=== PATIENT | female | born 1940 | race Caucasian/White ===

== ENCOUNTER 2019-02-19 19:05 | Inpatient (IN) | payer MEDICARE, SELFPAY ==
[2019-02-19 19:07] VITALS: BP 144/70; PULSE 89; RESP 14; TEMP 37; O2SAT 97; BMI 22.3
--- NOTE | 2019-02-19 19:37 | ED.VIS.GEN ---
History of Present Illness Informant: Patient Onset: Weeks - 2-weeks Context: Gradual Onset Timing: Continuous Quality: feels ill Location: entire body Current Severity: Severe Maximum Severity: Severe Worsened by: Nothing Relieved by: Nothing Associated Symptoms: constipation, urinary frequency Narrative: 78-year-old female history of hypertension presents emergency department with I feel pill for the last 2 weeks. She has seen her primary care physician twice over this time. Initially diagnosed with a UTI. She was started on Keflex. She states that she did not like the way that the Keflex made her feel after 2 days and exposure to Macrobid. Patient has not had improvement. She has been doing some constipation. She had one episode of vomiting last evening. She also has urinary frequency. No fevers. No abdominal pain or back pain. No hematuria. No dysuria. No chest pain or shortness of breath. No cough. No rash. Prior similar symptoms: No Recent Illness/Hospitalization: No <Orlando Saldana - Last Filed: 02/19/19 19:37> <Margie Grady - Last Filed: 02/19/19 22:23> Chief Complaint: General Illness Past Medical History Prior records reviewed: Yes Past Medical History: - - Hypertension and GERD Surgical History: - - Carpal tunnel surgery Lives: With Family <Orlando Saldana - Last Filed: 02/19/19 19:37> <Margie Grady - Last Filed: 02/19/19 22:23> - Allergies and Home Meds Allergies/Adverse Reactions: Allergies Penicillins [PCN] Adverse Reaction (Verified 02/19/19 19:07) Unknown Sulfa (Sulfonamide Antibiotics) Adverse Reaction (Verified 02/19/19 19:07) Unknown Primary Care Physician: Luis Manuel Arguello MD [Primary Care Provider] - Review of Systems All systems negative except as indicated General: Reports: Malaise. Denies: Chills, Fever Cardiovascular: Denies: Chest pain Respiratory: Denies: Dyspnea Gastrointestinal: Reports: Nausea, Vomiting, Constipation. Denies: Abdominal pain, Diarrhea, Melena, Hematochezia Genitourinary: Reports: Frequency. Denies: Dysuria, Hematuria Musculoskeletal: Denies: Myalgias, Arthralgias, Back pain Skin: Denies: Rash, Abscess, Abrasions, Wounds Neurological: Denies: Headache, Weakness, Parasthesia, Numbness <Orlando Saldana - Last Filed: 02/19/19 19:37> Physical Exam Vital Signs/Narrative: Vital Signs Temp Pulse Resp BP Pulse Ox 02/19/19 19:07 98.6 F 89 14 144/70 H 97 Inital Vital Signs reviewed: Yes General: Well nourished, Well developed, No Acute Distress Head: Normocephalic, Atraumatic Eyes: EOMI ENT: Moist mucous membranes Neck: Supple, Nontender, No lymphadenopathy, No JVD Cardiovascular: Regular rate, Regular rhythm Respiratory: No distress, CTA bilaterally, Chest nontender Abdomen: Soft, Nontender, Nondistended, Normal bowel sounds, No masses Back: Nontender, Normal Inspection. Negative for: CVA tenderness Extremities: Nontender, No edema Skin: Normal color, No rash Neurological: Alert, Oriented x3 Psychological: Normal affect <Orlando Saldana - Last Filed: 02/19/19 19:37> Vital Signs/Narrative: Vital Signs Temp Pulse Resp BP Pulse Ox 02/19/19 21:47 94 15 123/59 H 02/19/19 19:07 98.6 F 89 14 144/70 H 97 <Margie Grady - Last Filed: 02/19/19 22:23> Diagnostic/Tx/Re-eval Impressions Gallbladder Ultrasound 02/19/19 20:20 IMPRESSION: Contracted gallbladder with multiple shadowing stones. Borderline gallbladder wall thickening at 3 mm. Human Resources Benefits Administrator notes a negative Abebe's sign, and no pericholecystic fluid noted. Fatty liver, no discrete lesion Sonographically normal right kidney. Nonspecific focal dilatation of the lower thoracic aorta measuring 3.6 x 3.3 cm Electronically Signed: Sanchez Beatty MD at 22:02 EST , Service support , 02/19/19 20:20 Gallbladder [US] Stat Laboratory Results 02/19/19 02/19/19 02/19/19 19:45 19:50 19:50 WBC 11.0 RBC 4.70 Hgb 12.9 Hct 38.1 MCV 81.1 MCH 27.4 MCHC 33.9 RDW Std Deviation 39.4 RDW Coeff of Castillo 13.4 Plt Count 320 MPV 8.7 Immature Gran % (Auto) 0.400 Neut % (Auto) 73.9 H Lymph % (Auto) 8.9 L Gregg % (Auto) 15.4 H Eos % (Auto) 1.1 Baso % (Auto) 0.3 Absolute Neuts (auto) 8.1 H Absolute Lymphs (auto) 0.98 Nucleated RBC % 0 Differential Comment SCANNED Platelet Estimate ADEQUATE RBC Morphology NORM C+C Sodium 133 L Potassium 3.4 L Chloride 100 Carbon Dioxide 27.0 Anion Gap 6 BUN 15 Creatinine 0.97 Estim Creat Clear Calc 41.94 Est GFR (MDRD) Af Amer 72 Est GFR (MDRD) Non-Af 59 L BUN/Creatinine Ratio 15.5 Glucose 112 H Calcium 9.4 Total Bilirubin 3.60 H AST 375 H ALT 665 H Alkaline Phosphatase 252 H Total Protein 7.7 Albumin 3.8 Globulin 3.9 Albumin/Globulin Ratio 1.0 Lipase Urine Color Yellow Urine Clarity Clear Urine pH 6.5 Ur Specific [place] 1.005 Urine Protein 30 H Urine Glucose (UA) Normal Urine Ketones Negative Urine Occult Blood 10 H Urine Nitrite Negative Urine Bilirubin Negative Urine Urobilinogen Normal Ur Leukocyte Esterase Negative Urine RBC 0 SEEN Urine WBC 0 SEEN Ur Squamous Epith Cells 0-5 SEEN Urine Bacteria 0 SEEN Urine Mucus 0 SEEN 02/19/19 19:50 WBC RBC Hgb Hct MCV MCH MCHC RDW Std Deviation RDW Coeff of Castillo Plt Count MPV Immature Gran % (Auto) Neut % (Auto) Lymph % (Auto) Gregg % (Auto) Eos % (Auto) Baso % (Auto) Absolute Neuts (auto) Absolute Lymphs (auto) Nucleated RBC % Differential Comment Platelet Estimate RBC Morphology Sodium Potassium Chloride Carbon Dioxide Anion Gap BUN Creatinine Estim Creat Clear Calc Est GFR (MDRD) Af Amer Est GFR (MDRD) Non-Af BUN/Creatinine Ratio Glucose Calcium Total Bilirubin AST ALT Alkaline Phosphatase Total Protein Albumin Globulin Albumin/Globulin Ratio Lipase 1795 H Urine Color Urine Clarity Urine pH Ur Specific [place] Urine Protein Urine Glucose (UA) Urine Ketones Urine Occult Blood Urine Nitrite Urine Bilirubin Urine Urobilinogen Ur Leukocyte Esterase Urine RBC Urine WBC Ur Squamous Epith Cells Urine Bacteria Urine Mucus - Medical Decision Making Attending note: Patient seen and evaluated with physician's financial planning assistant. Patient presents with several week history of poor appetite and p.o. intake. She states she gets hungry but food does not taste normal to her and she is unable to eat. She has been able to drink water. She initially denies pain, but on later questioning states that she has had some returning upper abdominal pain. She has had this pain in the past. Head and neck examination is unremarkable. Heart is regular rate and rhythm. Lung sounds are clear. Abdomen is soft with minimal tenderness over the upper abdomen. No guarding or rebound. Test results are discussed with patient. Her liver function tests are elevated. Hepatitis panel has been sent. Lipase is elevated at 1700. I advised the patient at this point I would prefer she not eat or drink anything and attempts to improve her pancreatitis. Ultrasound was obtained and does not show any acute abnormalities in the pancreas. Common bile duct is normal. There may be some stones in the gallbladder with shadowing, but wall is only mildly thickened and there is no pericholecystic fluid. I will speak with hospitalist regarding admission for monitoring of labs. <Margie Grady - Last Filed: 02/19/19 22:23> ED Disposition <Orlando Saldana - Last Filed: 02/19/19 19:37> <Margie Grady - Last Filed: 02/19/19 22:23> - Plan for ED Patient: Disposition: Acute Care Hospital [facility] Diagnosis: Pancreatitis, Elevated liver enzymes Referrals: Luis Manuel Arguello MD [Primary Care Provider] -
[2019-02-19] MEDS: Ondansetron 4 MG/2 ML Vial IV (19:51)
[2019-02-19] MEDS: 0.9% Normal Saline 1,000 ML 1000 ML IV (19:52)
[2019-02-19 19:55] LABS: Bacteria 0 SEEN /hpf (None Seen); Mucous, Urine 0 SEEN /hpf (<or=2+); Red Blood Cells-Urine 0 SEEN /hpf (0-5); White Blood Cells 0 SEEN /hpf (0-5)
[2019-02-19 19:58] LABS: Absolute Lymphocyte Count 0.98 X10^3/uL (0.83-4.51); Absolute Neutrophil Count 8.1 X10^3/uL (2.0-7.7); Basophil# 0.03 X10^3/uL; Basophil% 0.3 % (0-1); Eosinophil# 0.12 X10^3/uL; Eosinophils% 1.1 % (0-5); Hematocrit 38.1 % (37-47); Hemoglobin 12.9 g/dL (12.0-15.0); Lymphocyte # 0.98 X10^3/ul (4.0); Lymphocyte % 8.9 % (19-41); Mean Corp Hgb Conc 33.9 g/dL (32-36); Mean Corpuscular Hgb 27.4 pg (27.0-32.0); Mean Corpuscular Volume 81.1 fL (81-99); Mean Platelet Vol. 8.7 fl (6.2-12.0); Monocyte# 1.69 X10^3/uL; Monocyte% 15.4 % (0-10); NRBC Flagged by Analyzer 0 % (0-5); Neutrophil # 8.12 X10^3/uL (2.7-7.7); Neutrophil % 73.9 % (47-70); POSITIVE DIFFERENTIAL YES; Platelet Count 320 K/mm3 (150-450); RBC Distribution Width CV 13.4 % (11.6-14.6); RBC Distribution Width SD 39.4 fl (35.1-43.9)
[2019-02-19 20:02] LABS: Differential Indicated SCAN CRITERIA MET
[2019-02-19 20:09] LABS: Color, Urine Yellow (Yellow); Glucose, Dipstick Normal (Normal); Ketone-Dipstick Negative (Negative); Leukocyte Esterase-Dipstick Negative /ul (Negative); Nitrite-Dipstick Negative (Negative); Occult Blood-Urine 10 /ul (Negative); Protein-Dipstick 30 mg/dl (Negative); Specific Gravity, Urine 1.005 (1.002-1.030); Urine Bilirubin Dipstick Negative (Negative); Urine Clarity Clear (Clear); Urine Urobilinogen Normal (Normal); Urine pH 6.5 (5.0 - 8.0)
[2019-02-19 20:14] LABS: AST(SGOT) 375 U/L (15-37); Alanine Aminotransfer ALT/SGPT 665 U/L (13-56); Albumin, Serum 3.8 g/dL (3.2-5.0); Alkaline Phosphatase 252 U/L (45-117); Anion Gap 6 (5-15); BUN 15 mg/dL (7-18); BUN/Creat Ratio 15.5 RATIO (10-20); Calcium,Total 9.4 mg/dL (8.5-10.1); Chloride 100 mmol/L (98-107); Creatinine, Serum 0.97 mg/dL (0.55-1.02); EST Glomerular Filtration Rate 59 mL/min (>60); Est Glom Filt Rate - Afr Amer 72 mL/min (>60); Estimated Creatinine Clearance 41.94 ml/min; Globulin 3.9 g/dL (2.2-4.2); Glucose 112 mg/dL (74-106); Potassium 3.4 mmol/L (3.5-5.1); Protein, Total 7.7 g/dL (6.4-8.2); Sodium Level 133 mmol/L (136-145)
[2019-02-19 20:15] LABS: Squamous Epithelial Cells - UA 0-5 SEEN /hpf (5-10)
--- NOTE | 2019-02-19 20:20 | US_ITS ---
STUDY: ABDOMINAL ULTRASOUND - RIGHT UPPER QUADRANT REASON FOR VISIT: Female, 78 years old elevated LFTs TECHNIQUE: Ultrasound evaluation of the right upper quadrant was performed with real-time and static pierce-scale imaging. TECHNICAL QUALITY: Adequate. COMPARISON: None. FINDINGS: Liver: The liver measures 16.0 cm. There is increased echogenicity consistent with fatty infiltration. The bile ducts are within normal limits. There is hepatic color flow. The direction of portal flow is hepatopetal. There is no demonstrated mass lesion. Gallbladder: There is a contracted gallbladder. The gallbladder wall measures 3 mm. There is a negative sonographic Abebe's sign. There is no pericholecystic fluid. There are multiple echogenic structures within the gallbladder, consistent with multiple gallstones. Common Bile Duct (C.B.D.): The common bile duct measures 9 mm. Pancreas: Normal size of the head, body and tail of the pancreas. There is normal echogenicity of the pancreas. There is no demonstrated pancreatic mass or cyst. Right Kidney: Normal size of the right kidney. The right kidney measures 11.2 x 4.1 x 4.5 cm. Normal renal cortex. The right cortex measures cm. There is no demonstrated renal mass or cyst. There is no right hydronephrosis. US/Gallbladder IMPRESSION: Contracted gallbladder with multiple shadowing stones. Borderline gallbladder wall thickening at 3 mm. Sales Service Manager notes a negative Abebe's sign, and no pericholecystic fluid noted. Fatty liver, no discrete lesion Sonographically normal right kidney. Nonspecific focal dilatation of the lower thoracic aorta measuring 3.6 x 3.3 cm Electronically Signed: Sanchez Beatty MD at 22:02 EST , Service support ,
[2019-02-19 20:27] LABS: Differential Comment SCANNED; Platelet Estimate ADEQUATE (ADEQ); Red Cell Morphology NORM C+C NORMAL (NORM C&C)
[2019-02-19 20:37] LABS: Lipase 1795 U/L (73-393)
[2019-02-19 21:47] VITALS: BP 123/59; PULSE 94; RESP 15
--- NOTE | 2019-02-19 22:32 | PCM.HP.STD ---
Problem List (1) Pancreatitis Status: Acute (2) Elevated liver enzymes Status: Acute History of Present Illness Date of Admission: 02/19/19 Chief Complaint: Dysgeusia The patient is a 78 year old F with a significant history of hypertension and partial hysterectomy who presented to emergency department with dysgeusia x2 to 4 weeks. Patient is unable to eat since she has a poor taste. Her poor taste is continuous although at times it fades away; but it never goes away. Further, she reports dysosmia. She has an episodic sweet smell of food. More so, she complains of severe episodic nonradiating aching/dull kimber-umbilical pain. She has had some nausea and one-time episode of vomiting. She reported that previously omeprazole use to help with her periumbilical pain but now omeprazole seems not to be helping with her pain. She took Mylanta a day before presentation after which she vomited. She reported that although she was previously constipated she had a loose large bowel movement on the day before presentation. Although previously she stated that she took the Mylanta because her bowels was not moving later on she stated that she does not remember the real reason why she took the Mylanta. Patient is being treated with antibiotics for UTI and she has 2 more doses of antibiotics left. At the emergency department she had elevated liver enzymes; elevated lipase and ultrasonographic findings of a contracted gallbladder with shadowing of stones. Past Medical History Medical History: Medical History (Last Updated 02/19/19 @ 23:32 by Jeffrey Costello MD) Hypertension I10 Allergies Penicillins [PCN] Adverse Reaction (Verified 02/19/19 19:07) Unknown Sulfa (Sulfonamide Antibiotics) Adverse Reaction (Verified 02/19/19 19:07) Unknown Home Medications: Ambulatory Orders Medication Instructions Recorded Amlodipine Besylate 10 mg PO DAILY 02/19/19 Enalapril Maleate 20 mg PO DAILY 02/19/19 Metoprolol Tartrate [Lopressor 50 mg PO BID 02/19/19 (beta judith)] Nitrofurantoin Macrocrystals 100 mg PO BID 02/19/19 [Macrobid] Omeprazole 20 mg PO DAILY 02/19/19 Surgical History: hysterectomy - Partial, - - Carpal tunnel surgery Lives: With Family Smoking Status: Former smoker Alcohol: None Drugs: Marijuana - *Family History Maternal History Items: Cancer Paternal History Items: Heart Disease Review of Systems Constitutional: Reports: Anorexia, Malaise. Denies: Chills, Fever, Weight Change HEENT: Denies: Head Aches, Sinus Congestion, Sinus Drainage Cardiovascular: Denies: Chest Pain, Palpitations Respiratory: Denies: Cough, Shortness of breath at rest, Sputum production Gastrointestinal: Reports: Abdominal Pain, Nausea, Vomiting Genitourinary: Denies: Dysuria Musculoskeletal: Denies: Joint Pain, Joint Tenderness Skin: Denies: Rash, Wounds Neurological: Denies: Numbness, Tingling, Focal weakness Psychiatric: Denies: Anxiety, Depression, Homicidal Ideations, Suicidal Ideations Hematologic/ Lymphatic: Denies: Easy Bruising, Easy Bleeding VTE Information - Inpt Only VTE Present on Admission: No VTE Mechan Device Prophylaxis: None VTE Pharm Prophylaxis ordered?: Yes Patient Problems: Active and Suspected Problems (Last Updated 02/19/19 @ 23:32 by Jeffrey Costello MD) Pancreatitis (Acute) Elevated liver enzymes (Acute) - Physical Exam Vitals/I&O's: Vital Signs Temp Pulse Resp BP Pulse Ox 98.6 F 94 15 123/59 H 97 02/19/19 19:07 02/19/19 21:47 02/19/19 21:47 02/19/19 21:47 02/19/19 19:07 Oxygen Delivery Method Room Air Weight: 59 kg Body Mass Index (BMI) 22.3 Intake and Output for Last 24 Hours 02/17/19 02/18/19 02/19/19 23:59 23:59 22:59 Intake Total 1000 / 1000 Balance 1000 / 1000 General: Alert, Oriented x3, Cooperative HEENT: Atraumatic, PERRLA, EOMI, Normocephalic Neck: Supple, No JVD, Negative Carotid Bruits Lungs: Clear to auscultation, Normal air movement Cardiovascular: Regular rate, No murmurs Abdomen: Bowel Sounds Present, Soft, Non Tender Extremities: No edema, Capillary Refill Less than 3 Seconds Skin: No rashes, No breakdown Musculoskeletal: No Tenderness to Palpation of Joints or Extremities Neurological: Cranial nerves II-XII grossly intact Psych/Mental Status: Normal Affect, Appropriate Laboratory Results 02/19/19 19:45: Urine Color Yellow, Urine Clarity Clear, Urine pH 6.5, Ur Specific [place] 1.005, Urine Protein 30 H, Urine Glucose (UA) Normal, Urine Ketones Negative, Urine Occult Blood 10 H, Urine Nitrite Negative, Urine Bilirubin Negative, Urine Urobilinogen Normal, Ur Leukocyte Esterase Negative, Urine RBC 0 SEEN, Urine WBC 0 SEEN, Ur Squamous Epith Cells 0-5 SEEN, Urine Bacteria 0 SEEN, Urine Mucus 0 SEEN 02/19/19 19:50: WBC 11.0, RBC 4.70, Hgb 12.9, Hct 38.1, MCV 81.1, MCH 27.4, MCHC 33.9, RDW Std Deviation 39.4, RDW Coeff of Castillo 13.4, Plt Count 320, MPV 8.7, Immature Gran % (Auto) 0.400, Neut % (Auto) 73.9 H, Lymph % (Auto) 8.9 L, [place] % (Auto) 15.4 H, Eos % (Auto) 1.1, Baso % (Auto) 0.3, Absolute Neuts (auto) 8.1 H, Absolute Lymphs (auto) 0.98, Nucleated RBC % 0, Differential Comment SCANNED, Platelet Estimate ADEQUATE, RBC Morphology NORM C+C 02/19/19 19:50: Sodium 133 L, Potassium 3.4 L, Chloride 100, Carbon Dioxide 27.0, Anion Gap 6, BUN 15, Creatinine 0.97, Estim Creat Clear Calc 41.94, Est GFR (MDRD) Af Amer 72, Est GFR (MDRD) Non-Af 59 L, BUN/Creatinine Ratio 15.5, Glucose 112 H, Calcium 9.4, Total Bilirubin 3.60 H, AST 375 H, ALT 665 H, Alkaline Phosphatase 252 H, Total Protein 7.7, Albumin 3.8, Globulin 3.9, Albumin/Globulin Ratio 1.0 02/19/19 19:50: Lipase 1795 H 02/19/19 20:30: Hepatitis A IgM Ab Pending, Hep Bs Antigen Pending, Hep B Core IgM Ab Pending, Hepatitis C Ab (EIA) Pending Assessment/Plan All Active Problems (Last Updated 02/19/19 @ 23:32 by Jeffrey Costello MD) Pancreatitis (Acute) Elevated liver enzymes (Acute) The patient is a 78 year old F with a significant history of hypertension and partial hysterectomy who presented to emergency department with dysgeusia; dysosmia; kimber-umbilical pain; nausea and vomiting and found to have elevated liver enzymes; elevated lipase and ultrasonographic findings of a contracted gallbladder with shadowing of stones consistent with pancreatitis likely secondary to gallstones. Acute pancreatitis Patient noted to have elevated lipase; kimber-umbilical pain; gallbladder findings of contracted gallbladder and stone shadowing; elevated liver enzymes. Likely secondary to gallstones. Received normal saline bolus at the emergency department. Judicious use of IV fluids because of patient age. Of note she denies history of heart failure. Will start patient on lactated Ringer's at 150 mL's per hour. We will get stat lipid levels. Shared decision to start patient on clear liquid diet. Zofran as needed. At the time of evaluation patient denies any abdominal pain. However will order morphine IV as needed. We will consult general surgery for evaluation for cholecystectomy. Elevated Liver enzymes Her liver enzymes were elevated at the emergency department. AST was 375 (normal 15-37); ALT was 665 (normal 13-56); alkaline phosphatase was 252 (normal 45-117); total bilirubin was 3.60 (normal 0.20-1.00) Review of labs from EMR ([employer]): Liver enzymes on 03/09/2018 at the [facility] was unremarkable. AST at that time was 22 (normal 13-35); ALT was 12 (normal 7-38); alkaline phosphatase was 80 (normal 34-123): Total bilirubin was 0.3 (normal 0.2-1.3) Trend CMP Acute hepatitis panel was ordered at the emergency department; follow. Check PT/INR Different diagnoses include viral hepatitis; gallbladder disease or others. Hypokalemia Potassium presentation was 3.4; mild 40 mEq of potassium p.o. ordered. Placed on lactated Ringer's. Trend CMP Hyponatremia Her sodium on admission was 133 Mild likely secondary to vomiting. Received normal saline bolus in the emergency department Placed on lactated Ringer's infusion. Trend CMP as above Neutrophilia and monocytosis Noted to have elevated neutrophil count and monocytes. Trend. Hypertension On presentation his blood pressure was stable in regard to her age Amlodipine; Enalapril and Lopressor continued Recent UTI Continue Macrobid for 2 more doses per home prescription. GERD Omeprazole continued Marijuana abuse Counseled DVT prophylaxis Lovenox ordered. Code Visit Inpatient E&M: 29479 Init Hosp L3
[2019-02-19 22:46] VITALS: PULSE 80; RESP 16
[2019-02-19 23:01] LABS: Cholesterol 176 mg/dL (200); High Density Lipoprotein 26 mg/dL; Triglycerides 143 mg/dL; Very Low Density Lipoprotein 29 mg/dL (5-40)
[2019-02-19 23:06] VITALS: BMI 22.6
[2019-02-19 23:25] VITALS: BP 129/68; PULSE 100; RESP 16; TEMP 36.8; O2SAT 92
[2019-02-19] MEDS: Lactated Ringers 1,000 ML 150 ML IV (23:39)
[2019-02-19] MEDS: 0.9% Saline Lock 10 ML Syringe IV (23:39)
[2019-02-20] VITALS (14 sets, daily range): BP systolic 109–152; BP diastolic 57–95; PULSE 87–123; RESP 12–20; TEMP 36.8–37.4; O2SAT 93–99; BMI 22.6
[2019-02-20] MEDS: Lactated Ringers 1,000 ML 150 ML IV ×3 (05:29→19:56)
[2019-02-20 05:42] LABS: Absolute Lymphocyte Count 0.54 X10^3/uL (0.83-4.51); Absolute Neutrophil Count 5.5 X10^3/uL (2.0-7.7); Basophil# 0.02 X10^3/uL; Basophil% 0.3 % (0-1); Eosinophil# 0.25 X10^3/uL; Eosinophils% 3.2 % (0-5); Hematocrit 32.7 % (37-47); Lymphocyte # 0.54 X10^3/ul (4.0); Mean Corp Hgb Conc 33.6 g/dL (32-36); Mean Corpuscular Hgb 27.6 pg (27.0-32.0); Mean Corpuscular Volume 82.2 fL (81-99); Monocyte# 1.42 X10^3/uL; Monocyte% 18.4 % (0-10); NRBC Flagged by Analyzer 0 % (0-5); Neutrophil # 5.45 X10^3/uL (2.7-7.7); Neutrophil % 70.7 % (47-70); POSITIVE DIFFERENTIAL YES; Platelet Count 295 K/mm3 (150-450); RBC Distribution Width CV 13.8 % (11.6-14.6); RBC Distribution Width SD 41.4 fl (35.1-43.9); Red Blood Count 3.98 M/mm3 (4.2-5.4); White Blood Count 7.7 K/mm3 (4.4-11.0)
[2019-02-20 05:46] LABS: Differential Indicated SCAN CRITERIA MET
[2019-02-20 05:54] LABS: International Normalized Ratio 1.1; Prothrombin Time (Protime)PT. 13.7 SECONDS (11.7-14.9)
[2019-02-20 06:10] LABS: ALB/GLOB Ratio 0.9 RATIO (0.9-2.4); AST(SGOT) 183 U/L (15-37); Alanine Aminotransfer ALT/SGPT 434 U/L (13-56); Albumin, Serum 2.9 g/dL (3.2-5.0); Alkaline Phosphatase 209 U/L (45-117); Anion Gap 8 (5-15); BUN 9 mg/dL (7-18); BUN/Creat Ratio 11.9 RATIO (10-20); Calcium,Total 8.5 mg/dL (8.5-10.1); Chloride 108 mmol/L (98-107); Creatinine, Serum 0.75 mg/dL (0.55-1.02); EST Glomerular Filtration Rate 79 mL/min (>60); Est Glom Filt Rate - Afr Amer 96 mL/min (>60); Estimated Creatinine Clearance 40.68 ml/min; Globulin 3.1 g/dL (2.2-4.2); Glucose 106 mg/dL (74-106); Potassium 3.6 mmol/L (3.5-5.1); Sodium Level 141 mmol/L (136-145)
[2019-02-20 06:25] LABS: Differential Comment SCANNED
--- NOTE | 2019-02-20 08:09 | PCM.CONS.GEN ---
Problem List (1) Pancreatitis Status: Acute (2) Elevated liver enzymes Status: Acute Reason for Consult Date of Consultation: 02/20/19 Reason for Consultation: Acute gallstone pancreatitis History of Present Illness: The patient is a 78 year old F who presents with 1 month history of decreased appetite, increased sense of smell, occasional night gomez. Her main concern is that she is not able to eat. She denies abdominal pain. She notes occasional back pain and nausea. She denies having these symptoms previously. She was relating this to the CBD gummies that she had tried. She takes occasional omeprazole. She denies previous myocardial infarction, stroke and blood clots. Past Medical History Medical History: Medical History (Last Updated 02/19/19 @ 23:32 by Jeffrey Costello MD) Hypertension I10 Allergies Penicillins [PCN] Adverse Reaction (Verified 02/19/19 19:07) Unknown Sulfa (Sulfonamide Antibiotics) Adverse Reaction (Verified 02/19/19 19:07) Unknown Home Medications: Ambulatory Orders Medication Instructions Recorded Amlodipine Besylate 10 mg PO DAILY 02/19/19 Enalapril Maleate 20 mg PO DAILY 02/19/19 Metoprolol Tartrate [Lopressor 50 mg PO BID 02/19/19 (beta judith)] Nitrofurantoin Macrocrystals 100 mg PO BID 02/19/19 [Macrobid] Omeprazole 20 mg PO DAILY 02/19/19 Surgical History: hysterectomy - Partial, - - Carpal tunnel surgery Psychiatric History: Anxiety Lives: With Family Smoking Status: Former smoker Alcohol: None Drugs: Marijuana - *Family History Maternal History Items: Cancer Paternal History Items: Heart Disease Review of Systems Constitutional: Reports: Anorexia. Denies: Weight Change HEENT: Denies: Head Aches, Sinus Congestion, Sinus Drainage Cardiovascular: Denies: Chest Pain, Palpitations Respiratory: Denies: Cough, Shortness of breath at rest, Sputum production Gastrointestinal: Reports: Nausea. Denies: Abdominal Pain, Hematemesis, Vomiting Genitourinary: Reports: Dysuria Musculoskeletal: Denies: Joint Pain, Joint Tenderness Skin: Denies: Rash, Wounds Neurological: Denies: Numbness, Tingling, Focal weakness Psychiatric: Denies: Anxiety, Depression, Homicidal Ideations, Suicidal Ideations Hematologic/ Lymphatic: Denies: Easy Bruising, Easy Bleeding Patient Problems: Active and Suspected Problems (Last Updated 02/19/19 @ 23:32 by Jeffrey Costello MD) Pancreatitis (Acute) Elevated liver enzymes (Acute) - Physical Exam Vitals/I&O's: Vital Signs Temp Pulse Resp BP Pulse Ox 98.3 F 97 16 129/67 H 96 02/20/19 05:30 02/20/19 05:30 02/20/19 05:30 02/20/19 05:30 02/20/19 05:30 Oxygen Delivery Method Room Air Weight: 131 lb 14.4 oz Body Mass Index (BMI) 22.6 Intake and Output for Last 24 Hours 02/19/19 02/19/19 02/20/19 00:59 23:59 23:59 Intake Total 975 / 975 Output Total 550 / 550 Balance 425 / 425 General: Alert, Oriented x3, Cooperative HEENT: Atraumatic, PERRLA, EOMI, Normocephalic Neck: Supple, No JVD, Negative Carotid Bruits Lungs: Clear to auscultation, Normal air movement Cardiovascular: Murmur, Tachycardic Abdomen: Bowel Sounds Present, Soft, Non Tender, - - nicely healed low pelvic incision Extremities: No edema, Capillary Refill Less than 3 Seconds Skin: No rashes, No breakdown Musculoskeletal: No Tenderness to Palpation of Joints or Extremities Neurological: Neuro grossly intact Psych/Mental Status: Normal Affect, Appropriate Laboratory Results 02/19/19 19:45: Urine Color Yellow, Urine Clarity Clear, Urine pH 6.5, Ur Specific [place] 1.005, Urine Protein 30 H, Urine Glucose (UA) Normal, Urine Ketones Negative, Urine Occult Blood 10 H, Urine Nitrite Negative, Urine Bilirubin Negative, Urine Urobilinogen Normal, Ur Leukocyte Esterase Negative, Urine RBC 0 SEEN, Urine WBC 0 SEEN, Ur Squamous Epith Cells 0-5 SEEN, Urine Bacteria 0 SEEN, Urine Mucus 0 SEEN 02/19/19 19:50: WBC 11.0, RBC 4.70, Hgb 12.9, Hct 38.1, MCV 81.1, MCH 27.4, MCHC 33.9, RDW Std Deviation 39.4, RDW Coeff of Castillo 13.4, Plt Count 320, MPV 8.7, Immature Gran % (Auto) 0.400, Neut % (Auto) 73.9 H, Lymph % (Auto) 8.9 L, [place] % (Auto) 15.4 H, Eos % (Auto) 1.1, Baso % (Auto) 0.3, Absolute Neuts (auto) 8.1 H, Absolute Lymphs (auto) 0.98, Nucleated RBC % 0, Differential Comment SCANNED, Platelet Estimate ADEQUATE, RBC Morphology NORM C+C 02/19/19 19:50: Sodium 133 L, Potassium 3.4 L, Chloride 100, Carbon Dioxide 27.0, Anion Gap 6, BUN 15, Creatinine 0.97, Estim Creat Clear Calc 41.94, Est GFR (MDRD) Af Amer 72, Est GFR (MDRD) Non-Af 59 L, BUN/Creatinine Ratio 15.5, Glucose 112 H, Calcium 9.4, Total Bilirubin 3.60 H, AST 375 H, ALT 665 H, Alkaline Phosphatase 252 H, Total Protein 7.7, Albumin 3.8, Globulin 3.9, Albumin/Globulin Ratio 1.0 02/19/19 19:50: Lipase 1795 H 02/19/19 19:50: Triglycerides 143, Cholesterol 176, LDL Cholesterol 121, VLDL Cholesterol 29, HDL Cholesterol 26 L 02/19/19 20:30: Hepatitis A IgM Ab Pending, Hep Bs Antigen Pending, Hep B Core IgM Ab Pending, Hepatitis C Ab (EIA) Pending 02/20/19 05:14: WBC 7.7, RBC 3.98 L, Hgb 11.0 L, Hct 32.7 L, MCV 82.2, MCH 27.6, MCHC 33.6, RDW Std Deviation 41.4, RDW Coeff of Castillo 13.8, Plt Count 295, MPV 9.0, Immature Gran % (Auto) 0.400, Neut % (Auto) 70.7 H, Lymph % (Auto) 7.0 L, [place] % (Auto) 18.4 H, Eos % (Auto) 3.2, Baso % (Auto) 0.3, Absolute Neuts (auto) 5.5, Absolute Lymphs (auto) 0.54 L, Nucleated RBC % 0, Differential Comment SCANNED 02/20/19 05:14: PT 13.7, INR 1.1 02/20/19 05:14: Sodium 141, Potassium 3.6, Chloride 108 H, Carbon Dioxide 25.0, Anion Gap 8, BUN 9, Creatinine 0.75, Estim Creat Clear Calc 40.68, Est GFR (MDRD) Af Amer 96, Est GFR (MDRD) Non-Af 79, BUN/Creatinine Ratio 11.9, Glucose 106, Calcium 8.5, Total Bilirubin 2.80 H, AST 183 H, ALT 434 H, Alkaline Phosphatase 209 H, Total Protein 6.0 L, Albumin 2.9 L, Globulin 3.1, Albumin/Globulin Ratio 0.9 Current Medications Acetaminophen (Tylenol) 650 mg PO Q6H PRN PRN PRN Reason: Pain Score 1-5/Temp > 100.7 F Amlodipine Besylate (Norvasc) 10 mg PO DAILY [facility] Dextrose (D50w Syringe) 0 gm IV X1 PRN; Protocol PRN Reason: Hypoglycemia Enoxaparin Sodium (Lovenox) 40 mg SC DAILY@1000 MICHAEL Glucagon () 1 mg IM .X1 PRN PRN Reason: Hypoglycemia Lactated Ringer's () 1,000 mls @ 150 mls/hr IV .Q6H40M [facility] Stop: 02/21/19 01:49 Last Admin: 02/20/19 05:29 Dose: 150 mls/hr Documented by: Sodium Chloride () 250 mls @ 15 mls/hr IV .[id number] PRN PRN Reason: Saline Flush Lisinopril (Zestril) 20 mg PO DAILY [facility] Metoprolol Tartrate (Lopressor (Beta Judith)) 50 mg PO BID [facility] Morphine Sulfate () 2 mg IV Q3H PRN PRN PRN Reason: Pain Score 6-10/10 Nitrofurantoin Macrocrystals (Macrobid) 100 mg PO BID [facility] Stop: 02/20/19 22:01 Nutritional Formula (Lactose Free) (Ensure Clear) 120 ml PO 4X/DAY [facility] Ondansetron HCl (Zofran) 4 mg IV Q8H PRN PRN PRN Reason: NAUSEA/VOMITING Pantoprazole Sodium (Protonix) 20 mg PO DAILY [facility] Sodium Chloride () 10 - 40 ml IV UD PRN PRN Reason: SALINE FLUSH Last Admin: 02/19/19 23:39 Dose: 10 ml Documented by: Assessment/Plan All Active Problems (Last Updated 02/19/19 @ 23:32 by Jeffrey Costello MD) Pancreatitis (Acute) Elevated liver enzymes (Acute) I have been consulted in conjunction with Dr. Plasencia Impression: Acute gallstone pancreatitis Plan: Dr. Plasencia has independently evaluated this patient in conjunction with myself. Dr. Plasencia will plan to perform a laparoscopic cholecystectomy with intraoperative cholangiogram. Procedure details, risks and benefits have been explained. Patient has had the opportunity to ask and have questions answered. We will place patient on NPO, plan for cholecystectomy later this afternoon. Will order EKG prior to surgery. Thank you for allowing us to participate in this patient's care.
--- NOTE | 2019-02-20 08:16 | EKGRS_ITS ---
Test Reason : PREOP Blood Pressure : / mmHG Vent. Rate : 104 BPM Atrial Rate : 104 BPM P-R Int : 150 ms QRS Dur : 102 ms QT Int : 342 ms P-R-T Axes : 080 -14 090 degrees QTc Int : 449 ms Sinus tachycardia with Premature supraventricular complexes and with occasional Premature ventricular complexes Abnormal ECG Confirmed by JENNY YANEZ, MARGUERITE ([id number]), editor in chief newspaper LENY SMILEY ([id number]) on 02/22/2019 11:25:10 AM Referred By: Jeffrey Costello Confirmed By:MARGUERITE ALVARADO MD
--- NOTE | 2019-02-20 11:46 | CASEMGMT ---
RN CM Assessment Introduced role of RN CM to patient and patient two dtrs at bedside. Patient agrees to this junior underwriter speaking in Dtrs presence.? Patient is alert, oriented and able?to participate in RN CM Assessment. ?Care providers, pharmacy, and demographics verified. Presentation: C/o dysgeusia the past 2-4 weeks. Has been to PCP x2 for this and initially Dz w/UTI and started on Keflex with 2 days left. C/o dysosmia, Episodic kimber-umbilical pain, N/Vx1, constipation, urinary frequency. Admit Dx: Acute Pancreatitis Re-Admit: No Barriers/Issues: None PCP: Luis Manuel Arguello Specialists: None [facility] Insurance: [facility] Rx Benefit:?Yes ?LNOK: Friend Dash Fuller LW/HPOA: None and declines offered information or services on this admission. Aware can return as an outpatient to complete with SW dept. Living Arrangements:? Lives with friend in a SS home, no steps to enter. ADL?s: Independent with ambulation and ADLs Transportation: Patient drives DME: None HHC: None SNF: None Goal: Home and does not think will have any needs. Denies any questions, concerns, or issues with DC planning at this time. Aware CM remains available for any emerging needs. DC PLAN: Home with no anticipated needs identified at this time. VALERIA Corbin
[2019-02-20] MEDS: Metoprolol Tartrate 50 MG Tablet PO ×2 (12:02→21:29)
--- NOTE | 2019-02-20 12:53 | PCM.PROGNOTE ---
<Jimmy Frederick - Last Filed: 02/20/19 12:53> Patient Problems: Active and Suspected Problems (Last Updated 02/19/19 @ 23:32 by Jeffrey Costello MD) Pancreatitis (Acute) Elevated liver enzymes (Acute) Subjective: Pt seen and examined prior to surgery. At that time, no abdominal pain at all. Some nausea. No vomiting today. No fever/chills. Agreeable to surgery. - Physical Exam Vitals/I&O's: Vital Signs Temp Pulse Resp BP Pulse Ox 98.5 F 118 H 12 152/78 H 93 02/20/19 12:06 02/20/19 12:06 02/20/19 12:06 02/20/19 12:06 02/20/19 12:06 Oxygen Delivery Method Room Air Weight: 131 lb 14.406 oz Body Mass Index (BMI) 22.6 Intake and Output for Last 24 Hours 02/19/19 02/19/19 02/20/19 00:59 23:59 23:59 Intake Total 1955 / 1955 Output Total 550 / 550 Balance 1405 / 1405 General: Alert, Oriented x3, Cooperative HEENT: Atraumatic, PERRLA, EOMI, Normocephalic Neck: Supple, No JVD, Negative Carotid Bruits Lungs: Clear to auscultation, Normal air movement Cardiovascular: Regular rate, No murmurs Abdomen: Bowel Sounds Present, Soft, Non Tender Extremities: No edema, Capillary Refill Less than 3 Seconds Skin: No rashes, No breakdown Musculoskeletal: No Tenderness to Palpation of Joints or Extremities Neurological: Cranial nerves II-XII grossly intact Psych/Mental Status: Normal Affect, Appropriate, Alert and oriented to time, place, person, mood and affect Laboratory Results 02/19/19 19:45: Urine Color Yellow, Urine Clarity Clear, Urine pH 6.5, Ur Specific [place] 1.005, Urine Protein 30 H, Urine Glucose (UA) Normal, Urine Ketones Negative, Urine Occult Blood 10 H, Urine Nitrite Negative, Urine Bilirubin Negative, Urine Urobilinogen Normal, Ur Leukocyte Esterase Negative, Urine RBC 0 SEEN, Urine WBC 0 SEEN, Ur Squamous Epith Cells 0-5 SEEN, Urine Bacteria 0 SEEN, Urine Mucus 0 SEEN 02/19/19 19:50: WBC 11.0, RBC 4.70, Hgb 12.9, Hct 38.1, MCV 81.1, MCH 27.4, MCHC 33.9, RDW Std Deviation 39.4, RDW Coeff of Castillo 13.4, Plt Count 320, MPV 8.7, Immature Gran % (Auto) 0.400, Neut % (Auto) 73.9 H, Lymph % (Auto) 8.9 L, [place] % (Auto) 15.4 H, Eos % (Auto) 1.1, Baso % (Auto) 0.3, Absolute Neuts (auto) 8.1 H, Absolute Lymphs (auto) 0.98, Nucleated RBC % 0, Differential Comment SCANNED, Platelet Estimate ADEQUATE, RBC Morphology NORM C+C 02/19/19 19:50: Sodium 133 L, Potassium 3.4 L, Chloride 100, Carbon Dioxide 27.0, Anion Gap 6, BUN 15, Creatinine 0.97, Estim Creat Clear Calc 41.94, Est GFR (MDRD) Af Amer 72, Est GFR (MDRD) Non-Af 59 L, BUN/Creatinine Ratio 15.5, Glucose 112 H, Calcium 9.4, Total Bilirubin 3.60 H, AST 375 H, ALT 665 H, Alkaline Phosphatase 252 H, Total Protein 7.7, Albumin 3.8, Globulin 3.9, Albumin/Globulin Ratio 1.0 02/19/19 19:50: Lipase 1795 H 02/19/19 19:50: Triglycerides 143, Cholesterol 176, LDL Cholesterol 121, VLDL Cholesterol 29, HDL Cholesterol 26 L 02/19/19 20:30: Hepatitis A IgM Ab Pending, Hep Bs Antigen Pending, Hep B Core IgM Ab Pending, Hepatitis C Ab (EIA) Pending 02/20/19 05:14: WBC 7.7, RBC 3.98 L, Hgb 11.0 L, Hct 32.7 L, MCV 82.2, MCH 27.6, MCHC 33.6, RDW Std Deviation 41.4, RDW Coeff of Castillo 13.8, Plt Count 295, MPV 9.0, Immature Gran % (Auto) 0.400, Neut % (Auto) 70.7 H, Lymph % (Auto) 7.0 L, [place] % (Auto) 18.4 H, Eos % (Auto) 3.2, Baso % (Auto) 0.3, Absolute Neuts (auto) 5.5, Absolute Lymphs (auto) 0.54 L, Nucleated RBC % 0, Differential Comment SCANNED 02/20/19 05:14: PT 13.7, INR 1.1 02/20/19 05:14: Sodium 141, Potassium 3.6, Chloride 108 H, Carbon Dioxide 25.0, Anion Gap 8, BUN 9, Creatinine 0.75, Estim Creat Clear Calc 40.68, Est GFR (MDRD) Af Amer 96, Est GFR (MDRD) Non-Af 79, BUN/Creatinine Ratio 11.9, Glucose 106, Calcium 8.5, Total Bilirubin 2.80 H, AST 183 H, ALT 434 H, Alkaline Phosphatase 209 H, Total Protein 6.0 L, Albumin 2.9 L, Globulin 3.1, Albumin/Globulin Ratio 0.9 Current Medications Acetaminophen (Tylenol) 650 mg PO Q6H PRN PRN PRN Reason: Pain Score 1-5/Temp > 100.7 F Amlodipine Besylate (Norvasc) 10 mg PO DAILY [facility] Last Admin: 02/20/19 11:44 Dose: Not Given Documented by: Dextrose (D50w Syringe) 0 gm IV X1 PRN; Protocol PRN Reason: Hypoglycemia Enoxaparin Sodium (Lovenox) 40 mg SC DAILY@1000 [facility] Last Admin: 02/20/19 11:44 Dose: Not Given Documented by: Glucagon () 1 mg IM .X1 PRN PRN Reason: Hypoglycemia Lactated Ringer's () 1,000 mls @ 150 mls/hr IV .Q6H40M [facility] Stop: 02/21/19 01:49 Last Admin: 02/20/19 12:01 Dose: 150 mls/hr Documented by: Sodium Chloride () 250 mls @ 15 mls/hr IV .[id number] PRN PRN Reason: Saline Flush Lisinopril (Zestril) 20 mg PO DAILY [facility] Last Admin: 02/20/19 11:45 Dose: Not Given Documented by: Metoprolol Tartrate (Lopressor (Beta Judith)) 50 mg PO BID [facility] Last Admin: 02/20/19 12:02 Dose: 50 mg Documented by: Morphine Sulfate () 2 mg IV Q3H PRN PRN PRN Reason: Pain Score 6-10/10 Nitrofurantoin Macrocrystals (Macrobid) 100 mg PO BID [facility] Stop: 02/20/19 22:01 Last Admin: 02/20/19 11:44 Dose: Not Given Documented by: Nutritional Formula (Lactose Free) (Ensure Clear) 120 ml PO 4X/DAY [facility] Last Admin: 02/20/19 11:44 Dose: Not Given Documented by: Ondansetron HCl (Zofran) 4 mg IV Q8H PRN PRN PRN Reason: NAUSEA/VOMITING Pantoprazole Sodium (Protonix) 20 mg PO DAILY [facility] Last Admin: 02/20/19 11:45 Dose: Not Given Documented by: Sodium Chloride () 10 - 40 ml IV UD PRN PRN Reason: SALINE FLUSH Last Admin: 02/19/19 23:39 Dose: 10 ml Documented by: Medical Necessity - Tobacco Use Smoking Status: Former smoker Assessment/Plan All Active Problems (Last Updated 02/19/19 @ 23:32 by Jeffrey Costello MD) Pancreatitis (Acute) Elevated liver enzymes (Acute) 1. Acute gallstone pancreatitis - going for cholecystectomy today. No pain currently. LFTs improved. Continue fluids. Hep panel pending. LFTs done, relatively normal. Lipase 1795 at presentation. GB US showing multiple stones. Afebrile. No leukocytosis. 2. Mild hyponatremia, hypokalemia - resolved. 3. HTN 4. GERD -ppi DVT ppx: lovenox DC planning: going to [place] today. will be here overnight. This patient was seen by Jimmy Frederick PA-C under the supervision of Doctor Dirk. <Jeremias Cavazos - Last Filed: 02/20/19 13:12> - Physical Exam Vitals/I&O's: Vital Signs Temp Pulse Resp BP Pulse Ox 98.5 F 118 H 12 152/78 H 93 02/20/19 12:06 02/20/19 12:06 02/20/19 12:06 02/20/19 12:06 02/20/19 12:06 Oxygen Delivery Method Room Air Weight: 131 lb 14.406 oz Body Mass Index (BMI) 22.6 Intake and Output for Last 24 Hours 02/19/19 02/19/19 02/20/19 00:59 23:59 23:59 Intake Total 1955 / 1955 Output Total 550 / 550 Balance 1405 / 1405 Laboratory Results 02/19/19 19:45: Urine Color Yellow, Urine Clarity Clear, Urine pH 6.5, Ur Specific [place] 1.005, Urine Protein 30 H, Urine Glucose (UA) Normal, Urine Ketones Negative, Urine Occult Blood 10 H, Urine Nitrite Negative, Urine Bilirubin Negative, Urine Urobilinogen Normal, Ur Leukocyte Esterase Negative, Urine RBC 0 SEEN, Urine WBC 0 SEEN, Ur Squamous Epith Cells 0-5 SEEN, Urine Bacteria 0 SEEN, Urine Mucus 0 SEEN 02/19/19 19:50: WBC 11.0, RBC 4.70, Hgb 12.9, Hct 38.1, MCV 81.1, MCH 27.4, MCHC 33.9, RDW Std Deviation 39.4, RDW Coeff of Castillo 13.4, Plt Count 320, MPV 8.7, Immature Gran % (Auto) 0.400, Neut % (Auto) 73.9 H, Lymph % (Auto) 8.9 L, [place] % (Auto) 15.4 H, Eos % (Auto) 1.1, Baso % (Auto) 0.3, Absolute Neuts (auto) 8.1 H, Absolute Lymphs (auto) 0.98, Nucleated RBC % 0, Differential Comment SCANNED, Platelet Estimate ADEQUATE, RBC Morphology NORM C+C 02/19/19 19:50: Sodium 133 L, Potassium 3.4 L, Chloride 100, Carbon Dioxide 27.0, Anion Gap 6, BUN 15, Creatinine 0.97, Estim Creat Clear Calc 41.94, Est GFR (MDRD) Af Amer 72, Est GFR (MDRD) Non-Af 59 L, BUN/Creatinine Ratio 15.5, Glucose 112 H, Calcium 9.4, Total Bilirubin 3.60 H, AST 375 H, ALT 665 H, Alkaline Phosphatase 252 H, Total Protein 7.7, Albumin 3.8, Globulin 3.9, Albumin/Globulin Ratio 1.0 02/19/19 19:50: Lipase 1795 H 02/19/19 19:50: Triglycerides 143, Cholesterol 176, LDL Cholesterol 121, VLDL Cholesterol 29, HDL Cholesterol 26 L 02/19/19 20:30: Hepatitis A IgM Ab Pending, Hep Bs Antigen Pending, Hep B Core IgM Ab Pending, Hepatitis C Ab (EIA) Pending 02/20/19 05:14: WBC 7.7, RBC 3.98 L, Hgb 11.0 L, Hct 32.7 L, MCV 82.2, MCH 27.6, MCHC 33.6, RDW Std Deviation 41.4, RDW Coeff of Castillo 13.8, Plt Count 295, MPV 9.0, Immature Gran % (Auto) 0.400, Neut % (Auto) 70.7 H, Lymph % (Auto) 7.0 L, [place] % (Auto) 18.4 H, Eos % (Auto) 3.2, Baso % (Auto) 0.3, Absolute Neuts (auto) 5.5, Absolute Lymphs (auto) 0.54 L, Nucleated RBC % 0, Differential Comment SCANNED 02/20/19 05:14: PT 13.7, INR 1.1 02/20/19 05:14: Sodium 141, Potassium 3.6, Chloride 108 H, Carbon Dioxide 25.0, Anion Gap 8, BUN 9, Creatinine 0.75, Estim Creat Clear Calc 40.68, Est GFR (MDRD) Af Amer 96, Est GFR (MDRD) Non-Af 79, BUN/Creatinine Ratio 11.9, Glucose 106, Calcium 8.5, Total Bilirubin 2.80 H, AST 183 H, ALT 434 H, Alkaline Phosphatase 209 H, Total Protein 6.0 L, Albumin 2.9 L, Globulin 3.1, Albumin/Globulin Ratio 0.9 Current Medications Acetaminophen (Tylenol) 650 mg PO Q6H PRN PRN PRN Reason: Pain Score 1-5/Temp > 100.7 F Amlodipine Besylate (Norvasc) 10 mg PO DAILY [facility] Last Admin: 02/20/19 11:44 Dose: Not Given Documented by: Dextrose (D50w Syringe) 0 gm IV X1 PRN; Protocol PRN Reason: Hypoglycemia Enoxaparin Sodium (Lovenox) 40 mg SC DAILY@1000 [facility] Last Admin: 02/20/19 11:44 Dose: Not Given Documented by: Glucagon () 1 mg IM .X1 PRN PRN Reason: Hypoglycemia Lactated Ringer's () 1,000 mls @ 150 mls/hr IV .Q6H40M [facility] Stop: 02/21/19 01:49 Last Admin: 02/20/19 12:01 Dose: 150 mls/hr Documented by: Sodium Chloride () 250 mls @ 15 mls/hr IV .[id number] PRN PRN Reason: Saline Flush Lisinopril (Zestril) 20 mg PO DAILY [facility] Last Admin: 02/20/19 11:45 Dose: Not Given Documented by: Metoprolol Tartrate (Lopressor (Beta Judith)) 50 mg PO BID [facility] Last Admin: 02/20/19 12:02 Dose: 50 mg Documented by: Morphine Sulfate () 2 mg IV Q3H PRN PRN PRN Reason: Pain Score 6-10/10 Nitrofurantoin Macrocrystals (Macrobid) 100 mg PO BID [facility] Stop: 02/20/19 22:01 Last Admin: 02/20/19 11:44 Dose: Not Given Documented by: Nutritional Formula (Lactose Free) (Ensure Clear) 120 ml PO 4X/DAY [facility] Last Admin: 02/20/19 11:44 Dose: Not Given Documented by: Ondansetron HCl (Zofran) 4 mg IV Q8H PRN PRN PRN Reason: NAUSEA/VOMITING Pantoprazole Sodium (Protonix) 20 mg PO DAILY [facility] Last Admin: 02/20/19 11:45 Dose: Not Given Documented by: Sodium Chloride () 10 - 40 ml IV UD PRN PRN Reason: SALINE FLUSH Last Admin: 02/19/19 23:39 Dose: 10 ml Documented by: Assessment/Plan Hospitalist note: I am seeing this patient in conjunction with Jimmy Frederick. I independently seen and examined the patient. Progress note above, laboratory data and imaging studies reviewed and I concur with the above treatment plan. Today, patient denies any more than the pain, she still having nausea. No vomiting. She denies fever chills. She was seen by general surgery and she is going for cholecystectomy. Her vital signs are stable. - Physical Exam General: Alert, Oriented x3, Cooperative, No apparent distress. HEENT: Atraumatic, PERRLA, EOMI. Neck: Supple, No JVD, Negative Carotid Bruits, Trachea Midline, Thyroid Normal. Lungs: Clear to auscultation, Normal air movement, No rhonchi, No wheeze, No rales. Cardiovascular: Regular rate, Regular Rhythm, Normal S1, Normal S2, PMI Normal, tachycardia. Abdomen: Bowel Sounds Present, Soft, Non Tender, Non-Distended, No Hepato-splenomegaly. Extremities: No clubbing, No cyanosis, No edema Skin: No rashes, No breakdown Neurological: Cranial nerves are intact, neuro grossly intact. Assessment and plan: #1 acute gallstone pancreatitis: Kept on n.p.o., IV fluids, IV morphine PRN and IV antiemetics. Symptoms improved. Ultrasound gallbladder reviewed. General surgery consulted and plan for cholecystectomy today. Recommend repeat CBC, CMP and lipase tomorrow morning. #2 elevated LFT: Probably due to gallstones and CBD stone probably. Bilirubin and liver transaminases as well as alkaline phosphatase are trending down. Plan as above. #3 mild hyponatremia/hypokalemia: Both potassium and sodium replaced and corrected. #4 other chronic medical problems: Stable, continue current medications as above. This note was generated with [employer] dictation software. It may contain incorrect words, spelling, and punctuation that were not noted in checking the note before signing. Code Visit Inpatient E&M: 01078 Subs Hosp L2
--- NOTE | 2019-02-20 13:58 | NURSING ---
pt to [place]. report called to alissa rodrigues in [place]
--- NOTE | 2019-02-20 15:25 | GALL_PTH ---
PATIENT: JAZMYNE GUZMAN LOC: MS3 U#:[id number] AGE/SX: 78/F ROOM: MS320 RE02/19/[address]: Dr. Mervin Culver MD : [id number] BED: 1 DIS: 02/23/2019 SPEC #: [id number] RECD: 02/21/19 07:41 STATUS: KIMI RENik #: [id number] CHAVEZ: 02/20/19 15:[address]: Orlando Plasencia DEPT: SURGICAL PATHOLOGY RECD BY: Keith Mujica ENTERED: 02/21/19 08:11 SP TYPE: GALLBLADDE SEAN DR: MD Dr. Luis Manuel Gallagher MD Dr. Prakash Chand, MD Tissues: Gallbladder, NOS Procedures: Surgery Specimen Level III HEADER OPERATION: Laparoscopic cholecystectomy with IOC PRE-OP DIAGNOSIS: Acute gallstone pancreatitis TISSUE SUBMITTED: Gallbladder MICROSCOPIC DIAGNOSIS Gallbladder, cholecystectomy: Acute and chronic cholecystitis and cholelithiasis. POP:trudy 02/22/19 MICROSCOPIC DESCRIPTION Slides are reviewed. GROSS DESCRIPTION Received is one container labeled with the patient's name and designated gallbladder. The specimen consists of a gallbladder measuring 9.5 cm in length and 3 cm in diameter. A portion of cystic duct is also present measuring up to 0.7 cm in length and up to 5 cm in diameter. The external surface is pink-shirley, smooth and glistening for the most part. Focally it is granular, hemorrhagic and contains cautery artifact. The gallbladder contains small amount of yellowish mucoid bile and distended with multiple yellowish stones and stone fragments and sludge material measuring in aggregate 3.5 x 3.5 x 2 cm and stones measuring 0.2 to 1.5 in greatest dimension. The mucosa is bile-stained and without any mass lesions. The gallbladder wall measures up to 0.4 cm in thickness. Marketing Underwriter sections from the gallbladder and the entire cystic duct portion are submitted in one cassette. / POP:trudy 02/21/19 TC:2 CPT: 74796
--- NOTE | 2019-02-20 17:40 | RAD_ITS ---
STUDY: INTRAOPERATIVE CHOLANGIOGRAM. REASON FOR EXAM: Female, 78 years old. Laparoscopic cholecystectomy. FLUOROSCOPY TIME (if supplied): ( 24.7 seconds ) minutes/seconds TECHNIQUE: And intraoperative cholangiogram was performed the surgeon. Imaging was submitted. COMPARISON: None. FINDINGS: There is dilatation of the common bile duct and central intrahepatic biliary ducts. 2 filling defects are seen in the distal portion of the common bile duct in keeping with choledocholithiasis. There is free flow of contrast into the duodenum. RAD/Cholangiogram/ O R,Initial IMPRESSION: Dilated common bile duct and central intrahepatic biliary ducts. 2 filling defects are seen in the distal portion of the common bile duct in keeping with choledocholithiasis. Electronically Signed: Javon Lassiter, at 9:19 EST , Service support ,
[2019-02-20] MEDS: Bupivacaine 0.25%-Epi/Pf 1:200,000 10 ML INFILT (18:00)
--- NOTE | 2019-02-20 18:20 | PCM.OPRPT ---
Problem List (1) Pancreatitis Status: Acute Qualifiers: Pancreatitis type: biliary Acute pancreatitis complication: no infection or necrosis (2) Elevated liver enzymes Status: Acute Report of Operation Date of Procedure: 02/20/19 Pre-Operative Diagnosis: Gallstone pancreatitis Post-Operative Diagnosis: 1. Gallstone pancreatitis. 2. Choledocholithiasis Surgery/Procedure Performed:: Laparoscopic cholecystectomy with cholangiogram Specimen's removed: Gallbladder and contents Description of Procedure: After obtaining informed consent patient was brought back to the operating room. General anesthesia was induced. The abdomen was prepped and draped in usual sterile fashion. A small midline incision was made superior to the umbilicus and deepened to the level of fascia. The fascia was elevated and incised. Next the peritoneum was elevated and incised in the same fashion. Finger sweep was performed and the Chong trocar was placed into the abdomen. The balloon was inflated. The abdomen was inflated to 15 mmHg. Next a camera was introduced into the abdomen and the abdomen was inspected. Next under direct visualization three 5-mm ports were placed one subxiphoid and 2 subcostal. Next the gallbladder was elevated and retracted toward the right shoulder. The peritoneum was stripped from the gallbladder. The infundibulum was located and retracted laterally. Next the triangle of Calot was dissected and the cystic duct and cystic artery were identified. Cholangiograms were performed. The Haines clamp was used to clamp across the infundibulum and the catheter needle was inserted into the gallbladder. Under fluoroscopy contrast was instilled into the gallbladder and the common duct, cystic duct as well as proximal hepatic ducts were identified. There was good filling of the duodenum. There were filling defects noted in the common bile duct. There were several small stones in the distal common bile duct with a dilated common bile duct and hepatic ducts. These were nonobstructive. The clamp was removed as well as the needle and the infundibulum was grasped once more. Three hemolock clips were placed across the cystic duct. The cystic duct was then divided leaving 2 clips on the stump. The cystic artery was clipped and divided in the same fashion. The hook cautery was then used to take the gallbladder off of the gallbladder bed. Hemostasis was obtained. Gallbladder fossa was irrigated and no active bleeding or bile leakage was noted. Next the camera switched to a 5 mm camera and introduced in the subxiphoid port. An Endopouch bag was placed through the umbilical port and the gallbladder was placed into it. The gallbladder was then removed through the umbilical incision. The camera was then reinserted through the umbilical port. The gallbladder fossa was inspected once more and noted to be hemostatic with no leaking bile. The abdomen was suctioned dry. The 5 mm ports were removed under direct visualization. The umbilical port was then removed and the air was removed from the abdomen. Next using an 0 Vicryl suture the umbilical fascia was closed in a [id number] fashion. The umbilical port site was irrigated local anesthetic was administered to all the incisions. All the incisions were closed with interrupted subcuticular 4-0 Monocryl sutures followed by Steri-Strips and dressings. The patient was awoken and taken to PACU in stable condition. Patient will need ERCP tomorrow. - Admit VTE Documentation VTE Mechan Device Prophylaxis: SCD's
--- NOTE | 2019-02-20 18:22 | PN_ITS ---
Progress Note The patient had several small filling defects in the distal common bile duct as well as a dilated common bile duct and hepatic ducts. Patient will need ERCP tomorrow. I discussed this with the patient's daughter. I will let the patient have clear liquids tonight and n.p.o. after midnight. Orlando Plasencia MD Pager: [facility] [address] [place] [address], [address] [place] [address] Office:
--- NOTE | 2019-02-20 18:22 | PCM.PN.BLA ---
Progress Note The patient had several small filling defects in the distal common bile duct as well as a dilated common bile duct and hepatic ducts. Patient will need ERCP tomorrow. I discussed this with the patient's daughter. I will let the patient have clear liquids tonight and n.p.o. after midnight. Orlando Plasencia MD Pager: [facility] [address] [place] [address], [address] [place] [address] Office:
--- NOTE | 2019-02-20 18:36 | EKG12_ITS ---
Test Reason : POST-OP Blood Pressure : / mmHG Vent. Rate : 115 BPM Atrial Rate : 115 BPM P-R Int : 152 ms QRS Dur : 104 ms QT Int : 348 ms P-R-T Axes : 080 -23 104 degrees QTc Int : 481 ms Sinus tachycardia with Premature supraventricular complexes Septal infarct , age undetermined Abnormal ECG When compared with ECG of 20-FEB-2019 09:52, MANUAL COMPARISON REQUIRED, DATA IS UNCONFIRMED Confirmed by GAYATRI YANEZ, STEVE ([id number]), editor map DANILO GUTIÉRREZ ([id number]) on 02/28/2019 3:11:18 PM Referred By: Jeffrey Costello Confirmed By:STEVE MENDIETA MD
[2019-02-20] MEDS: Nitrofurantoin Macrocrystals 100 MG Capsule PO (21:29)
[2019-02-20] MEDS: Ensure Clear 120 ML Liquid PO (21:30)
[2019-02-21] VITALS (14 sets, daily range): BP systolic 111–146; BP diastolic 60–81; PULSE 90–109; RESP 16–18; TEMP 36.7–37.3; O2SAT 83–98; BMI 26.2
[2019-02-21] MEDS: Morphine 2 MG/ML Syringe IV ×3 (04:18→19:57)
[2019-02-21 05:06] LABS: HEPATITIS B SURFACE AG Negative (Negative); Hepatitis A IgM Antibody Negative (Negative); Hepatitis B Core AB IgM Negative (Negative)
[2019-02-21 05:28] LABS: Absolute Lymphocyte Count 0.59 X10^3/uL (0.83-4.51); Absolute Neutrophil Count 6.9 X10^3/uL (2.0-7.7); Basophil# 0.02 X10^3/uL; Basophil% 0.2 % (0-1); Eosinophil# 0.05 X10^3/uL; Eosinophils% 0.6 % (0-5); Hematocrit 33.8 % (37-47); Lymphocyte # 0.59 X10^3/ul (4.0); Lymphocyte % 6.6 % (19-41); Mean Corp Hgb Conc 32.5 g/dL (32-36); Mean Corpuscular Hgb 27.3 pg (27.0-32.0); Mean Corpuscular Volume 83.9 fL (81-99); Mean Platelet Vol. 8.9 fl (6.2-12.0); Monocyte# 1.37 X10^3/uL; Monocyte% 15.4 % (0-10); NRBC Flagged by Analyzer 0 % (0-5); Neutrophil # 6.85 X10^3/uL (2.7-7.7); Neutrophil % 76.8 % (47-70); POSITIVE DIFFERENTIAL YES; Platelet Count 293 K/mm3 (150-450); RBC Distribution Width SD 43.3 fl (35.1-43.9); Red Blood Count 4.03 M/mm3 (4.2-5.4); White Blood Count 8.9 K/mm3 (4.4-11.0)
[2019-02-21 05:53] LABS: ALB/GLOB Ratio 0.8 RATIO (0.9-2.4); AST(SGOT) 67 U/L (15-37); Alanine Aminotransfer ALT/SGPT 294 U/L (13-56); Albumin, Serum 2.8 g/dL (3.2-5.0); Alkaline Phosphatase 210 U/L (45-117); Anion Gap 7 (5-15); BUN 10 mg/dL (7-18); BUN/Creat Ratio 13.8 RATIO (10-20); Calcium,Total 8.2 mg/dL (8.5-10.1); Chloride 103 mmol/L (98-107); Creatinine, Serum 0.73 mg/dL (0.55-1.02); EST Glomerular Filtration Rate 83 mL/min (>60); Est Glom Filt Rate - Afr Amer 100 mL/min (>60); Estimated Creatinine Clearance 40.68 ml/min; Globulin 3.3 g/dL (2.2-4.2); Glucose 94 mg/dL (74-106); Lipase 190 U/L (73-393); Potassium 3.5 mmol/L (3.5-5.1); Protein, Total 6.1 g/dL (6.4-8.2); Sodium Level 139 mmol/L (136-145)
[2019-02-21 06:05] LABS: Differential Indicated SCAN CRITERIA MET
[2019-02-21] MEDS: Lactated Ringers 1,000 ML 75 ML IV ×2 (07:30→17:13)
--- NOTE | 2019-02-21 07:52 | PCM.PN.SRG ---
Patient Problems: Active and Suspected Problems (Last Updated 02/19/19 @ 23:32 by Jeffrey Costello MD) Pancreatitis (Acute) Elevated liver enzymes (Acute) Subjective: Patient reports she is doing well today. No nausea or vomiting. - Physical Exam Vitals/I&O's: Vital Signs Temp Pulse Resp BP Pulse Ox 99.0 F 98 16 143/81 H 93 02/21/19 05:30 02/21/19 05:30 02/21/19 05:30 02/21/19 05:30 02/21/19 07:38 Oxygen Flow Rate (L/min) 2 Oxygen Delivery Method Nasal Cannula Weight: 138 lb 14.259 oz Body Mass Index (BMI) 22.6 Intake and Output for Last 24 Hours 02/19/19 02/20/19 02/21/19 23:59 23:59 23:59 Intake Total 3061 / 3301 1240 / 1240 Output Total 1950 / 1950 200 / 200 Balance 1111 / 1351 1040 / 1040 General: Alert, Oriented x3 Lungs: Normal air movement Cardiovascular: Regular rate, Regular Rhythm Abdomen: Soft, Non-Distended, Tender - Mildly tender in the right upper quadrant. Musculoskeletal: No Muscle Wasting Neurological: Cranial nerves II-XII grossly intact Psych/Mental Status: Normal Affect, Appropriate Laboratory Results 02/21/19 05:05: WBC 8.9, RBC 4.03 L, Hgb 11.0 L, Hct 33.8 L, MCV 83.9, MCH 27.3, MCHC 32.5, RDW Std Deviation 43.3, RDW Coeff of Castillo 14.0, Plt Count 293, MPV 8.9, Immature Gran % (Auto) 0.400, Neut % (Auto) 76.8 H, Lymph % (Auto) 6.6 L, Archuleta % (Auto) 15.4 H, Eos % (Auto) 0.6, Baso % (Auto) 0.2, Absolute Neuts (auto) 6.9, Absolute Lymphs (auto) 0.59 L, Nucleated RBC % 0 02/21/19 05:05: Sodium 139, Potassium 3.5, Chloride 103, Carbon Dioxide 29.0, Anion Gap 7, BUN 10, Creatinine 0.73, Estim Creat Clear Calc 40.68, Est GFR (MDRD) Af Amer 100, Est GFR (MDRD) Non-Af 83, BUN/Creatinine Ratio 13.8, Glucose 94, Calcium 8.2 L, Total Bilirubin 1.10 H, AST 67 H, ALT 294 H, Alkaline Phosphatase 210 H, Total Protein 6.1 L, Albumin 2.8 L, Globulin 3.3, Albumin/Globulin Ratio 0.8 L, Lipase 190 Current Medications Acetaminophen (Tylenol) 650 mg PO Q6H PRN PRN PRN Reason: Pain Score 1-5/Temp > 100.7 F Amlodipine Besylate (Norvasc) 10 mg PO DAILY [facility] Last Admin: 02/20/19 11:44 Dose: Not Given Documented by: Dextrose (D50w Syringe) 0 gm IV X1 PRN; Protocol PRN Reason: Hypoglycemia Enoxaparin Sodium (Lovenox) 40 mg SC DAILY@1000 [facility] Last Admin: 02/21/19 07:42 Dose: Not Given Documented by: Glucagon () 1 mg IM .X1 PRN PRN Reason: Hypoglycemia Sodium Chloride () 250 mls @ 15 mls/hr IV .[id number] PRN PRN Reason: Saline Flush Lactated Ringer's () 1,000 mls @ 75 mls/hr IV .[id number] [facility] Lisinopril (Zestril) 20 mg PO DAILY [facility] Last Admin: 02/20/19 11:45 Dose: Not Given Documented by: Metoprolol Tartrate (Lopressor (Beta Judith)) 50 mg PO BID [facility] Last Admin: 02/20/19 21:29 Dose: 50 mg Documented by: Morphine Sulfate () 2 - 4 mg IV Q2H PRN PRN PRN Reason: Pain Score 6-10/10 Last Admin: 02/21/19 04:18 Dose: 2 mg Documented by: Morphine Sulfate () 2 - 4 mg IV Q2H PRN PRN PRN Reason: Pain Score 6-10/10 Nutritional Formula (Lactose Free) (Ensure Clear) 120 ml PO 4X/DAY [facility] Last Admin: 02/20/19 21:30 Dose: 120 ml Documented by: Ondansetron HCl (Zofran) 4 mg IV Q8H PRN PRN PRN Reason: NAUSEA/VOMITING Pantoprazole Sodium (Protonix) 20 mg PO DAILY [facility] Last Admin: 02/20/19 11:45 Dose: Not Given Documented by: Sodium Chloride () 10 - 40 ml IV UD PRN PRN Reason: SALINE FLUSH Last Admin: 02/19/19 23:39 Dose: 10 ml Documented by: Medical Necessity - Tobacco Use Smoking Status: Former smoker Assessment/Plan All Active Problems (Last Updated 02/19/19 @ 23:32 by Jeffrey Costello MD) Pancreatitis (Acute) Elevated liver enzymes (Acute) 78-year-old female with choledocholithiasis 1. Patient had lap scopic cholecystectomy yesterday for gallstone pink otitis. On cholangiogram it was noted that she had several filling defects in the distal common bile duct as well as dilated common bile duct. I recommend patient have ERCP today to clear the duct of stones. 2. I discussed ERCP with the patient in detail. I discussed the risks of bleeding, infection, perforation of bile duct or bowel, pancreatitis. I also discussed the possibility of pancreatic or biliary stent. The patient understands the risks and is willing to proceed today with ERCP. Orlando Plasencia MD Pager: [facility] [address] [place] [address] [address] [place] [address] Office:
[2019-02-21] MEDS: Metoprolol Tartrate 50 MG Tablet PO ×2 (08:13→22:13)
[2019-02-21] MEDS: Pantoprazole Sodium 20 MG Tablet PO (08:14)
[2019-02-21 08:18] LABS: Hep C Antibodies 0.1 s/co ratio (0.0-0.9)
[2019-02-21] MEDS: Ondansetron 4 MG/2 ML Vial IV (08:25)
--- NOTE | 2019-02-21 12:17 | PN_ITS ---
<Jimmy Frederick - Last Filed: 02/21/19 12:17> Patient Problems: Active and Suspected Problems (Last Updated 02/19/19 @ 23:32 by Jeffrey Costello MD) Pancreatitis (Acute) Elevated liver enzymes (Acute) Subjective: pt complains of minimal ruq pain. No fever/ chills. No BM since admission. Mild nausea this AM. She is agreeable to surgery. - Physical Exam Vitals/I&O's: Vital Signs Temp Pulse Resp BP Pulse Ox 98.0 F 95 18 145/76 H 95 02/21/19 10:00 02/21/19 10:00 02/21/19 10:00 02/21/19 10:00 02/21/19 10:00 Oxygen Flow Rate (L/min) 2 Oxygen Delivery Method Room Air Weight: 138 lb 14.259 oz Body Mass Index (BMI) 22.6 Intake and Output for Last 24 Hours 02/19/19 02/20/19 02/21/19 23:59 23:59 23:59 Intake Total 3061 / 3301 1240 / 1240 Output Total 1950 / 1950 200 / 200 Balance 1111 / 1351 1040 / 1040 General: Alert, Oriented x3, Cooperative HEENT: Atraumatic, PERRLA, EOMI, Normocephalic Neck: Supple, No JVD, Negative Carotid Bruits Lungs: Clear to auscultation, Normal air movement Cardiovascular: Regular rate, No murmurs Abdomen: Bowel Sounds Present, Soft, Tender - RUQ tenderness. mild. Extremities: No edema, Capillary Refill Less than 3 Seconds Skin: No rashes, No breakdown Musculoskeletal: No Tenderness to Palpation of Joints or Extremities Neurological: Cranial nerves II-XII grossly intact Psych/Mental Status: Agitated, Alert and oriented to time, place, person, mood and affect Laboratory Results 02/19/19 20:30: Hepatitis A IgM Ab Negative, Hep Bs Antigen Negative, Hep B Core IgM Ab Negative, Hepatitis C Ab (EIA) 0.1 02/21/19 05:05: WBC 8.9, RBC 4.03 L, Hgb 11.0 L, Hct 33.8 L, MCV 83.9, MCH 27.3, MCHC 32.5, RDW Std Deviation 43.3, RDW Coeff of Castillo 14.0, Plt Count 293, MPV 8.9, Immature Gran % (Auto) 0.400, Neut % (Auto) 76.8 H, Lymph % (Auto) 6.6 L, Peach % (Auto) 15.4 H, Eos % (Auto) 0.6, Baso % (Auto) 0.2, Absolute Neuts (auto) 6.9, Absolute Lymphs (auto) 0.59 L, Nucleated RBC % 0 02/21/19 05:05: Sodium 139, Potassium 3.5, Chloride 103, Carbon Dioxide 29.0, Anion Gap 7, BUN 10, Creatinine 0.73, Estim Creat Clear Calc 40.68, Est GFR (MDRD) Af Amer 100, Est GFR (MDRD) Non-Af 83, BUN/Creatinine Ratio 13.8, Glucose 94, Calcium 8.2 L, Total Bilirubin 1.10 H, AST 67 H, ALT 294 H, Alkaline Phosphatase 210 H, Total Protein 6.1 L, Albumin 2.8 L, Globulin 3.3, Albumin/Globulin Ratio 0.8 L, Lipase 190 Current Medications Acetaminophen (Tylenol) 650 mg PO Q6H PRN PRN PRN Reason: Pain Score 1-5/Temp > 100.7 F Amlodipine Besylate (Norvasc) 10 mg PO DAILY [facility] 234 BEDS AT [facility] Last Admin: 02/20/19 11:44 Dose: Not Given Documented by: Dextrose (D50w Syringe) 0 gm IV X1 PRN; Protocol PRN Reason: Hypoglycemia Enoxaparin Sodium (Lovenox) 40 mg SC DAILY@1000 [facility] 234 BEDS AT [facility] Last Admin: 02/21/19 07:42 Dose: Not Given Documented by: Glucagon () 1 mg IM .X1 PRN PRN Reason: Hypoglycemia Sodium Chloride () 250 mls @ 15 mls/hr IV .[id number] PRN PRN Reason: Saline Flush Lactated Ringer's () 1,000 mls @ 75 mls/hr IV .[id number] COUNTS INCLUDE 234 BEDS AT [facility] Lisinopril (Zestril) 20 mg PO DAILY [facility]CLUDE 234 BEDS AT [facility] Last Admin: 02/20/19 11:45 Dose: Not Given Documented by: Metoprolol Tartrate (Lopressor (Beta Judith)) 50 mg PO BID [facility]CLUDE 234 BEDS AT [facility] Last Admin: 02/21/19 08:13 Dose: 50 mg Documented by: Morphine Sulfate () 2 - 4 mg IV Q2H PRN PRN PRN Reason: Pain Score 6-1010 Last Admin: 02/21/19 08:25 Dose: 2 mg Documented by: Morphine Sulfate () 2 - 4 mg IV Q2H PRN PRN PRN Reason: Pain Score 6-10/10 Nutritional Formula (Lactose Free) (Ensure Clear) 120 ml PO 4X/DAY [facility]S [facility]CLUDE 234 BEDS AT [facility] Last Admin: 02/21/19 08:13 Dose: Not Given Documented by: Ondansetron HCl (Zofran) 4 mg IV Q8H PRN PRN PRN Reason: NAUSEA/VOMITING Last Admin: 02/21/19 08:25 Dose: 4 mg Documented by: Pantoprazole Sodium (Protonix) 20 mg PO DAILY [facility] INCLUDE 234 BEDS AT [facility] Last Admin: 02/21/19 08:14 Dose: 20 mg Documented by: Sodium Chloride () 10 - 40 ml IV UD PRN PRN Reason: SALINE FLUSH Last Admin: 02/19/19 23:39 Dose: 10 ml Documented by: Medical Necessity - Tobacco Use Smoking Status: Former smoker Assessment/Plan All Active Problems (Last Updated 02/19/19 @ 23:32 by Jeffrey Costello MD) Pancreatitis (Acute) Elevated liver enzymes (Acute) 1. Acute gallstone pancreatitis - s/p cholecystectomy POD#1. ERCP today. Minimal pain and nausea. Cholangiogram with 2 filling defects distal common bile duct. Lipase normalized. 2. Mild hyponatremia, hypokalemia - resolved. 3. HTN - mildly elevated. 4. GERD -ppi 5. Bipolar disorder - pt states she does not take Rx medications for this but self medicates with marijuana 6. Hx nicotine abuse - denies current cigarette use saying she gave this up and only smokes pot now. DVT ppx: lovenox DC planning: ERCP today. This patient was seen by Jimmy Frederick PA-C under the supervision of Doctor Palomo <Mervin Culver - Last Filed: 02/21/19 13:56> Subjective: Patient has right upper quadrant tenderness with minimal discomfort/pain. No fever or chills. Scheduled for ERCP today. - Physical Exam Vitals/I&O's: Vital Signs Temp Pulse Resp BP Pulse Ox 99.1 F 99 18 146/71 H 94 02/21/19 12:54 02/21/19 12:54 02/21/19 12:54 02/21/19 12:54 02/21/19 12:54 Oxygen Flow Rate (L/min) 3 Oxygen Delivery Method Nasal Cannula Weight: 138 lb 14.259 oz Body Mass Index (BMI) 26.2 Intake and Output for Last 24 Hours 02/19/19 02/20/19 02/21/19 23:59 23:59 23:59 Intake Total 3061 / 3301 1300 / 1300 Output Total 1950 / 1950 700 / 700 Balance 1111 / 1351 600 / 600 General: Alert, Oriented x3, Cooperative HEENT: Atraumatic, PERRLA, EOMI, Normocephalic Neck: Supple, No JVD, Negative Carotid Bruits Lungs: Clear to auscultation, Normal air movement Cardiovascular: Regular rate, Regular Rhythm, Normal S1, Normal S2, No murmurs Abdomen: Bowel Sounds Present, Soft, Non-Distended, Tender - RUQ tenderness. mild. Mild deep tenderness present in the right subcostal margin Extremities: No edema, Capillary Refill Less than 3 Seconds Skin: No rashes, No breakdown Musculoskeletal: No Tenderness to Palpation of Joints or Extremities, Arthritic Changes Neurological: Cranial nerves II-XII grossly intact, Deep Tendon Reflexes 2+/4 and Symmetrical, Neuro grossly intact, Motor Exam 5/5 strength throughout Psych/Mental Status: Normal Affect, Appropriate Laboratory Results 02/19/19 20:30: Hepatitis A IgM Ab Negative, Hep Bs Antigen Negative, Hep B Core IgM Ab Negative, Hepatitis C Ab (EIA) 0.1 02/21/19 05:05: WBC 8.9, RBC 4.03 L, Hgb 11.0 L, Hct 33.8 L, MCV 83.9, MCH 27.3, MCHC 32.5, RDW Std Deviation 43.3, RDW Coeff of Castillo 14.0, Plt Count 293, MPV 8.9, Immature Gran % (Auto) 0.400, Neut % (Auto) 76.8 H, Lymph % (Auto) 6.6 L, Peach % (Auto) 15.4 H, Eos % (Auto) 0.6, Baso % (Auto) 0.2, Absolute Neuts (auto) 6.9, Absolute Lymphs (auto) 0.59 L, Nucleated RBC % 0 02/21/19 05:05: Sodium 139, Potassium 3.5, Chloride 103, Carbon Dioxide 29.0, Anion Gap 7, BUN 10, Creatinine 0.73, Estim Creat Clear Calc 40.68, Est GFR (MDRD) Af Amer 100, Est GFR (MDRD) Non-Af 83, BUN/Creatinine Ratio 13.8, Glucose 94, Calcium 8.2 L, Total Bilirubin 1.10 H, AST 67 H, ALT 294 H, Alkaline Phosphatase 210 H, Total Protein 6.1 L, Albumin 2.8 L, Globulin 3.3, Albumin/Globulin Ratio 0.8 L, Lipase 190 Current Medications Acetaminophen (Tylenol) 650 mg PO Q6H PRN PRN PRN Reason: Pain Score 1-5/Temp > 100.7 F Amlodipine Besylate (Norvasc) 10 mg PO DAILY [facility]CLUDE 234 BEDS AT [facility] Last Admin: 02/20/19 11:44 Dose: Not Given Documented by: Dextrose (D50w Syringe) 0 gm IV X1 PRN; Protocol PRN Reason: Hypoglycemia Enoxaparin Sodium (Lovenox) 40 mg SC DAILY@1000 [facility] Last Admin: 02/21/19 07:42 Dose: Not Given Documented by: Glucagon () 1 mg IM .X1 PRN PRN Reason: Hypoglycemia Sodium Chloride () 250 mls @ 15 mls/hr IV .[id number] PRN PRN Reason: Saline Flush Lactated Ringer's () 1,000 mls @ 75 mls/hr IV .[id number] COUNTS INCLUDE 234 BEDS AT [facility] Lisinopril (Zestril) 20 mg PO DAILY COUNTS INCLUDE 234 BEDS AT [facility] Last Admin: 02/20/19 11:45 Dose: Not Given Documented by: Metoprolol Tartrate (Lopressor (Beta Judith)) 50 mg PO BID COUNTS INCLUDE 234 BEDS AT [facility] Last Admin: 02/21/19 08:13 Dose: 50 mg Documented by: Morphine Sulfate () 2 - 4 mg IV Q2H PRN PRN PRN Reason: Pain Score 6-10/10 Last Admin: 02/21/19 08:25 Dose: 2 mg Documented by: Morphine Sulfate () 2 - 4 mg IV Q2H PRN PRN PRN Reason: Pain Score 6-10/10 Nutritional Formula (Lactose Free) (Ensure Clear) 120 ml PO 4X/DAY COUNTS INCLUDE 234 BEDS AT [facility] Last Admin: 02/21/19 08:13 Dose: Not Given Documented by: Ondansetron HCl (Zofran) 4 mg IV Q8H PRN PRN PRN Reason: NAUSEA/VOMITING Last Admin: 02/21/19 08:25 Dose: 4 mg Documented by: Pantoprazole Sodium (Protonix) 20 mg PO DAILY [facility] Last Admin: 02/21/19 08:14 Dose: 20 mg Documented by: Sodium Chloride () 10 - 40 ml IV UD PRN PRN Reason: SALINE FLUSH Last Admin: 02/19/19 23:39 Dose: 10 ml Documented by: Assessment/Plan This patient was seen in conjunction with Jimmy MEADE. I have independently interviewed and examined the patient and reviewed pertinent history, examination findings, laboratory and plan of management. I have reviewed the note and agree with the documented findings with the few additional points. In brief, patient is admitted for acute gallstone pancreatitis secondary to chronic cholelithiasis and choledocholithiasis. Right upper quadrant shows contracted gallbladder with multiple shadowing stones. GB wall thickening 3 mm with negative pericholecystic fluid and negative Abebe sign. Patient had lapar oscopic cholecystectomy on 02/20/2019. Intraoperative cholangiogram was done which showed dilated CBD and central intrahepatic. Ducts. Filling defects were seen in the distal portion of CBD suggestive of choledocholithiasis. Patient is scheduled for ERCP today. Patient has elevated LFT, trending down. ALT 665-294, AST 375-67, total bili 3.6-1.1, alkaline phosphatase 210. Patient also had mild hyponatremia which resolved. Other comorbidities hypertension, GERD and bipolar disorder stable. Blood pressure slightly elevated 146/71. I have discussed my assessment with Jimmy MEADE and orders have been reviewed. Code Visit Inpatient E&M: 49834 Subs Hosp L2
--- NOTE | 2019-02-21 13:15 | NURSING ---
report called to ac
--- NOTE | 2019-02-21 16:16 | RAD_ITS ---
CLINICAL HISTORY: Stone removal COMPARISON: None. TECHNIQUE: 2 image(s) of an ERCP performed by Dr. Plasencia were submitted for evaluation. Fluoroscopy dose 73.20 mGy. 262.2 sec fluoroscopy time. FINDINGS: 2 intraoperative ERCP images are provided for interpretation. Fluoroscope is demonstrated in place. Opacification of the biliary tree is noted. A filling defect within the common bile duct on image 2 may represent a stone. The visualized soft tissues and osseous structures are unremarkable. RAD/ERCP Biliary/Pancreas IMPRESSION: 2 images from an intraoperative ERCP as above. Please see operative report for further details. Electronically Signed: Edgardo Baron, at 21:58 EST Tel , Service support ,
--- NOTE | 2019-02-21 17:08 | OP.ENDO_ITS ---
02/21/2019 Luis Manuel Arguello [address] [place] [address] Re : ERCP procedure for Gurjit Smith Dear Dr. Arguello This procedure was performed on Thursday, February 21, 2019. My impressions and recommendations are as follows: Impressions : - A filling defect was seen on the cholangiogram. - Choledocholithiasis was found. Complete removal was accomplished by biliary sphincterotomy and balloon extraction. - A biliary sphincterotomy was performed. - The biliary tree was swept. Recommendations : - [facility]. My findings are described in the full procedure note, which is enclosed. If I can be of further assistance, please feel free to contact me at Doctor phone number(s): , Work: . Sincerely, Orlando Plasencia MD 02/21/2019 5:08:39 PM This report has been signed electronically.
[2019-02-21] MEDS: Ensure Clear 120 ML Liquid PO (22:13)
[2019-02-22] VITALS (11 sets, daily range): BP systolic 118–142; BP diastolic 59–76; PULSE 82–106; RESP 16–18; TEMP 36.6–36.9; O2SAT 83–96
[2019-02-22] MEDS: Morphine 2 MG/ML Syringe IV (02:16)
[2019-02-22 08:27] LABS: Absolute Lymphocyte Count 0.46 X10^3/uL (0.83-4.51); Absolute Neutrophil Count 8.9 X10^3/uL (2.0-7.7); Basophil# 0.01 X10^3/uL; Basophil% 0.1 % (0-1); Hematocrit 32.6 % (37-47); Hemoglobin 10.8 g/dL (12.0-15.0); Lymphocyte # 0.46 X10^3/ul (4.0); Lymphocyte % 4.4 % (19-41); Mean Corp Hgb Conc 33.1 g/dL (32-36); Mean Corpuscular Hgb 27.1 pg (27.0-32.0); Mean Corpuscular Volume 81.9 fL (81-99); Mean Platelet Vol. 9.1 fl (6.2-12.0); Monocyte# 1.13 X10^3/uL; Monocyte% 10.8 % (0-10); NRBC Flagged by Analyzer 0 % (0-5); Neutrophil # 8.85 X10^3/uL (2.7-7.7); Neutrophil % 84.2 % (47-70); POSITIVE DIFFERENTIAL YES; Platelet Count 298 K/mm3 (150-450); RBC Distribution Width CV 14.4 % (11.6-14.6); RBC Distribution Width SD 42.5 fl (35.1-43.9); Red Blood Count 3.98 M/mm3 (4.2-5.4); White Blood Count 10.5 K/mm3 (4.4-11.0)
[2019-02-22 08:30] LABS: Differential Indicated SCAN CRITERIA MET
--- NOTE | 2019-02-22 08:41 | PN.SURG_ITS ---
Patient Problems: Active and Suspected Problems (Last Updated 02/19/19 @ 23:32 by Jeffrey Costello MD) Pancreatitis (Acute) Elevated liver enzymes (Acute) Subjective: Patient reports he is doing well this morning. She had some epigastric pain overnight that has resolved. She denies any vomiting. - Physical Exam Vitals/I&O's: Vital Signs Temp Pulse Resp BP Pulse Ox 98.4 F 94 18 142/71 H 95 02/22/19 02:07 02/22/19 02:07 02/22/19 02:07 02/22/19 02:07 02/22/19 02:07 Oxygen Flow Rate (L/min) 3 Oxygen Delivery Method Nasal Cannula Weight: 138 lb 14.259 oz Body Mass Index (BMI) 26.2 Intake and Output for Last 24 Hours 02/20/19 02/21/19 02/22/19 23:59 23:59 23:59 Intake Total 3061 / 3301 2300 / 2300 1256.25 / 1256.25 Output Total 1950 / 1950 700 / 700 700 / 700 Balance 1111 / 1351 1600 / 1600 556.25 / 556.25 General: Alert, Oriented x3 Abdomen: Soft, Non-Distended, Tender - Mild tenderness in the right upper quadrant Laboratory Results 02/22/19 08:15: WBC 10.5, RBC 3.98 L, Hgb 10.8 L, Hct 32.6 L, MCV 81.9, MCH 27.1, MCHC 33.1, RDW Std Deviation 42.5, RDW Coeff of Castillo 14.4, Plt Count 298, MPV 9.1, Immature Gran % (Auto) 0.500, Neut % (Auto) 84.2 H, Lymph % (Auto) 4.4 L, [place] % (Auto) 10.8 H, Eos % (Auto) 0.0, Baso % (Auto) 0.1, Absolute Neuts (auto) 8.9 H, Absolute Lymphs (auto) 0.46 L, Nucleated RBC % 0 02/22/19 08:15: Sodium Pending, Potassium Pending, Chloride Pending, Carbon Dioxide Pending, Anion Gap Pending, BUN Pending, Creatinine Pending, Est GFR (MDRD) Af Amer Pending, Est GFR (MDRD) Non-Af Pending, BUN/Creatinine Ratio Pending, Glucose Pending, Calcium Pending, Total Bilirubin Pending, AST Pending, ALT Pending, Alkaline Phosphatase Pending, Total Protein Pending, Albumin Pending Current Medications Acetaminophen (Tylenol) 650 mg PO Q6H PRN PRN PRN Reason: Pain Score 1-5/Temp > 100.7 F Amlodipine Besylate (Norvasc) 10 mg PO DAILY [facility] Last Admin: 02/21/19 17:04 Dose: Not Given Documented by: Dextrose (D50w Syringe) 0 gm IV X1 PRN; Protocol PRN Reason: Hypoglycemia Enoxaparin Sodium (Lovenox) 40 mg SC DAILY@1000 [facility] Last Admin: 02/21/19 07:42 Dose: Not Given Documented by: Glucagon () 1 mg IM .X1 PRN PRN Reason: Hypoglycemia Sodium Chloride () 250 mls @ 15 mls/hr IV .[id number] PRN PRN Reason: Saline Flush Lisinopril (Zestril) 20 mg PO DAILY [facility] Last Admin: 02/21/19 17:04 Dose: Not Given Documented by: Metoprolol Tartrate (Lopressor (Beta Judith)) 50 mg PO BID [facility] Last Admin: 02/21/19 22:13 Dose: 50 mg Documented by: Morphine Sulfate () 2 - 4 mg IV Q2H PRN PRN PRN Reason: Pain Score 6-10/10 Last Admin: 02/22/19 02:16 Dose: 2 mg Documented by: Morphine Sulfate () 2 - 4 mg IV Q2H PRN PRN PRN Reason: Pain Score 6-10/10 Nutritional Formula (Lactose Free) (Ensure Clear) 120 ml PO 4X/DAY [facility] Last Admin: 02/21/19 22:13 Dose: 120 ml Documented by: Ondansetron HCl (Zofran) 4 mg IV Q8H PRN PRN PRN Reason: NAUSEA/VOMITING Last Admin: 02/21/19 08:25 Dose: 4 mg Documented by: Pantoprazole Sodium (Protonix) 20 mg PO DAILY [facility] Last Admin: 02/21/19 08:14 Dose: 20 mg Documented by: Sodium Chloride () 10 - 40 ml IV UD PRN PRN Reason: SALINE FLUSH Last Admin: 02/19/19 23:39 Dose: 10 ml Documented by: Medical Necessity - Tobacco Use Smoking Status: Former smoker Assessment/Plan All Active Problems (Last Updated 02/19/19 @ 23:32 by Jeffrey Costello MD) Pancreatitis (Acute) Elevated liver enzymes (Acute) 78-year-old female with gallstone pancreatitis and choledocholithiasis 1. The patient reports doing well after her ERCP. She did have some epigastric pain overnight but that has resolved. She has tolerated clear liquids I will try her on a regular diet. If she tolerates regular diet she be discharged home and follow-up with me in 2 weeks. Orlando Plasencia MD Pager: [facility] [address] [place] [address], [address] [place] [address] Office:
--- NOTE | 2019-02-22 08:46 | DCINST_ITS ---
Discharge Diet: Light diet - advance as tolerated Discharge Activity: Return to Normal Activity, May Not Drive - for 2-3 days or while taking narcotic pain medicataions., May Shower Additional Activity Instructions:: Pain medication may cause nausea. You should typically eat light foods as you take your pain medications. Pain medication may also cause constipation. If this is a problem for you, please discuss with your doctor. Call your doctor if your incision/area has: Continuous Slow Oozing, Sudden Increased Bleeding, Increased Pain/ Swelling, Increased Redness, Foul Smelling Discharge, Fever of 101 or Higher Call your doctor if you observe: Fever of 101 or Higher Suture Line Care: Avoid Pulling/Pushing, Avoid Pinching/Bending Additional Dressing/Incision Instructions:: Leave operative bandaids on for 2 days. When you remove dressing, leave Steri-Strips on until your follow-up appointment, or until the Steri-Strips fall off on their own. Allergies/Adverse Reactions: Allergies Penicillins [PCN] Adverse Reaction (Verified 02/19/19 19:07) Unknown Sulfa (Sulfonamide Antibiotics) Adverse Reaction (Verified 02/19/19 19:07) Unknown Medications to take at Discharge Amlodipine Besylate 10 mg PO DAILY 02/19/19 Enalapril Maleate 20 mg PO DAILY 02/19/19 Metoprolol Tartrate [Lopressor (beta judith)] 50 mg PO BID 02/19/19 Nitrofurantoin Macrocrystals [Macrobid] 100 mg PO BID 02/19/19 Omeprazole 20 mg PO DAILY 02/19/19 Hydrocodone Bitart/Apap 5-325 [[place] 5/325] 1 - 2 tablet PO Q4H PRN PRN 4 Days #30 tablet 02/22/19 The following prescriptions were given: Hydrocodone Bitart/Apap 5-325 [[place] 5/325] 1 - 2 tablet PO Q4H PRN PRN 4 Days #30 tablet PRN Reason: Severe Pain (-01/26) Transmission Status: Sent to [facility] Primary Care Physician: Luis Manuel Arguello MD [Primary Care Provider] - Test Results: Test results from this visit will be discussed in further detail at your follow- up appointment, if applicable. Please Follow Up With: Orlando Plasencia MD When: Please call to schedule 2 week follow up appointment. [phone]
[2019-02-22 09:01] LABS: ALB/GLOB Ratio 0.7 RATIO (0.9-2.4); AST(SGOT) 50 U/L (15-37); Alanine Aminotransfer ALT/SGPT 218 U/L (13-56); Albumin, Serum 2.7 g/dL (3.2-5.0); Alkaline Phosphatase 294 U/L (45-117); Anion Gap 9 (5-15); BUN 9 mg/dL (7-18); Calcium,Total 8.5 mg/dL (8.5-10.1); Chloride 99 mmol/L (98-107); Creatinine, Serum 0.75 mg/dL (0.55-1.02); EST Glomerular Filtration Rate 80 mL/min (>60); Est Glom Filt Rate - Afr Amer 96 mL/min (>60); Estimated Creatinine Clearance 35.55 ml/min; Glucose 172 mg/dL (74-106); Potassium 3.3 mmol/L (3.5-5.1); Protein, Total 6.7 g/dL (6.4-8.2); Sodium Level 137 mmol/L (136-145)
[2019-02-22] MEDS: amLODIPine 10 MG Tablet PO (09:01)
[2019-02-22] MEDS: Pantoprazole Sodium 20 MG Tablet PO (09:01)
[2019-02-22] MEDS: Metoprolol Tartrate 50 MG Tablet PO ×2 (09:02→21:21)
[2019-02-22] MEDS: Lisinopril 20 MG Tablet PO (09:02)
[2019-02-22] MEDS: Enoxaparin 40 MG/0.4 ML Syringe SC (09:02)
[2019-02-22] MEDS: Ensure Clear 120 ML Liquid PO ×3 (09:05→17:16)
[2019-02-22] MEDS: HYDROcodone Bitartrate/Apap 5/325 Tablet PO (10:38)
--- NOTE | 2019-02-22 11:08 | RAD_ITS ---
STUDY: X-RAY CHEST REASON FOR EXAM: Female, 78 years old. Hypoxia. Recent surgery. TECHNIQUE: Single AP portable view of the chest. COMPARISON: None. FINDINGS: There is a 5.2 cm x 4.5 cm mass in the left upper lobe. Increase interstitial markings in both lungs. This may represent a mild degree of CHF. Blunting of both costophrenic angles. Follow-up is recommended. Normal size heart. Normal mediastinum and igor. Normal visualized pulmonary arteries. There is atherosclerotic calcification of the aortic arch with tortuosity. There are diffuse degenerative changes of the visualized thoracic spine. Normal visualized ribs, clavicles, and shoulders. There is no demonstrated abnormality of the visualized soft tissue structures of the upper abdomen. RAD/Chest PA and Lateral IMPRESSION: 5.2 cm x 4.5 cm mass in the left upper lobe. Increased interstitial markings in both lungs with blunting of both costo phrenic angles suggestive of CHF. Electronically Signed: Javon Lassiter, at 12:28 EST , Service support ,
--- NOTE | 2019-02-22 11:36 | PCM.PN.HOSP ---
Patient Problems: Active and Suspected Problems (Last Updated 02/19/19 @ 23:32 by Jeffrey Costello MD) Pancreatitis (Acute) Elevated liver enzymes (Acute) Subjective: The patient still needs 2 L of oxygen, hypoxic. 83% on room air. Does not have history of COPD or home oxygen. Denies shortness of breath, chest pain, cough cold or URI symptoms Vitals/I&O's: Vital Signs Temp Pulse Resp BP Pulse Ox 98.1 F 82 18 120/65 91 02/22/19 10:39 02/22/19 10:39 02/22/19 10:39 02/22/19 10:39 02/22/19 10:48 Oxygen Flow Rate (L/min) 2 Oxygen Delivery Method Nasal Cannula Weight: 138 lb 14.259 oz Body Mass Index (BMI) 26.2 Intake and Output for Last 24 Hours 02/20/19 02/21/19 02/22/19 23:59 23:59 23:59 Intake Total 3061 / 3301 2300 / 2300 1256.25 / 1256.25 Output Total 1950 / 1950 700 / 700 700 / 700 Balance 1111 / 1351 1600 / 1600 556.25 / 556.25 General: Alert, Oriented x3, Cooperative HEENT: Atraumatic, PERRLA, EOMI, Normocephalic Neck: Supple, No JVD, Negative Carotid Bruits Lungs: Clear to auscultation, Normal air movement, Diminished, - - Requires 2 L of oxygen Cardiovascular: Regular rate, Regular Rhythm, Normal S1, Normal S2, No murmurs Abdomen: Bowel Sounds Present, Soft, Non Tender, Non-Distended Extremities: No edema, Capillary Refill Less than 3 Seconds Skin: No rashes, No breakdown Musculoskeletal: No Tenderness to Palpation of Joints or Extremities, Arthritic Changes Neurological: Cranial nerves II-XII grossly intact, Deep Tendon Reflexes 2+/4 and Symmetrical, Neuro grossly intact Psych/Mental Status: Normal Affect, Appropriate Laboratory Results 02/22/19 08:15: WBC 10.5, RBC 3.98 L, Hgb 10.8 L, Hct 32.6 L, MCV 81.9, MCH 27.1, MCHC 33.1, RDW Std Deviation 42.5, RDW Coeff of Castillo 14.4, Plt Count 298, MPV 9.1, Immature Gran % (Auto) 0.500, Neut % (Auto) 84.2 H, Lymph % (Auto) 4.4 L, [place] % (Auto) 10.8 H, Eos % (Auto) 0.0, Baso % (Auto) 0.1, Absolute Neuts (auto) 8.9 H, Absolute Lymphs (auto) 0.46 L, Nucleated RBC % 0, Differential Comment COMMENT 02/22/19 08:15: Sodium 137, Potassium 3.3 L, Chloride 99, Carbon Dioxide 29.0, Anion Gap 9, BUN 9, Creatinine 0.75, Estim Creat Clear Calc 35.55, Est GFR (MDRD) Af Amer 96, Est GFR (MDRD) Non-Af 80, BUN/Creatinine Ratio 12.0, Glucose 172 H, Calcium 8.5, Total Bilirubin 1.20 H, AST 50 H, ALT 218 H, Alkaline Phosphatase 294 H, Total Protein 6.7, Albumin 2.7 L, Globulin 4.0, Albumin/Globulin Ratio 0.7 L Current Medications Acetaminophen (Tylenol) 650 mg PO Q6H PRN PRN PRN Reason: Pain Score 1-5/Temp > 100.7 F Hydrocodone Bitart/Acetaminophen ([place] 5mg-325mg) 1 - 2 tablet PO Q4H PRN PRN PRN Reason: Pain Score 6-10/10 Last Admin: 02/22/19 10:38 Dose: 2 tablet Documented by: Amlodipine Besylate (Norvasc) 10 mg PO DAILY [facility] Last Admin: 02/22/19 09:01 Dose: 10 mg Documented by: Dextrose (D50w Syringe) 0 gm IV X1 PRN; Protocol PRN Reason: Hypoglycemia Enoxaparin Sodium (Lovenox) 40 mg SC DAILY@1000 [facility] Last Admin: 02/22/19 09:02 Dose: 40 mg Documented by: Glucagon () 1 mg IM .X1 PRN PRN Reason: Hypoglycemia Sodium Chloride () 250 mls @ 15 mls/hr IV .[id number] PRN PRN Reason: Saline Flush Lisinopril (Zestril) 20 mg PO DAILY [facility] Last Admin: 02/22/19 09:02 Dose: 20 mg Documented by: Metoprolol Tartrate (Lopressor (Beta Judith)) 50 mg PO BID [facility] Last Admin: 02/22/19 09:02 Dose: 50 mg Documented by: Morphine Sulfate () 2 - 4 mg IV Q2H PRN PRN PRN Reason: Pain Score 6-10/10 Last Admin: 02/22/19 02:16 Dose: 2 mg Documented by: Morphine Sulfate () 2 - 4 mg IV Q2H PRN PRN PRN Reason: Pain Score 6-10/10 Nutritional Formula (Lactose Free) (Ensure Clear) 120 ml PO 4X/DAY [facility] Last Admin: 02/22/19 09:05 Dose: 120 ml Documented by: Ondansetron HCl (Zofran) 4 mg IV Q8H PRN PRN PRN Reason: NAUSEA/VOMITING Last Admin: 02/21/19 08:25 Dose: 4 mg Documented by: Pantoprazole Sodium (Protonix) 20 mg PO DAILY [facility] Last Admin: 02/22/19 09:01 Dose: 20 mg Documented by: Sodium Chloride () 10 - 40 ml IV UD PRN PRN Reason: SALINE FLUSH Last Admin: 02/19/19 23:39 Dose: 10 ml Documented by: STROKE Vital Signs/Narrative: Vital Signs Temp Pulse Resp BP Pulse Ox 02/22/19 10:48 91 02/22/19 10:45 83 02/22/19 10:39 98.1 F 82 18 120/65 93 02/22/19 09:02 106 H 02/22/19 09:00 97.9 F 106 H 18 142/76 H 93 02/22/19 07:42 96 Medical Necessity - Tobacco Use Smoking Status: Former smoker Assessment/Plan All Active Problems (Last Updated 02/19/19 @ 23:32 by Jeffrey Costello MD) Pancreatitis (Acute) Elevated liver enzymes (Acute) This is a 78-year-old female admitted for acute gallstone pancreatitis secondary to chronic cholelithiasis and choledocholithiasis. 1. Acute gallstone pancreatitis secondary to chronic cholelithiasis and choledocholithiasis- s/p lap lory on 02/21 and ERCP on 02/21. Right upper quadrant shows contracted gallbladder with multiple shadowing stones. GB wall thickening 3 mm with negative pericholecystic fluid and negative Abebe sign. Patient had laparoscopic cholecystectomy on 02/20/2019. Intraoperative cholangiogram was done which showed dilated CBD and central intrahepatic ducts. Intraoperative intraoperative cholangiogram showed 2 filling defects distal common bile duct. Choledocholithiasis was found on ERCP and biliary sphincterotomy with balloon extraction of his stones were done. Patient has elevated LFT, trending down. ALT 665-294, AST 375-67, total bili 3.6-1.1, alkaline phosphatase 210. 2. Mild hypoxic respiratory insufficiency, etiology unclear: Patient is found on 2 L of oxygen. Not on home oxygen or has chronic pulmonary disease/COPD. Pulse ox 83% on room air and 91% on 2 L of oxygen. Chest x-ray PA and lateral was done reported as 5.2 cm x 4.5 cm mass in the left upper lobe. Increased interstitial markings in both lungs with blunting of both costophrenic angles suggestive of CHF. BNP ordered. Lasix 40 mg IV 1 dose ordered. Pulmonary consult requested. Discharge is held. Mild hyponatremia, hypokalemia -hyponatremia has resolved. Mild hypokalemia: Potassium is being replaced 3. HTN -pressure normal. 4. GERD -ppi 5. Bipolar disorder - pt states she does not take Rx medications for this but self medicates with marijuana 6. Hx nicotine abuse - denies current cigarette use saying she gave this up and only smokes pot now. DVT ppx: lovenox Discharge is held secondary to hypoxemia. Clinical Impression(s) from Imaging Studies Gallbladder Ultrasound 02/19/19 20:20 IMPRESSION: Contracted gallbladder with multiple shadowing stones. Borderline gallbladder wall thickening at 3 mm. Jewelry Consultant notes a negative Abebe's sign, and no pericholecystic fluid noted. Fatty liver, no discrete lesion Sonographically normal right kidney. Nonspecific focal dilatation of the lower thoracic aorta measuring 3.6 x 3.3 cm Electronically Signed: Sanchez Beatty MD at 22:02 EST , Service support , ADDENDUM: 02/20/19 1427 Cholangiogram 02/20/19 17:40 IMPRESSION: Dilated common bile duct and central intrahepatic biliary ducts. 2 filling defects are seen in the distal portion of the common bile duct in keeping with choledocholithiasis. Electronically Signed: Javon Lassiter, at 9:19 EST , Service support , Endo Retro Cholangiopancreatogram 02/21/19 16:16 IMPRESSION: 2 images from an intraoperative ERCP as above. Please see operative report for further details. Electronically Signed: Edgardo Baron, at 21:58 EST Tel , Service support , Chest X-Ray 02/22/19 11:08 IMPRESSION: 5.2 cm x 4.5 cm mass in the left upper lobe. Increased interstitial markings in both lungs with blunting of both costo phrenic angles suggestive of CHF. Code Visit Inpatient E&M: 83400 Subs Hosp L3
[2019-02-22] MEDS: 0.9% Saline Lock 10 ML Syringe IV (14:36)
[2019-02-22] MEDS: Furosemide 40 MG/4 ML Vial IV (14:36)
[2019-02-22 14:44] LABS: BNP,B-Type NATRIURETIC PEPTIDE 886.4 pg/mL (0-100)
[2019-02-23] VITALS (8 sets, daily range): BP systolic 123; BP diastolic 68; PULSE 90; RESP 16; TEMP 36.7; O2SAT 92–96
--- NOTE | 2019-02-23 07:07 | CON.PCM_ITS ---
Reason for Consult Date of Consultation: 02/23/19 Reason for Consultation: Left upper lobe mass, hypoxia History of Present Illness: The patient is a 78-year-old female, with a history as outlined below, who initially presented to the emergency department on February 19 with complaints of generalized malaise, poor appetite and poor p.o. intake. Subsequent work-up revealed evidence of elevated transaminase levels and a lipase of 1795. Imaging studies confirm the presence of gallstone pancreatitis. The patient was evaluated by general surgery on February 20 and taken to the OR where she underwent a laparoscopic cholecystectomy with cholangiogram. Postoperatively, the patient was noted to have small filling defects in the distal common bile duct as well as a dilated common bile duct and hepatic duct requiring ERCP, which was completed on February 21. From review of documentation, it does appear that the patient was on room air until the evening of February 20, when she began to require supplemental O2 via nasal cannula. She was found to have an elevated BNP to 886 yesterday. Orders for echocardiogram replaced. A plain film chest x-ray was then obtained, which did reveal evidence of prominent interstitial markings, blunting of the costophrenic angles and a left upper lobe lung mass. Of note, the patient did receive IV Lasix yesterday afternoon with subsequent improvement in her oxygenation status. She is currently documented to be overall net +3.8 L for the hospital admission. The patient does have a previous extensive smoking history, but does not currently utilize supplemental oxygen or inhalers at her baseline. I independently reviewed the results of the patient's chest x-ray with her this morning. Although an order was placed for a CT chest to be completed, the patient subsequently reported to me that she was refusing any additional work- up, as she wished to be discharged home. She understood that the findings noted on chest x-ray could potentially represent an underlying malignancy, and despite this, does not wish to proceed with CT chest. Past Medical History Medical History: Medical History (Last Updated 02/19/19 @ 23:32 by Jeffrey Costello MD) Hypertension I10 Allergies Penicillins [PCN] Adverse Reaction (Verified 02/19/19 19:07) Unknown Sulfa (Sulfonamide Antibiotics) Adverse Reaction (Verified 02/19/19 19:07) Unknown Home Medications: Ambulatory Orders Medication Instructions Recorded Amlodipine Besylate 10 mg PO DAILY 02/19/19 Enalapril Maleate 20 mg PO DAILY 02/19/19 Metoprolol Tartrate [Lopressor 50 mg PO BID 02/19/19 (beta judith)] Omeprazole 20 mg PO DAILY 02/19/19 Hydrocodone Bitart/Apap 5-325 1 - 2 tab PO Q4H PRN PRN 4 Days 02/22/19 [Adrian 5/325] #30 tab Surgical History: hysterectomy - Partial, - - Carpal tunnel surgery Psychiatric History: Anxiety Lives: With Family Smoking Status: Former smoker Alcohol: None Drugs: Marijuana - *Family History Maternal History Items: Cancer Paternal History Items: Heart Disease Review of Systems Constitutional: Denies: Chills, Fever, Weight Change Eyes: Denies: Blurred vision, Double vision HEENT: Denies: Head Aches, Sinus Congestion, Sinus Drainage Cardiovascular: Denies: Chest Pain, Palpitations Respiratory: Denies: Cough, Shortness of breath at rest, Sputum production Gastrointestinal: Denies: Abdominal Pain, Nausea, Vomiting Genitourinary: Denies: Dysuria Musculoskeletal: Denies: Joint Pain, Joint Tenderness Skin: Denies: Rash, Wounds Neurological: Denies: Numbness, Tingling, Focal weakness Psychiatric: Denies: Anxiety, Depression, Homicidal Ideations, Suicidal Ideations Hematologic/ Lymphatic: Reports: Anemia Patient Problems: Active and Suspected Problems (Last Updated 02/19/19 @ 23:32 by Jeffrey Costello MD) Pancreatitis (Acute) Elevated liver enzymes (Acute) Objective: The patient's most recent lab work, culture data and imaging studies have all been personally reviewed. - Physical Exam Vitals/I&O's: Vital Signs Temp Pulse Resp BP Pulse Ox 98.1 F 90 16 123/68 H 94 02/23/19 03:10 02/23/19 03:10 02/23/19 03:10 02/23/19 03:10 02/23/19 06:25 Oxygen Flow Rate (L/min) 1 Oxygen Delivery Method Room Air Weight: 138 lb 14.259 oz Body Mass Index (BMI) 26.2 Intake and Output for Last 24 Hours 02/21/19 02/22/19 02/23/19 23:59 23:59 23:59 Intake Total 2300 / 2300 2106.25 / 2106.25 Output Total 700 / 700 2000 / 2000 450 / 450 Balance 1600 / 1600 106.25 / 106.25 -450 / -450 General: Alert, Cooperative, No apparent distress, - - Appears agitated and pacing back and forth in room. HEENT: Atraumatic, PERRLA, Normocephalic Oral: No Gingival or Mucosal Lesions/ Ulcerations Neck: Supple, No Nodes, Trachea Midline Lungs: No rhonchi, No wheeze, No rales, Diminished Cardiovascular: Regular rate, Regular Rhythm, Normal S1, Normal S2, No murmurs Abdomen: Bowel Sounds Present, Soft, Non Tender Extremities: No clubbing, No cyanosis, No edema Skin: No breakdown Musculoskeletal: No Muscle Wasting Lymphatic: No Cervical, Supraclavicular, or Inguinal Adenopathy Neurological: Cranial nerves II-XII grossly intact, Neuro grossly intact Psych/Mental Status: Agitated Labs (Last 48 Hours) 02/19/19 02/22/19 02/22/19 20:30 08:15 08:15 WBC 10.5 RBC 3.98 L Hgb 10.8 L Hct 32.6 L MCV 81.9 MCH 27.1 MCHC 33.1 RDW Std Deviation 42.5 RDW Coeff of Castillo 14.4 Plt Count 298 MPV 9.1 Immature Gran % (Auto) 0.500 Neut % (Auto) 84.2 H Lymph % (Auto) 4.4 L Maries % (Auto) 10.8 H Eos % (Auto) 0.0 Baso % (Auto) 0.1 Absolute Neuts (auto) 8.9 H Absolute Lymphs (auto) 0.46 L Nucleated RBC % 0 Differential Comment COMMENT Sodium 137 Potassium 3.3 L Chloride 99 Carbon Dioxide 29.0 Anion Gap 9 BUN 9 Creatinine 0.75 Estim Creat Clear Calc 35.55 Est GFR (MDRD) Af Amer 96 Est GFR (MDRD) Non-Af 80 BUN/Creatinine Ratio 12.0 Glucose 172 H Calcium 8.5 Total Bilirubin 1.20 H AST 50 H ALT 218 H Alkaline Phosphatase 294 H B-Natriuretic Peptide Total Protein 6.7 Albumin 2.7 L Globulin 4.0 Albumin/Globulin Ratio 0.7 L Hepatitis A IgM Ab Negative Hep Bs Antigen Negative Hep B Core IgM Ab Negative Hepatitis C Ab (EIA) 0.1 02/22/19 08:15 WBC RBC Hgb Hct MCV MCH MCHC RDW Std Deviation RDW Coeff of Castillo Plt Count MPV Immature Gran % (Auto) Neut % (Auto) Lymph % (Auto) Maries % (Auto) Eos % (Auto) Baso % (Auto) Absolute Neuts (auto) Absolute Lymphs (auto) Nucleated RBC % Differential Comment Sodium Potassium Chloride Carbon Dioxide Anion Gap BUN Creatinine Estim Creat Clear Calc Est GFR (MDRD) Af Amer Est GFR (MDRD) Non-Af BUN/Creatinine Ratio Glucose Calcium Total Bilirubin AST ALT Alkaline Phosphatase B-Natriuretic Peptide 886.4 H Total Protein Albumin Globulin Albumin/Globulin Ratio Hepatitis A IgM Ab Hep Bs Antigen Hep B Core IgM Ab Hepatitis C Ab (EIA) Clinical Impression(s) from Imaging Studies Gallbladder Ultrasound 02/19/19 20:20 IMPRESSION: Contracted gallbladder with multiple shadowing stones. Borderline gallbladder wall thickening at 3 mm. Accounting File Clerk notes a negative Abebe's sign, and no pericholecystic fluid noted. Fatty liver, no discrete lesion Sonographically normal right kidney. Nonspecific focal dilatation of the lower thoracic aorta measuring 3.6 x 3.3 cm Electronically Signed: Sanchez Beatty MD at 22:02 EST , Service support , ADDENDUM: 02/20/19 1427 Cholangiogram 02/20/19 17:40 IMPRESSION: Dilated common bile duct and central intrahepatic biliary ducts. 2 filling defects are seen in the distal portion of the common bile duct in keeping with choledocholithiasis. Electronically Signed: Javon Lassiter, at 9:19 EST , Service support , Endo Retro Cholangiopancreatogram 02/21/19 16:16 IMPRESSION: 2 images from an intraoperative ERCP as above. Please see operative report for further details. Electronically Signed: Edgardo Baron, at 21:58 EST Tel , Service support , Chest X-Ray 02/22/19 11:08 IMPRESSION: 5.2 cm x 4.5 cm mass in the left upper lobe. Increased interstitial markings in both lungs with blunting of both costo phrenic angles suggestive of CHF. Electronically Signed: Javon Lassiter, at 12:28 EST , Service support , Current Medications Acetaminophen (Tylenol) 650 mg PO Q6H PRN PRN PRN Reason: Pain Score 1-5/Temp > 100.7 F Hydrocodone Bitart/Acetaminophen (Adrian 5mg-325mg) 1 - 2 tablet PO Q4H PRN PRN PRN Reason: Pain Score 6-10/10 Last Admin: 02/22/19 10:38 Dose: 2 tablet Documented by: Amlodipine Besylate (Norvasc) 10 mg PO DAILY [facility] Last Admin: 02/22/19 09:01 Dose: 10 mg Documented by: Dextrose (D50w Syringe) 0 gm IV X1 PRN; Protocol PRN Reason: Hypoglycemia Enoxaparin Sodium (Lovenox) 40 mg SC DAILY@1000 [facility] Last Admin: 02/22/19 09:02 Dose: 40 mg Documented by: Glucagon () 1 mg IM .X1 PRN PRN Reason: Hypoglycemia Sodium Chloride () 250 mls @ 15 mls/hr IV .[id number] PRN PRN Reason: Saline Flush Lisinopril (Zestril) 10 mg PO DAILY [facility] Metoprolol Tartrate (Lopressor (Beta Judith)) 50 mg PO BID [facility] Last Admin: 02/22/19 21:21 Dose: 50 mg Documented by: Morphine Sulfate () 2 - 4 mg IV Q2H PRN PRN PRN Reason: Pain Score 6-10/10 Last Admin: 02/22/19 02:16 Dose: 2 mg Documented by: Morphine Sulfate () 2 - 4 mg IV Q2H PRN PRN PRN Reason: Pain Score 6-10/10 Nutritional Formula (Lactose Free) (Ensure Clear) 120 ml PO 4X/DAY [facility] Last Admin: 02/22/19 21:21 Dose: Not Given Documented by: Ondansetron HCl (Zofran) 4 mg IV Q8H PRN PRN PRN Reason: NAUSEA/VOMITING Last Admin: 02/21/19 08:25 Dose: 4 mg Documented by: Pantoprazole Sodium (Protonix) 20 mg PO DAILY [facility] Last Admin: 02/22/19 09:01 Dose: 20 mg Documented by: Sodium Chloride () 10 - 40 ml IV UD PRN PRN Reason: SALINE FLUSH Last Admin: 02/22/19 14:36 Dose: 10 ml Documented by: Sodium Chloride (Blanco Nasal Anderson) 2 spray NASAL TID PRN PRN PRN Reason: NASAL DRYNESS Assessment/Plan All Active Problems (Last Updated 02/19/19 @ 23:32 by Jeffrey Costello MD) Pancreatitis (Acute) Elevated liver enzymes (Acute) RECOMMENDATIONS: 1. CT chest with contrast is strongly recommended. However, the patient is refusing any additional work-up. 2. The patient was advised that if she were to change her mind regarding future work-up and care of the underlying lung mass that she can call the pulmonary medicine clinic to arrange a follow-up office visit. IMPRESSIONS: 1. Left upper lobe lung mass noted on chest x-ray The patient was incidentally noted to have a left upper lobe lung mass on plain film chest x-ray obtained yesterday in the setting of acute respiratory insufficiency. The patient does have a history of prior extensive tobacco dependency. I did strongly recommend that a dedicated chest CT with contrast be obtained for further clarification. Depending on the results of the CT scan, additional work-up may be indicated, including CT-guided lung biopsy versus bronchoscopic airway evaluation. However, despite the findings aforementioned, the patient refused to allow for a CT scan to be obtained. She understands my concerns that the findings could represent malignancy, and despite this, does not wish to have any additional work-up. The patient was advised to contact our office if she were to change her mind regarding work-up of her lung mass. 2. Personal history of tobacco dependency, currently in remission Ongoing tobacco cessation strongly recommended. As noted above, the chest x-ray findings in a patient with prior smoking history are certainly concerning for underlying malignancy. 3. Acute hypoxemic respiratory insufficiency I do suspect that the patient's supplemental oxygen need was likely secondary to her volume status and atelectasis. Her oxygenation status improved in the setting of diuretic administration. As of this morning, she was maintaining appropriate oxygen saturation on room air. 4. Gallstone pancreatitis status post laparoscopic cholecystectomy and ERCP Stable from a general surgery perspective. This note was generated with [employer] software. It may contain incorrect words, spelling, and punctuation that were not noted in checking the note before signing. Code Visit Inpatient E&M: 41983 Init Hosp L3
--- NOTE | 2019-02-23 07:41 | NURSING ---
during bedside shift report, pt states that she doesn't want anymore tests. pt states she wants to go home.
--- NOTE | 2019-02-23 08:03 | PCM.DC ---
- Discharge Diagnoses Current Active Problems: Current Active and Chronic Problems (Last Updated 02/19/19 @ 23:32 by Jeffrey Costello MD) Pancreatitis (Acute) Elevated liver enzymes (Acute) You will use the following diet at home:: Regular Your food should be the consistency of: Regular Discharge Activity: Return to Normal Activity, May Not Drive - for 2-3 days or while taking narcotic pain medicataions., May Shower Weight Bearing Status: Weight bearing as tolerated Additional Activity Instructions:: Pain medication may cause nausea. You should typically eat light foods as you take your pain medications. Pain medication may also cause constipation. If this is a problem for you, please discuss with your doctor. Call your doctor if your incision/area has: Continuous Slow Oozing, Sudden Increased Bleeding, Increased Pain/ Swelling, Increased Redness, Foul Smelling Discharge, Fever of 101 or Higher Call your doctor if you observe: Fever of 101 or Higher, Inability to have a bowel movement, Shortness of breath, Fainting spells, Chest pain, Prolonged hiccoughing, Increased palpitations (irregular heartbeat), Calf discomfort Suture Line Care: Avoid Pulling/Pushing, Avoid Pinching/Bending Additional Dressing/Incision Instructions:: Leave operative bandaids on for 2 days. When you remove dressing, leave Steri-Strips on until your follow-up appointment, or until the Steri-Strips fall off on their own. Additional Instructions: F/U Pulmonary clinic if she decides to futher work up CHARBEL lung mass; currently refusing CT scan or futher follow up Allergies/Adverse Reactions: Allergies Penicillins [PCN] Adverse Reaction (Verified 02/19/19 19:07) Unknown Sulfa (Sulfonamide Antibiotics) Adverse Reaction (Verified 02/19/19 19:07) Unknown Medications to take at Discharge Amlodipine Besylate 10 mg PO DAILY 02/19/19 Enalapril Maleate 20 mg PO DAILY 02/19/19 Metoprolol Tartrate [Lopressor (beta judith)] 50 mg PO BID 02/19/19 Omeprazole 20 mg PO DAILY 02/19/19 Hydrocodone Bitart/Apap 5-325 [[place] 5/325] 1 - 2 tab PO Q4H PRN PRN 4 Days #30 tab 02/22/19 The following prescriptions were given: Hydrocodone Bitart/Apap 5-325 [[place] 5/325] 1 - 2 tab PO Q4H PRN PRN 4 Days #30 tab PRN Reason: Severe Pain (-01/26) Transmission Status: Received by [facility] Primary Care Physician: Luis Manuel Arguello MD [Primary Care Provider] - Please follow up with your Primary Care Physician in: in 2 week Test Results: Test results from this visit will be discussed in further detail at your follow-up appointment, if applicable. Please Follow Up With: Orlando Plasencia MD When: Please call to schedule 2 week follow up appointment. [phone]
--- NOTE | 2019-02-23 08:06 | PCM.DC.SUM ---
Discharge Date and Diagnosis Date of Admission: 02/19/19 Date of Discharge: 02/23/19 - Primary Discharge Diagnosis Active and Suspected Problems (Last Updated 02/19/19 @ 23:32 by Jeffrey Costello MD) Pancreatitis (Acute) Elevated liver enzymes (Acute) Hospital Course and Treatment Summary of Care Provided: [] This is a 78-year-old female admitted for acute gallstone pancreatitis secondary to chronic cholelithiasis and choledocholithiasis. Lipase was elevated 1795. 1. Acute gallstone pancreatitis secondary to chronic cholelithiasis and choledocholithiasis- s/p lap lory on 02/21 and ERCP on 02/21. Right upper quadrant shows contracted gallbladder with multiple shadowing stones. GB wall thickening 3 mm with negative pericholecystic fluid and negative Abebe sign. Patient had laparoscopic cholecystectomy on 02/20/2019. Intraoperative cholangiogram was done which showed dilated CBD and central intrahepatic ducts. Intraoperative intraoperative cholangiogram showed 2 filling defects distal common bile duct. Lipase improved to 190. Choledocholithiasis was found on ERCP and biliary sphincterotomy with balloon extraction of his stones were done. Patient has elevated LFT, trending down. ALT 665-294, AST 375-67, total bili 3.6-1.1, alkaline phosphatase 210. 2. Mild hypoxic respiratory insufficiency, most probably atelectasis/volume overload: Patient is found on 2 L of oxygen. Not on home oxygen or has chronic pulmonary disease/COPD. Pulse ox 83% on room air and 91% on 2 L of oxygen. Chest x-ray PA and lateral was done reported as 5.2 cm x 4.5 cm mass in the left upper lobe. Increased interstitial markings in both lungs with blunting of both costophrenic angles suggestive of CHF. Lasix 40 mg IV given. Pulmonary consult requested. Discharge was held. 02/23/2019. Repeat chest x-ray shows left lung mass as mentioned above. Patient was seen by planer setup operator requested and advised and ordered CT chest which she refused. Patient knows the risk of lung malignancy in her family has history of lung nodules as per the patient. She was further given the option of CT chest outpatient and follow-up in pulmonary clinic if she changes her mind. Acute respiratory insufficiency resolved. Pulse ox 94% on room air. Patient advised to keep incentive spirometry. Patient is also a smoker advised to quit his smoking. Mild hyponatremia, hypokalemia -hyponatremia has resolved. Mild hypokalemia: Potassium is being replaced 3. HTN -pressure normal. 4. GERD -ppi 5. Bipolar disorder - pt states she does not take Rx medications for this but self medicates with marijuana 6. Hx nicotine abuse - denies current cigarette use saying she gave this up and only smokes pot now. DVT ppx: lovenox. Discharge medication reconciliation done. Discharge follow-up instructions completed. Discharge process discussed with the patient and all questions were answered to patient's satisfaction. Follow-up with surgery 2 weeks. Patient has a prescription of Vicodin given by Total time spent, exact 35 minutes on discharge meds reconciliation, examination, review of imaging and blood test and discussion with the patient on follow-up instructions. Subjective: Seen and examined. Patient was perhaps volume overloaded and responded with Lasix 40 mg 1 dose given yesterday. Pulse ox improved to 94% on room air. Patient not short of breath. Chest x-ray showed left upper lobe mass for which Dr. Trevizo was consulted. I discussed with planer setup operator. He saw the patient and advised CT chest but patient refused even though knowing the risk of possible lung malignancy. She wants to go home. She was also given the option in case if you change your mind she can make appointment in pulmonary office as an outpatient. - Physical Exam Vitals/I&O's: Vital Signs Temp Pulse Resp BP Pulse Ox 98.1 F 90 16 123/68 H 94 02/23/19 03:10 02/23/19 03:10 02/23/19 03:10 02/23/19 03:10 02/23/19 07:25 Oxygen Flow Rate (L/min) 1 Oxygen Delivery Method Room Air Weight: 138 lb 14.259 oz Body Mass Index (BMI) 26.2 Intake and Output for Last 24 Hours 02/21/19 02/22/19 02/23/19 23:59 23:59 23:59 Intake Total 2300 / 2300 2106.25 / 2106.25 Output Total 700 / 700 1999 / 1999 450 / 450 Balance 1600 / 1600 106.25 / 106.25 -450 / -450 General: Alert, Oriented x3, Cooperative HEENT: Atraumatic, PERRLA, EOMI, Normocephalic Neck: Supple, No JVD, Negative Carotid Bruits Lungs: Clear to auscultation, Normal air movement, No rhonchi, No wheeze, No rales Cardiovascular: Regular rate, Regular Rhythm, Normal S1, Normal S2, No murmurs Abdomen: Bowel Sounds Present, Soft, Non Tender, Non-Distended Extremities: No edema, Capillary Refill Less than 3 Seconds Skin: No rashes, No breakdown Musculoskeletal: No Tenderness to Palpation of Joints or Extremities, Arthritic Changes Neurological: Cranial nerves II-XII grossly intact, Deep Tendon Reflexes 2+/4 and Symmetrical, Neuro grossly intact Psych/Mental Status: Normal Affect, Appropriate Laboratory Results 02/22/19 08:15: WBC 10.5, RBC 3.98 L, Hgb 10.8 L, Hct 32.6 L, MCV 81.9, MCH 27.1, MCHC 33.1, RDW Std Deviation 42.5, RDW Coeff of Castillo 14.4, Plt Count 298, MPV 9.1, Immature Gran % (Auto) 0.500, Neut % (Auto) 84.2 H, Lymph % (Auto) 4.4 L, Mclean % (Auto) 10.8 H, Eos % (Auto) 0.0, Baso % (Auto) 0.1, Absolute Neuts (auto) 8.9 H, Absolute Lymphs (auto) 0.46 L, Nucleated RBC % 0, Differential Comment COMMENT 02/22/19 08:15: Sodium 137, Potassium 3.3 L, Chloride 99, Carbon Dioxide 29.0, Anion Gap 9, BUN 9, Creatinine 0.75, Estim Creat Clear Calc 35.55, Est GFR (MDRD) Af Amer 96, Est GFR (MDRD) Non-Af 80, BUN/Creatinine Ratio 12.0, Glucose 172 H, Calcium 8.5, Total Bilirubin 1.20 H, AST 50 H, ALT 218 H, Alkaline Phosphatase 294 H, Total Protein 6.7, Albumin 2.7 L, Globulin 4.0, Albumin/Globulin Ratio 0.7 L 02/22/19 08:15: B-Natriuretic Peptide 886.4 H Current Medications Acetaminophen (Tylenol) 650 mg PO Q6H PRN PRN PRN Reason: Pain Score 1-5/Temp > 100.7 F Hydrocodone Bitart/Acetaminophen ([place] 5mg-325mg) 1 - 2 tablet PO Q4H PRN PRN PRN Reason: Pain Score 6-10/10 Last Admin: 02/22/19 10:38 Dose: 2 tablet Documented by: Amlodipine Besylate (Norvasc) 10 mg PO DAILY [facility] Last Admin: 02/22/19 09:01 Dose: 10 mg Documented by: Dextrose (D50w Syringe) 0 gm IV X1 PRN; Protocol PRN Reason: Hypoglycemia Enoxaparin Sodium (Lovenox) 40 mg SC DAILY@1000 [facility] Last Admin: 02/22/19 09:02 Dose: 40 mg Documented by: Glucagon () 1 mg IM .X1 PRN PRN Reason: Hypoglycemia Sodium Chloride () 250 mls @ 15 mls/hr IV .[id number] PRN PRN Reason: Saline Flush Lisinopril (Zestril) 10 mg PO DAILY [facility] Metoprolol Tartrate (Lopressor (Beta Judith)) 50 mg PO BID [facility] Last Admin: 02/22/19 21:21 Dose: 50 mg Documented by: Morphine Sulfate () 2 - 4 mg IV Q2H PRN PRN PRN Reason: Pain Score 6-10/10 Last Admin: 02/22/19 02:16 Dose: 2 mg Documented by: Morphine Sulfate () 2 - 4 mg IV Q2H PRN PRN PRN Reason: Pain Score 6-10/10 Nutritional Formula (Lactose Free) (Ensure Clear) 120 ml PO 4X/DAY [facility] Last Admin: 02/22/19 21:21 Dose: Not Given Documented by: Ondansetron HCl (Zofran) 4 mg IV Q8H PRN PRN PRN Reason: NAUSEA/VOMITING Last Admin: 02/21/19 08:25 Dose: 4 mg Documented by: Pantoprazole Sodium (Protonix) 20 mg PO DAILY [facility] Last Admin: 02/22/19 09:01 Dose: 20 mg Documented by: Sodium Chloride () 10 - 40 ml IV UD PRN PRN Reason: SALINE FLUSH Last Admin: 02/22/19 14:36 Dose: 10 ml Documented by: Sodium Chloride ([place] Nasal Merrill) 2 spray NASAL TID PRN PRN PRN Reason: NASAL DRYNESS Discharge Diet: Light diet - advance as tolerated Discharge Activity: Return to Normal Activity, May Not Drive - for 2-3 days or while taking narcotic pain medicataions., May Shower Weight Bearing Status: Weight bearing as tolerated Additional Activity Instructions:: Pain medication may cause nausea. You should typically eat light foods as you take your pain medications. Pain medication may also cause constipation. If this is a problem for you, please discuss with your doctor. Call your doctor if your incision/area has: Continuous Slow Oozing, Sudden Increased Bleeding, Increased Pain/ Swelling, Increased Redness, Foul Smelling Discharge, Fever of 101 or Higher Call your doctor if you observe: Fever of 101 or Higher, Inability to have a bowel movement, Shortness of breath, Fainting spells, Chest pain, Prolonged hiccoughing, Increased palpitations (irregular heartbeat), Calf discomfort Suture Line Care: Avoid Pulling/Pushing, Avoid Pinching/Bending Additional Dressing/Incision Instructions:: Leave operative bandaids on for 2 days. When you remove dressing, leave Steri-Strips on until your follow-up appointment, or until the Steri-Strips fall off on their own. Home Medications: Medications to take at Discharge Amlodipine Besylate 10 mg PO DAILY 02/19/19 Enalapril Maleate 20 mg PO DAILY 02/19/19 Metoprolol Tartrate [Lopressor (beta judith)] 50 mg PO BID 02/19/19 Omeprazole 20 mg PO DAILY 02/19/19 Hydrocodone Bitart/Apap 5-325 [[place] 5/325] 1 - 2 tab PO Q4H PRN PRN 4 Days #30 tab 02/22/19 Following Prescrptions Were Given to Patient: Hydrocodone Bitart/Apap 5-325 [[place] 5/325] 1 - 2 tab PO Q4H PRN PRN 4 Days #30 tab PRN Reason: Severe Pain (-01/26) Transmission Status: Received by [facility] Primary Care Physician: Luis Manuel Arguello MD [Primary Care Provider] - Please follow up with your Primary Care Physician in: in 2 week Please Follow Up With: Orlando Plasencia MD When: Please call to schedule 2 week follow up appointment. [phone] Medical Necessity - Tobacco Use Smoking Status: Former smoker Meaningful Use Info Meaningful Use Diagnoses (Choose all that apply): None applicable Code Visit Inpatient E&M: 92969 Disch Hosp
--- NOTE | 2019-02-23 11:44 | PCM.PN.SRG ---
Subjective: Patient evaluated resting comfortably on the side of the bed. She voices she is ready to go home. She denies incisional pain/discomfort. She denies nausea, vomiting. - Physical Exam Vitals/I&O's: Vital Signs Temp Pulse Resp BP Pulse Ox 98.1 F 90 16 123/68 H 94 02/23/19 03:10 02/23/19 03:10 02/23/19 03:10 02/23/19 03:10 02/23/19 07:25 Oxygen Flow Rate (L/min) 1 Oxygen Delivery Method Room Air Weight: 138 lb 14.259 oz Body Mass Index (BMI) 26.2 Intake and Output for Last 24 Hours 02/21/19 02/22/19 02/23/19 23:59 23:59 23:59 Intake Total 2300 / 2300 2106.25 / 2106.25 Output Total 700 / 700 1999 / 2000 450 / 450 Balance 1600 / 1600 106.25 / 106.25 -450 / -450 General: Alert, Oriented x3, Cooperative Abdomen: Bowel Sounds Present, Soft, Non Tender, - - Incisions c/d/i. No erythema or infection noted Laboratory Results 02/22/19 08:15: B-Natriuretic Peptide 886.4 H Medical Necessity - Tobacco Use Smoking Status: Former smoker Assessment/Plan All Active Problems (Last Updated 02/19/19 @ 23:32 by Jeffrey Costello MD) Pancreatitis (Acute) Elevated liver enzymes (Acute) I have been consulted in conjunction with Dr. Plasencia S/p laparoscopic cholecystectomy with IOC. S/p ERCP Okay for discharge Follow-up with our office in [address] Plasencia Code Visit Inpatient E&M: 94969 Subs Hosp L1 - No charge
== END 2019-02-23 09:13 | disposition home or self-care (01) | DRG 418 ==
LOC: ED 22:36 → MS3 23:09
PROVIDERS: Hospitalist; Physician Assistant Medical; Surgery; Admitting Provider Hospitalist; Emergency Provider Emergency Medicine; Family Provider Family Medicine; PCP Family Medicine; Referring Provider Hospitalist; Visit Provider Internal Medicine
PROC: 0FT44ZZ Resection of Gallbladder, Percutaneous Endoscopic Approach (ICD-10-PCS; CPT 47610; principal; 2019-02-20 15:05)
PROC: 0FC98ZZ Extirpation of Matter from Common Bile Duct, Via Natural or Artificial Opening Endoscopic (ICD-10-PCS; CPT 43260; principal; 2019-02-21 13:30)
DX: K85.10 Biliary acute pancreatitis without necrosis or infection (principal); E87.1 Hypo-osmolality and hyponatremia; E87.6 Hypokalemia; I10 Essential (primary) hypertension; K80.70 Calculus of gallbladder and bile duct without cholecystitis without obstruction; K21.9 Gastro-esophageal reflux disease without esophagitis; F12.10 Cannabis abuse, uncomplicated; R09.02 Hypoxemia; R06.89 Other abnormalities of breathing; F31.9 Bipolar disorder, unspecified; Z87.891 Personal history of nicotine dependence; R91.8 Other nonspecific abnormal finding of lung field
CPT/HCPCS: 36415; 71046; 74300; 74330; 76000; 76705; 80053; 80061; 80074; 81001; 83690; 83880; 85025; 85610; 88304; 93005; 97802; 99284; J7030; J7120; A4216; J1940; J2405

== ENCOUNTER 2019-03-24 09:36 | Emergency (ER) | payer MEDICARE, SELFPAY ==
[2019-02-21 12:54] VITALS: BMI 26.2
[2019-03-24 09:39] VITALS: BP 136/71; PULSE 76; RESP 17; TEMP 36.9; BMI 22.1
--- NOTE | 2019-03-24 10:00 | CT_ITS ---
STUDY: CT BRAIN WITHOUT CONTRAST REASON FOR EXAM: Female, 78 years old. One-month history of confusion. RADIATION DOSAGE (If Supplied By Facility): CTDIvol = ( 60.81 ) mGy, DLP = ( 1067.08 ) mGycm TECHNIQUE: Transaxial CT imaging of the brain was performed without administration of intravenous contrast material. Individualized dose optimization techniques were used for this CT. COMPARISON: No relevant priors. FINDINGS: Normal soft tissue structures. Normal calvarium. There is mild cerebral atrophy with widening of the extra-axial spaces and ventricular dilatation. Decrease attenuation in the periventricular white matter suggestive of periventricular ischemic changes. Diffuse white matter edema involving the left temporal parietal occipital lobes. There is evidence of mass effect. A repeat CT scan following IV contrast is recommended to rule out a neoplastic process. Normal basal ganglia and thalami. Normal brainstem. Normal cerebellum. There is no intracranial hemorrhage. There are no findings of an acute ischemic infarction. Atherosclerotic plaque formation of the bilateral vertebral arteries and cavernous portions of the internal carotid arteries bilaterally. Normal visualized paranasal sinuses. CT/Brain/Head without Contrast IMPRESSION: Chronic involutional changes of the brain. White matter edema involving the left temporal parietal occipital lobes with mild mass effect. A neoplastic process should be ruled out. Contrast-enhanced CT scan is recommended. N.B. : The above information has been verbally conveyed by Javon Lassiter to Braxton Elliottren on 03/24/2019 10:50:08 (ET). Electronically Signed: Javon Lassiter, at 10:51 EST , Service support ,
[2019-03-24 10:24] LABS: Absolute Lymphocyte Count 1.26 X10^3/uL (0.83-4.51); Absolute Neutrophil Count 6.4 X10^3/uL (2.0-7.7); Basophil# 0.05 X10^3/uL; Basophil% 0.6 % (0-1); Eosinophil# 0.26 X10^3/uL; Eosinophils% 2.9 % (0-5); Hematocrit 39.4 % (37-47); Lymphocyte # 1.26 X10^3/ul (4.0); Lymphocyte % 14.3 % (19-41); Mean Corpuscular Hgb 27.3 pg (27.0-32.0); Mean Corpuscular Volume 82.6 fL (81-99); Mean Platelet Vol. 8.5 fl (6.2-12.0); Monocyte# 0.81 X10^3/uL; Monocyte% 9.2 % (0-10); NRBC Flagged by Analyzer 0 % (0-5); Neutrophil # 6.41 X10^3/uL (2.7-7.7); Neutrophil % 72.7 % (47-70); Platelet Count 369 K/mm3 (150-450); RBC Distribution Width CV 13.4 % (11.6-14.6); RBC Distribution Width SD 40.3 fl (35.1-43.9); Red Blood Count 4.77 M/mm3 (4.2-5.4); White Blood Count 8.8 K/mm3 (4.4-11.0)
[2019-03-24 10:44] LABS: ALB/GLOB Ratio 0.9 RATIO (0.9-2.4); AST(SGOT) 12 U/L (15-37); Alanine Aminotransfer ALT/SGPT 16 U/L (13-56); Albumin, Serum 3.5 g/dL (3.2-5.0); Alkaline Phosphatase 100 U/L (45-117); Anion Gap 4 (5-15); BUN 15 mg/dL (7-18); BUN/Creat Ratio 17.7 RATIO (10-20); Calcium,Total 9.2 mg/dL (8.5-10.1); Chloride 102 mmol/L (98-107); Creatinine, Serum 0.85 mg/dL (0.55-1.02); EST Glomerular Filtration Rate 69 mL/min (>60); Est Glom Filt Rate - Afr Amer 84 mL/min (>60); Estimated Creatinine Clearance 45.85 ml/min; Globulin 3.8 g/dL (2.2-4.2); Glucose 108 mg/dL (74-106); Potassium 4.1 mmol/L (3.5-5.1); Protein, Total 7.3 g/dL (6.4-8.2); Sodium Level 135 mmol/L (136-145)
[2019-03-24 10:55] LABS: Ammonia < 10.0 umol/L (11-32)
[2019-03-24 11:07] LABS: Bacteria 0 SEEN /hpf (None Seen); Mucous, Urine 0 SEEN /hpf (<or=2+); Red Blood Cells-Urine 0 SEEN /hpf (0-5); Squamous Epithelial Cells - UA 0 SEEN /hpf (5-10); White Blood Cells 0 SEEN /hpf (0-5)
[2019-03-24 11:15] LABS: Color, Urine Yellow (Yellow); Glucose, Dipstick Normal (Normal); Ketone-Dipstick Negative (Negative); Leukocyte Esterase-Dipstick Negative /ul (Negative); Nitrite-Dipstick Negative (Negative); Occult Blood-Urine Negative /ul (Negative); Protein-Dipstick Negative (Negative); Specific Gravity, Urine 1.005 (1.002-1.030); Urine Bilirubin Dipstick Negative (Negative); Urine Clarity Clear (Clear); Urine Urobilinogen Normal (Normal)
[2019-03-24 12:00] VITALS: BP 147/76; PULSE 84; RESP 25; O2SAT 95
[2019-03-24] MEDS: 0.9% Normal Saline 1,000 ML 999 ML IV (13:16)
[2019-03-24] MEDS: dexAMETHasone 10 MG/ML Vial IV (13:17)
[2019-03-24 14:00] VITALS: BP 149/87; PULSE 91; RESP 16; O2SAT 98
--- NOTE | 2019-03-24 14:49 | ED.DCSUM_ITS ---
- ER Visit Summary Date of Service: 03/24/19 Chief Complaint: Confusion History of Present Illness: The patient is a [address] Bienvenido Mckeon. She reports that she had a cholecystectomy in January of this year and that she has not been right since that time. She reports that she cannot think straight and I am screwed up. When asked to explain this further she complains that she has had word searching. She denies any other neurologic symptoms. No headache, numbness, weakness, change in her vision, or vertigo. Review of systems is otherwise negative as well. Physical Examination: Vitals: Stable. Afebrile. General: Well-nourished and well-developed. Head: Normocephalic atraumatic. Neck: Supple, no lymphadenopathy. No JVD. Nontender. Cardiovascular: Regular rate and rhythm. No murmurs. Respiratory: No respiratory distress. Clear to auscultation bilaterally. Abdominal: Soft, nontender, nondistended, normal bowel sounds. No guarding, rebound, or peritoneal signs. Back: Nontender. Extremities: Nontender, no edema. Skin: Normal color, no rash. Neurologic: Alert and oriented ?3. Cranial nerves II through XII are intact. Normal strength and sensation. NIH scale is 1 for occasional word searching. Psych: Normal affect. Test Results: CBC shows segmented for 7 3 lymphs at 14. Chem-7 shows sodium 135, chloride 108. Ammonia is negative. LFTs show an AST of 12. UA is normal. Clinical Impression(s) from Imaging Studies Brain CT 03/24/19 10:00 IMPRESSION: Chronic involutional changes of the brain. White matter edema involving the left temporal parietal occipital lobes with mild mass effect. A neoplastic process should be ruled out. Contrast-enhanced CT scan is recommended. N.B. : The above information has been verbally conveyed by Javon Lassiter to Braxton Gallego on 03/24/2019 10:50:08 (ET). Electronically Signed: Javon Lassiter, at 10:51 EST , Service support , ADDENDUM: 03/24/19 1058 IMPRESSION: Chronic involutional changes of the brain. White matter edema involving the left temporal parietal occipital lobes with mild mass effect. A neoplastic process should be ruled out. Contrast-enhanced CT scan is recommended. N.B. : The above information has been verbally conveyed by Javon Lassiter to Braxton Gallego on 03/24/2019 10:50:08 (ET). Electronically Signed: Javon Maikol, at 10:51 EST , Service support , Emergency Department Course and Treatment: Patient was given a dose of dexamethasone IV. She is resting comfortably. Treatment Plan: The patient was discussed with [facility], her hospital of choice, at this time I am going to hold off on getting a CTA as they will obtain an MRI there. Disposition: Transferred in improved condition. Impression: 1. Left temporal parietal mass. This note was generated with [employer] dictation software. It may contain incorrect words, spelling, and punctuation that were not noted in review of the chart prior to signing ED Disposition - Plan for ED Patient: Referrals: Luis Manuel Arguello MD [Primary Care Provider] -
[2019-03-24 16:17] VITALS: BP 149/91; PULSE 91; RESP 16; TEMP 36.8; O2SAT 96
[2019-03-24 16:41] VITALS: BP 149/91; PULSE 98; RESP 18; O2SAT 98
--- NOTE | 2019-03-24 17:59 | ED.RN ---
spoke to friend, Dash and Wendy, daughter on phone to inform she left by EMS at this time.
== END 2019-03-24 17:59 | disposition short-term general hospital (02) ==
LOC: ED 10:13
PROVIDERS: Emergency Provider Emergency Medicine; Family Provider Family Medicine; PCP Family Medicine
DX: G93.89 Other specified disorders of brain (principal); I10 Essential (primary) hypertension; Z79.899 Other long term (current) drug therapy
CPT/HCPCS: 70450; 80053; 81001; 82140; 85025; 96361; 96374; 99285; J7030; A4216

== ENCOUNTER → 2020-03-26 | Outpatient (CLI) | payer MEDICARE, MEDICAID, SELFPAY | END | disposition home or self-care (01) | LOC: LABSPEC 15:09 | PROVIDERS: PCP Family Medicine; Visit Provider Otolaryngology | DX: J32.9 Chronic sinusitis, unspecified (principal) | CPT/HCPCS: 87070; 87205 ==

== ENCOUNTER → 2020-10-15 10:49 | Outpatient (CLI) | payer MEDICARE, MEDICAID, SELFPAY ==
--- NOTE | 2020-10-15 10:55 | US_ITS ---
STUDY: RENAL ULTRASOUND - COMPLETE REASON FOR EXAM: Female, 79 years old. UTI RETENTION OF URINE TECHNIQUE: Ultrasound evaluation of the kidneys was performed with real-time and static jara-scale imaging. COMPARISON: None. FINDINGS: Aorta: Visualized portions of abdominal aorta are normal in diameter. IVC: Visualized portions appear patent. Right kidney: Measures 10.3 cm. Normal contour. Renal cortical thickness appears normal. No cysts. No masses, stones, or hydronephrosis identified. Left kidney: Measures 9.2 cm. Normal contour. Renal cortical thickness appears normal. 1 cm cyst. No masses, stones, or hydronephrosis identified. Bladder: No intrinsic masses, stones, or abnormal dilatation noted. US/Kidney and Bladder IMPRESSION: Renal ultrasound is within normal limits. Electronically Signed: Edgardo Baron MD at 20:08 EDT Tel , Service support ,
== END ==
PROVIDERS: PCP Family Medicine; Referring Provider Urology; Visit Provider Urology
DX: N39.0 Urinary tract infection, site not specified (principal); R33.9 Retention of urine, unspecified
CPT/HCPCS: 76770

== ENCOUNTER 2020-11-05 16:57 | Inpatient (IN) | payer MEDICARE, MEDICAID, SELFPAY ==
[2020-11-05] VITALS (10 sets, daily range): BP systolic 126–164; BP diastolic 57–84; PULSE 102–118; RESP 16–20; TEMP 36.7–38.1; O2SAT 92–97; BMI 21.5; BMI 20.5
[2020-11-05] MEDS: 0.9% Normal Saline 1,000 ML 1000 ML IV (17:00)
--- NOTE | 2020-11-05 17:32 | EKG12_ITS ---
Test Reason : GEN ILLNESS Blood Pressure : / mmHG Vent. Rate : 119 BPM Atrial Rate : 107 BPM P-R Int : 152 ms QRS Dur : 106 ms QT Int : 384 ms P-R-T Axes : 074 -17 093 degrees QTc Int : 540 ms Undetermined rhythm : Consider Sinus Rhythm with PSVC's and PVC's Prolonged QT Abnormal ECG Confirmed by JENNY YANEZ, MARGUERITE ([id number]), online editor LENY SMILEY ([id number]) on 11/08/2020 10:02:51 AM Referred By: ALESSANDRO Confirmed By:MARGUERITE ALVARADO MD
--- NOTE | 2020-11-05 17:34 | EX.ED.DYSGE1 ---
HPI History of Present Illness Chief Complaint: General Illness Informant: patient Narrative Narrative: 79-year-old female presenting with confusion, fever, generalized weakness. Patient states she finished a course of antibiotics today for recent urinary tract infection. Temperature was noted to be 104 prior to arrival. She was given Tylenol per EMS. She states on arrival she is now feeling improved. She continues to be confused. She denies other complaints. [facility] similar symptoms: [facility] Medical History (Updated 11/05/20 @ 20:[address] Catina Ramey MD) Acute cholecystitis Cholelithiases Chronic cholecystitis Elevated liver enzymes Gallstone pancreatitis Hypertension Pancreatitis Home Medications enalapril maleate 10 mg PO DAILY 02/19/19 [History Last Taken 03/24/19 20 mg] metoprolol tartrate 50 mg PO BID 02/19/19 [History Last Taken 03/24/19 50 mg] amlodipine 5 mg PO DAILY 11/05/20 [History Last Taken Unknown] fluticasone propionate 2 spray INTRANASAL BID 11/05/20 [History Last Taken Unknown] lorazepam 1 mg PO QHS 11/05/20 [History Last Taken Unknown] nitrofurantoin monohyd/m-cryst 1 cap PO BID 11/05/20 [History Last Taken Unknown] Allergy/AdvReac Type Severity Reaction Status Date / Time acetaminophen AdvReac Unknown Verified 11/05/20 17:01 [From Darvocet-N] aspirin AdvReac Unknown Verified 11/05/20 17:01 Cephalosporins AdvReac Unknown Verified 11/05/20 17:01 codeine AdvReac Unknown Verified 11/05/20 17:01 Penicillins [PCN] AdvReac Unknown Verified 11/05/20 17:01 propoxyphene AdvReac Unknown Verified 11/05/20 17:01 [From Darvocet-N] Bowwowt-Bbq-Yzi Reductase AdvReac Unknown Verified 11/05/20 17:01 Inhibitor Sulfa (Sulfonamide AdvReac Unknown Verified 11/05/20 17:01 Antibiotics) Surgical History S/P laparoscopic cholecystectomy (~02/20/19) Status post endoscopic retrograde cholangiopancreatography (~02/21/19) Social History (Updated 03/14/19 @ 14:[address] Orlando Plasencia MD) Smoking Status: Former smoker ROS ROS ED Constitutional Constitutional ED: Reports fever(s) Eyes Eyes: Denies change in vision ENT ENT ED: Denies rhinorrhea or sore throat Cardiovascular Cardiovascular: Denies chest pain or palpitations Respiratory/Chest Respiratory/Chest: Denies cough or dyspnea Gastrointestinal Gastrointestinal: Denies abdominal pain, diarrhea, nausea or vomiting Genitourinary Genitourinary ED: Reports dysuria and urinary frequency Musculoskeletal Musculoskeletal: Denies myalgias Integumentary Denies rash Neurologic Neurologic: Denies headache(s) Psychiatric Psychiatric: Denies suicidal thoughts EXAM Physical Exam Const Vital Signs: 11/05/20 16:58 11/05/20 17:01 11/05/20 17:02 Temperature 100.5 F H Temperature Source Oral Pulse Rate 108 H 117 H Respiratory Rate 16 16 Respiratory Effort Normal Respiratory Pattern Normal Blood Pressure 142/67 H 140/74 H Blood Pressure Mean 92 96 Pulse Ox 93 92 Oxygen Delivery Method Room Air Room Air 11/05/20 18:21 11/05/20 19:13 11/05/20 20:12 Temperature 98.9 F Temperature Source Temporal Pulse Rate 108 H 113 H 102 H Respiratory Rate 18 20 H 18 Respiratory Effort Respiratory Pattern Blood Pressure 134/63 H 126/64 H 143/67 H Blood Pressure Mean 86 84 92 Pulse Ox 94 95 97 Oxygen Delivery Method Room Air Room Air Room Air Positive well nourished and well developed General Appearance ED: well developed HEENT Reports normocephalic, head/scalp atraumatic and dry mucous membranes Mouth ED: Yes dry mucous membranes Mouth: dry mucous membranes Eyes PERRL and EOMs intact bilaterally Neck supple General: Negative for tenderness Chest Wall inspection of chest normal Resp normal respiratory effort and clear to auscultation bilaterally Cardio regular rate and regular rhythm GI non-tender and non-distended Palpation: soft; Negative for guarding or rebound tenderness present no CVA tenderness Extremity normal to inspection Neuro no sensory deficits noted Sensorium / Orientation: alert and orientation impaired Motor Exam: strength 5/5 throughout Psych mental status grossly normal Skin no rashes or lesions noted MDM MDM MDM Narrative Medical decision making narrative: Patient was given IV fluids. White count 18.5. Lactic acid normal. Urinalysis unremarkable. Chest x-ray shows no definite acute process. Covid is negative. I believe patient has partially treated urinary tract infection and sepsis related to this. Urine culture was sent. She was given Rocephin IV. Will discuss with hospitalist for admission. Lab Data Attestation: I reviewed the patient's lab results. Labs: Laboratory Results - last 24 hr 11/05/20 11/05/20 11/05/20 16:20 16:20 17:45 WBC 18.5 H RBC 4.93 Hgb 13.6 Hct 41.8 MCV 84.8 MCH 27.6 MCHC 32.5 RDW Std Deviation 42.1 RDW Coeff of Castillo 13.5 Plt Count 340 MPV 9.3 Immature Gran % (Auto) 1.400 H Neut % (Auto) 86.1 H Lymph % (Auto) 2.6 L [place] % (Auto) 8.8 Eos % (Auto) 0.9 Baso % (Auto) 0.2 Absolute Neuts (auto) 15.9 H Absolute Lymphs (auto) 0.48 L Nucleated RBC % 0 Differential Comment SCANNED Diff Path Review May foll Sodium 136 Potassium 3.0 L Chloride 99 Carbon Dioxide 26.0 Anion Gap 11 BUN 14 Creatinine 0.83 Estim Creat Clear Calc 48.24 Est GFR (MDRD) Af Amer 86 Est GFR (MDRD) Non-Af 71 BUN/Creatinine Ratio 16.9 Glucose 120 H Lactic Acid 1.0 Calcium 8.6 Total Bilirubin 0.50 AST 15 ALT 19 Alkaline Phosphatase 105 Troponin I High Sens 11.0 Total Protein 7.4 Albumin 3.5 Globulin 3.9 Albumin/Globulin Ratio 0.9 Urine Color Urine Clarity Urine pH Ur Specific [place] Urine Protein Urine Glucose (UA) Urine Ketones Urine Occult Blood Urine Nitrite Urine Bilirubin Urine Urobilinogen Ur Leukocyte Esterase Urine RBC Urine WBC Ur Squamous Epith Cells Urine Bacteria Urine Mucus 11/05/20 18:15 WBC RBC Hgb Hct MCV MCH MCHC RDW Std Deviation RDW Coeff of Castillo Plt Count MPV Immature Gran % (Auto) Neut % (Auto) Lymph % (Auto) [place] % (Auto) Eos % (Auto) Baso % (Auto) Absolute Neuts (auto) Absolute Lymphs (auto) Nucleated RBC % Differential Comment Diff Path Review Sodium Potassium Chloride Carbon Dioxide Anion Gap BUN Creatinine Estim Creat Clear Calc Est GFR (MDRD) Af Amer Est GFR (MDRD) Non-Af BUN/Creatinine Ratio Glucose Lactic Acid Calcium Total Bilirubin AST ALT Alkaline Phosphatase Troponin I High Sens Total Protein Albumin Globulin Albumin/Globulin Ratio Urine Color Straw Urine Clarity Clear Urine pH 5.0 Ur Specific [place] 1.010 Urine Protein Negative Urine Glucose (UA) Normal Urine Ketones 15 H Urine Occult Blood 25 H Urine Nitrite Negative Urine Bilirubin Negative Urine Urobilinogen Normal Ur Leukocyte Esterase Negative Urine RBC 0 SEEN Urine WBC 0 SEEN Ur Squamous Epith Cells 0 SEEN Urine Bacteria 0 SEEN Urine Mucus 0 SEEN Radiography Chest X-Ray - ED: 1 View, Read by ED Physician and Read by Radiologist Diagnostic Testing: Radiology Impression Chest X-Ray 11/05/20 18:10 IMPRESSION: No definite acute cardiopulmonary process. CT scan may be obtained if clinical suspicion for a small recurrent mass/consolidation in the left upper lung is high. Electronically Signed: Malachi Ontiveros MD at 18:50 EDT Tel , Service support , Brain CT 11/05/20 19:27 IMPRESSION: Interval left posterior parietal craniotomy. Focal encephalomalacia in the surgical bed. MRI with and without contrast may be obtained if clinical suspicion for local recurrence is high. No acute intracranial hemorrhage. Electronically Signed: Malachi Ontiveros MD at 19:52 EDT Tel , Service support , EKG Initial EKG: Attestation: I personally reviewed and interpreted this EKG as follows: Interpretation: Sinus Rhythm and No Acute Injury Pattern Discharge Plan Triage Chief Complaint: General Illness ED Provider: Catina Ramey Dx/Rx/DC Orders Clinical Impression: Sepsis, Acute UTI Prescriptions: No Action metoprolol tartrate 100 MG tablet 50 mg PO BID RF: 0 enalapril maleate 20 MG tablet 10 mg PO DAILY RF: 0 amlodipine 5 mg tablet 5 mg PO DAILY RF: 0 lorazepam 1 mg tablet 1 mg PO QHS RF: 0 fluticasone propionate 50 mcg/actuation spray,suspension 2 spray INTRANASAL BID RF: 0 nitrofurantoin monohyd/m-cryst 100 mg capsule 1 cap PO BID RF: 0 Primary Care Provider: Luis Manuel Arguello Referrals: Luis Manuel Arguello MD [Primary Care Provider] - [facility]
[2020-11-05 17:55] LABS: Absolute Lymphocyte Count 0.48 X10^3/uL (0.83-4.51); Absolute Neutrophil Count 15.9 X10^3/uL (2.0-7.7); Basophil# 0.03 X10^3/uL; Basophil% 0.2 % (0-1); Eosinophil# 0.16 X10^3/uL; Eosinophils% 0.9 % (0-5); Hematocrit 41.8 % (37-47); Hemoglobin 13.6 g/dL (12.0-15.0); Lymphocyte # 0.48 X10^3/ul (0.83-4.51); Lymphocyte % 2.6 % (19-41); Mean Corp Hgb Conc 32.5 g/dL (32-36); Mean Corpuscular Hgb 27.6 pg (27.0-32.0); Mean Corpuscular Volume 84.8 fL (81-99); Mean Platelet Vol. 9.3 fl (6.2-12.0); Monocyte# 1.63 X10^3/uL; Monocyte% 8.8 % (0-10); NRBC Flagged by Analyzer 0 % (0-5); Neutrophil # 15.93 X10^3/uL (2.7-7.7); Neutrophil % 86.1 % (47-70); POSITIVE DIFFERENTIAL YES; Platelet Count 340 K/mm3 (150-450); RBC Distribution Width CV 13.5 % (11.6-14.6); RBC Distribution Width SD 42.1 fl (35.1-43.9); Red Blood Count 4.93 M/mm3 (4.2-5.4); White Blood Count 18.5 K/mm3 (4.4-11.0)
[2020-11-05 17:56] LABS: Differential Indicated SCAN CRITERIA MET
--- NOTE | 2020-11-05 18:10 | RAD_ITS ---
STUDY: X-RAY CHEST REASON FOR EXAM: Female, 79 years old. sob, fever TECHNIQUE: 02/22/2019 COMPARISON: None. FINDINGS: Cardiomediastinal silhouette is unremarkable. Costophrenic angles are sharp. Linear scars are seen in the left lateral upper lung in the region of the patient''s previously described mass/consolidation. The trachea is midline. There is no pneumothorax. Multilevel thoracic spondylosis noted. RAD/Chest 1 View (Portable) IMPRESSION: No definite acute cardiopulmonary process. CT scan may be obtained if clinical suspicion for a small recurrent mass/consolidation in the left upper lung is high. Electronically Signed: Malachi Ontiveros MD at 18:50 EDT Tel , Service support ,
[2020-11-05 18:18] LABS: ALB/GLOB Ratio 0.9 RATIO (0.9-2.4); AST(SGOT) 15 U/L (15-37); Alanine Aminotransfer ALT/SGPT 19 U/L (13-56); Albumin, Serum 3.5 g/dL (3.2-5.0); Alkaline Phosphatase 105 U/L (45-117); Anion Gap 11 (5-15); BUN 14 mg/dL (7-18); BUN/Creat Ratio 16.9 RATIO (10-20); Calcium,Total 8.6 mg/dL (8.5-10.1); Chloride 99 mmol/L (98-107); Creatinine, Serum 0.83 mg/dL (0.55-1.02); EST Glomerular Filtration Rate 71 mL/min (>60); Est Glom Filt Rate - Afr Amer 86 mL/min (>60); Estimated Creatinine Clearance 48.24 ml/min; Globulin 3.9 g/dL (2.2-4.2); Glucose 120 mg/dL (74-106); Protein, Total 7.4 g/dL (6.4-8.2); Sodium Level 136 mmol/L (136-145)
[2020-11-05 18:22] LABS: Differential Comment SCANNED
[2020-11-05 18:23] LABS: Bacteria 0 SEEN /hpf (None Seen); Mucous, Urine 0 SEEN /hpf (<or=2+); Red Blood Cells-Urine 0 SEEN /hpf (0-5); Squamous Epithelial Cells - UA 0 SEEN /hpf (5-10); White Blood Cells 0 SEEN /hpf (0-5)
[2020-11-05 18:27] LABS: Color, Urine Straw (Yellow); Glucose, Dipstick Normal (Normal); Ketone-Dipstick 15 mg/dl (Negative); Leukocyte Esterase-Dipstick Negative /ul (Negative); Nitrite-Dipstick Negative (Negative); Occult Blood-Urine 25 /ul (Negative); Protein-Dipstick Negative (Negative); Urine Bilirubin Dipstick Negative (Negative); Urine Clarity Clear (Clear); Urine Urobilinogen Normal (Normal)
--- NOTE | 2020-11-05 19:27 | CT_ITS ---
STUDY: CT BRAIN WITHOUT CONTRAST REASON FOR EXAM: Female, 79 years old. confusion RADIATION DOSAGE (If Supplied By Facility): CTDIvol = ( 44.99 ) mGy, DLP = ( 779.24 ) mGycm TECHNIQUE: Transaxial CT imaging of the brain was performed without administration of intravenous contrast material. Individualized dose optimization techniques were used for this CT. COMPARISON: 03/24/2019.. FINDINGS: Focal encephalomalacia is noted in the left parieto-occipital lobe deep to the craniotomy site. MRI may be obtained if clinical suspicion for neoplasm is high. There is no intra-/extra-axial fluid collection, mass effect, or midline shift. The pierce/white matter junction is preserved. Hypoattenuation of periventricular and subcortical white matter suggestive of chronic small vessel ischemic disease. Mild diffuse parenchymal volume loss is noted. There is vascular calcification. The basal cisterns are patent. Near complete opacification of the right frontal sinus and bilateral ethmoid air cells is noted. There is mucoperiosteal thickening of the left frontal and bilateral maxillary and sphenoid sinuses. The mastoid air cells are clear. CT/Brain/Head without Contrast IMPRESSION: Interval left posterior parietal craniotomy. Focal encephalomalacia in the surgical bed. MRI with and without contrast may be obtained if clinical suspicion for local recurrence is high. No acute intracranial hemorrhage. Electronically Signed: Malachi Ontiveros MD at 19:52 EDT Tel , Service support ,
[2020-11-05] MEDS: Nitrofurantoin Macrocrystals 100 MG Capsule PO (20:22)
--- NOTE | 2020-11-05 20:25 | PCM.HP.STD ---
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 Of note patient has been on Macrodantin for 7 days for UTI. Reportedly she was first placed on 5 days of Macrodantin and it was later extended by 2 days. She has a last dose of Macrodantin to take. She has a prolapsed bladder that no one is willingly to operate because of her age and her increased risk. She has had many episodes of UTI. He reports burning with urination. Emergency Department doctor reported that at the time of examination patient was alert and oriented x2. [facility] Medical History Acute cholecystitis Cancer Cholelithiases Chronic cholecystitis Elevated liver enzymes Former smoker Gallstone pancreatitis Hypertension Pancreatitis Stroke/cerebrovascular accident Home Medications enalapril maleate 10 mg PO DAILY 02/19/19 [History Last Taken 03/24/19 20 mg] metoprolol tartrate 50 mg PO BID 02/19/19 [History Last Taken 03/24/19 50 mg] amlodipine 5 mg PO DAILY 11/05/20 [History Last Taken Unknown] fluticasone propionate 2 spray INTRANASAL BID 11/05/20 [History Last Taken Unknown] lorazepam 1 mg PO QHS 11/05/20 [History Last Taken Unknown] nitrofurantoin monohyd/m-cryst 1 cap PO BID 11/05/20 [History Last Taken Unknown] Allergy/AdvReac Type Severity Reaction Status Date / Time acetaminophen AdvReac Unknown Verified 11/05/20 17:01 [From Darvocet-N] aspirin AdvReac Unknown Verified 11/05/20 17:01 Cephalosporins AdvReac Unknown Verified 11/05/20 17:01 codeine AdvReac Unknown Verified 11/05/20 17:01 Penicillins [PCN] AdvReac Unknown Verified 11/05/20 17:01 propoxyphene AdvReac Unknown Verified 11/05/20 17:01 [From Darvocet-N] Gdsbbyd-Fbm-Wgy Reductase AdvReac Unknown Verified 11/05/20 17:01 Inhibitor Sulfa (Sulfonamide AdvReac Unknown Verified 11/05/20 17:01 Antibiotics) Family History Other Cancer Surgical History History of appendectomy S/P laparoscopic cholecystectomy (~02/20/19) Status post endoscopic retrograde cholangiopancreatography (~02/21/19) Social History Smoking Status: Former smoker ROS ROS Narrative 12 point review of system is negative except as stated in HPI. Vital Signs Vital Signs Vital Signs: 11/05/20 16:58 11/05/20 17:01 11/05/20 17:02 Temperature 100.5 F H Temperature Source Oral Pulse Rate 108 H 117 H Respiratory Rate 16 16 Respiratory Effort Normal Respiratory Pattern Normal Blood Pressure 142/67 H 140/74 H Blood Pressure Mean 92 96 Pulse Ox 93 92 Oxygen Delivery Method Room Air Room Air 11/05/20 18:21 11/05/20 19:13 11/05/20 20:00 Temperature 98.9 F 98.1 F Temperature Source Temporal Oral Pulse Rate 108 H 113 H 107 H Respiratory Rate 18 20 H 17 Respiratory Effort Respiratory Pattern Blood Pressure 134/63 H 126/64 H 138/71 H Blood Pressure Mean 86 84 93 Pulse Ox 94 95 96 Oxygen Delivery Method Room Air Room Air Room Air 11/05/20 20:12 Temperature Temperature Source Pulse Rate 102 H Respiratory Rate 18 Respiratory Effort Respiratory Pattern Blood Pressure 143/67 H Blood Pressure Mean 92 Pulse Ox 97 Oxygen Delivery Method Room Air Weight Weight: 56.971 kg Body Mass Index (BMI) 21.5 Physical Exam Narrative Physical exam: General: Well-nourished, well-developed, no acute distress Head: Normocephalic, atraumatic, no tenderness Eyes: PERRLA, EOMI ENT, no trauma, moist mucous membranes, no rhinorrhea Neck: Nontender, full range of motion, no spinal tenderness, deformities, step-off CVS: Regular rate and rhythm Respiratory no acute distress, clear to auscultation bilaterally, chest wall nontender, no wheezing Abdomen: Soft, nontender, nondistended, normal bowel sounds, no masses : Deferred Extremities: Nontender full range of motion, no trauma Skin: Normal color, no trauma, abrasions Neuro: Alert and oriented x 3, cranial nerves II through XII grossly intact. Results Lab / Micro Data Result Diagrams: 11/05/20 16:20 11/05/20 16:20 Labs: Laboratory Results - last 24 hr 11/05/20 16:20: WBC 18.5 H, RBC 4.93, Hgb 13.6, Hct 41.8, MCV 84.8, MCH 27.6, MCHC 32.5, RDW Std Deviation 42.1, RDW Coeff of Castillo 13.5, Plt Count 340, MPV 9.3, Immature Gran % (Auto) 1.400 H, Neut % (Auto) 86.1 H, Lymph % (Auto) 2.6 L, [place] % (Auto) 8.8, Eos % (Auto) 0.9, Baso % (Auto) 0.2, Absolute Neuts (auto) 15.9 H, Absolute Lymphs (auto) 0.48 L, Nucleated RBC % 0, Differential Comment SCANNED, Diff Path Review August foll 11/05/20 16:20: Sodium 136, Potassium 3.0 L, Chloride 99, Carbon Dioxide 26.0, Anion Gap 11, BUN 14, Creatinine 0.83, Estim Creat Clear Calc 48.24, Est GFR (MDRD) Af Amer 86, Est GFR (MDRD) Non-Af 71, BUN/Creatinine Ratio 16.9, Glucose 120 H, Calcium 8.6, Total Bilirubin 0.50, AST 15, ALT 19, Alkaline Phosphatase 105, Troponin I High Sens 11.0, Total Protein 7.4, Albumin 3.5, Globulin 3.9, Albumin/Globulin Ratio 0.9 11/05/20 17:45: Lactic Acid 1.0 11/05/20 18:15: Urine Color Straw, Urine Clarity Clear, Urine pH 5.0, Ur Specific [place] 1.010, Urine Protein Negative, Urine Glucose (UA) Normal, Urine Ketones 15 H, Urine Occult Blood 25 H, Urine Nitrite Negative, Urine Bilirubin Negative, Urine Urobilinogen Normal, Ur Leukocyte Esterase Negative, Urine RBC 0 SEEN, Urine WBC 0 SEEN, Ur Squamous Epith Cells 0 SEEN, Urine Bacteria 0 SEEN, Urine Mucus 0 SEEN Micro: Microbiology 11/05/20 19:10 Mucosa - Nose SARS-CoV-2 Antigen (Rapid) - Final Radiology Impression Chest X-Ray 11/05/20 18:10 IMPRESSION: No definite acute cardiopulmonary process. CT scan may be obtained if clinical suspicion for a small recurrent mass/consolidation in the left upper lung is high. Electronically Signed: Malachi Ontiveros MD at 18:50 EDT Tel , Service support , Brain CT 11/05/20 19:27 IMPRESSION: Interval left posterior parietal craniotomy. Focal encephalomalacia in the surgical bed. MRI with and without contrast may be obtained if clinical suspicion for local recurrence is high. No acute intracranial hemorrhage. Electronically Signed: Malachi Ontiveros MD at 19:52 EDT Tel , Service support , Assessment & Plan Assessment/Plan (1) Sepsis: QUALIFIERS: Sepsis acute organ dysfunction status: without acute organ dysfunction Sepsis type: sepsis due to unspecified organism Qualified Code(s): A41.9 - Sepsis, unspecified organism (2) Acute UTI: PLAN: Sepsis secondary acute UTI Review of Emergency department labs showed leukocytosis with white count of 18.5 and with bandemia. Radiologist impression of head CT: Interval left posterior parietal craniotomy. Focal encephalomalacia in the surgical bed. Radiologist recommended MRI if clinical suspicion for local recurrence was high. However since encephalopathy has resolved so it will be reasonable to hold off any MRI at this time. Radiologist impression of cxr: : No definite acute cardiopulmonary process. Actual cxr image was independently reviewed and I agree with radiologist interpretation. Urine culture and blood culture was obtained at the emergency department; follow Last dose of Macrodantin ordered at the emergency department. Because of multiple allergies we will give patient a fosfomycin x1. Trend CBC and BMP Hypokalemia Review of Emergency department labs showed potassium of 3.0. P.o. and IV potassium ordered. Trend BMP. DVT Prophylaxis: Subcutaneous Lovenox ordered. Charges/Coding Visit Charges Inpatient E&M: 68404 Init Hosp L3
[2020-11-05] MEDS: Potassium Chloride 10mEq/100mL 10 MEQ/100 ML IV.SOLN. 100 MEQ IV BOLUS ×2 (21:42→22:50)
[2020-11-05] MEDS: 0.9% Saline Lock 10 ML Syringe IV ×2 (21:43→22:39)
[2020-11-05] MEDS: Potassium Chloride Oral Soln 20 MEQ/15 ML UDC 40 MEQ PO (21:45)
[2020-11-05] MEDS: LORazepam 1 MG Tablet PO (22:18)
[2020-11-05] MEDS: Metoprolol Tartrate 50 MG Tablet PO (22:40)
[2020-11-05] MEDS: Fluticasone 0.05% 1 SPRAY NASAL.SRY 2 SPRAY NASAL (22:40)
[2020-11-05] MEDS: FOSFOMYCIN TROMETHAMINE 3 GM PACKET PO (22:51)
[2020-11-06] VITALS (17 sets, daily range): BP systolic 106–134; BP diastolic 45–110; PULSE 82–139; RESP 16–20; TEMP 36.9–39.4; O2SAT 85–97
[2020-11-06] MEDS: Potassium Chloride 10mEq/100mL 10 MEQ/100 ML IV.SOLN. 100 MEQ IV BOLUS ×2 (00:37→01:40)
[2020-11-06] MEDS: Ondansetron 4 MG/2 ML Vial IV (01:33)
[2020-11-06] MEDS: 0.9% Saline Lock 10 ML Syringe IV ×4 (01:33→13:29)
--- NOTE | 2020-11-06 05:26 | MRI_ITS ---
STUDY: MRI BRAIN WITH AND WITHOUT CONTRAST REASON FOR EXAM: Female, 79 years old. Encephalomalacia TECHNIQUE: Standardized multiplanar fat and water weighted pulse sequences were obtained. IV dotarem 10ml was administered for the contrast portion of the examination. COMPARISON: CT 11/05/2020 FINDINGS: There is moderate cerebral atrophy with widening of the extra-axial spaces and ventricular dilatation. There are multiple white matter hyperintensities, distributed throughout the deep white matter tracts of the cerebral hemispheres, consistent with moderate chronic white matter ischemic changes. Encephalomalacia and gliosis in the posterior left parietal lobe at the site of prior craniotomy. There is no evidence for recent intracranial ischemia or other cause of cytotoxic edema on diffusion weighted imaging (DWI). Normal T2* images of the brain without demonstrated susceptibility artifact. There is no demonstrated hemosiderin stain. Normal bilateral basal ganglia. Normal thalami. There is no extra-axial fluid accumulation. Normal flow voids within the major intracranial circulation suggesting patency by spin echo criteria. Normal venous enhancement. There is no enhancing intra-axial or extra-axial abnormality. There is enlargement of the sella turcica with increased CSF within the sella and flattening of the pituitary gland consistent with an empty sellar syndrome. Normal infundibular stalk, hypothalamus, and optic chiasm. Normal tectal plate and pineal gland. Normal midbrain, hector and medulla. Normal cerebellum. Normal basal cisterns. Normal bilateral temporal bones. Normal bilateral internal auditory canals. There are bilateral ocular lens implants with otherwise normal intraorbital contents. There is mucoperiosteal inflammatory disease of the paranasal sinuses consistent with moderate chronic sinusitis. Normal calvarium and skull base. Normal visualized soft tissue structures. Normal visualized upper cervical spine. MRI/Brain W/WO Contrast IMPRESSION: Involutional changes of the brain, as described above. No acute infarct. No MR evidence metastatic disease. Electronically Signed: Merrill Weston MD at 10:52 EDT Tel , Service support ,
[2020-11-06] MEDS: Ibuprofen 400 MG Tablet PO ×2 (05:30→22:35)
[2020-11-06] MEDS: Haloperidol Lactate 5 MG/ML Vial 2 MG IM (05:30)
--- NOTE | 2020-11-06 05:48 | NURSING ---
commercial finance analyst called asking for a wheel chair to be brought in to the room. When this rn entered the room pt was sitting on the toilet and leaning to the right. commercial finance analyst reported that while walking to the bathroom, pt became weak and was a max 2 assist. pt was moved to the wheelchair and the chair was pushed to the bedside. Pt was then lifted in to the bed. pt wasn't following directions and her speech was garbled. obtained vitals and charge manager notified Dr. Costello. in to see pt and entered orders. prn's given. decision was made to move pt closer to the nurses station. while pt was being moved to room 324 -her speech became clear.
--- NOTE | 2020-11-06 06:41 | NURSING ---
pt stated she wanted wayne notified that she is in room 324. attempted to call wayne -no-one answered and unable to leave a voicemail. will call again prior to shift change
[2020-11-06 07:07] LABS: Absolute Lymphocyte Count 0.47 X10^3/uL (0.83-4.51); Absolute Neutrophil Count 21.7 X10^3/uL (2.0-7.7); Basophil# 0.06 X10^3/uL; Basophil% 0.2 % (0-1); Eosinophil# 0.08 X10^3/uL; Eosinophils% 0.3 % (0-5); Hematocrit 39.3 % (37-47); Hemoglobin 12.8 g/dL (12.0-15.0); Lymphocyte # 0.47 X10^3/ul (0.83-4.51); Lymphocyte % 1.9 % (19-41); Mean Corp Hgb Conc 32.6 g/dL (32-36); Mean Corpuscular Hgb 27.4 pg (27.0-32.0); Mean Platelet Vol. 8.9 fl (6.2-12.0); Monocyte# 1.69 X10^3/uL; Monocyte% 6.9 % (0-10); NRBC Flagged by Analyzer 0 % (0-5); Neutrophil # 21.66 X10^3/uL (2.7-7.7); Neutrophil % 88.9 % (47-70); POSITIVE DIFFERENTIAL YES; Platelet Count 280 K/mm3 (150-450); RBC Distribution Width CV 13.6 % (11.6-14.6); RBC Distribution Width SD 41.8 fl (35.1-43.9); Red Blood Count 4.68 M/mm3 (4.2-5.4); White Blood Count 24.4 K/mm3 (4.4-11.0)
[2020-11-06 07:10] LABS: Differential Indicated SCAN CRITERIA MET
--- NOTE | 2020-11-06 07:20 | NURSING ---
notified wayne that pt is now in room 324. updated on the events of the night
[2020-11-06 07:28] LABS: Anion Gap 10 (5-15); BUN 9 mg/dL (7-18); Chloride 106 mmol/L (98-107); Creatinine, Serum 0.82 mg/dL (0.55-1.02); EST Glomerular Filtration Rate 72 mL/min (>60); Est Glom Filt Rate - Afr Amer 87 mL/min (>60); Estimated Creatinine Clearance 48.56 ml/min; Glucose 188 mg/dL (74-106); Potassium 3.2 mmol/L (3.5-5.1); Sodium Level 136 mmol/L (136-145)
[2020-11-06 07:45] LABS: Differential Comment D
[2020-11-06] MEDS: amLODIPine 5 MG Tablet PO (08:16)
[2020-11-06] MEDS: Metoprolol Tartrate 50 MG Tablet PO ×2 (08:16→22:22)
[2020-11-06] MEDS: Lisinopril 10 MG Tablet PO (08:16)
[2020-11-06] MEDS: LORazepam 2 MG/ML Syringe 0.5 MG IV (08:38)
--- NOTE | 2020-11-06 08:46 | NURSING ---
apparel designer Loly Updated on pt and administration of IV ativan. Pt in route.
--- NOTE | 2020-11-06 09:52 | NURSING ---
report called to janeth rodrigues on the floor, told her towards the end of the testing pt moved around quite a bit and would not let us repeat the test.
--- NOTE | 2020-11-06 11:37 | CASEMGMT ---
JONAS LEY Assessment: Face to Face with pt for initial transition planning/care coordination assessment. RN JIL introduced self and role at [facility], pt voices understanding and consents to assessment. Pt is A/O x4 and answers all questions appropriately at this time. Sitter at bedside. Care providers, pharmacy, and demographics verified/updated. Admitting Dx: Sepsis due to UTI PCP: Saundra Specialists: breonna Valencia Preferred Pharmacy: [facility] Jose De Jesus Insurance: My Care [employer], [employer] Prescription Benefit: yes LW/HPOA: Pt denies having a LW/DPOA. LNOK: Dash Fuller, friend; Mee Villafuerte, kristen Living Arrangements: Pt lives with friend Dash in a single story house with no steps to enter. Pt reports being I in ADL's and denies concerns at home. Transportation: Pt states she drives herself and denies concerns with transportation. DME/HHC/SNF: Pt has a cane at home but states she does not use it. Pt denies previous HHC or SNF stays. Pt decided she wanted to get in bed at time of assessment. Pt impulsive. Pt states she would possibly be agreeable to therapy if it is recommended. Pt states no concerns with going home at time of dc. Pt states no further concerns/needs. CM to follow. Advised pt to ask CM if any further question/concerns/needs arise, voices understanding. Pt Goal: Home Plan: Home, will follow need for therapy.
[2020-11-06 12:49] LABS: Pathologist Review Reviewed
[2020-11-06] MEDS: Vancomycin 125 MG/5 ML Susp PO.SYRINGE PO ×2 (13:29→19:00)
--- NOTE | 2020-11-06 16:01 | PCM.PN.HOSP ---
Subjective Subjective Doing okay today, seems to be little bit more confused and needed Ativan to assist with her MRI of her brain which was obtained secondary to encephalomalacia. MRI was negative for infarct. White count has climbed and she was having significant watery stools overnight so C. difficile was sent Objective Data Objective Data Vital Signs: Vital Signs Temp Pulse Resp BP Pulse Ox 100.1 F H 92 16 118/45 L 94 11/06/20 13:40 11/06/20 13:40 11/06/20 13:40 11/06/20 13:40 11/06/20 13:40 Oxygen Flow Rate (L/min) 2 Oxygen Delivery Method Room Air Weight: 119 lb 14.903 oz Body Mass Index (BMI) 20.5 Intake & Output: Intake and Output for Last 24 Hours 11/05/20 11/06/20 11/07/20 03:59 03:59 03:59 Intake Total 1901 / 1901 436.5 / 436.5 Output Total 300 / 300 100 / 100 Balance 1601 / 1601 336.5 / 336.5 Medical Nutrition Assessment Dietitian: Nutrition Therapy Diagnosis Start: 11/06/20 13:49 Freq: Status: Active Protocol: Document 11/06/20 13:49 AG (Rec: 11/06/20 13:49 AG [id number]) Nutrition Malnutrition Evidence of Malnutrition Exists Yes Malnutrition (moderate): Acute Illness/Injury Evidenced By Suboptimal Energy Intake ( Moderate),Weight Loss ( Moderate),Physical Changes ( Moderate) Clinical Problem Acute Disease or Injury Related Malnutrition Etiology moderate malnutrition r/t inadequate energy intake with acute illness and advanced age Signs/Symptoms as evidenced by pt meeting <75 % estimated energy requirements x1 month, unintended wt loss of 6#/5% x1 month, and moderate fat and muscle loss of orbital and clavicle regions. Status Active Problem Recommendation Dietitian Recommendations/Changes Continue regular/general diet. Continue ensure enlive 120mL PO 4x/day at [facility]. Add magic cup BID with lunch and dinner. Lab / Micro Data Result Diagrams: 11/06/20 06:57 11/06/20 06:57 Labs: Laboratory Results - last 24 hr 11/05/20 16:20: WBC 18.5 H, RBC 4.93, Hgb 13.6, Hct 41.8, MCV 84.8, MCH 27.6, MCHC 32.5, RDW Std Deviation 42.1, RDW Coeff of Castillo 13.5, Plt Count 340, MPV 9.3, Immature Gran % (Auto) 1.400 H, Neut % (Auto) 86.1 H, Lymph % (Auto) 2.6 L, [place] % (Auto) 8.8, Eos % (Auto) 0.9, Baso % (Auto) 0.2, Absolute Neuts (auto) 15.9 H, Absolute Lymphs (auto) 0.48 L, Nucleated RBC % 0, Differential Comment SCANNED, Diff Path Review Reviewed 11/05/20 16:20: Sodium 136, Potassium 3.0 L, Chloride 99, Carbon Dioxide 26.0, Anion Gap 11, BUN 14, Creatinine 0.83, Estim Creat Clear Calc 48.24, Est GFR (MDRD) Af Amer 86, Est GFR (MDRD) Non-Af 71, BUN/Creatinine Ratio 16.9, Glucose 120 H, Calcium 8.6, Total Bilirubin 0.50, AST 15, ALT 19, Alkaline Phosphatase 105, Troponin I High Sens 11.0, Total Protein 7.4, Albumin 3.5, Globulin 3.9, Albumin/Globulin Ratio 0.9 11/05/20 17:45: Lactic Acid 1.0 11/05/20 18:15: Urine Color Straw, Urine Clarity Clear, Urine pH 5.0, Ur Specific [place] 1.010, Urine Protein Negative, Urine Glucose (UA) Normal, Urine Ketones 15 H, Urine Occult Blood 25 H, Urine Nitrite Negative, Urine Bilirubin Negative, Urine Urobilinogen Normal, Ur Leukocyte Esterase Negative, Urine RBC 0 SEEN, Urine WBC 0 SEEN, Ur Squamous Epith Cells 0 SEEN, Urine Bacteria 0 SEEN, Urine Mucus 0 SEEN 11/06/20 06:57: WBC 24.4 H, RBC 4.68, Hgb 12.8, Hct 39.3, MCV 84.0, MCH 27.4, MCHC 32.6, RDW Std Deviation 41.8, RDW Coeff of Castillo 13.6, Plt Count 280, MPV 8.9, Immature Gran % (Auto) 1.800 H, Neut % (Auto) 88.9 H, Lymph % (Auto) 1.9 L, [place] % (Auto) 6.9, Eos % (Auto) 0.3, Baso % (Auto) 0.2, Absolute Neuts (auto) 21.7 H, Absolute Lymphs (auto) 0.47 L, Nucleated RBC % 0, Differential Comment D 11/06/20 06:57: Sodium 136, Potassium 3.2 L, Chloride 106, Carbon Dioxide 20.0 L, Anion Gap 10, BUN 9, Creatinine 0.82, Estim Creat Clear Calc 48.56, Est GFR (MDRD) Af Amer 87, Est GFR (MDRD) Non-Af 72, BUN/Creatinine Ratio 11.0, Glucose 188 H, Calcium 8.0 L 11/06/20 06:57: Ammonia 30.0 Micro: Microbiology 11/05/20 21:35 Urine, Clean Catch Urine Culture - Preliminary Culture exhibits no growth. 11/06/20 06:07 Stool C. difficile GDH Antigen & Toxins - Final 11/06/20 06:07 Stool C. difficile DNA Amplification - Final 11/05/20 19:10 Mucosa - Nose SARS-CoV-2 Antigen (Rapid) - Final Radiography Diagnostic Testing: Radiology Impression Chest X-Ray 11/05/20 18:10 IMPRESSION: No definite acute cardiopulmonary process. CT scan may be obtained if clinical suspicion for a small recurrent mass/consolidation in the left upper lung is high. Electronically Signed: Malachi Ontiveros MD at 18:50 EDT Tel , Service support , Brain CT 11/05/20 19:27 IMPRESSION: Interval left posterior parietal craniotomy. Focal encephalomalacia in the surgical bed. MRI with and without contrast may be obtained if clinical suspicion for local recurrence is high. No acute intracranial hemorrhage. Electronically Signed: Malachi Ontiveros MD at 19:52 EDT Tel , Service support , Brain MRI 11/06/20 05:26 IMPRESSION: Involutional changes of the brain, as described above. No acute infarct. No MR evidence metastatic disease. Electronically Signed: Merrill Weston MD at 10:52 EDT Tel , Service support , Physical Exam Const alert, oriented x3 and no apparent distress General Appearance: cooperative HEENT normocephalic and moist oral mucous membranes Eyes PERRL, EOMs intact bilaterally and conjunctivae normal Neck supple and no JVD Resp normal respiratory effort, no retractions, no use of accessory muscles and clear to auscultation bilaterally Auscultation: Negative for crackles, rales, rhonchi or wheezes Cardio regular rate, regular rhythm, S1 normal heart sound, S2 normal heart sound and no murmurs GI soft to palpation, non-tender and non-distended; Negative for hepatosplenomegaly Extremity no clubbing, cyanosis or edema Skin no rashes or lesions noted Neuro no focal motor deficits and no sensory deficits noted Psych affect normal Appearance: appropriate Assessment & Plan Assessment/Plan (1) Sepsis: QUALIFIERS: Sepsis type: sepsis due to unspecified organism Sepsis acute organ dysfunction status: without acute organ dysfunction Qualified Code(s): A41.9 - Sepsis, unspecified organism (2) Acute UTI: PLAN: 1. Sepsis secondary to UTI versus C. difficile colitis/metabolic encephalopathy -C. difficile test did come back positive for antigen and PCR but negative for toxin, she had had of 5 bowel movements today -She is currently on meropenem and continues to have fevers as well as a climbing white count therefore we will go ahead and place her on p.o. vancomycin for possible C. difficile as well -Urine culture is no growth, however she was on antibiotics prior. Will attempt to get culture data -Still appears to be confused, she cannot tell me why she is here or what the risks would be of her going home, she is demanding to go home but I do not feel like this is a safe discharge at this time -MRI brain was unremarkable 2. Hypertension -Continue with home blood pressure medication -Sepsis has essentially resolved 3. History of lung cancer and brain tumor -She has completed immunotherapy for lung cancer and had resection for her brain tumor -MRI did not show any acute infarcts or metastatic disease -She can follow-up with her primary oncologist as an outpatient for follow-up DVT: Lovenox Charges/Coding Visit Charges Inpatient E&M: 65902 Subs Hosp L2
[2020-11-06] MEDS: LORazepam 0.5 MG Tablet PO (19:00)
[2020-11-06] MEDS: Fluticasone 0.05% 1 SPRAY NASAL.SRY 2 SPRAY NASAL (22:22)
[2020-11-07] VITALS (10 sets, daily range): BP systolic 105–129; BP diastolic 45–79; PULSE 71–114; RESP 16–20; TEMP 36.4–38.8; O2SAT 94–100
[2020-11-07] MEDS: Vancomycin 125 MG/5 ML Susp PO.SYRINGE PO ×4 (00:19→17:21)
[2020-11-07] MEDS: Famotidine 20 MG Tablet PO ×3 (01:11→21:38)
[2020-11-07] MEDS: 0.9% Saline Lock 10 ML Syringe IV (05:07)
[2020-11-07 06:47] LABS: Absolute Lymphocyte Count 2.26 X10^3/uL (0.83-4.51); Absolute Neutrophil Count 15.4 X10^3/uL (2.0-7.7); Basophil# 0.09 X10^3/uL; Basophil% 0.4 % (0-1); Hematocrit 38.8 % (37-47); Hemoglobin 12.9 g/dL (12.0-15.0); Lymphocyte # 2.26 X10^3/ul (0.83-4.51); Lymphocyte % 11.3 % (19-41); Mean Corp Hgb Conc 33.2 g/dL (32-36); Mean Corpuscular Hgb 27.7 pg (27.0-32.0); Mean Corpuscular Volume 83.3 fL (81-99); Mean Platelet Vol. 9.3 fl (6.2-12.0); Monocyte# 1.92 X10^3/uL; Monocyte% 9.6 % (0-10); NRBC Flagged by Analyzer 0 % (0-5); Neutrophil # 15.39 X10^3/uL (2.7-7.7); POSITIVE DIFFERENTIAL YES; POSITIVE MORPHOLOGY YES; Platelet Count 260 K/mm3 (150-450); RBC Distribution Width CV 13.8 % (11.6-14.6); RBC Distribution Width SD 41.8 fl (35.1-43.9); Red Blood Count 4.66 M/mm3 (4.2-5.4)
[2020-11-07 07:05] LABS: Differential Indicated SCAN CRITERIA MET
[2020-11-07 07:09] LABS: Differential Comment D
[2020-11-07 07:11] LABS: Anion Gap 7 (5-15); BUN 16 mg/dL (7-18); Calcium,Total 7.9 mg/dL (8.5-10.1); Chloride 106 mmol/L (98-107); Creatinine, Serum 0.76 mg/dL (0.55-1.02); EST Glomerular Filtration Rate 78 mL/min (>60); Est Glom Filt Rate - Afr Amer 94 mL/min (>60); Estimated Creatinine Clearance 39.82 ml/min; Glucose 122 mg/dL (74-106); Magnesium 1.6 mg/dL (1.6-2.6); Phosphorus 1.5 mg/dL (2.5-4.9); Potassium 3.3 mmol/L (3.5-5.1); Sodium Level 138 mmol/L (136-145)
[2020-11-07] MEDS: Metoprolol Tartrate 50 MG Tablet PO ×2 (08:24→21:38)
[2020-11-07] MEDS: amLODIPine 5 MG Tablet PO (08:25)
[2020-11-07] MEDS: Lisinopril 10 MG Tablet PO (08:25)
[2020-11-07] MEDS: Enoxaparin 40 MG/0.4 ML Syringe SC (08:28)
--- NOTE | 2020-11-07 11:07 | PCM.PN.HOSP ---
Subjective Subjective She has been doing better with the addition of oral vancomycin, she has been afebrile since last night around midnight Objective Data Objective Data Vital Signs: Vital Signs Temp Pulse Resp BP Pulse Ox 98.1 F 83 18 113/49 L 95 11/07/20 08:06 11/07/20 08:24 11/07/20 08:14 11/07/20 08:06 11/07/20 08:06 Oxygen Flow Rate (L/min) 2 Oxygen Delivery Method Room Air Weight: 119 lb 14.903 oz Body Mass Index (BMI) 20.5 Intake & Output: Intake and Output for Last 24 Hours 11/06/20 11/07/20 11/08/20 03:59 03:59 03:59 Intake Total 1901 / 1901 746.5 / 746.5 164 / 164 Output Total 300 / 300 200 / 200 Balance 1601 / 1601 546.5 / 546.5 164 / 164 Medical Nutrition Assessment Dietitian: Nutrition Therapy Diagnosis Start: 11/06/20 13:49 Freq: Status: Active Protocol: Document 11/06/20 13:49 AG (Rec: 11/06/20 13:49 [id number]) Nutrition Malnutrition Evidence of Malnutrition Exists Yes Malnutrition (moderate): Acute Illness/Injury Evidenced By Suboptimal Energy Intake ( Moderate),Weight Loss ( Moderate),Physical Changes ( Moderate) Clinical Problem Acute Disease or Injury Related Malnutrition Etiology moderate malnutrition r/t inadequate energy intake with acute illness and advanced age Signs/Symptoms as evidenced by pt meeting <75 % estimated energy requirements x1 month, unintended wt loss of 6#/5% x1 month, and moderate fat and muscle loss of orbital and clavicle regions. Status Active Problem Recommendation Dietitian Recommendations/Changes Continue regular/general diet. Continue ensure enlive 120mL PO 4x/day at [email or web address]. Add magic cup BID with lunch and dinner. Lab / Micro Data Result Diagrams: 11/07/20 06:20 11/07/20 06:20 Labs: Laboratory Results - last 24 hr 11/05/20 16:20: Diff Path Review Reviewed 11/07/20 06:20: WBC 20.0 H, RBC 4.66, Hgb 12.9, Hct 38.8, MCV 83.3, MCH 27.7, MCHC 33.2, RDW Std Deviation 41.8, RDW Coeff of Castillo 13.8, Plt Count 260, MPV 9.3, Immature Gran % (Auto) 0.700, Neut % (Auto) 77.0 H, Lymph % (Auto) 11.3 L, [place] % (Auto) 9.6, Eos % (Auto) 1.0, Baso % (Auto) 0.4, Absolute Neuts (auto) 15.4 H, Absolute Lymphs (auto) 2.26, Nucleated RBC % 0, Differential Comment D, Diff Path Review August11/07/20 06:20: Sodium 138, Potassium 3.3 L, Chloride 106, Carbon Dioxide 25.0, Anion Gap 7, BUN 16, Creatinine 0.76, Estim Creat Clear Calc 39.82, Est GFR (MDRD) Af Amer 94, Est GFR (MDRD) Non-Af 78, BUN/Creatinine Ratio 21.0 H, Glucose 122 H, Calcium 7.9 L, Phosphorus 1.5 L, Magnesium 1.6 Micro: Microbiology 11/05/20 21:35 Urine, Clean Catch Urine Culture - Preliminary Culture exhibits no growth. 11/06/20 06:07 Stool C. difficile GDH Antigen & Toxins - Final 11/06/20 06:07 Stool C. difficile DNA Amplification - Final 11/05/20 19:10 Mucosa - Nose SARS-CoV-2 Antigen (Rapid) - Final Physical Exam Const alert, oriented x3 and no apparent distress General Appearance: cooperative HEENT normocephalic and moist oral mucous membranes Eyes PERRL, EOMs intact bilaterally and conjunctivae normal Neck supple and no JVD Resp normal respiratory effort, no retractions, no use of accessory muscles and clear to auscultation bilaterally Auscultation: Negative for crackles, rales, rhonchi or wheezes Cardio regular rate, regular rhythm, S1 normal heart sound, S2 normal heart sound and no murmurs GI soft to palpation, non-tender and non-distended; Negative for hepatosplenomegaly Extremity no clubbing, cyanosis or edema Skin no rashes or lesions noted Neuro no focal motor deficits and no sensory deficits noted Psych affect normal Appearance: appropriate Assessment & Plan Assessment/Plan (1) Sepsis: QUALIFIERS: Sepsis type: sepsis due to unspecified organism Sepsis acute organ dysfunction status: without acute organ dysfunction Qualified Code(s): A41.9 - Sepsis, unspecified organism (2) Acute UTI: PLAN: 1. Sepsis secondary to C. difficile colitis/metabolic encephalopathy -C. difficile test did come back positive for antigen and PCR but negative for toxin, she had had of 5 bowel movements 11/05/2020 -White count is trending down with the addition of oral vancomycin, and urine culture obtained from the outpatient setting demonstrated no growth therefore will discontinue meropenem today -Would like to see least 24 hours of no fevers and further decreasing white count, will plan for discharge tomorrow -MRI brain was unremarkable 2. Hypertension -Continue with home blood pressure medication -Sepsis has essentially resolved 3. History of lung cancer and brain tumor -She has completed immunotherapy for lung cancer and had resection for her brain tumor -MRI did not show any acute infarcts or metastatic disease -She can follow-up with her primary oncologist as an outpatient for follow-up DVT: Lovenox Charges/Coding Visit Charges Inpatient E&M: 55963 Subs Hosp L2
[2020-11-07 12:35] LABS: Pathologist Review Reviewed
--- NOTE | 2020-11-07 14:48 | NURSING ---
This RN reviewed SN charting
[2020-11-07] MEDS: Ibuprofen 400 MG Tablet PO (15:41)
[2020-11-07] MEDS: Fluticasone 0.05% 1 SPRAY NASAL.SRY 2 SPRAY NASAL (21:38)
[2020-11-07] MEDS: LORazepam 1 MG Tablet PO (21:38)
[2020-11-08] MEDS: Vancomycin 125 MG/5 ML Susp PO.SYRINGE PO ×3 (02:07→12:08)
[2020-11-08 03:00] VITALS: BP 109/52; PULSE 95; RESP 16; TEMP 37.9; O2SAT 93
[2020-11-08 06:08] LABS: Absolute Lymphocyte Count 3.09 X10^3/uL (0.83-4.51); Absolute Neutrophil Count 11.4 X10^3/uL (2.0-7.7); Basophil# 0.06 X10^3/uL; Basophil% 0.4 % (0-1); Eosinophil# 0.36 X10^3/uL; Eosinophils% 2.2 % (0-5); Hematocrit 34.3 % (37-47); Hemoglobin 11.4 g/dL (12.0-15.0); Lymphocyte # 3.09 X10^3/ul (0.83-4.51); Lymphocyte % 18.8 % (19-41); Mean Corp Hgb Conc 33.2 g/dL (32-36); Mean Corpuscular Hgb 27.5 pg (27.0-32.0); Mean Corpuscular Volume 82.7 fL (81-99); Mean Platelet Vol. 9.6 fl (6.2-12.0); Monocyte# 1.36 X10^3/uL; Monocyte% 8.3 % (0-10); NRBC Flagged by Analyzer 0 % (0-5); Neutrophil # 11.44 X10^3/uL (2.7-7.7); Neutrophil % 69.8 % (47-70); POSITIVE MORPHOLOGY YES; Platelet Count 242 K/mm3 (150-450); RBC Distribution Width CV 14.2 % (11.6-14.6); RBC Distribution Width SD 42.8 fl (35.1-43.9); Red Blood Count 4.15 M/mm3 (4.2-5.4); White Blood Count 16.4 K/mm3 (4.4-11.0)
[2020-11-08 06:10] LABS: Differential Indicated SCAN CRITERIA MET
[2020-11-08 06:31] LABS: Atypical Lymphocyte 1+ %; Differential Comment SCANNED
[2020-11-08 06:34] LABS: Anion Gap 6 (5-15); BUN 15 mg/dL (7-18); BUN/Creat Ratio 18.9 RATIO (10-20); Calcium,Total 7.8 mg/dL (8.5-10.1); Chloride 106 mmol/L (98-107); EST Glomerular Filtration Rate 74 mL/min (>60); Est Glom Filt Rate - Afr Amer 90 mL/min (>60); Estimated Creatinine Clearance 49.77 ml/min; Glucose 101 mg/dL (74-106); Potassium 3.5 mmol/L (3.5-5.1); Sodium Level 139 mmol/L (136-145)
[2020-11-08 07:59] VITALS: O2SAT 93
--- NOTE | 2020-11-08 09:12 | PCM.DC ---
Discharge Instructions Diet Discharge Diet: Low fat / Low cholesterol Activity Discharge Activity: Return to Normal Activity Dressing / Incision Call your doctor if you observe: Fever of 101 or Higher, Shortness of breath, Dizziness, Swelling in the ankles, Chest pain and Increased palpitations (irregular heartbeat) Follow Up Care Test Results: Test results from this visit will be discussed in further detail at your follow-up appointment, if applicable. Discharge Plan Admission Admit Date/Time: 11/05/20 20:23 Attending Provider: Jorge A Perez Primary Care Provider: Luis Manuel Arguello Instructions Patient Instructions: Clostridium Difficile Infection, What Is C. Diff?, C diff Discharge Orders/Prescriptions Prescriptions: New Firvanq 25 mg/mL Recon Soln 125 mg PO Q6 8 Days Qty: 160 RF: 0 Continued metoprolol tartrate 100 MG tablet 50 mg PO BID RF: 0 enalapril maleate 20 MG tablet 10 mg PO DAILY RF: 0 amlodipine 5 mg tablet 5 mg PO DAILY RF: 0 lorazepam 1 mg tablet 1 mg PO QHS RF: 0 fluticasone propionate 50 mcg/actuation spray,suspension 2 spray INTRANASAL BID RF: 0 Discontinued nitrofurantoin monohyd/m-cryst 100 mg capsule 1 cap PO BID RF: 0 Referrals / Follow Up: Luis Manuel Arguello MD [Primary Care Provider] - In 1 Week Disposition Disposition (needs filled in before D/C Order can be placed): Home, Self Care
--- NOTE | 2020-11-08 09:17 | PCM.DC.SUM ---
Providers Date of Admission: 11/05/20 Primary Care Physician: Dr. Luis Manuel Arguello MD Reason For Visit: SEPSIS DUE TO UTI Diagnosis Discharge Diagnosis (1) Sepsis: Status: Acute Code(s): A41.9 - Sepsis, unspecified organism Qualifiers: Sepsis type: sepsis due to unspecified organism Sepsis acute organ dysfunction status: without acute organ dysfunction Qualified Code(s): A41.9 - Sepsis, unspecified organism (2) Acute UTI: Status: Acute Code(s): N39.0 - Urinary tract infection, site not specified Medications at Discharge Home Medications enalapril maleate 10 mg PO DAILY 02/19/19 metoprolol tartrate 50 mg PO BID 02/19/19 amlodipine 5 mg PO DAILY 11/05/20 fluticasone propionate 2 spray INTRANASAL BID 11/05/20 lorazepam 1 mg PO QHS 11/05/20 vancomycin [Firvanq] 125 mg PO Q6 8 Days #160 ml 11/08/20 Hospital Course Operations None Procedures None Summary of Care Provided Minutes Spent on Discharge: 45 Hospital Course: Per HPI: JAZMYNE GUZMAN, is a 79 F with a significant history of lung cancer status post immunotherapy; brain tumor status post resection; 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 Of note patient has been on Macrodantin for 7 days for UTI. Reportedly she was first placed on 5 days of Macrodantin and it was later extended by 2 days. She has a last dose of Macrodantin to take. She has a prolapsed bladder that no one is willingly to operate because of her age and her increased risk. She has had many episodes of UTI. He reports burning with urination. Emergency Department doctor reported that at the time of examination patient was alert and oriented x2. Hospital course: 1. Sepsis secondary to C. difficile colitis/metabolic [id number] female with history of lung cancer status post immunotherapy as well as a brain tumor status post resection presented to the hospital with sepsis initially thought to be due to UTI however she was also having multiple episodes of watery diarrhea and she had been on an antibiotic for about 7 days prior to admission here in the hospital. She did have an outpatient urine culture obtained which was just normal margarito, she was placed on 3 days of meropenem here however her urine culture was also negative therefore this was discontinued. She did come back positive for C. difficile antigen and DNA however no toxin given her history and her white count, it was felt that it would be reasonable to treat her with p.o. vancomycin. This is caused her white count to decrease from a peak of 24 down to 16 today on the day of discharge. She does have intermittent fevers and states that she still having intermittent diarrhea though it is gotten much better. Her encephalopathy has resolved and she understands that she is to come back to the hospital if she has significant abdominal pain, or bloody diarrhea. Given that this is her first incidence with C. difficile and it is fairly mild will elect for a 10-day course of p.o. vancomycin. I recommend that she discontinue her antibiotics for her UTI on discharge. She will need to follow-up with her PCP as well as urologist as an outpatient as well. I discussed with her the plan for discharge today and she expressed understanding of the risk and benefits of going home and would like to go home today. 2. Hypertension, history of lung cancer and brain tumor chronic medical conditions which complicate her care. Her home medications were continued where appropriate. Physical Exam Const alert, oriented x3 and no apparent distress General Appearance: cooperative HEENT normocephalic and moist oral mucous membranes Eyes PERRL, EOMs intact bilaterally and conjunctivae normal Neck supple and no JVD Resp normal respiratory effort, no retractions, no use of accessory muscles and clear to auscultation bilaterally Auscultation: Negative for crackles, rales, rhonchi or wheezes Cardio regular rate, regular rhythm, S1 normal heart sound, S2 normal heart sound and no murmurs GI soft to palpation, non-tender and non-distended; Negative for hepatosplenomegaly Extremity no clubbing, cyanosis or edema Skin no rashes or lesions noted Neuro no focal motor deficits and no sensory deficits noted Psych affect normal Appearance: appropriate Medical Records Data Medical Nutrition Assessment Dietitian: Nutrition Therapy Diagnosis Start: 11/06/20 13:49 Freq: Status: Active Protocol: Document 11/06/20 13:49 (Rec: 11/06/20 13:49 AG [id number]) Nutrition Malnutrition Evidence of Malnutrition Exists Yes Malnutrition (moderate): Acute Illness/Injury Evidenced By Suboptimal Energy Intake ( Moderate),Weight Loss ( Moderate),Physical Changes ( Moderate) Clinical Problem Acute Disease or Injury Related Malnutrition Etiology moderate malnutrition r/t inadequate energy intake with acute illness and advanced age Signs/Symptoms as evidenced by pt meeting <75 % estimated energy requirements x1 month, unintended wt loss of 6#/5% x1 month, and moderate fat and muscle loss of orbital and clavicle regions. Status Active Problem Recommendation Dietitian Recommendations/Changes Continue regular/general diet. Continue ensure enlive 120mL PO 4x/day at [facility] [facility]. Add magic cup BID with lunch and dinner. Weight / BMI Weight Weight: 119 lb 14.903 oz Body Mass Index (BMI) 20.5 ABG / Lab / Microbiology Data Result Diagrams: 11/08/20 05:30 11/08/20 05:30 Laboratory: Laboratory Results - last 24 hr 11/07/20 06:20: Diff Path Review Reviewed 11/08/20 05:30: WBC 16.4 H, RBC 4.15 L, Hgb 11.4 L, Hct 34.3 L, MCV 82.7, MCH 27.5, MCHC 33.2, RDW Std Deviation 42.8, RDW Coeff of Castillo 14.2, Plt Count 242, MPV 9.6, Immature Gran % (Auto) 0.500, Neut % (Auto) 69.8, Lymph % (Auto) 18.8 L, [place] % (Auto) 8.3, Eos % (Auto) 2.2, Baso % (Auto) 0.4, Absolute Neuts (auto) 11.4 H, Absolute Lymphs (auto) 3.09, Nucleated RBC % 0, Differential Comment SCANNED, Atypical Lymphocytes 1+ 11/08/20 05:30: Sodium 139, Potassium 3.5, Chloride 106, Carbon Dioxide 27.0, Anion Gap 6, BUN 15, Creatinine 0.80, Estim Creat Clear Calc 49.77, Est GFR (MDRD) Af Amer 90, Est GFR (MDRD) Non-Af 74, BUN/Creatinine Ratio 18.9, Glucose 101, Calcium 7.8 L Microbiology: Microbiology 11/05/20 18:30 Blood Culture (Wb) - Right Forearm Blood Culture - Preliminary No growth in 48 hours. 11/05/20 17:45 Blood Culture (Wb) - Anticubital Left Blood Culture - Preliminary No growth in 48 hours. 11/05/20 21:35 Urine, Clean Catch Urine Culture - Final Mixed Gram Positive Organisms 11/06/20 06:07 Stool C. difficile GDH Antigen & Toxins - Final 11/06/20 06:07 Stool C. difficile DNA Amplification - Final 11/05/20 19:10 Mucosa - Nose SARS-CoV-2 Antigen (Rapid) - Final D/C Instructions Discharge Diet: Low fat / Low cholesterol Call your doctor if you observe: Fever of 101 or Higher, Shortness of breath, Dizziness, Swelling in the ankles, Chest pain and Increased palpitations (irregular heartbeat) Meaningful Use Info Meaningful Use Diagnoses (Choose all that apply): None applicable Discharge Plan Admission Admit Date/Time: 11/05/20 20:23 Attending Provider: Jorge A Perez Primary Care Provider: Luis Manuel Arguello Instructions Patient Instructions: Clostridium Difficile Infection, What Is C. Diff?, C diff Discharge Orders/Prescriptions Prescriptions: New Firvanq 25 mg/mL Recon Soln 125 mg PO Q6 8 Days Qty: 160 RF: 0 Continued metoprolol tartrate 100 MG tablet 50 mg PO BID RF: 0 enalapril maleate 20 MG tablet 10 mg PO DAILY RF: 0 amlodipine 5 mg tablet 5 mg PO DAILY RF: 0 lorazepam 1 mg tablet 1 mg PO QHS RF: 0 fluticasone propionate 50 mcg/actuation spray,suspension 2 spray INTRANASAL BID RF: 0 Discontinued nitrofurantoin monohyd/m-cryst 100 mg capsule 1 cap PO BID RF: 0 Referrals / Follow Up: Luis Manuel Arguello MD [Primary Care Provider] - In 1 Week Disposition Disposition (needs filled in before D/C Order can be placed): Home, Self Care Charges/Coding Visit Charges Inpatient E&M: 88649 Disch Hosp
[2020-11-08 09:28] VITALS: BP 127/62; PULSE 98; RESP 18; TEMP 37.8; O2SAT 96
[2020-11-08 09:30] VITALS: PULSE 98
[2020-11-08] MEDS: Enoxaparin 40 MG/0.4 ML Syringe SC (09:30)
[2020-11-08] MEDS: Lisinopril 10 MG Tablet PO (09:30)
[2020-11-08] MEDS: Metoprolol Tartrate 50 MG Tablet PO (09:30)
[2020-11-08] MEDS: amLODIPine 5 MG Tablet PO (09:30)
[2020-11-08] MEDS: Famotidine 20 MG Tablet PO (09:30)
[2020-11-08] MEDS: Fluticasone 0.05% 1 SPRAY NASAL.SRY 2 SPRAY NASAL (09:31)
[2020-11-08] MEDS: Ibuprofen 400 MG Tablet PO (09:31)
[2020-11-08 12:02] VITALS: BP 106/60; PULSE 88; RESP 18; TEMP 36.9; O2SAT 96
== END 2020-11-08 13:35 | disposition home or self-care (01) | DRG 871 ==
LOC: ED 20:15 → MS3 20:39
PROVIDERS: Admitting Provider Hospitalist; Emergency Provider Emergency Medicine; PCP Family Medicine; Visit Provider Family Medicine
DX: A41.4 Sepsis due to anaerobes (principal); G93.41 Metabolic encephalopathy; A04.72 Enterocolitis due to Clostridium difficile, not specified as recurrent; E44.0 Moderate protein-calorie malnutrition; I10 Essential (primary) hypertension; E87.6 Hypokalemia; G93.89 Other specified disorders of brain; Z85.118 Personal history of other malignant neoplasm of bronchus and lung; Z85.841 Personal history of malignant neoplasm of brain; Z87.891 Personal history of nicotine dependence
CPT/HCPCS: 36415; 70450; 70553; 71045; 80048; 80053; 81001; 82140; 83605; 83735; 84100; 84484; 85025; 87040; 87086; 87088; 87426; 87493; 87506; 93005; 97110; 97162; 97166; 97535; 97802; 99285; A9575; J2185; J7030; J7040; J7050; A4216; J2405

== ENCOUNTER 2020-12-06 19:36 | Inpatient (IN) | payer MEDICARE, MEDICAID, SELFPAY ==
[2020-12-06] VITALS (9 sets, daily range): BP systolic 108–129; BP diastolic 50–98; PULSE 81–130; RESP 16–30; TEMP 36.6–38.1; O2SAT 90–94; BMI 23.9
--- NOTE | 2020-12-06 20:00 | RAD_ITS ---
STUDY: X-RAY CHEST REASON FOR EXAM: Female, 80 years old. FEVER TECHNIQUE: AP portable COMPARISON: 11/05/2020 FINDINGS: The lungs are clear and expanded. There is no demonstrated pleural abnormality. Normal size heart. Normal mediastinum and igor. Normal visualized pulmonary arteries. Calcified aortic arch and descending thoracic aorta. Dorsal spine and shoulders demonstrate degenerative change. Normal visualized ribs, and clavicles. There is no demonstrated abnormality of the visualized soft tissue structures of the upper abdomen. RAD/Chest 1 View (Portable) IMPRESSION: No acute cardiopulmonary pathology Electronically Signed: Vishnu Rowell MD at 21:18 EDT , Service support ,
--- NOTE | 2020-12-06 20:00 | EKG12_ITS ---
Test Reason : DYSRHYTHMIA Blood Pressure : / mmHG Vent. Rate : 135 BPM Atrial Rate : 135 BPM P-R Int : 150 ms QRS Dur : 094 ms QT Int : 322 ms P-R-T Axes : 074 -12 076 degrees QTc Int : 483 ms Sinus tachycardia with frequent and consecutive Premature ventricular complexes Septal infarct , age undetermined Abnormal ECG Confirmed by ANTOINETTE YANEZ, ERINN ([id number]), associate editor LENY SMILEY ([id number]) on 12/09/2020 1:37:20 PM Referred By: PL Confirmed By:KARAN CURRY MD
[2020-12-06 20:08] LABS: Absolute Lymphocyte Count 0.07 X10^3/uL (0.83-4.51); Basophil# 0.01 X10^3/uL; Basophil% 0.1 % (0-1); Eosinophil# 0.02 X10^3/uL; Eosinophils% 0.2 % (0-5); Hemoglobin 12.5 g/dL (12.0-15.0); Lymphocyte # 0.07 X10^3/ul (0.83-4.51); Lymphocyte % 0.6 % (19-41); Mean Corp Hgb Conc 31.3 g/dL (32-36); Mean Corpuscular Hgb 26.8 pg (27.0-32.0); Mean Corpuscular Volume 85.8 fL (81-99); Mean Platelet Vol. 9.4 fl (6.2-12.0); Monocyte# 0.07 X10^3/uL; Monocyte% 0.6 % (0-10); NRBC Flagged by Analyzer 0 % (0-5); Neutrophil # 11.97 X10^3/uL (2.7-7.7); POSITIVE DIFFERENTIAL YES; Platelet Count 282 K/mm3 (150-450); RBC Distribution Width CV 15.5 % (11.6-14.6); RBC Distribution Width SD 48.9 fl (35.1-43.9); Red Blood Count 4.66 M/mm3 (4.2-5.4); White Blood Count 12.2 K/mm3 (4.4-11.0)
[2020-12-06 20:11] LABS: Differential Indicated SCAN CRITERIA MET
--- NOTE | 2020-12-06 20:17 | CT_ITS ---
STUDY: CT BRAIN WITHOUT CONTRAST REASON FOR EXAM: Female, 80 years old. Brain cancer confusion RADIATION DOSAGE (If Supplied By Facility): CTDIvol = ( 44.99 ) mGy, DLP = ( 1867.81 ) mGycm TECHNIQUE: Transaxial CT imaging of the brain was performed without administration of intravenous contrast material. Individualized dose optimization techniques were used for this CT. COMPARISON: 11/05/2020 FINDINGS: Normal soft tissue structures. Leftward occipital craniotomy with underlying left occipital encephalomalacia redemonstrated. There is mild cerebral volume loss with widening of the extra-axial spaces and ventricular dilatation. There are areas of decreased attenuation within the white matter tracts of the supratentorial brain, consistent with microvascular disease changes. Normal basal ganglia and thalami. Normal brainstem. Normal cerebellum. There is no intracranial hemorrhage. There are no findings of an acute ischemic infarction. There is mucoperiosteal inflammatory disease of the paranasal sinuses consistent with mild sinusitis. CT/Brain/Head without Contrast IMPRESSION: No acute intracranial abnormal finding. Electronically Signed: Chintan Lord MD at 22:18 EDT Tel , Service support ,
[2020-12-06] MEDS: LORazepam 2 MG/ML Syringe 1 MG IV ×2 (20:28→22:26)
[2020-12-06] MEDS: 0.9% Normal Saline 1,000 ML 999 ML IV ×2 (20:28→22:41)
--- NOTE | 2020-12-06 20:39 | EDS_ITS ---
HPI History of Present Illness Chief Complaint: Alt LOC Informant: patient Narrative Narrative: History is very limited from the patient because of her overall confusion. This patient was evidently normal in the day. Her boyfriend came home and she is confused and decreased energy. She has evidently presented like this before with infections and mostly UTIs because of a bladder issue. Patient states that she feels fine other than the fact that I am crazy. She is denying coughing or any pain. She denies headache. Patient does also have a history of surgery for brain tumor. She also was in the hospital recently with sepsis possibly with a UTI but also with C. difficile colitis. I cannot get if she is on any medicines or antibiotics at this time. [facility] Medical History Acute cholecystitis Cancer Cholelithiases Chronic cholecystitis Elevated liver enzymes Former smoker Gallstone pancreatitis Hypertension Pancreatitis Stroke/cerebrovascular accident Home Medications enalapril maleate 20 mg PO DAILY 02/19/19 [History Last Taken 03/24/19 20 mg] metoprolol tartrate 50 mg PO BID 02/19/19 [History Last Taken 03/24/19 50 mg] amlodipine 5 mg PO DAILY 11/05/20 [History Last Taken Unknown] fluticasone propionate 2 spray INTRANASAL BID 11/05/20 [History Last Taken Unknown] lorazepam 1 mg PO QHS 11/05/20 [History Last Taken Unknown] famotidine 20 mg PO BID 12/06/20 [History Last Taken Unknown] nitrofurantoin 100 mg PO BID 12/06/20 [History Last Taken Unknown] Allergy/AdvReac Type Severity Reaction Status Date / Time acetaminophen AdvReac Unknown Verified 11/05/20 17:01 [From Darvocet-N] aspirin AdvReac Unknown Verified 11/05/20 17:01 Cephalosporins AdvReac Unknown Verified 11/05/20 17:01 codeine AdvReac Unknown Verified 11/05/20 17:01 Penicillins [PCN] AdvReac Unknown Verified 11/05/20 17:01 propoxyphene AdvReac Unknown Verified 11/05/20 17:01 [From Darvocet-N] Cxxglgx-[id number]-Cxq Reductase AdvReac Unknown Verified 11/05/20 17:01 Inhibitor Sulfa (Sulfonamide AdvReac Unknown Verified 11/05/20 17:01 Antibiotics) Family History Other Cancer Surgical History History of appendectomy S/P laparoscopic cholecystectomy (~02/20/19) Status post endoscopic retrograde cholangiopancreatography (~02/21/19) Social History Smoking Status: Former smoker ROS ROS ED ROS Narrative Patient is confused. She denies all questions but I cannot get a good c onsistent review of systems that I feel is necessarily accurate. EXAM Physical Exam Const Vital Signs: 12/06/20 19:38 12/06/20 19:51 12/06/20 19:53 Temperature 100.5 F H 100.5 F H Temperature Source Oral Oral Pulse Rate 125 H 125 H Respiratory Rate 30 H 30 H Respiratory Effort Normal Non-Labored Respiratory Pattern Tachypnea Blood Pressure 124/61 H 124/61 H Blood Pressure Mean 82 82 Pulse Ox 94 94 Oxygen Delivery Method Room Air Room Air 12/06/20 20:37 12/06/20 20:42 12/06/20 21:00 Temperature 99 F 98.9 F Temperature Source Temporal Temporal Pulse Rate 81 81 109 H Respiratory Rate 19 H 16 18 Respiratory Effort Respiratory Pattern Blood Pressure 122/72 H 122/72 H 108/50 L Blood Pressure Mean 88 88 69 Pulse Ox 94 94 94 Oxygen Delivery Method 12/06/20 22:00 12/06/20 22:41 Temperature 98.8 F 98.8 F Temperature Source Temporal Temporal Pulse Rate 128 H 128 H Respiratory Rate 20 H 20 H Respiratory Effort Respiratory Pattern Blood Pressure 120/56 L 120/56 L Blood Pressure Mean 77 77 Pulse Ox 90 90 Oxygen Delivery Method Room Air Positive well nourished and well developed Constitutional Narrative: Patient is agitated. She is sitting up in bed. She states she needs to go to the bathroom had a catheter is in place. General Appearance ED: well developed HEENT Reports dry mucous membranes HEENT Narrative: Mildly dry mucous membranes. Negative for trauma Mouth ED: Yes dry mucous membranes Mouth: dry mucous membranes Eyes General Eye ED: Negative for pale conjunctiva Resp normal respiratory effort Cardio regular rhythm Rate: tachycardic GI normal to inspection, nondistended, normoactive bowel sounds and non-tender Palpation: soft Back/Spine no CVA tenderness Extremity normal to inspection Neuro Neuro Narrative: Patient is oriented to person. She does not know the year or where she is. Sensorium / Orientation: alert Skin no rashes or lesions noted Skin Narrative: Skin does feel little warm to palpation. MDM MDM MDM Narrative Medical decision making narrative: This patient does have a mildly elevated white count. She has a fever. She has a history of frequent UTIs related to bl adder prolapse. A cath urine shows cloudy urine with leukocyte esterase and greater than 100 white cells. Lack of it at the point seven. This just came back. I have added a 2nd liter of fluid that will bring her up to 30 cc/kg. She has been treated with antibiotics. We have some limitations due to her multiple allergies. She was given Ativan for some agitation and confusion. She is doing better. Her blood pressures are doing well. Her heart rate has come down with the 1st liter. Her temperature is also come down. Respiratory rate is down. I think with her fever, white count, UTI and confusion she should come in. Chest x-ray and CT of the head showed no acute process. I discussed the case with the hospitalist. Patient will be admitted to ICU. Lab Data Labs: Laboratory Results - last 24 hr 12/06/20 12/06/20 12/06/20 19:25 19:25 19:55 WBC 12.2 H RBC 4.66 Hgb 12.5 Hct 40.0 MCV 85.8 MCH 26.8 L MCHC 31.3 L RDW Std Deviation 48.9 H RDW Coeff of Castillo 15.5 H Plt Count 282 MPV 9.4 Immature Gran % (Auto) 0.500 Neut % (Auto) 98.0 H Lymph % (Auto) 0.6 L [place] % (Auto) 0.6 Eos % (Auto) 0.2 Baso % (Auto) 0.1 Absolute Neuts (auto) 12.0 H Absolute Lymphs (auto) 0.07 L Nucleated RBC % 0 Differential Comment SCANNED Sodium 136 Potassium 3.5 Chloride 106 Carbon Dioxide 23.0 Anion Gap 7 BUN 24 H Creatinine 1.16 H Estim Creat Clear Calc 31.10 Est GFR (MDRD) Af Amer 58 L Est GFR (MDRD) Non-Af 48 L BUN/Creatinine Ratio 20.7 H Glucose 110 H Lactic Acid Calcium 9.4 Total Bilirubin 0.60 AST 80 H ALT 53 Alkaline Phosphatase 121 H Total Protein 7.4 Albumin 3.7 Globulin 3.7 Albumin/Globulin Ratio 1.0 Urine Color Yellow Urine Clarity Cloudy Urine pH 6.0 Ur Specific [place] 1.010 Urine Protein 30 H Urine Glucose (UA) Normal Urine Ketones Negative Urine Occult Blood 50 H Urine Nitrite Negative Urine Bilirubin Negative Urine Urobilinogen Normal Ur Leukocyte Esterase 500 H Urine RBC 0-5 SEEN Urine WBC >100 SEEN Ur Squamous Epith Cells 0-5 SEEN Amorphous Sediment 1+ URATE Urine Bacteria RARE Urine Mucus 0 SEEN 12/06/20 21:55 WBC RBC Hgb Hct MCV MCH MCHC RDW Std Deviation RDW Coeff of Castillo Plt Count MPV Immature Gran % (Auto) Neut % (Auto) Lymph % (Auto) [place] % (Auto) Eos % (Auto) Baso % (Auto) Absolute Neuts (auto) Absolute Lymphs (auto) Nucleated RBC % Differential Comment Sodium Potassium Chloride Carbon Dioxide Anion Gap BUN Creatinine Estim Creat Clear Calc Est GFR (MDRD) Af Amer Est GFR (MDRD) Non-Af BUN/Creatinine Ratio Glucose Lactic Acid 3.7 H* Calcium Total Bilirubin AST ALT Alkaline Phosphatase Total Protein Albumin Globulin Albumin/Globulin Ratio Urine Color Urine Clarity Urine pH Ur Specific [place] Urine Protein Urine Glucose (UA) Urine Ketones Urine Occult Blood Urine Nitrite Urine Bilirubin Urine Urobilinogen Ur Leukocyte Esterase Urine RBC Urine WBC Ur Squamous Epith Cells Amorphous Sediment Urine Bacteria Urine Mucus Radiography Diagnostic Testing: Radiology Impression Chest X-Ray 12/06/20 20:00 IMPRESSION: No acute cardiopulmonary pathology Electronically Signed: Vishnu Rowell MD at 21:18 EDT , Service support , Brain CT 12/06/20 20:17 IMPRESSION: No acute intracranial abnormal finding. Electronically Signed: Chintan Lord MD at 22:18 EDT Tel , Service support , EKG Initial EKG: Comments: EKG done for tachycardia read by me showed sinus rhythm with frequent PVCs. Overall rate was 135 on the EKG. There is some diffuse changes in baseline variation. This is similar but not the same to prior. Critical Care Time Critical Care Time: Yes Critical care time (excluding procedures): 30-74 minutes (Patient has been evaluated multiple times. We've added further therapy with medications for restlessness, antibiotics, IV fluids. We've discussed the case with consultants as well as staff here. With her tachycardia, fever, high lactate she does have severe sepsis. Critical care 35 min. Critica) Discharge Plan Dx/Rx/DC Orders Clinical Impression: Acute UTI, Severe sepsis Disposition Disposition: Acute Care [facility]
[2020-12-06 20:41] LABS: Mucous, Urine 0 SEEN /hpf (<or=2+)
[2020-12-06 20:43] LABS: Color, Urine Yellow (Yellow); Glucose, Dipstick Normal (Normal); Ketone-Dipstick Negative (Negative); Leukocyte Esterase-Dipstick 500 /ul (Negative); Nitrite-Dipstick Negative (Negative); Occult Blood-Urine 50 /ul (Negative); Protein-Dipstick 30 mg/dl (Negative); Urine Bilirubin Dipstick Negative (Negative); Urine Clarity Cloudy (Clear); Urine Urobilinogen Normal (Normal)
[2020-12-06 20:44] LABS: AST(SGOT) 80 U/L (15-37); Alanine Aminotransfer ALT/SGPT 53 U/L (13-56); Albumin, Serum 3.7 g/dL (3.2-5.0); Alkaline Phosphatase 121 U/L (45-117); Anion Gap 7 (5-15); BUN 24 mg/dL (7-18); BUN/Creat Ratio 20.7 RATIO (10-20); Calcium,Total 9.4 mg/dL (8.5-10.1); Chloride 106 mmol/L (98-107); Creatinine, Serum 1.16 mg/dL (0.55-1.02); EST Glomerular Filtration Rate 48 mL/min (>60); Est Glom Filt Rate - Afr Amer 58 mL/min (>60); Globulin 3.7 g/dL (2.2-4.2); Glucose 110 mg/dL (74-106); Potassium 3.5 mmol/L (3.5-5.1); Protein, Total 7.4 g/dL (6.4-8.2); Sodium Level 136 mmol/L (136-145)
[2020-12-06 20:47] LABS: Differential Comment SCANNED
[2020-12-06 20:50] LABS: Amorphous Sediment 1+ URATE; Bacteria RARE /hpf (None Seen); Red Blood Cells-Urine 0-5 SEEN /hpf (0-5); Squamous Epithelial Cells - UA 0-5 SEEN /hpf (5-10); White Blood Cells >100 SEEN /hpf (0-5)
[2020-12-06] MEDS: levoFLOXacin IV 750 MG/150 ML BAG 100 MG IV (22:26)
[2020-12-06 22:32] LABS: Lactic Acid 3.7 mmol/L (0.4-1.9)
--- NOTE | 2020-12-06 22:32 | ED.RN ---
NO EPISODES OF DIARRHEA WHILE IN ER
--- NOTE | 2020-12-06 22:51 | ED.RN ---
CONTINUOUSLY PULLING AT TUBES, UNABLE TO REDIRECT.
--- NOTE | 2020-12-06 22:58 | HP.PCM.HOS_ITS ---
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 History was taken for emergent department doctor as patient was confused. Emergent department doctor reported that patient's significant other reported patient has been confused and weak. Of note patient has a history of multiple UTIs. Reportedly his UTI secondary to bladder prolapse. Reportedly because of her age his bladder prolapse is unable to be operated on. Of note patient was at a hospital on 11/05/2020 and was diagnosed with sepsis secondary to UTI. She was also had C. difficile colitis at that time. [facility] Medical History Acute cholecystitis Cancer Cholelithiases Chronic cholecystitis Elevated liver enzymes Former smoker Gallstone pancreatitis Hypertension Pancreatitis Stroke/cerebrovascular accident Home Medications enalapril maleate 20 mg PO DAILY 02/19/19 [History Last Taken 03/24/19 20 mg] metoprolol tartrate 50 mg PO BID 02/19/19 [History Last Taken 03/24/19 50 mg] amlodipine 5 mg PO DAILY 11/05/20 [History Last Taken Unknown] fluticasone propionate 2 spray INTRANASAL BID 11/05/20 [History Last Taken Unknown] lorazepam 1 mg PO QHS 11/05/20 [History Last Taken Unknown] famotidine 20 mg PO BID 12/06/20 [History Last Taken Unknown] nitrofurantoin 100 mg PO BID 12/06/20 [History Last Taken Unknown] Allergy/AdvReac Type Severity Reaction Status Date / Time acetaminophen AdvReac Unknown Verified 12/07/20 00:12 [From Darvocet-N] aspirin AdvReac Unknown Verified 12/07/20 00:12 Cephalosporins AdvReac Unknown Verified 12/07/20 00:12 codeine AdvReac Unknown Verified 12/07/20 00:12 Penicillins [PCN] AdvReac Unknown Verified 12/07/20 00:12 propoxyphene AdvReac Unknown Verified 12/07/20 00:12 [From Darvocet-N] Mrokqtz-Wyf-Dds Reductase AdvReac Unknown Verified 12/07/20 00:12 Inhibitor Sulfa (Sulfonamide AdvReac Unknown Verified 12/07/20 00:12 Antibiotics) Family History Other Cancer Surgical History History of appendectomy S/P laparoscopic cholecystectomy (~02/20/19) Status post endoscopic retrograde cholangiopancreatography (~02/21/19) Social History Smoking Status: Former smoker ROS Review of Systems ROS Unobtainable: due to encephalopathy Vital Signs Vital Signs Vital Signs: 12/06/20 19:38 12/06/20 19:51 12/06/20 19:53 Temperature 100.5 F H 100.5 F H Temperature Source Oral Oral Pulse Rate 125 H 125 H Respiratory Rate 30 H 30 H Respiratory Effort Normal Non-Labored Respiratory Pattern Tachypnea Blood Pressure 124/61 H 124/61 H Blood Pressure Mean 82 82 Pulse Ox 94 94 Oxygen Delivery Method Room Air Room Air 12/06/20 20:37 12/06/20 20:42 12/06/20 21:00 Temperature 99 F 98.9 F Temperature Source Temporal Temporal Pulse Rate 81 81 109 H Respiratory Rate 19 H 16 18 Respiratory Effort Respiratory Pattern Blood Pressure 122/72 H 122/72 H 108/50 L Blood Pressure Mean 88 88 69 Pulse Ox 94 94 94 Oxygen Delivery Method 12/06/20 22:00 12/06/20 22:41 12/06/20 22:52 Temperature 98.8 F 98.8 F 98.8 F Temperature Source Temporal Temporal Temporal Pulse Rate 128 H 128 H 128 H Respiratory Rate 20 H 20 H 20 H Respiratory Effort Respiratory Pattern Blood Pressure 120/56 L 120/56 L 120/56 L Blood Pressure Mean 77 77 77 Pulse Ox 90 90 90 Oxygen Delivery Method Room Air Room Air Weight Weight: 59.3 kg Body Mass Index (BMI) 23.9 Physical Exam Narrative Physical exam: General: Confused and thrashing in bed. Head: Normocephalic, atraumatic, no tenderness ENT, no trauma, moist mucous membranes, no rhinorrhea Neck: Nontender, full range of motion, no spinal tenderness, deformities, step-o ff CVS: Tachycardia; regular rhythm Respiratory no acute distress, clear to auscultation bilaterally, chest wall nontender, no wheezing Abdomen: Soft, nontender, nondistended, normal bowel sounds, no masses : Deferred Back: Nontender, no CVA tenderness, no midline spinal tenderness, deformities, step-offs Extremities: Nontender, no trauma Skin: Normal color, no trauma, abrasions Neuro: Alert, confused Psychiatry: Confused and thrashing in bed. Asking to urinate while Kelly catheter is in place. Results Lab / Micro Data Result Diagrams: 12/06/20 19:25 12/06/20 19:25 Labs: Laboratory Results - last 24 hr 12/06/20 19:25: WBC 12.2 H, RBC 4.66, Hgb 12.5, Hct 40.0, MCV 85.8, MCH 26.8 L, MCHC 31.3 L, RDW Std Deviation 48.9 H, RDW Coeff of Castillo 15.5 H, Plt Count 282, MPV 9.4, Immature Gran % (Auto) 0.500, Neut % (Auto) 98.0 H, Lymph % (Auto) 0.6 L, [place] % (Auto) 0.6, Eos % (Auto) 0.2, Baso % (Auto) 0.1, Absolute Neuts (auto) 12.0 H, Absolute Lymphs (auto) 0.07 L, Nucleated RBC % 0, Differential Comment SCANNED 12/06/20 19:25: Sodium 136, Potassium 3.5, Chloride 106, Carbon Dioxide 23.0, Anion Gap 7, BUN 24 H, Creatinine 1.16 H, Estim Creat Clear Calc 31.10, Est GFR (MDRD) Af Amer 58 L, Est GFR (MDRD) Non-Af 48 L, BUN/Creatinine Ratio 20.7 H, Glucose 110 H, Calcium 9.4, Total Bilirubin 0.60, AST 80 H, ALT 53, Alkaline Phosphatase 121 H, Total Protein 7.4, Albumin 3.7, Globulin 3.7, Albumin/Globulin Ratio 1.0 12/06/20 19:55: Urine Color Yellow, Urine Clarity Cloudy, Urine pH 6.0, Ur Specific [place] 1.010, Urine Protein 30 H, Urine Glucose (UA) Normal, Urine Ketones Negative, Urine Occult Blood 50 H, Urine Nitrite Negative, Urine Bilirubin Negative, Urine Urobilinogen Normal, Ur Leukocyte Esterase 500 H, Urine RBC 0-5 SEEN, Urine WBC >100 SEEN, Ur Squamous Epith Cells 0-5 SEEN, Amorphous Sediment 1+ URATE, Urine Bacteria RARE, Urine Mucus 0 SEEN 12/06/20 21:55: Lactic Acid 3.7 H* Micro: Microbiology 12/06/20 20:20 Mucosa - Nose SARS-CoV-2 Antigen (Rapid) - Final Radiology Impression Chest X-Ray 12/06/20 20:00 IMPRESSION: No acute cardiopulmonary pathology Electronically Signed: Vishnu Rowell MD at 21:18 EDT , Service support , Brain CT 12/06/20 20:17 IMPRESSION: No acute intracranial abnormal finding. Electronically Signed: Chintan Lord MD at 22:18 EDT Tel , Service support , Assessment & Plan Assessment/Plan (1) Acute UTI: (2) Severe sepsis: PLAN: Sepsis secondary acute UTI SIRS criteria: Heart rate of more than 97; T-max of 100.5 Fahrenheit. White count of 12.2 and lactic acid of 3.7. Trend lactic acid. qSOFA of 1: Encephalopathy Impression of brain CT by radiology:No acute intracranial abnormal finding. Brain CT was independently interpreted and I agree with radiologist interpretation. Chest x-ray with no acute cardiopulmonary process Review of medical department labs showed abnormal urinalysis. Rapid Covid antigen is negative. Urine culture and blood culture are pending. Received Levaquin IV at the emergency department. Continue Levaquin and adjust for creatinine clearance [facility]. BK Patient with elevated BUN of 24. Review of old records shows that her BUN in October this year was 9 to 16. Creatinine is 1.16. Baseline creatinine is about 0.80. Gentle IV hydration. Avoid nephrotoxic's. Hold home OTM inhibitor. Trend BMP. Hypertension Blood pressure is not within goal Amlodipine and metoprolol continued. Hold enalapril secondary to BK Trend blood pressure and adjust blood pressure medications. DVT prophylaxis: Subcutaneous heparin ordered. Charges/Coding Visit Charges Inpatient E&M: 56011 Init Hosp L3
[2020-12-07] VITALS (64 sets, daily range): BP systolic 75–157; BP diastolic 36–89; PULSE 106–158; RESP 18–36; TEMP 36.6–37.4; O2SAT 90–100; BMI 22.3
--- NOTE | 2020-12-07 00:14 | ED.RN ---
Addendum entered by Anjelica Bennett 12/07/20 00:16: ATTEMPTED TO CALL AT [id number] Original Note: ATTEMPTED TO CALL REPORT, UNABLE D/T NURSE NOT BEING ON THE FLOOR.
[2020-12-07] MEDS: 0.9% Normal Saline 1,000 ML 75 ML IV (00:50)
--- NOTE | 2020-12-07 01:09 | SEPSIS_ITS ---
Sepsis Note Physical Exam/Vitals Objective: Chest X-Ray 12/06/20 20:00 IMPRESSION: No acute cardiopulmonary pathology Electronically Signed: Vishnu Rowell MD at 21:18 EDT , Service support , Brain CT 12/06/20 20:17 IMPRESSION: No acute intracranial abnormal finding. Electronically Signed: Chintan Lord MD at 22:18 EDT Tel , Service support , Temp Pulse Resp BP Pulse Ox 99.4 F H 114 H 29 H 81/44 L 94 12/07/20 00:44 12/07/20 01:01 12/07/20 01:01 12/07/20 01:01 12/07/20 01:01 12/06/20 12/06/20 12/06/20 21:55 19:55 19:25 WBC RBC Hgb Hct MCV MCH MCHC RDW Std Deviation RDW Coeff of Castillo Plt Count MPV Immature Gran % (Auto) Neut % (Auto) Lymph % (Auto) [place] % (Auto) Eos % (Auto) Baso % (Auto) Absolute Neuts (auto) Absolute Lymphs (auto) Nucleated RBC % Differential Comment Sodium 136 Potassium 3.5 Chloride 106 Carbon Dioxide 23.0 Anion Gap 7 BUN 24 H Creatinine 1.16 H Estim Creat Clear Calc 31.10 Est GFR (MDRD) Af Amer 58 L Est GFR (MDRD) Non-Af 48 L BUN/Creatinine Ratio 20.7 H Glucose 110 H Lactic Acid 3.7 H* Calcium 9.4 Total Bilirubin 0.60 AST 80 H ALT 53 Alkaline Phosphatase 121 H Total Protein 7.4 Albumin 3.7 Globulin 3.7 Albumin/Globulin Ratio 1.0 Urine Color Yellow Urine Clarity Cloudy Urine pH 6.0 Ur Specific [place] 1.010 Urine Protein 30 H Urine Glucose (UA) Normal Urine Ketones Negative Urine Occult Blood 50 H Urine Nitrite Negative Urine Bilirubin Negative Urine Urobilinogen Normal Ur Leukocyte Esterase 500 H Urine RBC 0-5 SEEN Urine WBC >100 SEEN Ur Squamous Epith Cells 0-5 SEEN Amorphous Sediment 1+ URATE Urine Bacteria RARE Urine Mucus 0 SEEN 12/06/20 19:25 WBC 12.2 H RBC 4.66 Hgb 12.5 Hct 40.0 MCV 85.8 MCH 26.8 L MCHC 31.3 L RDW Std Deviation 48.9 H RDW Coeff of Castillo 15.5 H Plt Count 282 MPV 9.4 Immature Gran % (Auto) 0.500 Neut % (Auto) 98.0 H Lymph % (Auto) 0.6 L [place] % (Auto) 0.6 Eos % (Auto) 0.2 Baso % (Auto) 0.1 Absolute Neuts (auto) 12.0 H Absolute Lymphs (auto) 0.07 L Nucleated RBC % 0 Differential Comment SCANNED Sodium Potassium Chloride Carbon Dioxide Anion Gap BUN Creatinine Estim Creat Clear Calc Est GFR (MDRD) Af Amer Est GFR (MDRD) Non-Af BUN/Creatinine Ratio Glucose Lactic Acid Calcium Total Bilirubin AST ALT Alkaline Phosphatase Total Protein Albumin Globulin Albumin/Globulin Ratio Urine Color Urine Clarity Urine pH Ur Specific [place] Urine Protein Urine Glucose (UA) Urine Ketones Urine Occult Blood Urine Nitrite Urine Bilirubin Urine Urobilinogen Ur Leukocyte Esterase Urine RBC Urine WBC Ur Squamous Epith Cells Amorphous Sediment Urine Bacteria Urine Mucus Attestation Sepsis Attestation: Sepsis re-evaluation was performed
[2020-12-07 02:01] LABS: Reflex Lactate? Y
[2020-12-07] MEDS: Vancomycin 125 MG/5 ML Susp PO.SYRINGE 250 MG PO ×4 (02:22→17:08)
--- NOTE | 2020-12-07 03:07 | RAD_ITS ---
STUDY: X-RAY CHEST REASON FOR EXAM: Female, 80 years old. Central line placement TECHNIQUE: Portable, AP chest radiograph COMPARISON: 12/06/2020 FINDINGS: Right IJ central catheter terminates over the superior cavoatrial junction. The lungs are clear and expanded. There is no demonstrated pleural abnormality. Normal size heart. Normal mediastinum and igor. Normal visualized pulmonary arteries. Normal visualized aortic arch and descending thoracic aorta. Normal visualized thoracic spine. There is degenerative osteoarthritis of the bilateral shoulders. There is no demonstrated abnormality of the visualized soft tissue structures of the upper abdomen. RAD/Chest 1 View (Portable) IMPRESSION: Right IJ central catheter terminates over the inferior cavoatrial junction. No acute abnormal cardiopulmonary finding. Electronically Signed: Chintan Lord MD at 3:53 EDT Tel , Service support ,
[2020-12-07 04:17] LABS: Absolute Lymphocyte Count 0.07 X10^3/uL (0.83-4.51); Absolute Neutrophil Count 27.6 X10^3/uL (2.0-7.7); Basophil# 0.11 X10^3/uL; Basophil% 0.4 % (0-1); Eosinophil# 0.03 X10^3/uL; Eosinophils% 0.1 % (0-5); Hematocrit 35.5 % (37-47); Hemoglobin 11.4 g/dL (12.0-15.0); Lymphocyte # 0.07 X10^3/ul (0.83-4.51); Lymphocyte % 0.2 % (19-41); Mean Corp Hgb Conc 32.1 g/dL (32-36); Mean Corpuscular Hgb 27.1 pg (27.0-32.0); Mean Corpuscular Volume 84.5 fL (81-99); Monocyte# 0.81 X10^3/uL; Monocyte% 2.8 % (0-10); NRBC Flagged by Analyzer 0 % (0-5); Neutrophil # 27.64 X10^3/uL (2.7-7.7); Neutrophil % 94.9 % (47-70); POSITIVE DIFFERENTIAL YES; Platelet Count 236 K/mm3 (150-450); RBC Distribution Width CV 15.5 % (11.6-14.6); RBC Distribution Width SD 47.6 fl (35.1-43.9); White Blood Count 29.1 K/mm3 (4.4-11.0)
[2020-12-07 04:19] LABS: Differential Indicated SCAN CRITERIA MET
--- NOTE | 2020-12-07 04:19 | PCM.PN.BLA ---
Progress Note Central Venous Catheter Indication: Septic Shock Consent was obtained from: Patient's family A time-out was completed verifying correct patient, procedure, site, positioning, and special equipment if applicable. The patient was placed in a dependent position appropriate for central line placement based on the vein to be cannulated. The patient's R neck was prepped and draped in a sterile fashion. 1% lidocaine was used to anesthetize the surrounding skin area. A triple-lumen catheter was introduced into the R IJ using the Seldinger technique and under ultrasound guidance. The catheter was threaded smoothly over the guidewire and appropriate blood return was obtained. Each lumen of the catheter was evacuated of air and flushed with sterile saline. The catheter was then sutured in place to the skin and a sterile dressing applied. Chest x-ray to confirm appropriate positioning is pending. ULTRASOUND GUIDANCE STATEMENT (Vascular Access): I performed ultrasound image acquisition and interpretation for needle placement during the procedure. The vessel was identified and found to be free of thrombosis by compression technique. A safe point of entry was marked at the skin in an angle for axis was determined. The needle was guided by obtaining free-flowing fluid and by real-time visualization. Procedures Hospitalists Procedures: [id number] Insert Non-tunnel CV Cath
--- NOTE | 2020-12-07 04:19 | PCM.PN.BLA ---
Progress Note Arterial Line Placement Note Procedure: Right Radial Artery Arterial Line, U/S guided. Indication: Septic Shock Performed By: Dr. Jeffrey Costello Consent: Consent was obtained from the patient's family prior to the procedure. Indications, risks, and benefits were explained at length. Procedure Summary: The radial artery was assessed with ultrasound. Modified Mateo test proved that collateral circulation was appropriate. A time-out was performed. The patient?s right wrist region was prepped and draped in sterile fashion using chlorhexidine scrub. The radial artery was palpated and accessed using a needle which was part of a [id number]-[id number] assembly (Modified Seldinger Technique). The guidewire was advanced through the needle and the catheter was advanced over the guidewire with appropriate pulsatile blood return. The catheter was then sutured in place to the skin and a sterile dressing was applied. Perfusion to the extremity distal to the point of catheter insertion was checked and found to be adequate. Estimated Blood Loss: 5ml Procedures Hospitalists Procedures: [id number] Insertion Catheter Artery
[2020-12-07 04:33] LABS: Anion Gap 12 (5-15); BUN 23 mg/dL (7-18); BUN/Creat Ratio 21.3 RATIO (10-20); Calcium,Total 8.2 mg/dL (8.5-10.1); Chloride 110 mmol/L (98-107); Creatinine, Serum 1.08 mg/dL (0.55-1.02); EST Glomerular Filtration Rate 52 mL/min (>60); Est Glom Filt Rate - Afr Amer 63 mL/min (>60); Estimated Creatinine Clearance 31.87 ml/min; Glucose 138 mg/dL (74-106); Potassium 3.5 mmol/L (3.5-5.1); Sodium Level 141 mmol/L (136-145)
[2020-12-07 04:56] LABS: Differential Comment SCANNED
[2020-12-07] MEDS: Haloperidol Lactate 5 MG/ML Vial 2 MG IV ×2 (05:05→09:13)
[2020-12-07] MEDS: 0.9% Saline Lock 10 ML Syringe IV (05:06)
[2020-12-07 05:52] LABS: Lactic Acid 3.3 mmol/L (0.4-1.9)
[2020-12-07] MEDS: Haloperidol Lactate 5 MG/ML Vial 3 MG IV (09:37)
[2020-12-07] MEDS: Heparin Injection (Vial) 5,000 UNIT/ML VIAL 5000 UNIT SC ×2 (09:47→22:04)
[2020-12-07] MEDS: Famotidine 20 MG Tablet PO (09:47)
--- NOTE | 2020-12-07 09:57 | EX.PCM.CONCC ---
Assessment & Plan Assessment/Plan (1) Septic shock: (2) Acute UTI: PLAN: RECOMMENDATIONS: 1. Continue antibiotics as ordered 2. Haldol as necessary for agitation 3. Wean pressors as tolerated 4. Continue hydration while holding TOM inhibitor IMPRESSIONS: 1. Septic shock secondary to UTI Clinical suspicion for urinary source of infection. [place] cultures are currently pending. Patient is acting like a gram-negative sepsis given worsening following antibiotics and significant secondary leukocytosis. We will continue with pressors as needed. Wean pressors as tolerated. P.o. vancomycin will be continued despite evidence showing no active C. difficile infection. Presence of C. difficile and the necessity of broad-spectrum antibiotics increases risk. Will continue with barrier precautions. 2. Acute kidney injury secondary to problem #1 Baseline creatinine appears to be approximately 0.8. This is elevated on presentation. Anticipate prerenal etiology. Patient has received a 30 cc/kg bolus. No indication for renal replacement therapy at this time. 3. Metabolic encephalopathy/delirium Patient is on Ativan at baseline. However, patient has multiple reasons for delirium including Ativan in the ER, acute medical condition, advanced age and repeated hospitalization. Continue with delirium protocol. Attempt to use Haldol in place of Ativan. 4. Recent history of C. difficile/hypertension/advanced age/poor history Complicates care, management, recovery and prognosis. Stool studies are not suggestive of active C. difficile infection, but she is at high risk given presence of C. difficile. We will continue with p.o. vancomycin as more prophylaxis. Antihypertensives should be held given problem #1. Will attempt to obtain baseline information. TIME: 35 minutes critical care time spent addressing patient's septic shock, metabolic encephalopathy, acute kidney injury, review of all data and collaboration with care team (8 AM to 9 AM) HPI Consult Data Date of Consult: 12/07/20 HPI Narrative HPI Narrative: JAZMYNE GUZMAN is a 80 F, with past medical history listed below, who presents on 12/06/2020 to [facility] secondary to altered level of consciousness. History is limited at this time, but patient was reportedly normal during the day. When boyfriend came home she was found to be confused with decreased energy. Patient has a history of UTIs, C. difficile colitis and other infections, so she was brought in for evaluation. Patient's boyfriend was unaware of her baseline medications. On presentation to the ER, patient was febrile at 100.5 ?F and normotensive at 124/61 with tachycardia of 125 bpm. Patient was noted to be 94% on room air. Laboratory work-up showed a leukocytosis of 12.2, BUN of 24 and creatinine of 1.16. Alk phos was slightly elevated at 121 and urinalysis showed urate crystals, leukocytosis and leukocyte esterase. Patient lactate was elevated at 3.7. CT of the head and chest x-ray were relatively unremarkable. Patient was given 30 cc/kg of IV fluids and Ativan for agitation. Patient was admitted to the intensive care unit for further evaluation. Since being in the intensive care unit, patient has had to be initiated on Levophed. This has improved somewhat. Patient is unable to provide any history at this time as she is severely confused. Patient has received some doses of Haldol overnight. Patient is currently being treated with meropenem and p.o. Vanco. FOR[facility]LY [facility], LATER [facility] Medical History Acute cholecystitis Cancer Cholelithiases Chronic cholecystitis Elevated liver enzymes Former smoker Gallstone pancreatitis Hypertension Pancreatitis Stroke/cerebrovascular accident Home Medications enalapril maleate 20 mg PO DAILY 02/19/19 [History Last Taken 03/24/19 20 mg] metoprolol tartrate 50 mg PO BID 02/19/19 [History Last Taken 03/24/19 50 mg] amlodipine 5 mg PO DAILY 11/05/20 [History Last Taken Unknown] fluticasone propionate 2 spray INTRANASAL BID 11/05/20 [History Last Taken Unknown] lorazepam 1 mg PO QHS 11/05/20 [History Last Taken Unknown] famotidine 20 mg PO BID 12/06/20 [History Last Taken Unknown] nitrofurantoin 100 mg PO BID 12/06/20 [History Last Taken Unknown] Allergy/AdvReac Type Severity Reaction Status Date / Time acetaminophen AdvReac Unknown Verified 12/07/20 00:12 [From Rm] aspirin AdvReac Unknown Verified 12/07/20 00:12 Cephalosporins AdvReac Unknown Verified 12/07/20 00:12 codeine AdvReac Unknown Verified 12/07/20 00:12 Penicillins [PCN] AdvReac Unknown Verified 12/07/20 00:12 propoxyphene AdvReac Unknown Verified 12/07/20 00:12 [From Darbaldemart-N] Wgajqcj-Emk-Tas Reductase AdvReac Unknown Verified 12/07/20 00:12 Inhibitor Sulfa (Sulfonamide AdvReac Unknown Verified 12/07/20 00:12 Antibiotics) Family History Other Cancer Surgical History History of appendectomy S/P laparoscopic cholecystectomy (~02/20/19) Status post endoscopic retrograde cholangiopancreatography (~02/21/19) Social History Smoking Status: Former smoker ROS Review of Systems ROS Unobtainable: due to encephalopathy Physical Exam Narrative Physical exam: General: Confused and thrashing in bed. Head: Normocephalic, atraumatic, no tenderness ENT, no trauma, moist mucous membranes, no rhinorrhea Neck: Nontender, full range of motion, no spinal tenderness, deformities, step-off CVS: Tachycardia; regular rhythm Respiratory no acute distress, clear to auscultation bilaterally, chest wall nontender, no wheezing Abdomen: Soft, nontender, nondistended, normal bowel sounds, no masses : Deferred Back: Nontender, no CVA tenderness, no midline spinal tenderness, deformities, step-offs Extremities: Nontender, no trauma Skin: Normal color, no trauma, abrasions Neuro: Alert, confused Psychiatry: Confused and thrashing in bed. Asking to urinate while Kelly catheter is in place. Const General Appearance: anxious, uncooperative, combative and appears older than stated age Exam Limitations: altered mental status and behavioral limitations HEENT normocephalic and head/scalp atraumatic Eyes PERRL and EOMs intact bilaterally Eyes Narrative: Scleral injection noted Neck No nuchal rigidity and no lymphadenopathy Chest inspection of chest normal Chest: symmetrical chest wall rise Resp normal respiratory effort, normal air movement and clear to auscultation bilaterally Resp Narrative: Fair cooperation with exam Auscultation: Negative for rales, rhonchi or wheezes Cardio no murmurs, no rub and no gallops Rate: tachycardic Rhythm: regular rhythm GI normal to inspection, nondistended, normoactive bowel sounds Extremity normal to inspection and full ROM Extremity Narrative: Decreased peripheral pulses Skin Skin Narrative: Dermal atrophy. Some superficial ulcers of various stages of healing Neuro Neuro Narrative: Moves all extremities. Sensation intact. Psych Appearance: unkempt and disheveled Attitude: uncooperative Activity / Motor Behavior: hyperactive Thought Process: confused Lab / Micro Data Result Diagrams: 12/07/20 04:05 12/07/20 04:05 Labs: Laboratory Results - last 24 hr 12/06/20 19:25: WBC 12.2 H, RBC 4.66, Hgb 12.5, Hct 40.0, MCV 85.8, MCH 26.8 L, MCHC 31.3 L, RDW Std Deviation 48.9 H, RDW Coeff of Castillo 15.5 H, Plt Count 282, MPV 9.4, Immature Gran % (Auto) 0.500, Neut % (Auto) 98.0 H, Lymph % (Auto) 0.6 L, [place] % (Auto) 0.6, Eos % (Auto) 0.2, Baso % (Auto) 0.1, Absolute Neuts (auto) 12.0 H, Absolute Lymphs (auto) 0.07 L, Nucleated RBC % 0, Differential Comment SCANNED 12/06/20 19:25: Sodium 136, Potassium 3.5, Chloride 106, Carbon Dioxide 23.0, Anion Gap 7, BUN 24 H, Creatinine 1.16 H, Estim Creat Clear Calc 31.10, Est GFR (MDRD) Af Amer 58 L, Est GFR (MDRD) Non-Af 48 L, BUN/Creatinine Ratio 20.7 H, Glucose 110 H, Calcium 9.4, Total Bilirubin 0.60, AST 80 H, ALT 53, Alkaline Phosphatase 121 H, Total Protein 7.4, Albumin 3.7, Globulin 3.7, Albumin/Globulin Ratio 1.0 12/06/20 19:55: Urine Color Yellow, Urine Clarity Cloudy, Urine pH 6.0, Ur Specific [place] 1.010, Urine Protein 30 H, Urine Glucose (UA) Normal, Urine Ketones Negative, Urine Occult Blood 50 H, Urine Nitrite Negative, Urine Bilirubin Negative, Urine Urobilinogen Normal, Ur Leukocyte Esterase 500 H, Urine RBC 0-5 SEEN, Urine WBC >100 SEEN, Ur Squamous Epith Cells 0-5 SEEN, Amorphous Sediment 1+ URATE, Urine Bacteria RARE, Urine Mucus 0 SEEN 12/06/20 21:55: Lactic Acid 3.7 H* 12/07/20 04:05: WBC 29.1 H, RBC 4.20, Hgb 11.4 L, Hct 35.5 L, MCV 84.5, MCH 27.1, MCHC 32.1, RDW Std Deviation 47.6 H, RDW Coeff of Castillo 15.5 H, Plt Count 236, MPV 9.0, Immature Gran % (Auto) 1.600 H, Neut % (Auto) 94.9 H, Lymph % (Auto) 0.2 L, [place] % (Auto) 2.8, Eos % (Auto) 0.1, Baso % (Auto) 0.4, Absolute Neuts (auto) 27.6 H, Absolute Lymphs (auto) 0.07 L, Nucleated RBC % 0, Differential Comment SCANNED 12/07/20 04:05: Sodium 141, Potassium 3.5, Chloride 110 H, Carbon Dioxide 19.0 L, Anion Gap 12, BUN 23 H, Creatinine 1.08 H, Estim Creat Clear Calc 31.87, Est GFR (MDRD) Af Amer 63, Est GFR (MDRD) Non-Af 52 L, BUN/Creatinine Ratio 21.3 H, Glucose 138 H, Calcium 8.2 L 12/07/20 04:05: Lactic Acid 3.3 H* Micro: Microbiology 12/07/20 00:40 Stool C. difficile GDH Antigen & Toxins - Final 12/07/20 00:40 Stool C. difficile DNA Amplification - Final 12/06/20 20:20 Mucosa - Nose SARS-CoV-2 Antigen (Rapid) - Final Radiology Impression Chest X-Ray 12/06/20 20:00 IMPRESSION: No acute cardiopulmonary pathology Electronically Signed: Vishnu Rowell MD at 21:18 EDT , Service support , Brain CT 12/06/20 20:17 IMPRESSION: No acute intracranial abnormal finding. Electronically Signed: Chintan Lord MD at 22:18 EDT Tel , Service support , Chest X-Ray 12/07/20 03:07 IMPRESSION: Right IJ central catheter terminates over the inferior cavoatrial junction. No acute abnormal cardiopulmonary finding. Electronically Signed: Chintan Lord MD at 3:53 EDT Tel , Service support , Charges/Coding Procedures Hospitalists Procedures: [id number] Critial Care 1st Hr
[2020-12-07] MEDS: Fluticasone 0.05% 1 SPRAY NASAL.SRY 2 SPRAY NASAL (09:59)
--- NOTE | 2020-12-07 11:07 | PN.HOSP_ITS ---
Subjective Subjective Patient was seen and examined. She is confused. Attempting to get out of bed. Attempting to pull on art line and IV access. The bedside. In bilateral soft restraints. Also on Levophed. Objective Data Objective Data Vital Signs: Vital Signs Temp Pulse Resp BP Pulse Ox 98.7 F 118 H 25 H 134/46 H 92 12/07/20 04:30 12/07/20 10:57 12/07/20 10:00 12/07/20 10:45 12/07/20 10:00 Oxygen Flow Rate (L/min) 3 Oxygen Delivery Method Room Air Weight: 55 kg Body Mass Index (BMI) 22.3 Intake & Output: Intake and Output for Last 24 Hours 12/05/20 12/06/20 12/07/20 23:59 23:59 23:59 Intake Total 2150 / 2150 443.23 / 443.23 Output Total 1075 / 1075 Balance 2150 / 2150 -631.77 / -631.77 Lab / Micro Data Result Diagrams: 12/07/20 04:05 12/07/20 04:05 Labs: Laboratory Results - last 24 hr 12/06/20 19:25: WBC 12.2 H, RBC 4.66, Hgb 12.5, Hct 40.0, MCV 85.8, MCH 26.8 L, MCHC 31.3 L, RDW Std Deviation 48.9 H, RDW Coeff of Castillo 15.5 H, Plt Count 282, MPV 9.4, Immature Gran % (Auto) 0.500, Neut % (Auto) 98.0 H, Lymph % (Auto) 0.6 L, [place] % (Auto) 0.6, Eos % (Auto) 0.2, Baso % (Auto) 0.1, Absolute Neuts (auto) 12.0 H, Absolute Lymphs (auto) 0.07 L, Nucleated RBC % 0, Differential Comment SCANNED 12/06/20 19:25: Sodium 136, Potassium 3.5, Chloride 106, Carbon Dioxide 23.0, Anion Gap 7, BUN 24 H, Creatinine 1.16 H, Estim Creat Clear Calc 31.10, Est GFR (MDRD) Af Amer 58 L, Est GFR (MDRD) Non-Af 48 L, BUN/Creatinine Ratio 20.7 H, Glucose 110 H, Calcium 9.4, Total Bilirubin 0.60, AST 80 H, ALT 53, Alkaline Phosphatase 121 H, Total Protein 7.4, Albumin 3.7, Globulin 3.7, Albumin/Globulin Ratio 1.0 12/06/20 19:55: Urine Color Yellow, Urine Clarity Cloudy, Urine pH 6.0, Ur Specific [place] 1.010, Urine Protein 30 H, Urine Glucose (UA) Normal, Urine Ketones Negative, Urine Occult Blood 50 H, Urine Nitrite Negative, Urine Bilirubin Negative, Urine Urobilinogen Normal, Ur Leukocyte Esterase 500 H, Urine RBC 0-5 SEEN, Urine WBC >100 SEEN, Ur Squamous Epith Cells 0-5 SEEN, Amorp hous Sediment 1+ URATE, Urine Bacteria RARE, Urine Mucus 0 SEEN 12/06/20 21:55: Lactic Acid 3.7 H* 12/07/20 04:05: WBC 29.1 H, RBC 4.20, Hgb 11.4 L, Hct 35.5 L, MCV 84.5, MCH 27.1, MCHC 32.1, RDW Std Deviation 47.6 H, RDW Coeff of Castillo 15.5 H, Plt Count 236, MPV 9.0, Immature Gran % (Auto) 1.600 H, Neut % (Auto) 94.9 H, Lymph % (Auto) 0.2 L, [place] % (Auto) 2.8, Eos % (Auto) 0.1, Baso % (Auto) 0.4, Absolute Neuts (auto) 27.6 H, Absolute Lymphs (auto) 0.07 L, Nucleated RBC % 0, Differential Comment SCANNED 12/07/20 04:05: Sodium 141, Potassium 3.5, Chloride 110 H, Carbon Dioxide 19.0 L , Anion Gap 12, BUN 23 H, Creatinine 1.08 H, Estim Creat Clear Calc 31.87, Est GFR (MDRD) Af Amer 63, Est GFR (MDRD) Non-Af 52 L, BUN/Creatinine Ratio 21.3 H, Glucose 138 H, Calcium 8.2 L 12/07/20 04:05: Lactic Acid 3.3 H* Micro: Microbiology 12/07/20 00:40 Stool C. difficile GDH Antigen & Toxins - Final 12/07/20 00:40 Stool C. difficile DNA Amplification - Final 12/06/20 20:20 Mucosa - Nose SARS-CoV-2 Antigen (Rapid) - Final Radiography Diagnostic Testing: Radiology Impression Chest X-Ray 12/06/20 20:00 IMPRESSION: No acute cardiopulmonary pathology Electronically Signed: Vishnu Rowell MD at 21:18 EDT , Service support , Brain CT 12/06/20 20:17 IMPRESSION: No acute intracranial abnormal finding. Electronically Signed: Chintan Lord MD at 22:18 EDT Tel , Service support , Chest X-Ray 12/07/20 03:07 IMPRESSION: Right IJ central catheter terminates over the inferior cavoatrial junction. No acute abnormal cardiopulmonary finding. Electronically Signed: Chintan Lord MD at 3:53 EDT Tel , Service support , Physical Exam Narrative General: Confused and thrashing in bed. Head: Normocephalic, atraumatic, no tenderness ENT, no trauma, moist mucous membranes, no rhinorrhea Neck: Nontender, full range of motion, no spinal tenderness, deformities, step- off CVS: Tachycardia; regular rhythm Respiratory no acute distress, clear to auscultation bilaterally, chest wall nontender, no wheezing Abdomen: Soft, nontender, nondistended, normal bowel sounds, no masses : Deferred Back: Nontender, no CVA tenderness, no midline spinal tenderness, deformities, step-offs Extremities: Nontender, no trauma Skin: Normal color, no trauma, abrasions Neuro: Alert, confused Psychiatry: Confused and thrashing in bed. Asking to urinate while Kelly catheter is in place. Assessment & Plan Assessment/Plan (1) Septic shock: (2) Acute UTI: (3) BK (acute kidney injury): PLAN: 1. Septic shock secondary to acute UTI Continue on IV fluids, Levophed, IV antibiotic Follow-up on blood and urine cultures 2. Acute metabolic/infective encephalopathy secondary to acute UTI Continue with treatment for #1 and 3 Haldol as needed 3. BK secondary to #1 and 2 Baseline creatinine 0.8, continue with IV fluids 4. Recent C. difficile, C. difficile toxin positive but PCR negative Restarted on oral vancomycin 5. Hypertension and now in septic shock Home metoprolol, amlodipine held Continue to monitor blood pressures Charges/Coding Visit Charges Inpatient E&M: 60345 Subs Hosp L3
[2020-12-07 11:51] LABS: Magnesium 1.2 mg/dL (1.6-2.6); Phosphorus 2.4 mg/dL (2.5-4.9)
[2020-12-07] MEDS: QUEtiapine 100 MG Tablet PO (13:39)
[2020-12-07] MEDS: 0.9% Normal Saline 1,000 ML 125 ML IV ×2 (13:39→21:27)
--- NOTE | 2020-12-07 14:00 | CASEMGMT ---
RN CM chart review: Patient was admitted 11/05-11/08/20 for UTI and c-diff, patient was discharged to home on oral vancomycin. See RN CM assessment from 11/06/20. Patient returned 12/06/20 for altered LOC. Patient is confused, combative, has sitter and is in soft restraints. RN CM to continue to follow this patient for discharge planning. Disposition Plan: TBD by course of treatment and progress with care.
[2020-12-07] MEDS: Haloperidol Lactate 5 MG/ML Vial IV ×2 (15:00→19:00)
[2020-12-07] MEDS: Phenazopyridine 95 MG Tablet 190 MG PO (15:39)
[2020-12-07] MEDS: LORazepam 1 MG Tablet PO (16:58)
[2020-12-07] MEDS: Magnesium Sulfate 4gm/100mL 4 GM/100 ML IV.SOLN. IV (16:58)
--- NOTE | 2020-12-07 20:17 | EKG12_ITS ---
Test Reason : AM Blood Pressure : / mmHG Vent. Rate : 126 BPM Atrial Rate : 127 BPM P-R Int : 000 ms QRS Dur : 104 ms QT Int : 322 ms P-R-T Axes : 000 -11 102 degrees QTc Int : 466 ms Sinus tachycardia Septal infarct , age undetermined Abnormal ECG When compared with ECG of 07-DEC-2020 20:52, MANUAL COMPARISON REQUIRED, DATA IS UNCONFIRMED Confirmed by GAYATRI YANEZ, STEVE ([id number]), associate editor LENY SMILEY ([id number]) on 12/10/2020 8:08:19 AM Referred By: JONATHAN Confirmed By:STEVE MENDIETA MD
[2020-12-07] MEDS: LORazepam 2 MG/ML Syringe IV (21:50)
--- NOTE | 2020-12-07 21:50 | NURSING ---
RN called into room by sitter, Patient had pulled out her Arterial line at this time. Manual pressure was held on the site and Dr Costello was notified as well. we will not be replacing the arterial line at this time.
[2020-12-07] MEDS: Amiodarone 360 MG in Dextrose 5% Viaflo Bag 192.8 ML 33.3 MG CONT INF (22:04)
[2020-12-08] VITALS (55 sets, daily range): BP systolic 85–137; BP diastolic 40–108; PULSE 111–148; RESP 18–31; TEMP 36.4–37.5; O2SAT 90–97
[2020-12-08] MEDS: Vancomycin 125 MG/5 ML Susp PO.SYRINGE 250 MG PO (00:03)
[2020-12-08] MEDS: LORazepam 2 MG/ML Syringe IV ×2 (02:09→11:42)
[2020-12-08] MEDS: Amiodarone 360 MG in Dextrose 5% Viaflo Bag 192.8 ML 16.7 MG CONT INF ×2 (04:15→16:45)
[2020-12-08 04:39] LABS: Absolute Lymphocyte Count 0.38 X10^3/uL (0.83-4.51); Absolute Neutrophil Count 15.8 X10^3/uL (2.0-7.7); Basophil# 0.03 X10^3/uL; Basophil% 0.2 % (0-1); Eosinophil# 0.15 X10^3/uL; Eosinophils% 0.9 % (0-5); Hematocrit 29.7 % (37-47); Hemoglobin 9.9 g/dL (12.0-15.0); Lymphocyte # 0.38 X10^3/ul (0.83-4.51); Lymphocyte % 2.2 % (19-41); Mean Corp Hgb Conc 33.3 g/dL (32-36); Mean Corpuscular Hgb 27.5 pg (27.0-32.0); Mean Corpuscular Volume 82.5 fL (81-99); Mean Platelet Vol. 9.6 fl (6.2-12.0); Monocyte# 0.82 X10^3/uL; Monocyte% 4.7 % (0-10); NRBC Flagged by Analyzer 0 % (0-5); Neutrophil # 15.79 X10^3/uL (2.7-7.7); Neutrophil % 91.2 % (47-70); POSITIVE DIFFERENTIAL YES; Platelet Count 143 K/mm3 (150-450); RBC Distribution Width CV 15.9 % (11.6-14.6); RBC Distribution Width SD 47.9 fl (35.1-43.9); White Blood Count 17.3 K/mm3 (4.4-11.0)
[2020-12-08 04:44] LABS: Differential Indicated SCAN CRITERIA MET
[2020-12-08 05:01] LABS: ALB/GLOB Ratio 0.9 RATIO (0.9-2.4); AST(SGOT) 67 U/L (15-37); Alanine Aminotransfer ALT/SGPT 91 U/L (13-56); Albumin, Serum 2.4 g/dL (3.2-5.0); Alkaline Phosphatase 115 U/L (45-117); Anion Gap 8 (5-15); BUN 18 mg/dL (7-18); BUN/Creat Ratio 23.5 RATIO (10-20); Calcium,Total 7.6 mg/dL (8.5-10.1); Chloride 114 mmol/L (98-107); Creatinine, Serum 0.77 mg/dL (0.55-1.02); EST Glomerular Filtration Rate 77 mL/min (>60); Est Glom Filt Rate - Afr Amer 93 mL/min (>60); Estimated Creatinine Clearance 34.42 ml/min; Globulin 2.8 g/dL (2.2-4.2); Glucose 126 mg/dL (74-106); Potassium 3.2 mmol/L (3.5-5.1); Protein, Total 5.2 g/dL (6.4-8.2); Sodium Level 141 mmol/L (136-145)
[2020-12-08 05:09] LABS: Phosphorus 1.5 mg/dL (2.5-4.9)
[2020-12-08 05:38] LABS: Differential Comment SCANNED
[2020-12-08] MEDS: 0.9% Normal Saline 1,000 ML 125 ML IV (06:23)
--- NOTE | 2020-12-08 07:00 | EKG12_ITS ---
Test Reason : A-FIB Blood Pressure : / mmHG Vent. Rate : 148 BPM Atrial Rate : 147 BPM P-R Int : 000 ms QRS Dur : 096 ms QT Int : 338 ms P-R-T Axes : 000 -11 109 degrees QTc Int : 530 ms Poor data quality, interpretation may be adversely affected Atrial fibrillation ST & T wave abnormality, consider lateral ischemia or digitalis effect Abnormal ECG When compared with ECG of 06-DEC-2020 19:42, MANUAL COMPARISON REQUIRED, DATA IS UNCONFIRMED Confirmed by GAYATRI YANEZ, STEVE ([id number]), film or videotape editor LENY SMILEY ([id number]) on 12/10/2020 8:08:50 AM Referred By: LIDA Confirmed By:STEVE MENDIETA MD
--- NOTE | 2020-12-08 07:32 | PN.CC_ITS ---
Assessment & Plan Assessment/Plan (1) Septic shock: (2) Acute UTI: PLAN: RECOMMENDATIONS: 1. Continue antibiotics as ordered 2. Hold on Haldol and Seroquel secondary to QT prolongation 3. Wean pressors as tolerated 4. Continue hydration while holding TOM inhibitor 5. Potentially transition to p.o. amiodarone once drip is completed IMPRESSIONS: 1. Septic shock secondary to UTI Clinical suspicion for urinary source of infection. [place] cultures are currently pending. Patient is acting like a gram-negative sepsis given wor sening following antibiotics and significant secondary leukocytosis. Leukocytosis is better today. We will continue with pressors as needed. Wean pressors as tolerated. P.o. vancomycin will be continued despite evidence showing no active C. difficile infection. Presence of C. difficile with neg ative toxin and the necessity of broad-spectrum antibiotics increases risk of recurrence. Will continue with barrier precautions. 2. Acute kidney injury secondary to problem #1 Resolved. Baseline creatinine appears to be approximately 0.8. This is elevated on presentation. Anticipate prerenal etiology. Patient has received a 30 cc/kg bolus. No indication for renal replacement therapy at this time. 3. Metabolic encephalopathy/delirium Patient is on Ativan at baseline. However, patient has multiple reasons for delirium including Ativan in the ER, acute medical condition, advanced age and repeated hospitalization. Continue with delirium protocol. Unable to use atypical secondary to QT prolongation 4. Recent history of C. difficile/hypertension/advanced age/poor history Complicates care, management, recovery and prognosis. Stool studies are not suggestive of active C. difficile infection, but she is at high risk given presence of C. difficile. We will continue with p.o. vancomycin as more prophylaxis. Antihypertensives should be held given problem #1. Will attempt to obtain baseline information. 5. A. fib with RVR Patient with A. fib with RVR overnight. Patient has responded to amiodarone drip. Potentially could transition to p.o. amiodarone, but must be careful as this can prolong QT. TIME: 32 minutes critical care time spent addressing patient's septic shock, metabolic encephalopathy, acute kidney injury, review of all data and collaboration with care team (6 AM to 7 AM) Subjective Subjective Patient did okay overnight. Patient did develop A. fib with RVR and was placed on amiodarone. Patient was in normal sinus rhythm this morning. Patient continues to have agitation and is minimally cooperative with care. Sitter at the bedside. Nursing reports patient has been spitting her vancomycin and is unclear how much she is actually getting. Patient was unable to be treated with atypicals secondary to prolonged QT. Ativan has been used with minimal success. Objective Data Objective Data Vital Signs: Vital Signs Temp Pulse Resp BP Pulse Ox 37.5 C H 126 H 30 H 93/74 94 12/08/20 00:00 12/08/20 04:15 12/08/20 04:00 12/08/20 06:00 12/08/20 04:00 Oxygen Flow Rate (L/min) 3 Oxygen Delivery Method Room Air Weight: 55 kg Body Mass Index (BMI) 22.3 Intake & Output: Intake and Output for Last 24 Hours 12/06/20 12/07/20 12/08/20 23:59 23:59 23:59 Intake Total 2150 / 2150 3479.25 / 3516.75 1525.04 / 1525.04 Output Total 1575 / 1575 825 / 825 Balance 2150 / 2150 1904.25 / 1941.75 700.04 / 700.04 Lab / Micro Data Result Diagrams: 12/08/20 04:30 12/08/20 04:30 Labs: Laboratory Results - last 24 hr 12/07/20 04:05: Phosphorus 2.4 L, Magnesium 1.2 L 12/08/20 04:30: WBC 17.3 H, RBC 3.60 L, Hgb 9.9 L, Hct 29.7 L, MCV 82.5, MCH 27.5, MCHC 33.3, RDW Std Deviation 47.9 H, RDW Coeff of Castillo 15.9 H, Plt Count 143 L, MPV 9.6, Immature Gran % (Auto) 0.800, Neut % (Auto) 91.2 H, Lymph % (Auto) 2.2 L, [place] % (Auto) 4.7, Eos % (Auto) 0.9, Baso % (Auto) 0.2, Absolute Neuts (auto) 15.8 H, Absolute Lymphs (auto) 0.38 L, Nucleated RBC % 0, Differential Comment SCANNED 12/08/20 04:30: Sodium 141, Potassium 3.2 L, Chloride 114 H, Carbon Dioxide 19.0 L, Anion Gap 8, BUN 18, Creatinine 0.77, Estim Creat Clear Calc 34.42, Est GFR (MDRD) Af Amer 93, Est GFR (MDRD) Non-Af 77, BUN/Creatinine Ratio 23.5 H, Glucose 126 H, Calcium 7.6 L, Magnesium 2.0, Total Bilirubin 0.60, AST 67 H, ALT 91 H, Alkaline Phosphatase 115, Total Protein 5.2 L, Albumin 2.4 L, Globulin 2.8, Albumin/Globulin Ratio 0.9 12/08/20 04:30: Phosphorus 1.5 L Micro: Microbiology 12/06/20 19:55 Urine, Clean Catch Urine Culture - Preliminary GNR lactose acid wash operator 12/07/20 00:40 Stool C. difficile GDH Antigen & Toxins - Final 12/07/20 00:40 Stool C. difficile DNA Amplification - Final 12/06/20 20:20 Mucosa - Nose SARS-CoV-2 Antigen (Rapid) - Final Physical Exam Const General Appearance: anxious, uncooperative, combative and appears older than stated age Exam Limitations: altered mental status and behavioral limitations HEENT normocephalic and head/scalp atraumatic Eyes PERRL and EOMs intact bilaterally Eyes Narrative: Scleral injection noted Neck No nuchal rigidity and no lymphadenopathy Chest inspection of chest normal Chest: symmetrical chest wall rise Resp normal respiratory effort, normal air movement and clear to auscultation bilate rally Resp Narrative: Minimal cooperation with exam Auscultation: Negative for rales, rhonchi or wheezes Cardio no murmurs, no rub and no gallops Rate: tachycardic Rhythm: regular rhythm GI normal to inspection, nondistended, normoactive bowel sounds Extremity normal to inspection and full ROM Extremity Narrative: Decreased peripheral pulses Skin Skin Narrative: Dermal atrophy. Some superficial ulcers of various stages of healing Neuro Neuro Narrative: Moves all extremities. Sensation intact. Psych Appearance: unkempt and disheveled Attitude: uncooperative Activity / Motor Behavior: hyperactive Thought Process: confused Charges/Coding Procedures Hospitalists Procedures: [id number] Critial Care 1st Hr
[2020-12-08] MEDS: Heparin Injection (Vial) 5,000 UNIT/ML VIAL 5000 UNIT SC ×2 (08:23→22:21)
[2020-12-08] MEDS: Fluticasone 0.05% 1 SPRAY NASAL.SRY 2 SPRAY NASAL (08:23)
[2020-12-08] MEDS: Famotidine 20 MG Tablet PO (08:24)
[2020-12-08] MEDS: CHLORHEXIDINE GLUC 2% CLOTH 1 EACH TOWELETTE TOPICAL (08:35)
--- NOTE | 2020-12-08 09:33 | PN.HOSP_ITS ---
Subjective Subjective Patient was seen and examined. She remains confused. Sitter at the bedside. Still on Levophed. Objective Data Objective Data Vital Signs: Vital Signs Temp Pulse Resp BP Pulse Ox 98.7 F 129 H 18 130/67 H 92 12/08/20 08:20 12/08/20 08:20 12/08/20 08:20 12/08/20 08:20 12/08/20 08:20 Oxygen Flow Rate (L/min) 3 Oxygen Delivery Method Room Air Weight: 56 kg Body Mass Index (BMI) 22.3 Intake & Output: Intake and Output for Last 24 Hours 12/06/20 12/07/20 12/08/20 23:59 23:59 23:59 Intake Total 2150 / 2150 3479.25 / 3516.75 1571.41 / 1571.41 Output Total 1575 / 1575 1175 / 1175 Balance 2150 / 2150 1904.25 / 1941.75 396.41 / 396.41 Lab / Micro Data Result Diagrams: 12/08/20 04:30 12/08/20 04:30 Labs: Laboratory Results - last 24 hr 12/07/20 04:05: Phosphorus 2.4 L, Magnesium 1.2 L 12/08/20 04:30: WBC 17.3 H, RBC 3.60 L, Hgb 9.9 L, Hct 29.7 L, MCV 82.5, MCH 27.5, MCHC 33.3, RDW Std Deviation 47.9 H, RDW Coeff of Castillo 15.9 H, Plt Count 143 L, MPV 9.6, Immature Gran % (Auto) 0.800, Neut % (Auto) 91.2 H, Lymph % (A uto) 2.2 L, Gray % (Auto) 4.7, Eos % (Auto) 0.9, Baso % (Auto) 0.2, Absolute Neuts (auto) 15.8 H, Absolute Lymphs (auto) 0.38 L, Nucleated RBC % 0, Differential Comment SCANNED 12/08/20 04:30: Sodium 141, Potassium 3.2 L, Chloride 114 H, Carbon Dioxide 19.0 L, Anion Gap 8, BUN 18, Creatinine 0.77, Estim Creat Clear Calc 34.42, Est GFR (MDRD) Af Amer 93, Est GFR (MDRD) Non-Af 77, BUN/Creatinine Ratio 23.5 H, Gluco se 126 H, Calcium 7.6 L, Magnesium 2.0, Total Bilirubin 0.60, AST 67 H, ALT 91 H , Alkaline Phosphatase 115, Total Protein 5.2 L, Albumin 2.4 L, Globulin 2.8, Albumin/Globulin Ratio 0.9 12/08/20 04:30: Phosphorus 1.5 L Micro: Microbiology 12/06/20 19:55 Urine, Clean Catch Urine Culture - Final Klebsiella pneumoniae sp pneum 12/07/20 00:40 Stool C. difficile GDH Antigen & Toxins - Final 12/07/20 00:40 Stool C. difficile DNA Amplification - Final 12/06/20 20:20 Mucosa - Nose SARS-CoV-2 Antigen (Rapid) - Final Physical Exam Narrative General: Confused and thrashing in bed. Head: Normocephalic, atraumatic, no tenderness ENT, no trauma, moist mucous membranes, no rhinorrhea Neck: Nontender, full range of motion, no spinal tenderness, deformities, step- off CVS: Tachycardia; regular rhythm Respiratory no acute distress, clear to auscultation bilaterally, chest wall nontender, no wheezing Abdomen: Soft, nontender, nondistended, normal bowel sounds, no masses : Deferred Back: Nontender, no CVA tenderness, no midline spinal tenderness, deformities, step-offs Extremities: Nontender, no trauma Skin: Normal color, no trauma, abrasions Neuro: Alert, confused Psychiatry: Confused and thrashing in bed. Asking to urinate while Kelly cat heter is in place. Assessment & Plan Assessment/Plan (1) Septic shock: (2) Acute UTI: (3) BK (acute kidney injury): PLAN: 1. Septic shock secondary to acute Klebsiella pneumonia UTI Continue on IV fluids, Levophed, IV antibiotic Follow-up on blood and urine cultures 2. Acute metabolic/infective encephalopathy secondary to acute UTI Continue with treatment for #1 and 3 Haldol as needed 3. BK secondary to #1 and 2, resolved Baseline creatinine 0.8, continue with IV fluids 4. Recent C. difficile, C. difficile toxin positive but PCR negative Restarted on oral vancomycin 5. Hypertension and now in septic shock Home metoprolol, amlodipine held Continue to monitor blood pressures Charges/Coding Visit Charges Inpatient E&M: 73172 [facility] L3
[2020-12-08] MEDS: 0.9% Normal Saline 250 ML IV.SOLN. IV (10:29)
[2020-12-08] MEDS: Potassium Chloride 10mEq/100mL 10 MEQ/100 ML IV.SOLN. 100 MEQ IV BOLUS ×2 (11:41→12:47)
[2020-12-09] VITALS (29 sets, daily range): BP systolic 95–125; BP diastolic 51–85; PULSE 57–145; RESP 21–33; TEMP 36.3–37.4; O2SAT 89–97
[2020-12-09] MEDS: LORazepam 2 MG/ML Syringe IV ×2 (00:26→04:19)
[2020-12-09 04:27] LABS: Absolute Lymphocyte Count 1.07 X10^3/uL (0.83-4.51); Absolute Neutrophil Count 18.1 X10^3/uL (2.0-7.7); Basophil# 0.05 X10^3/uL; Basophil% 0.2 % (0-1); Eosinophils% 0.5 % (0-5); Hematocrit 33.1 % (37-47); Hemoglobin 10.9 g/dL (12.0-15.0); Lymphocyte # 1.07 X10^3/ul (0.83-4.51); Lymphocyte % 5.2 % (19-41); Mean Corp Hgb Conc 32.9 g/dL (32-36); Mean Corpuscular Hgb 27.2 pg (27.0-32.0); Mean Corpuscular Volume 82.5 fL (81-99); Monocyte# 0.99 X10^3/uL; Monocyte% 4.8 % (0-10); NRBC Flagged by Analyzer 0 % (0-5); Neutrophil % 87.9 % (47-70); Platelet Count 122 K/mm3 (150-450); RBC Distribution Width CV 16.7 % (11.6-14.6); RBC Distribution Width SD 50.4 fl (35.1-43.9); Red Blood Count 4.01 M/mm3 (4.2-5.4); White Blood Count 20.6 K/mm3 (4.4-11.0)
[2020-12-09 04:43] LABS: ALB/GLOB Ratio 0.8 RATIO (0.9-2.4); AST(SGOT) 90 U/L (15-37); Alanine Aminotransfer ALT/SGPT 82 U/L (13-56); Albumin, Serum 2.4 g/dL (3.2-5.0); Alkaline Phosphatase 121 U/L (45-117); Anion Gap 8 (5-15); BUN 15 mg/dL (7-18); BUN/Creat Ratio 22.5 RATIO (10-20); Calcium,Total 7.9 mg/dL (8.5-10.1); Chloride 116 mmol/L (98-107); Creatinine, Serum 0.67 mg/dL (0.55-1.02); EST Glomerular Filtration Rate 91 mL/min (>60); Est Glom Filt Rate - Afr Amer 110 mL/min (>60); Estimated Creatinine Clearance 34.42 ml/min; Globulin 2.9 g/dL (2.2-4.2); Glucose 118 mg/dL (74-106); Potassium 3.7 mmol/L (3.5-5.1); Protein, Total 5.3 g/dL (6.4-8.2); Sodium Level 143 mmol/L (136-145)
[2020-12-09] MEDS: Amiodarone 360 MG in Dextrose 5% Viaflo Bag 192.8 ML 16.7 MG CONT INF (04:58)
--- NOTE | 2020-12-09 07:00 | PN.CC_ITS ---
Assessment & Plan Assessment/Plan (1) Septic shock: (2) Acute UTI: PLAN: RECOMMENDATIONS: 1. Continue antimicrobials as ordered. 2. Discontinue Ativan. 3. If no improvement in mentation, obtain arterial blood gas. 4. Hold on Haldol and Seroquel secondary to QT prolongation. 5. Wean supplemental oxygen as tolerated. IMPRESSIONS: 1. Septic shock secondary to UTI Clinical suspicion for urinary source of infection. Plan to continue a ntimicrobials as ordered. However, p.o. vancomycin can be discontinued from my perspective given the lack of active C. difficile infection. 2. Acute kidney injury secondary to problem #1 Resolved. Creatinine has returned back to baseline. Continue to monitor urine output. No indication for renal replacement therapy at this time. 3. Metabolic encephalopathy/delirium The patient is on Ativan at baseline. However, patient has multiple reasons for delirium including Ativan, acute medical condition, advanced age and repeated hospitalization. Continue with delirium protocol. Unable to use atypical secondary to QT prolongation. Recommend avoidance of Ativan. 4. Recent history of C. difficile/hypertension/advanced age/poor history Complicates care, management, recovery and prognosis. Stool studies are not suggestive of active C. difficile infection. Therefore, p.o. vancomycin can be discontinued. This note was generated with [employer] dictation software. It may contain incorrect words, spelling, and punctuation that were not noted in checking the note before signing. Subjective Subjective The patient was seen and examined at the bedside this morning. Events from the last 24 hours have been reviewed. The patient is currently afebrile, hemodynamically stable and maintaining appropriate oxygen saturations on 2 L/min via nasal cannula. The patient has been off of Levophed now for approximately 24 hours. Her amiodarone was concluded this morning. She did fail her nursing dysphagia screen. She remains on antimicrobials and has been receiving as needed IV Ativan, last administered at 0400 hrs. this morning. The patient is currently documented to be overall net +5 L for the hospital admission. Objective Data Objective Data The patient's most recent lab work, culture data and imaging studies have all been personally reviewed. Urine culture dated December 06 was positive for Klebsiella. C. difficile antigen was positive. However C. difficile toxin was negative. Subsequent C. difficile PCR was positive. Blood cultures are pending . Vital Signs: Vital Signs Temp Pulse Resp BP Pulse Ox 97.9 F 116 H 22 H 104/64 96 12/09/20 04:00 12/09/20 06:00 12/09/20 06:00 12/09/20 06:00 12/09/20 06:00 Oxygen Flow Rate (L/min) 2 Oxygen Delivery Method Nasal Cannula Weight: 56.1 kg Body Mass Index (BMI) 22.3 Intake & Output: Intake and Output for Last 24 Hours 12/07/20 12/08/20 12/09/20 23:59 23:59 23:59 Intake Total 3479.25 / 3516.75 3259.83 / 3259.83 231.17 / 231.17 Output Total 1575 / 1575 2075 / 2225 450 / 450 Balance 1904.25 / 1941.75 1184.83 / 1034.83 -218.83 / -218.83 Lab / Micro Data Attestation: I reviewed the patient's lab results. Result Diagrams: 12/09/20 04:15 12/09/20 04:15 Labs: Laboratory Results - last 24 hr 12/09/20 04:15: WBC 20.6 H, RBC 4.01 L, Hgb 10.9 L, Hct 33.1 L, MCV 82.5, MCH 27.2, MCHC 32.9, RDW Std Deviation 50.4 H, RDW Coeff of Castillo 16.7 H, Plt Count 122 L, MPV 10.0, Immature Gran % (Auto) 1.400 H, Neut % (Auto) 87.9 H, Lymph % (Auto) 5.2 L, [place] % (Auto) 4.8, Eos % (Auto) 0.5, Baso % (Auto) 0.2, Absolute Neuts (auto) 18.1 H, Absolute Lymphs (auto) 1.07, Nucleated RBC % 0 12/09/20 04:15: Sodium 143, Potassium 3.7, Chloride 116 H, Carbon Dioxide 19.0 L , Anion Gap 8, BUN 15, Creatinine 0.67, Estim Creat Clear Calc 34.42, Est GFR (MDRD) Af Amer 110, Est GFR (MDRD) Non-Af 91, BUN/Creatinine Ratio 22.5 H, Glucose 118 H, Calcium 7.9 L, Total Bilirubin 0.70, AST 90 H, ALT 82 H, Alkaline Phosphatase 121 H, Total Protein 5.3 L, Albumin 2.4 L, Globulin 2.9, Albumin/Globulin Ratio 0.8 L Micro: Microbiology 12/06/20 19:55 Urine, Clean Catch Urine Culture - Final Klebsiella pneumoniae sp pneum 12/07/20 00:40 Stool C. difficile GDH Antigen & Toxins - Final 12/07/20 00:40 Stool C. difficile DNA Amplification - Final 12/06/20 20:20 Mucosa - Nose SARS-CoV-2 Antigen (Rapid) - Final Physical Exam Const Orientation / Consciousness: obtunded HEENT normocephalic and head/scalp atraumatic Eyes PERRL and EOMs intact bilaterally Eyes Narrative: Scleral injection noted Neck No nuchal rigidity and supple General: trachea midline Chest Chest: symmetrical chest wall rise Resp normal respiratory effort, normal air movement and clear to auscultation bilaterally Effort and Inspection: tachypneic Auscultation: Negative for rales, rhonchi or wheezes Cardio S1 normal heart sound, S2 normal heart sound, no murmurs, no rub and no gallops Rate: tachycardic Rhythm: regular rhythm GI normal to inspection, nondistended, normoactive bowel sounds Extremity normal to inspection, full ROM and no clubbing, cyanosis or edema Skin Skin Narrative: Dermal atrophy. Some superficial ulcers of various stages of healing Neuro Neuro Narrative: Obtunded with minimal responsiveness to stimulation. Psych Mood & Affect: flat affect Charges/Coding Visit Charges Inpatient E&M: 59577 Subs Hosp L3
--- NOTE | 2020-12-09 08:23 | PCM.PN.HOSP ---
Subjective Subjective Patient is a 80-year-old lady admitted with altered mental status. Patient was diagnosed with septic shock secondary to Klebsiella pneumonia as well as UTI admitted to the intensive care unit for further management Objective Data Objective Data Vital Signs: Vital Signs Temp Pulse Resp BP Pulse Ox 97.9 F 57 L 31 H 111/64 91 12/09/20 04:00 12/09/20 07:11 12/09/20 07:00 12/09/20 07:00 12/09/20 07:00 Oxygen Flow Rate (L/min) 3 Oxygen Delivery Method Nasal Cannula Weight: 56.1 kg Body Mass Index (BMI) 22.3 Intake & Output: Intake and Output for Last 24 Hours 12/07/20 12/08/20 12/09/20 23:59 23:59 23:59 Intake Total 3479.25 / 3516.75 3259.83 / 3259.83 231.17 / 231.17 Output Total 1575 / 1575 2075 / 2225 450 / 450 Balance 1904.25 / 1941.75 1184.83 / 1034.83 -218.83 / -218.83 Lab / Micro Data Result Diagrams: 12/09/20 04:15 12/09/20 04:15 Labs: Laboratory Results - last 24 hr 12/09/20 04:15: WBC 20.6 H, RBC 4.01 L, Hgb 10.9 L, Hct 33.1 L, MCV 82.5, MCH 27.2, MCHC 32.9, RDW Std Deviation 50.4 H, RDW Coeff of Castillo 16.7 H, Plt Count 122 L, MPV 10.0, Immature Gran % (Auto) 1.400 H, Neut % (Auto) 87.9 H, Lymph % (Auto) 5.2 L, [place] % (Auto) 4.8, Eos % (Auto) 0.5, Baso % (Auto) 0.2, Absolute Neuts (auto) 18.1 H, Absolute Lymphs (auto) 1.07, Nucleated RBC % 0 12/09/20 04:15: Sodium 143, Potassium 3.7, Chloride 116 H, Carbon Dioxide 19.0 L, Anion Gap 8, BUN 15, Creatinine 0.67, Estim Creat Clear Calc 34.42, Est GFR (MDRD) Af Amer 110, Est GFR (MDRD) Non-Af 91, BUN/Creatinine Ratio 22.5 H, Glucose 118 H, Calcium 7.9 L, Total Bilirubin 0.70, AST 90 H, ALT 82 H, Alkaline Phosphatase 121 H, Total Protein 5.3 L, Albumin 2.4 L, Globulin 2.9, Albumin/Globulin Ratio 0.8 L Micro: Microbiology 12/06/20 19:55 Urine, Clean Catch Urine Culture - Final Klebsiella pneumoniae sp pneum 12/07/20 00:40 Stool C. difficile GDH Antigen & Toxins - Final 12/07/20 00:40 Stool C. difficile DNA Amplification - Final 12/06/20 20:20 Mucosa - Nose SARS-CoV-2 Antigen (Rapid) - Final Physical Exam Narrative GENERAL: Sleepy but arousable HEENT: Atraumatic; EYES; Anicteric, Normal Conjunctiva NECK; supple, normal thyroid, RESPIRATORY: Diminished to auscultation CARDIOVASCULAR: Regular S1 S2, GI: soft, normoactive bowel sounds, : No Renal angle tenderness; EXTREMITIES: No edema, no clubbing, MUSCULOSKELETAL: no muscle waisting NEURO: Awake; no lateralizing signs. SKIN: No Rash Assessment & Plan Assessment/Plan (1) Septic shock: (2) Acute UTI: (3) BK (acute kidney injury): PLAN: Patient is a 80-year-old lady admitted with altered mental status. Patient was diagnosed with septic shock secondary to Klebsiella pneumonia as well as UTI admitted to the intensive care unit for further management 1. Septic shock (present on admission) ?Attributed to Klebsiella pneumonia and UTI. Admitted to the intensive care unit managed with aggressive IV fluid resuscitation pressor support with Levophed as well as broad-spectrum antibiotics. Cultures were sent results pending 2. Acute metabolic encephalopathy ?Secondary to above management as discussed above 3. Essential hypertension ?Patient antihypertensives placed on hold in view of patient presented with relatively low blood pressure we will continue with monitoring 4. Recent C. difficile colitis ?Patient C. difficile toxin was positive by PCR was negative 5. Acute renal insufficiency ?Secondary to #1 creatinine on admission was 1.16 currently down to 0.67 6. DVT prophylaxis ?SC heparin Charges/Coding Visit Charges Inpatient E&M: 16694 Subs Hosp L2
[2020-12-09] MEDS: Heparin Injection (Vial) 5,000 UNIT/ML VIAL 5000 UNIT SC ×2 (10:46→21:22)
[2020-12-09] MEDS: CHLORHEXIDINE GLUC 2% CLOTH 1 EACH TOWELETTE TOPICAL (10:46)
[2020-12-09] MEDS: Fluticasone 0.05% 1 SPRAY NASAL.SRY 2 SPRAY NASAL ×2 (10:47→21:22)
[2020-12-09] MEDS: 0.9% Saline Lock 10 ML Syringe IV ×3 (10:48→22:04)
[2020-12-09] MEDS: Metoprolol Tartrate 5 MG/5 ML Vial IV (22:01)
[2020-12-10] VITALS (34 sets, daily range): BP systolic 100–133; BP diastolic 57–87; PULSE 66–124; RESP 18–120; TEMP 36.3–37.4; O2SAT 84–97
[2020-12-10] MEDS: Metoprolol Tartrate 5 MG/5 ML Vial IV ×5 (00:06→23:47)
[2020-12-10] MEDS: 0.9% Saline Lock 10 ML Syringe IV ×5 (00:06→18:01)
[2020-12-10 04:02] LABS: Absolute Lymphocyte Count 2.02 X10^3/uL (0.83-4.51); Basophil# 0.04 X10^3/uL; Basophil% 0.2 % (0-1); Eosinophil# 0.14 X10^3/uL; Eosinophils% 0.8 % (0-5); Hematocrit 32.1 % (37-47); Hemoglobin 10.5 g/dL (12.0-15.0); Lymphocyte # 2.02 X10^3/ul (0.83-4.51); Lymphocyte % 12.1 % (19-41); Mean Corp Hgb Conc 32.7 g/dL (32-36); Mean Corpuscular Hgb 26.8 pg (27.0-32.0); Mean Corpuscular Volume 81.9 fL (81-99); Mean Platelet Vol. 10.3 fl (6.2-12.0); Monocyte# 1.32 X10^3/uL; Monocyte% 7.9 % (0-10); NRBC Flagged by Analyzer 0 % (0-5); Neutrophil # 12.98 X10^3/uL (2.7-7.7); POSITIVE COUNT YES; Platelet Count 97 K/mm3 (150-450); RBC Distribution Width CV 17.1 % (11.6-14.6); RBC Distribution Width SD 50.3 fl (35.1-43.9); Red Blood Count 3.92 M/mm3 (4.2-5.4); White Blood Count 16.7 K/mm3 (4.4-11.0)
[2020-12-10 04:15] LABS: ALB/GLOB Ratio 0.8 RATIO (0.9-2.4); AST(SGOT) 45 U/L (15-37); Alanine Aminotransfer ALT/SGPT 66 U/L (13-56); Albumin, Serum 2.3 g/dL (3.2-5.0); Alkaline Phosphatase 115 U/L (45-117); Anion Gap 7 (5-15); BUN 18 mg/dL (7-18); Chloride 118 mmol/L (98-107); Creatinine, Serum 0.58 mg/dL (0.55-1.02); EST Glomerular Filtration Rate 106 mL/min (>60); Est Glom Filt Rate - Afr Amer 129 mL/min (>60); Estimated Creatinine Clearance 34.42 ml/min; Globulin 2.9 g/dL (2.2-4.2); Glucose 114 mg/dL (74-106); Potassium 3.4 mmol/L (3.5-5.1); Protein, Total 5.2 g/dL (6.4-8.2); Sodium Level 147 mmol/L (136-145)
[2020-12-10] MEDS: Menthol/Lanolin/Calamine/Znox 113 GM Tube 1 APPLIC TOPICAL ×3 (05:03→21:24)
--- NOTE | 2020-12-10 07:20 | PCM.PN.HOSP ---
Subjective Subjective Patient is seen much more awake compared to the day prior. WBC count trending down. Patient urine cultures positive for Klebsiella pneumonia Objective Data Objective Data Vital Signs: Vital Signs Temp Pulse Resp BP Pulse Ox 97.4 F L 112 H 26 H 108/64 92 12/10/20 04:00 12/10/20 05:03 12/10/20 05:00 12/10/20 05:00 12/10/20 05:00 Oxygen Flow Rate (L/min) 4 Oxygen Delivery Method Nasal Cannula Weight: 55.7 kg Body Mass Index (BMI) 22.3 Intake & Output: Intake and Output for Last 24 Hours 12/08/20 12/09/20 12/10/20 23:59 23:59 23:59 Intake Total 3259.83 / 3259.83 351.17 / 351.17 0 / 0 Output Total 2075 / 2225 1140 / 1140 225 / 225 Balance 1184.83 / 1034.83 -788.83 / -788.83 -225 / -225 Lab / Micro Data Result Diagrams: 12/10/20 03:55 12/10/20 03:55 Labs: Laboratory Results - last 24 hr 12/10/20 03:55: WBC 16.7 H, RBC 3.92 L, Hgb 10.5 L, Hct 32.1 L, MCV 81.9, MCH 26.8 L, MCHC 32.7, RDW Std Deviation 50.3 H, RDW Coeff of Castillo 17.1 H, Plt Count 97 L, MPV 10.3, Immature Gran % (Auto) 1.000 H, Neut % (Auto) 78.0 H, Lymph % (Auto) 12.1 L, [place] % (Auto) 7.9, Eos % (Auto) 0.8, Baso % (Auto) 0.2, Absolute Neuts (auto) 13.0 H, Absolute Lymphs (auto) 2.02, Nucleated RBC % 0 12/10/20 03:55: Sodium 147 H, Potassium 3.4 L, Chloride 118 H, Carbon Dioxide 22.0, Anion Gap 7, BUN 18, Creatinine 0.58, Estim Creat Clear Calc 34.42, Est GFR (MDRD) Af Amer 129, Est GFR (MDRD) Non-Af 106, BUN/Creatinine Ratio 31.0 H, Glucose 114 H, Calcium 8.0 L, Total Bilirubin 1.10 H, AST 45 H, ALT 66 H, Alkaline Phosphatase 115, Total Protein 5.2 L, Albumin 2.3 L, Globulin 2.9, Albumin/Globulin Ratio 0.8 L Micro: Microbiology 12/06/20 19:50 Blood Culture (Wb) - Right Forearm Blood Culture - Preliminary No growth in 48 hours. 12/06/20 19:45 Blood Culture (Wb) - Anticubital Left Blood Culture - Preliminary No growth in 48 hours. 12/06/20 19:55 Urine, Clean Catch Urine Culture - Final Klebsiella pneumoniae sp pneum 12/07/20 00:40 Stool C. difficile GDH Antigen & Toxins - Final 12/07/20 00:40 Stool C. difficile DNA Amplification - Final 12/06/20 20:20 Mucosa - Nose SARS-CoV-2 Antigen (Rapid) - Final Physical Exam Narrative GENERAL: Awake and communicative but remains confused HEENT: Atraumatic; EYES; Anicteric, Normal Conjunctiva NECK; supple, normal thyroid, RESPIRATORY: Diminished to auscultation CARDIOVASCULAR: Regular S1 S2, GI: soft, normoactive bowel sounds, : No Renal angle tenderness; EXTREMITIES: No edema, no clubbing, MUSCULOSKELETAL: no muscle waisting NEURO: Awake; no lateralizing signs. SKIN: No Rash Assessment & Plan Assessment/Plan (1) Septic shock: (2) Acute UTI: (3) BK (acute kidney injury): PLAN: Patient is a 80-year-old lady admitted with altered mental status. Patient was diagnosed with septic shock secondary to Klebsiella pneumonia as well as UTI admitted to the intensive care unit for further management 1. Septic shock (present on admission) ?Attributed to Klebsiella pneumonia and UTI. Admitted to the intensive care unit managed with aggressive IV fluid resuscitation pressor support with Levophed as well as broad-spectrum antibiotics. Cultures were sent results pending -12/10/2020 Patient is seen much more awake compared to the day prior. WBC count trending down. Patient urine cultures positive for Klebsiella pneumonia 2. Acute metabolic encephalopathy ?Secondary to above management as discussed above 3. Essential hypertension ?Patient antihypertensives placed on hold in view of patient presented with relatively low blood pressure we will continue with monitoring 4. Recent C. difficile colitis ?Patient C. difficile toxin was positive by PCR was negative 5. Acute renal insufficiency ?Secondary to #1 creatinine on admission was 1.16 currently down to 0.67 6. DVT prophylaxis ?SC heparin Charges/Coding Visit Charges Inpatient E&M: 82386 Subs Hosp L2
--- NOTE | 2020-12-10 07:37 | PN.CC_ITS ---
Assessment & Plan Assessment/Plan (1) Septic shock: (2) Acute UTI: PLAN: RECOMMENDATIONS: 1. Continue antimicrobials as ordered. 2. Potassium repletion. 3. Continue beta-judith. 4. Encourage incentive spirometer use and mobilize patient as tolerated. 5. The patient is medically stable for transfer out of the intensive care unit. IMPRESSIONS: 1. Septic shock secondary to UTI Clinical suspicion for urinary source of infection. Plan to continue antimicrobials as ordered. However, p.o. vancomycin can be discontinued from my perspective given the lack of active C. difficile infection. The patient remains hemodynamically stable. 2. Acute kidney injury secondary to problem #1 Resolved. Creatinine has returned back to baseline. Continue to monitor urine output. No indication for renal replacement therapy at this time. 3. Metabolic encephalopathy/delirium Improved following discontinuation of benzodiazepines. Recommend continuing to hold sedating medications. The patient has multiple reasons for delirium including Ativan, acute medical condition, advanced age and repeated hospitalization. Continue with delirium protocol. Unable to use atypical secondary to QT prolongation. 4. Hypokalemia Electrolyte repletion as ordered. Recheck levels in the morning. 5. Recent history of C. difficile/hypertension/advanced age/poor history Complicates care, management, recovery and prognosis. Stool studies are not suggestive of active C. difficile infection. Therefore, p.o. vancomycin can be discontinued. This note was generated with [employer] dictation software. It may contain incorrect words, spelling, and punctuation that were not noted in checking the note before signing. Subjective Subjective The patient was seen and examined at the bedside this morning. Events from the last 24 hours have been reviewed. The patient is currently afebrile, hemodynamically stable and maintaining appropriate oxygen saturations on 4 L/min via nasal cannula. The patient is more alert this morning. She is currently documented to be overall net +4.2 L for the hospital admission. White count remains elevated at 16,000. Platelet count is low at 97,000. Chemistry profile was notable for a sodium of 147, potassium of 3.4 and chloride of 118. Creatinine is within normal limits. Objective Data Objective Data The patient's most recent lab work, culture data and imaging studies have all been personally reviewed. Urine culture dated December 06 was positive for Klebsiella. C. difficile antigen was positive. However C. difficile toxin was negative. Subsequent C. difficile PCR was positive. Blood cultures are pending. Vital Signs: Vital Signs Temp Pulse Resp BP Pulse Ox 97.4 F L 109 H 25 H 106/64 90 12/10/20 04:00 12/10/20 07:00 12/10/20 07:00 12/10/20 07:00 12/10/20 07:00 Oxygen Flow Rate (L/min) 4 Oxygen Delivery Method Nasal Cannula Weight: 55.7 kg Body Mass Index (BMI) 22.3 Intake & Output: Intake and Output for Last 24 Hours 12/08/20 12/09/20 12/10/20 23:59 23:59 23:59 Intake Total 3259.83 / 3259.83 351.17 / 351.17 0 / 0 Output Total 2075 / 2225 1140 / 1140 225 / 225 Balance 1184.83 / 1034.83 -788.83 / -788.83 -225 / -225 Lab / Micro Data Attestation: I reviewed the patient's lab results. Result Diagrams: 12/10/20 03:55 12/10/20 03:55 Labs: Laboratory Results - last 24 hr 12/10/20 03:55: WBC 16.7 H, RBC 3.92 L, Hgb 10.5 L, Hct 32.1 L, MCV 81.9, MCH 26.8 L, MCHC 32.7, RDW Std Deviation 50.3 H, RDW Coeff of Castillo 17.1 H, Plt Count 97 L, MPV 10.3, Immature Gran % (Auto) 1.000 H, Neut % (Auto) 78.0 H, Lymph % (Auto) 12.1 L, [place] % (Auto) 7.9, Eos % (Auto) 0.8, Baso % (Auto) 0.2, Absolute Neuts (auto) 13.0 H, Absolute Lymphs (auto) 2.02, Nucleated RBC % 0 12/10/20 03:55: Sodium 147 H, Potassium 3.4 L, Chloride 118 H, Carbon Dioxide 22.0, Anion Gap 7, BUN 18, Creatinine 0.58, Estim Creat Clear Calc 34.42, Est GFR (MDRD) Af Amer 129, Est GFR (MDRD) Non-Af 106, BUN/Creatinine Ratio 31.0 H, Glucose 114 H, Calcium 8.0 L, Total Bilirubin 1.10 H, AST 45 H, ALT 66 H, Alkaline Phosphatase 115, Total Protein 5.2 L, Albumin 2.3 L, Globulin 2.9, Albumin/Globulin Ratio 0.8 L Micro: Microbiology 12/06/20 19:50 Blood Culture (Wb) - Right Forearm Blood Culture - Preliminary No growth in 48 hours. 12/06/20 19:45 Blood Culture (Wb) - Anticubital Left Blood Culture - Pr eliminary No growth in 48 hours. 12/06/20 19:55 Urine, Clean Catch Urine Culture - Final Klebsiella pneumoniae sp pneum 12/07/20 00:40 Stool C. difficile GDH Antigen & Toxins - Final 12/07/20 00:40 Stool C. difficile DNA Amplification - Final 12/06/20 20:20 Mucosa - Nose SARS-CoV-2 Antigen (Rapid) - Final Physical Exam Const alert and no apparent distress General Appearance: cooperative Orientation / Consciousness: confused and disoriented Nutritional Appearance: thin HEENT normocephalic and head/scalp atraumatic Eyes PERRL and EOMs intact bilaterally Neck supple General: trachea midline Resp Effort and Inspection: tachypneic Auscultation: diminished lung sounds; Negative for rales, rhonchi or wheezes Cardio regular rate and regular rhythm GI normal to inspection, nondistended, normoactive bowel sounds Extremity no clubbing, cyanosis or edema Skin Skin Narrative: Dermal atrophy. Some superficial ulcers of various stages of healing Neuro moves all extremities and no focal motor deficits Psych Activity / Motor Behavior: restless Charges/Coding Visit Charges Inpatient E&M: 72604 Subs Hosp L2
[2020-12-10] MEDS: Potassium Chloride 10mEq/100mL 10 MEQ/100 ML IV.SOLN. 100 MEQ IV BOLUS ×4 (09:48→15:02)
[2020-12-10] MEDS: Fluticasone 0.05% 1 SPRAY NASAL.SRY 2 SPRAY NASAL ×2 (09:49→21:24)
[2020-12-10] MEDS: CHLORHEXIDINE GLUC 2% CLOTH 1 EACH TOWELETTE TOPICAL (09:49)
--- NOTE | 2020-12-10 15:50 | CHAPLAIN ---
Type of Pastoral Visit _x__ Initial Visit ___ Follow-up Visit ___ On-call Visit ___ General Patient Visit ___ Spiritual Assessment ___ Family Conference ___ Bereavement ___ Rapid Response ___ Code Blue ___ Other (describe below) Pastoral Care Referral From ___ Patient ___ Family _x__ Nurse ___ Physician ___ Care Services Manager ___ Nutritionist Public Health ___ Other (describe below) Sacrament/Intervention _x__ Active listening ___ Anointing ___ Buddhism ___ Bereavement ___ Communion ___ Angelia exploration ___ ___ Life review _x__ Prayer ___ Reconciliation ___ Sacrament of Sick _x__ Supportive presence ___ Wedding ___ Other (describe below) Pastoral Comments RN recommended visit due to patient anxiety and need for distraction or support; sat with pt; pt focused on getting her regular meds and requested help from branch credit counselor; RN made aware; pt gives some health review and welcomes prayer; pt is tearful during prayer but then returns to requests for getting her meds; pt states she is so tired and wants to sleep
[2020-12-11] VITALS (17 sets, daily range): BP systolic 104–112; BP diastolic 53–86; PULSE 83–121; RESP 16–20; TEMP 36.8–37.5; O2SAT 93–99
[2020-12-11] MEDS: Metoprolol Tartrate 5 MG/5 ML Vial IV ×4 (05:49→23:16)
[2020-12-11] MEDS: Menthol/Lanolin/Calamine/Znox 113 GM Tube 1 APPLIC TOPICAL ×3 (05:49→21:20)
[2020-12-11 06:36] LABS: Absolute Lymphocyte Count 2.03 X10^3/uL (0.83-4.51); Absolute Neutrophil Count 9.7 X10^3/uL (2.0-7.7); Basophil# 0.05 X10^3/uL; Basophil% 0.4 % (0-1); Eosinophil# 0.04 X10^3/uL; Eosinophils% 0.3 % (0-5); Hematocrit 29.7 % (37-47); Hemoglobin 9.5 g/dL (12.0-15.0); Lymphocyte # 2.03 X10^3/ul (0.83-4.51); Lymphocyte % 14.7 % (19-41); Mean Corpuscular Hgb 27.1 pg (27.0-32.0); Mean Corpuscular Volume 84.6 fL (81-99); Mean Platelet Vol. 11.1 fl (6.2-12.0); Monocyte% 13.1 % (0-10); NRBC Flagged by Analyzer 0 % (0-5); Neutrophil # 9.74 X10^3/uL (2.7-7.7); Neutrophil % 70.6 % (47-70); POSITIVE DIFFERENTIAL YES; Platelet Count 100 K/mm3 (150-450); RBC Distribution Width CV 17.4 % (11.6-14.6); RBC Distribution Width SD 53.6 fl (35.1-43.9); Red Blood Count 3.51 M/mm3 (4.2-5.4); White Blood Count 13.8 K/mm3 (4.4-11.0)
[2020-12-11 06:37] LABS: Differential Indicated SCAN CRITERIA MET
[2020-12-11 06:54] LABS: Anion Gap 9 (5-15); BUN 16 mg/dL (7-18); BUN/Creat Ratio 33.5 RATIO (10-20); Calcium,Total 8.3 mg/dL (8.5-10.1); Chloride 121 mmol/L (98-107); Creatinine, Serum 0.48 mg/dL (0.55-1.02); EST Glomerular Filtration Rate 134 mL/min (>60); Est Glom Filt Rate - Afr Amer 162 mL/min (>60); Estimated Creatinine Clearance 34.42 ml/min; Glucose 103 mg/dL (74-106); Magnesium 1.7 mg/dL (1.6-2.6); Potassium 3.3 mmol/L (3.5-5.1); Sodium Level 151 mmol/L (136-145)
[2020-12-11 06:58] LABS: Differential Comment SCANNED
--- NOTE | 2020-12-11 08:53 | PCM.PN.HOSP ---
Subjective Subjective Patient was transferred from the intensive care unit to [facility] floor the day prior. Was kept n.p.o. by speech therapy. Plan is for repeat speech eval since patient is much more awake. Diagnostic data reviewed significant for hypernatremia as well as hypokalemia Objective Data Objective Data Vital Signs: Vital Signs Temp Pulse Resp BP Pulse Ox 98.2 F 107 H 20 H 104/53 L 95 12/11/20 05:55 12/11/20 05:55 12/11/20 05:55 12/11/20 05:55 12/11/20 08:16 Oxygen Flow Rate (L/min) 2 Oxygen Delivery Method Nasal Cannula Weight: 54.7 kg Body Mass Index (BMI) 22.3 Intake & Output: Intake and Output for Last 24 Hours 12/09/20 12/10/20 12/11/20 23:59 23:59 23:59 Intake Total 351.17 / 351.17 520 / 520 Output Total 1140 / 1140 900 / 900 300 / 300 Balance -788.83 / -788.83 -380 / -380 -300 / -300 Lab / Micro Data Result Diagrams: 12/11/20 06:16 12/11/20 06:16 Labs: Laboratory Results - last 24 hr 12/11/20 06:16: WBC 13.8 H, RBC 3.51 L, Hgb 9.5 L, Hct 29.7 L, MCV 84.6, MCH 27.1, MCHC 32.0, RDW Std Deviation 53.6 H, RDW Coeff of Castillo 17.4 H, Plt Count 100 L, MPV 11.1, Immature Gran % (Auto) 0.900, Neut % (Auto) 70.6 H, Lymph % (Auto) 14.7 L, Green % (Auto) 13.1 H, Eos % (Auto) 0.3, Baso % (Auto) 0.4, Absolute Neuts (auto) 9.7 H, Absolute Lymphs (auto) 2.03, Nucleated RBC % 0, Differential Comment SCANNED, Diff Path Review August12/11/20 06:16: Sodium 151 H, Potassium 3.3 L, Chloride 121 H, Carbon Dioxide 21.0, Anion Gap 9, BUN 16, Creatinine 0.48 L, Estim Creat Clear Calc 34.42, Est GFR (MDRD) Af Amer 162, Est GFR (MDRD) Non-Af 134, BUN/Creatinine Ratio 33.5 H, Glucose 103, Calcium 8.3 L, Magnesium 1.7 Micro: Microbiology 12/06/20 19:50 Blood Culture (Wb) - Right Forearm Blood Culture - Preliminary No growth in 48 hours. 12/06/20 19:45 Blood Culture (Wb) - Anticubital Left Blood Culture - Preliminary No growth in 48 hours. 12/06/20 19:55 Urine, Clean Catch Urine Culture - Final Klebsiella pneumoniae sp pneum 12/07/20 00:40 Stool C. difficile GDH Antigen & Toxins - Final 12/07/20 00:40 Stool C. difficile DNA Amplification - Final 12/06/20 20:20 Mucosa - Nose SARS-CoV-2 Antigen (Rapid) - Final Physical Exam Narrative GENERAL: Awake and communicative but remains confused HEENT: Atraumatic; EYES; Anicteric, Normal Conjunctiva NECK; supple, normal thyroid, RESPIRATORY: Diminished to auscultation CARDIOVASCULAR: Regular S1 S2, GI: soft, normoactive bowel sounds, : No Renal angle tenderness; EXTREMITIES: No edema, no clubbing, MUSCULOSKELETAL: no muscle waisting NEURO: Awake; no lateralizing signs. SKIN: No Rash Assessment & Plan Assessment/Plan (1) Septic shock: (2) Acute UTI: (3) BK (acute kidney injury): PLAN: Patient is a 80-year-old lady admitted with altered mental status. Patient was diagnosed with septic shock secondary to Klebsiella pneumonia as well as UTI admitted to the intensive care unit for further management 1. Septic shock (present on admission) ?Attributed to Klebsiella pneumonia and UTI. Admitted to the intensive care unit managed with aggressive IV fluid resuscitation pressor support with Levophed as well as broad-spectrum antibiotics. Cultures were sent results pending -12/10/2020 Patient is seen much more awake compared to the day prior. WBC count trending down. Patient urine cultures positive for Klebsiella pneumonia -12/11/2020; septic shock resolved, patient however remains on broad-spectrum antibiotic therapy. Meropenem. Patient is allergic to both cephalosporins as well as penicillin. Chart 2. Hypernatremia ?Secondary to decreased oral intake following patient be made n.p.o. started on D5W with subsequent monitoring of electrolytes ordered 3. Hypokalemia ?Corrected per protocol; repeat labs ordered 4. Acute dysphagia ?Possibly related to patient acute metabolic encephalopathy. Do expect patient passes speech and swallow eval once he is much more awake 5. Acute metabolic encephalopathy ?Secondary to above management as discussed above 6. Essential hypertension ?Patient antihypertensives placed on hold in view of patient presented with relatively low blood pressure we will continue with monitoring 7. Recent C. difficile colitis ?Patient C. difficile toxin was positive by PCR was negative 8. Acute renal insufficiency ?Secondary to #1 creatinine on admission was 1.16 currently down to 0.67 9. DVT prophylaxis ?SC heparin 10. Physical deconditioning - Requested for PT OT eval and social studies department chair to assist with discharge planning Advance planning; did discuss with the patient's condition with family (her daughter Mir Jovel). Also d had discussions regarding advanced directives as well as CODE STATUS. Did explain the various scenarios involved ( FULL CODE, DNR CCA, DNR CCA with no intubation, and DNR CC and what each meant) family elected for patient to remain elected to be DNR CCA no intubation. Order was placed. Time spent on discussion 18 minutes. Charges/Coding Visit Charges Inpatient E&M: 71673 Subs Hosp L3 Procedures Hospitalists Procedures: 30548 Advncd Care Plan 30 Min
[2020-12-11] MEDS: Fluticasone 0.05% 1 SPRAY NASAL.SRY 2 SPRAY NASAL ×2 (09:12→21:20)
--- NOTE | 2020-12-11 12:29 | PN.CC_ITS ---
Assessment & Plan Assessment/Plan (1) Septic shock: (2) Acute UTI: PLAN: RECOMMENDATIONS: 1. Continue antimicrobials as ordered. 2. Wean supplemental oxygen as tolerated to maintain saturations at or above 90%. 3. Consider a trial of diuretic therapy. 4. Potassium repletion. 5. Encourage incentive spirometer use and mobilize patient as tolerated. 6. Will sign off from a critical care perspective. Please call with any additional questions. IMPRESSIONS: 1. Septic shock secondary to UTI Clinical suspicion for urinary source of infection. Plan to continue antimicrobials as ordered. However, p.o. vancomycin can be discontinued from my perspective given the lack of active C. difficile infection. The patient remains hemodynamically stable. 2. Acute kidney injury secondary to problem #1 Resolved. Creatinine has returned back to baseline. Continue to monitor urine output. No indication for renal replacement therapy at this time. 3. Metabolic encephalopathy/delirium Improved following discontinuation of benzodiazepines. Recommend continuing to hold sedating medications. The patient has multiple reasons for delirium including Ativan, acute medical condition, advanced age and repeated hospitalization. Continue with delirium protocol. Unable to use atypical s econdary to QT prolongation. 4. Hypokalemia Electrolyte repletion as ordered. Recheck levels in the morning. 5. Recent history of C. difficile/hypertension/advanced age/poor history Complicates care, management, recovery and prognosis. Stool studies are not suggestive of active C. difficile infection. Therefore, p.o. vancomycin can be discontinued. This note was generated with [employer] dictation software. It may contain incorrect words, spelling, and punctuation that were not noted in checking the note before signing. Subjective Subjective The patient was seen and examined at the bedside this morning. Events from the last 24 hours have been reviewed. The patient is currently afebrile, hemodynamically stable and maintaining appropriate oxygen saturations on 5 L/min via nasal cannula. The patient is currently documented to be overall net +3.8 L for the hospital admission. White count continues to improve. Platelet count is stable to 100,000. Chemistry profile was notable for a sodium of 151 and potassium of 3.3. Objective Data Objective Data The patient's most recent lab work, culture data and imaging studies have all been personally reviewed. Urine culture dated December 06 was positive for Klebsiella. C. difficile antigen was positive. However C. difficile toxin was negative. Subsequent C. difficile PCR was positive. Blood cultures have shown no growth to date. Vital Signs: Vital Signs Temp Pulse Resp BP Pulse Ox 99.5 F H 98 16 112/62 97 12/11/20 11:03 12/11/20 11:09 12/11/20 11:09 12/11/20 11:03 12/11/20 11:09 Oxygen Flow Rate (L/min) 5 Oxygen Delivery Method Nasal Cannula Weight: 54.7 kg Body Mass Index (BMI) 22.3 Intake & Output: Intake and Output for Last 24 Hours 12/09/20 12/10/20 12/11/20 23:59 23:59 23:59 Intake Total 351.17 / 351.17 520 / 520 60 / 60 Output Total 1140 / 1140 900 / 900 300 / 300 Balance -788.83 / -788.83 -380 / -380 -240 / -240 Lab / Micro Data Attestation: I reviewed the patient's lab results. Result Diagrams: 12/11/20 06:16 12/11/20 06:16 Labs: Laboratory Results - last 24 hr 12/11/20 06:16: WBC 13.8 H, RBC 3.51 L, Hgb 9.5 L, Hct 29.7 L, MCV 84.6, MCH 27.1, MCHC 32.0, RDW Std Deviation 53.6 H, RDW Coeff of Castillo 17.4 H, Plt Count 100 L, MPV 11.1, Immature Gran % (Auto) 0.900, Neut % (Auto) 70.6 H, Lymph % (Auto) 14.7 L, [place] % (Auto) 13.1 H, Eos % (Auto) 0.3, Baso % (Auto) 0.4, Absolute Neuts (auto) 9.7 H, Absolute Lymphs (auto) 2.03, Nucleated RBC % 0, Differential Comment SCANNED, Diff Path Review August12/11/20 06:16: Sodium 151 H, Potassium 3.3 L, Chloride 121 H, Carbon Dioxide 21.0, Anion Gap 9, BUN 16, Creatinine 0.48 L, Estim Creat Clear Calc 34.42, Est GFR (MDRD) Af Amer 162, Est GFR (MDRD) Non-Af 134, BUN/Creatinine Ratio 33.5 H, Glucose 103, Calcium 8.3 L, Magnesium 1.7 Micro: Microbiology 12/06/20 19:50 Blood Culture (Wb) - Right Forearm Blood Culture - Preliminary No growth in 48 hours. 12/06/20 19:45 Blood Culture (Wb) - Anticubital Left Blood Culture - Preliminary No growth in 48 hours. 12/06/20 19:55 Urine, Clean Catch Urine Culture - Final Klebsiella pneumoniae sp pneum 12/07/20 00:40 Stool C. difficile GDH Antigen & Toxins - Final 12/07/20 00:40 Stool C. difficile DNA Amplification - Final 12/06/20 20:20 Mucosa - Nose SARS-CoV-2 Antigen (Rapid) - Final Physical Exam Const alert and no apparent distress General Appearance: cooperative Orientation / Consciousness: confused Nutritional Appearance: thin HEENT normocephalic and head/scalp atraumatic Eyes PERRL and EOMs intact bilaterally Neck supple General: trachea midline Resp Auscultation: diminished lung sounds; Negative for rales, rhonchi or wheezes Cardio regular rate and regular rhythm GI normal to inspection, nondistended, normoactive bowel sounds Extremity no clubbing, cyanosis or edema Skin Skin Narrative: Dermal atrophy. Some superficial ulcers of various stages of healing Neuro moves all extremities and no focal motor deficits Psych cooperative Charges/Coding Visit Charges Inpatient E&M: 70015 Subs Hosp L2
[2020-12-11 13:03] LABS: Pathologist Review Reviewed
[2020-12-11 14:42] LABS: Anion Gap 5 (5-15); BUN 15 mg/dL (7-18); Calcium,Total 8.3 mg/dL (8.5-10.1); Chloride 120 mmol/L (98-107); Creatinine, Serum 0.52 mg/dL (0.55-1.02); EST Glomerular Filtration Rate 121 mL/min (>60); Est Glom Filt Rate - Afr Amer 147 mL/min (>60); Estimated Creatinine Clearance 34.42 ml/min; Glucose 124 mg/dL (74-106); Potassium 3.2 mmol/L (3.5-5.1); Sodium Level 149 mmol/L (136-145)
--- NOTE | 2020-12-11 15:07 | CASEMGMT ---
JONAS LEY in to pt room to discuss dc planning. Pt lying in bed. Pt states she feels that she cannot go back home with her boyfriend as she feels her illness is too much for him. Pt states she would like to stay with her sister Rebeka Lentz. She states her phone number is [phone] and she lives in [facility]. She states she has not spoke with her about this yet but gave permission for the RN JIL to do so. Pt states if her sister cannot care for her then she would be willing to go to a SNF. Prior to leaving the patient's room, asked patient orientation questions. Pt was correct on the president but thought she was at the [facility] and it was 2030. JONAS LEY called pt dtr Wendy as her sister is not listed. Wendy states she is on her way in with her sister, the patient's other dtr. They will see how patient is doing but feel that the patient cannot return with her sig other. Wendy states that she does not think that the patient can stay with Rebeka as she is a cancer survivor and has her own health issues. CM to follow.
[2020-12-11] MEDS: 0.9% Saline Lock 10 ML Syringe IV (18:33)
[2020-12-12] VITALS (17 sets, daily range): BP systolic 93–121; BP diastolic 51–60; PULSE 87–96; RESP 16–18; TEMP 36.6–37.2; O2SAT 94–100
[2020-12-12] MEDS: Metoprolol Tartrate 5 MG/5 ML Vial IV ×3 (05:42→23:35)
[2020-12-12] MEDS: Menthol/Lanolin/Calamine/Znox 113 GM Tube 1 APPLIC TOPICAL ×3 (05:45→20:58)
[2020-12-12 06:50] LABS: Absolute Lymphocyte Count 2.69 X10^3/uL (0.83-4.51); Absolute Neutrophil Count 8.9 X10^3/uL (2.0-7.7); Basophil# 0.04 X10^3/uL; Basophil% 0.3 % (0-1); Eosinophil# 0.53 X10^3/uL; Eosinophils% 3.7 % (0-5); Hematocrit 28.4 % (37-47); Hemoglobin 9.2 g/dL (12.0-15.0); Lymphocyte # 2.69 X10^3/ul (0.83-4.51); Lymphocyte % 18.9 % (19-41); Mean Corp Hgb Conc 32.4 g/dL (32-36); Mean Corpuscular Hgb 26.9 pg (27.0-32.0); Monocyte# 1.88 X10^3/uL; Monocyte% 13.2 % (0-10); NRBC Flagged by Analyzer 0 % (0-5); Neutrophil # 8.94 X10^3/uL (2.7-7.7); Neutrophil % 62.8 % (47-70); POSITIVE DIFFERENTIAL YES; Platelet Count 130 K/mm3 (150-450); RBC Distribution Width CV 17.4 % (11.6-14.6); RBC Distribution Width SD 52.7 fl (35.1-43.9); Red Blood Count 3.42 M/mm3 (4.2-5.4); White Blood Count 14.2 K/mm3 (4.4-11.0)
[2020-12-12 07:00] LABS: Differential Indicated SCAN CRITERIA MET
[2020-12-12 07:14] LABS: Anion Gap 4 (5-15); BUN 11 mg/dL (7-18); BUN/Creat Ratio 26.2 RATIO (10-20); Calcium,Total 7.8 mg/dL (8.5-10.1); Chloride 114 mmol/L (98-107); Creatinine, Serum 0.42 mg/dL (0.55-1.02); EST Glomerular Filtration Rate 155 mL/min (>60); Est Glom Filt Rate - Afr Amer 187 mL/min (>60); Estimated Creatinine Clearance 34.42 ml/min; Glucose 137 mg/dL (74-106); Potassium 3.2 mmol/L (3.5-5.1); Sodium Level 144 mmol/L (136-145)
--- NOTE | 2020-12-12 10:20 | SP.MBSS_ITS ---
Modified Barium Swallow - Patient Information Study Date: 12/12/20 Study Time: 10:20 Direct Billable Minutes: 130 Total Minutes procedure & reportin Diagnosis: dysphagia Referring Physician: Mervin Culver Reason for Referral: Objective assessment of swallow function under fluoroscopy recommended d/t suspected pharyngeal dysphagia to further elucidate diet texture/liquid consistency/compensatory strategy recommendations and improve specificity of dysphagia interventions selected. Medical History: Patient is a 79 F with a significant history of lung cancer status post immunotherapy, brain tumor status post resection, former tobacco abuse, and former marijuana abuse (SEE full PMH below) who presented to the emergency department 12/06/2020 with confusion. History was taken from ED doctor as patient was confused. ED doctor reported that patient's significant other reported patient has been confused and weak. Of note patient has a history of multiple UTIs. Reportedly her UTI secondary to bladder prolapse. Reportedly because of her age her bladder prolapse is unable to be operated on. Of note patient was at a hospital on 11/05/2020 and was diagnosed with sepsis secondary to UTI. She was also had C. difficile colitis at that time. She was admitted 12/06/20 with altered mental status. Patient has additionally been diagnosed with septic shock secondary to Klebsiella pneumonia as well as UTI and was admitted to the intensive care unit for further management. Patient referred for BSE due to swallowing difficulty. PMHx: Acute cholecystitis, Cancer, Cholelithiases, Chronic cholecystitis, Elevated liver enzymes, Former smoker, Gallstone pancreatitis, Hypertension, Pancreatitis, Stroke/cerebrovascular accident Current Diet Ordered: NPO Dentition: Upper Dentures, Lower Dentures Mental Status: WNL Respiratory Status: Oxygenating on 4L/M nasal cannula - Penetration-Aspiration Scale Penetration-Aspiration Scale: OBJECTIVE ASSESSMENT OF SWALLOW FUNCTION (QUANTITATIVE ? PER TRIAL): PENETRATION / ASPIRATION SCALE (CORCORAN): 1 = does not enter airway 2 = enters airway/above vocal folds/ejected 3 = enters airway/above vocal folds/not ejected 4 = enters airway/contacts vocal folds/ejected 5 = enters airway/contacts vocal folds/not ejected 6 = enters airway/below vocal folds/ejected 7 = enters airway/below vocal folds/not ejected despite effort 8 = enters airway/below vocal folds/no effort VIDEOFLOROSCOPIC SCALE SCORE (CORCORAN): Grade I = aspiration of material that has penetrated into the laryngeal vestibule, intact cough reflex Grade II = aspiration < 10 % of the bolus, intact cough reflex Grade III = aspiration of < 10 % of the bolus, reduced cough reflex or aspiration of > 10 % of the bolus, intact cough reflex Grade IV = aspiration of > 10 % of the bolus, reduced cough reflex - Penetration-Aspiration Scale Score Thin Liquid via teaspoon Result: 2= enter airway/above vocal folds/ejected Thin Liquid via teaspoon Trial 2 Result: 5= enters airways/contacts vocal folds/not ejected Thin Liquid via small single sip from cup Result: 8= enters airway/below vocal folds/no effort - trace aspirate; very delayed and weak cough eventually noted several trials later [place] Thick Liquid via small single sip from cup Result: 1= does not enter airway - trace undercoating of the posterior laryngeal surface of epiglottis w/out penetration/aspiration Honey Thick Liquid via small single sip from cup Result: 1= does not enter airway Pudding via teaspoon Result: 1= does not enter airway Pudding via teaspoon Trial 2 w/ screen for esophageal clearance Result: 1= does not enter airway Comment: slow clearance w/ esophageal retention Cookie Result: 1= does not enter airway [place] Thick Liquid via small single sip from cup Trial 2 Result: 5= enters airways/contacts vocal folds/not ejected [place] Thick Liquid via small single sip from cup Effortful swallow Result: 5= enters airways/contacts vocal folds/not ejected [place] Thick Liquid via small single sip from cup Chin tuck Result: 3= enters airways/above vocal folds/not ejected Honey Thick Liquid via small single sip from cup Trial 2 Result: 1= does not enter airway - undercoats the posterior laryngeal surface of the epiglottis w/out penetration into the laryngeal vestibule - Oral Phase Labial Seal: No Labial Escape Tongue Control During Bolus Hold: Cohesive bolus between tongue to palatal seal Bolus Preparation/Mastication: Slow prolonged chewing/mashing with complete recollection Bolus Transport/Lingual Motion: Repetitive/disorganized tongue motion Oral Residue: Majority of bolus remaining - residue w/ regular textures > purees - Pharyngeal Phase Initiation of Pharyngeal Swallow: Bolus head at posterior laryngeal surgace of epiglottis Soft Palate Elevation: No bolus between soft palate and pharyngeal wall Laryngeal Elevation: Partial superior movement thyroid cart/partial apprx aryt- epig petiole Anterior Hyoid Excursion: Partial anterior movement Epiglottic Movement: Complete inversion - slowed but complete inversion Laryngeal Vestibule Closure at Height of Swallow: Incomplete; narrow column of air/contrast in laryngeal vestibule Pharyngeal Stripping Wave: Present - complete Pharyngoesophageal Segment Opening: Complete distension and complete duration; no obstruction of flow Tongue Base Retraction: Narrow column of contrast between tongue base & post. pharyngeal wall Pharyngeal Residue: Collection of residue within or on pharyngeal structures - base of tongue - Esophageal Phase Esophageal Clearance: Esophageal retention - visible below PES, additional retention evident during scan down to screen for bolus clearance - Treatment Strategies Effects of treatment strategies attemped:: Chin Tuck = not effective Effortful Swallow = limited effectiveness Liquid Wash = somewhat effective to reduce oral residue Dry Swallow = effective to reduce oral/tongue base residue - Diagnosis/Impression Diagnosis: moderate oropharyngeal dysphagia Impression: Swallow function is characterized by: * slowed mastication w/ piecemeal deglutition pattern utilized w/ solids * weak and disorganized lingual motion resulting in poor bolus clearance - improved oral transportation of purees compared to solids * reduced hyolaryngeal excursion w/ slowed epiglottic inversion * incomplete laryngeal vestibule closure w/ suboptimal bolus location upon swallow onset resulting in penetration of liquids to the vocal folds during the swallow * trace aspiration of thin liquids only; nectar thickened liquids contacted the vocal folds w/out ejection; absent/delayed and weak throat clearing response to penetration/aspiration - cannot rely upon traditional overt s/s aspiration to identify/rule out penetration/aspiration * effortful swallow and chin tuck postures were ineffective to improve bolus location upon swallow onset or to eliminate laryngeal vestibule penetration * difficulty coordinating respiration and deglutition w/ inability to consistently maintain laryngeal vestibule closure during the swallow * reduced base of tongue strength resulting on residue accumulation along tongue base * adequate pharyngeal contraction * sufficient PES distention/duration * esophageal bolus retention visible below the PES w/out retrograde bolus flow - Recommendations Diet: Puree Textures, Honey-thick Liquids - Moderately Thick Liquids Compensatory Strategies: Small Bites, Small Sips, Slow Rate, Alternate bites/solids and sips/liquids, Sitting upright - 90 degrees for meals/meds, remain upright for minimum of 30 minutes after any intake Supervision: 1:1 Close Supervision - assist with feeding as needed d/t UE weakness Recommend Repeat Modified Barium Swallow: Yes Need for Skilled Speech Therapy Services: Yes Comment: Patient requires intensive skilled speech-language intervention targeting: * continued diet texture management * training and implementation of recommended compensatory strategies * training and implementation of recommended oropharyngeal strengthening exercises to facilitate improved lingual control/strength, swallow onset timing, and laryngeal vestibule closure/pressure * training, implementation, and Patient education regarding implementation of the FFWP * Patient and caregiver training targeting meal preparation/thickened liquid preparation if unable to advance to baseline diet textures prior to discharge * repeat MBS should be considered prior to diet advancement d/t silent aspiration and penetration to the vocal folds w/out ejection identified under fluoroscopy Education Completed: 1. Described result of evaluation., 2. Pt understands evaluation & agrees with goals and treatment plan. Comment: Extended time spent reviewing images w/ the patient and discussing findings/recommendations immediately following MBS conclusion. The Patient verbalized understanding and agreement with all recommendations and education provided. Diet order and nursing communication entered to convey results/recommendations - nursing communication: SILENT ASPIRATOR - Direct 1:1 supervision for meals - assist w/ feeding as needed d/t UE weakness, alternate small bites and small sips, slow rate of intake, poor esophageal clearance noted - must sit upright 90 degrees for meals/meds & stay up for at least 30 minutes afterwards - MUST HAVE ORAL HYGIENE COMPLETED AFTER MEALS AND MEDS - Status Active ST Patient: Active - Contact Information [facility] Speech Therapy:: Luci Garcia M.A., [facility] [address] [place] [address] [phone] [email or web address]
[2020-12-12] MEDS: 0.9% Saline Lock 10 ML Syringe IV (11:08)
--- NOTE | 2020-12-12 11:18 | CASEMGMT ---
Addendum entered by Soo Hopkins 12/12/20 12:46: Jenna called again from Dr. Valencia's office. She states ideally Dr. Valencia would like pt to continue with the Keytruda however understands that this may not be possible due to financial reasons while in he fdc. In his experience it often does not work that pt can continue the treatments while in the SNF. Dr. Valencia is okay with pausing the treatments if needed so pt can go to the fdc, but does want pt to keep her appt with him on 12/25/20 at 9:50am. SW on MS3 aware of the above. YELENA Ho Addendum entered by Soo Hopkins 12/12/20 12:10: Jenna called from Dr. Valencia's office, inquired how long pt would be in the fdc. SW explained we do not know. She is going to speak w/Dr. Valencia to see if pt can miss 1-2 doses of Keytruda if necessary while in the fdc, she is to call this SW back. Pt gets the treatment every three weeks. SW explained the dilemma of the cost being passed on to the fdc should pt get treatment while at the fdc. SW explained will check with the facility once a decision is made in regard to where to send a referral, to see if it is possible for the medication to be billed directly to insurance or if it would be billed to the fdc. YELENA Ho Original Note: SW attempted to meet w/pt, she is off the floor. SW called daughter Wendy to review discharge plan. Daughter is in agreement with pt going to a residential facility. SW reviewed w/daughter facilities in [facility]. She states it would be a decision she and pt would make together. SW explained will bring list of nursing homes in to pt when she returns to the floor. Daughter plans to call pt this afternoon, SW gave daughter SW number to call once she speaks w/pt, to let SW know top 2-3 choices. SW explained that once they choose a facility we send a referral and then precert is needed from insurance in order for pt to go to the fdc. Daughter asked how long pt would need to be in SNF, LUCINDA explained this is difficult to predict, explained it would depend on what services would be available to pt at discharge. Daughter states pt's [facility] nurse case management had told them that pt is eligible for Waiver services. SW did let daughter know that at times it is not easy to find the aide services that pt qualifies for, daughter states that the [facility] nurse case management also told her this. Daughter also asked about pt's immunotherapy appointment, pt is to have an appointment w/Dr. Valencia on 12/25 and an appointment to get Keytruda on 12/26. SW explained will call Dr. Valencia's office to find out if pt would continue with the immunotherapy or if it would be suspended while pt is in SNF. SW explained to daughter the concern is that the fdc may become financially responsible for the medication if pt goes to this appointment while at the fdc. If this is the case, the nursing homes may not want to take pt due to the cost involved. SW explained will let her know what Dr. Valencia's office says in regard to this. Daughter states understanding. SW then called Dr. Valencia's office, message left inquiring if physician will want to continue the immunotherapy while pt is in the SNF or if it will be suspended while pt is at the SNF. SW then spoke w/pt in room, explained spoke to daughter about fdc options. SW explained reviewed the nursing homes in [facility] w/daughter, and that daughter is to call pt to review options, and pt or daughter just should let SW know where they would like referral sent. Pt states understanding. SW provided list to pt of SNF in insurance network, in pt's preferred geographic area, complete with quality and resource use data. SW will continue to follow, will speak w/daughter and /or pt later and make referral to preferred SNF. SW also waiting for call back from Dr. Valencia's office in regard to the immunotherapy medication plan. YELENA Ho
[2020-12-12 12:30] LABS: Pathologist Review Reviewed
[2020-12-12] MEDS: Fluticasone 0.05% 1 SPRAY NASAL.SRY 2 SPRAY NASAL ×2 (13:01→20:58)
--- NOTE | 2020-12-12 14:35 | CASEMGMT ---
Social Work Note LUCINDA placed a call to pt's daughter Wendy to inquire about SNF options. Wendy states she hasn't had a chance yet to speak to pt. SW informed Wendy that this worker can take phone into pt's room now so she and pt are able to talk. Wendy agreeable. SW in to speak with pt and handed phone to pt so pt and Wendy can talk about SNF options. Pt states first choice for SNF is [facility] and second choice is [facility], Wendy is agreeable. LUCINDA placed a call to Susana at [facility] and provided referral. LUCINDA faxed referral. Plan: SNF pending acceptance and pre-cert Elinor Cote TECHNICAL PLANNER, READINESS PARAPROFESSIONAL
--- NOTE | 2020-12-12 16:47 | PCM.PN.HOSP ---
Subjective Subjective No fever or chills. Blood pressure on lower side. Was transferred from ICU after septic shock management. Objective Data Objective Data Vital Signs: Vital Signs Temp Pulse Resp BP Pulse Ox 98.1 F 96 16 103/54 L 100 12/12/20 15:45 12/12/20 16:29 12/12/20 15:45 12/12/20 15:45 12/12/20 15:45 Oxygen Flow Rate (L/min) 4 Oxygen Delivery Method Nasal Cannula Weight: 124 lb 8.979 oz Body Mass Index (BMI) 22.3 Intake & Output: Intake and Output for Last 24 Hours 12/10/20 12/11/20 12/12/20 23:59 23:59 23:59 Intake Total 520 / 520 1130 / 1130 1486.67 / 1486.67 Output Total 900 / 900 300 / 575 675 / 675 Balance -380 / -380 830 / 555 811.67 / 811.67 Lab / Micro Data Result Diagrams: 12/12/20 06:34 12/12/20 06:34 Labs: Laboratory Results - last 24 hr 12/12/20 06:34: WBC 14.2 H, RBC 3.42 L, Hgb 9.2 L, Hct 28.4 L, MCV 83.0, MCH 26.9 L, MCHC 32.4, RDW Std Deviation 52.7 H, RDW Coeff of Castillo 17.4 H, Plt Count 130 L, MPV 11.0, Immature Gran % (Auto) 1.100 H, Neut % (Auto) 62.8, Lymph % (Auto) 18.9 L, [place] % (Auto) 13.2 H, Eos % (Auto) 3.7, Baso % (Auto) 0.3, Absolute Neuts (auto) 8.9 H, Absolute Lymphs (auto) 2.69, Nucleated RBC % 0, Diff Path Review Reviewed 12/12/20 06:34: Sodium 144, Potassium 3.2 L, Chloride 114 H, Carbon Dioxide 26.0, Anion Gap 4 L, BUN 11, Creatinine 0.42 L, Estim Creat Clear Calc 34.42, Est GFR (MDRD) Af Amer 187, Est GFR (MDRD) Non-Af 155, BUN/Creatinine Ratio 26.2 H, Glucose 137 H, Calcium 7.8 L Micro: Microbiology 12/06/20 19:50 Blood Culture (Wb) - Right Forearm Blood Culture - Final No growth in 5 days. 12/06/20 19:45 Blood Culture (Wb) - Anticubital Left Blood Culture - Final No growth in 5 days. 12/06/20 19:55 Urine, Clean Catch Urine Culture - Final Klebsiella pneumoniae sp pneum 12/07/20 00:40 Stool C. difficile GDH Antigen & Toxins - Final 12/07/20 00:40 Stool C. difficile DNA Amplification - Final 12/06/20 20:20 Mucosa - Nose SARS-CoV-2 Antigen (Rapid) - Final Physical Exam Narrative General: Weak, awake, oriented x3. HEENT: Atraumatic, PERRLA, EOMI, Normocephalic Oral: No Gingival or Mucosal Lesions/ Ulcerations Neck: Right neck TLC. Supple, No JVD, Negative Carotid Bruits Lungs: Air entry diminished in bilateral lung bases. No crepitation/rhonchi Cardiovascular: Regular rate, Regular Rhythm, Normal S1, Normal S2, No murmurs Abdomen: Bowel Sounds Present, Soft, Non Tender, Non-Distended : Kelly catheter, clear urine. No renal angle tenderness. No suprapubic tenderness. Extremities: No edema, Capillary Refill Less than 3 Seconds Skin: No rashes, No breakdown Musculoskeletal: No Tenderness to Palpation of Joints or Extremities Neurological: Cranial nerves II-XII grossly intact, DTR 2+/4 and Symmetrical, Neuro grossly intact Psych/Mental Status: Flat affect. Assessment & Plan Assessment/Plan (1) Septic shock: (2) Acute UTI: (3) BK (acute kidney injury): PLAN: Patient is a 80-year-old lady admitted with altered mental status. Patient was diagnosed with septic shock secondary to Klebsiella pneumonia as well as UTI admitted to the intensive care unit for further management 1. Septic shock (present on admission) ?Attributed to Klebsiella pneumonia and UTI. Admitted to the intensive care unit managed with aggressive IV fluid resuscitation pressor support with Levophed as well as broad-spectrum antibiotics. Blood culture negative for more than 5 days. Urine culture shows Klebsiella pneumoniae 1000-10,000 colonies sensitive to ceftriaxone. Patient was on meropenem since 12/07, narrowed down to Cipro as per sensitivity. 2. Hypernatremia ?Secondary to decreased oral intake following patient be made n.p.o. on D5W. Serum sodium 144. K3.2. 3. Hypokalemia ?Corrected per protocol; repeat labs ordered 4. Acute dysphagia ?Possibly related to patient acute metabolic encephalopathy. Patient had modified barium swallow study done today. 5. Acute metabolic encephalopathy ?Secondary to above management as discussed above 6. Essential hypertension ?Patient antihypertensives placed on hold in view of patient presented with relatively low blood pressure we will continue with monitoring 7. Recent C. difficile colitis ?Patient C. difficile toxin was negative but PCR positive. No active diarrhea or abdominal pain. 8. Acute renal insufficiency ?Secondary to #1 creatinine on admission was 1.16 currently down to 0.67 9. DVT prophylaxis ?SC heparin 10. Physical deconditioning - Requested for PT OT eval and social welfare research worker to assist with discharge planning Advance planning: Full code. Charges/Coding Visit Charges Inpatient E&M: 48353 Subs Hosp L2
[2020-12-12] MEDS: Ciprofloxacin 400 MG/200 ML BAG 200 MG IV (20:59)
[2020-12-13] VITALS (14 sets, daily range): BP systolic 109–140; BP diastolic 50–71; PULSE 76–110; RESP 18–26; TEMP 36.7–37; O2SAT 92–98
[2020-12-13] MEDS: Menthol/Lanolin/Calamine/Znox 113 GM Tube 1 APPLIC TOPICAL ×3 (05:25→22:19)
[2020-12-13] MEDS: Metoprolol Tartrate 5 MG/5 ML Vial IV (05:25)
[2020-12-13 08:28] LABS: Absolute Lymphocyte Count 2.31 X10^3/uL (0.83-4.51); Absolute Neutrophil Count 9.2 X10^3/uL (2.0-7.7); Basophil# 0.06 X10^3/uL; Basophil% 0.4 % (0-1); Eosinophil# 0.34 X10^3/uL; Eosinophils% 2.5 % (0-5); Hematocrit 30.9 % (37-47); Hemoglobin 9.8 g/dL (12.0-15.0); Lymphocyte # 2.31 X10^3/ul (0.83-4.51); Lymphocyte % 17.2 % (19-41); Mean Corp Hgb Conc 31.7 g/dL (32-36); Mean Corpuscular Volume 85.1 fL (81-99); Mean Platelet Vol. 10.8 fl (6.2-12.0); Monocyte# 1.31 X10^3/uL; Monocyte% 9.8 % (0-10); NRBC Flagged by Analyzer 0 % (0-5); Neutrophil # 9.19 X10^3/uL (2.7-7.7); Neutrophil % 68.6 % (47-70); Platelet Count 205 K/mm3 (150-450); RBC Distribution Width CV 17.2 % (11.6-14.6); RBC Distribution Width SD 53.2 fl (35.1-43.9); Red Blood Count 3.63 M/mm3 (4.2-5.4); White Blood Count 13.4 K/mm3 (4.4-11.0)
[2020-12-13 08:54] LABS: Anion Gap 7 (5-15); BUN 8 mg/dL (7-18); BUN/Creat Ratio 17.5 RATIO (10-20); Calcium,Total 7.7 mg/dL (8.5-10.1); Chloride 105 mmol/L (98-107); Creatinine, Serum 0.46 mg/dL (0.55-1.02); EST Glomerular Filtration Rate 140 mL/min (>60); Est Glom Filt Rate - Afr Amer 169 mL/min (>60); Estimated Creatinine Clearance 34.42 ml/min; Glucose 127 mg/dL (74-106); Potassium 3.3 mmol/L (3.5-5.1); Sodium Level 137 mmol/L (136-145)
--- NOTE | 2020-12-13 09:16 | CASEMGMT ---
Social Work Note LUCINDA received message from Susana at [facility] stating she has questions regarding referral. Susana asked if pt was still on Levophed and also asked if pt has had Haldol, sitter, behaviors etc. LUCINDA reviewed chart. Pt is not on Levophed. Pt had to get Haldol, sitter, restraints in ED/ICU as pt was very confused, didn't follow direction, easily agitated. Since pt has moved to DE[facility] from ICU, pt has had no Haldol, sitter, restraints. LUCINDA placed a call to [facility] and spoke with Angelique as Susana is out today and updated Angelique on above information. Angelique states she will relay information to the team, will let this worker know. Plan: SNF pending acceptance and pre-cert Elinor Cote INSULATION WORKER APPRENTICE, FLOW WORKER
[2020-12-13] MEDS: Ciprofloxacin 400 MG/200 ML BAG 200 MG IV (09:41)
[2020-12-13] MEDS: Famotidine 20 MG Tablet PO (09:42)
[2020-12-13] MEDS: Fluticasone 0.05% 1 SPRAY NASAL.SRY 2 SPRAY NASAL ×2 (09:42→22:18)
--- NOTE | 2020-12-13 10:30 | CASEMGMT ---
Addendum entered by Elinor Cote 12/13/20 13:36: LUCINDA placed a call to pt's daughter Wendy. Wendy states she was told Dash was going to [facility] and had talked pt into staying. SW in to pt's room. Pt's significant other Dash present in room. SW had Wendy on phone and placed Wendy on speaker phone while this worker talked to pt, Dash and Wendy about discharge plans. SW spoke with pt, Dash and Wendy about the risk factors of pt going home at this time as pt is silent aspirating (per speech). Dash states pt needs to go to rehab first before she can come back home. Pt asked if she will discharge to SNF Wednesday. SW informed pt that this worker is not sure, insurance will need to approve before pt would be able to discharge and this worker doesn't know when that will happen. Pt states she is agreeable to staying until Wednesday. SW again reiterated that this worker is not sure when pre-cert was obtained, cannot guarantee pt will be discharged Wednesday. Pt states she will still till Wednesday but that is it. SW informed pt, Wendy and Dash that this worker will check on referral at [facility]. SW placed a call to Angelique at [facility] and left message regarding referral. Original Note: Social Work Note SW in to speak with pt. Pt is alert and orientated x3. Pt states she is going home today, she is not staying another night in the hospital. LUCINDA informed pt that this worker is still trying to get pt to [facility]. Pt asked if she can go to [facility] today, SW informed pt that it will not be today as this worker is still waiting hear back from [facility] and pt still needs pre-cert. Pt states I am going home today for a few days and then will go to [facility]. SW informed pt that that is not possible as the process for SNF would need to be started again from the community. SW informed pt that she would need to go through her PCP. SW asked pt if she feels safe going home. Pt states I will get my directions/instructions and be fine. LUCINDA spoke with pt about speech therapy recommendation of Honey thickened liquids and needing 1:1 supervision. Pt states I have the instructions, I can do that. SW asked pt who will be with her 09/11 for 1:1 supervision for eating and pt states her boyfriend Dash will be there. Pt states I have already called my daughter and Dash and told them I will be home. SW informed pt that she is at risk for choking, aspirating if she returns home. Pt again states she is going home today, is not staying another night in the hospital. SW informed pt that this worker will be calling her daughter to talk as well. Pt states understanding. SW placed a call to pt's daughter Wendy. Wendy confirms pt called her this morning and told her she is going home. SW informed Wendy that pt is now alert and orientated, able to make own decisions. Wendy asked what could be done. LUCINDA spoke with Wendy about HHC, Speech recommendations, and risks of pt not following speech recommendations. Wendy states she is aware of risks, not sure what she can do to change pt's mind. Wendy states she lives away and wouldn't be able to stay with pt at home. Wendy states she thought pt's boyfriend Dash didn't want to be a caregiver for pt and states she will call Dash and then call this worker back. LUCINDA did also review PT notes with Wendy. Pt able to walk 20ft min assist. SW waiting for call back from Wendy. Elinor Cote MARKETING CONTENT MANAGER, DEVELOPING MACHINE OPERATOR
[2020-12-13] MEDS: 0.9% Saline Lock 10 ML Syringe IV (12:25)
--- NOTE | 2020-12-13 14:23 | CASEMGMT ---
Addendum entered by Soo Hopkins 12/13/20 14:48: Updates faxed to [facility] per Angelique' request. Soo KIRK Original Note: SW called [facility] to inquire if they can take pt. As per Angelique at [facility], she was asked by her staff if pt is coming on IV antibiotics and if pt has been vaccinated. Angelique states pt has been accepted and she thinks precert was started but has not heard back, so will start it again. LUCINDA asked her about the new information that Medicaid patients do not need precert at this time; she needs to hear this from the company that does their precerts before she can accept the pt without the precert. LUCINDA checked w/SW on MS3, pt does not need IV antibiotics and has not been vaccinated. SW left Angelique a message letting her know this. Hospital exemption completed in the [facility] system in the event pt can indeed go today. YELENA Ho
--- NOTE | 2020-12-13 15:16 | PCM.PN.HOSP ---
Subjective Subjective Patient adamant of going home and asked to discharge now. She looks mildly confused and disoriented. Fatigue. Daughter wants to go to long-term. Trying to pull the right IJ triple-lumen catheter. Objective Data Objective Data Vital Signs: Vital Signs Temp Pulse Resp BP Pulse Ox 98.1 F 76 26 H 140/50 H 92 12/13/20 14:00 12/13/20 14:00 12/13/20 14:59 12/13/20 14:00 12/13/20 14:00 Oxygen Flow Rate (L/min) 5 Oxygen Delivery Method Room Air Weight: 123 lb 14.397 oz Body Mass Index (BMI) 22.3 Intake & Output: Intake and Output for Last 24 Hours 12/11/20 12/12/20 12/13/20 23:59 23:59 23:59 Intake Total 1130 / 1130 2525.00 / 2525.00 750 / 750 Output Total 300 / 575 675 / 675 Balance 830 / 555 1850.00 / 1850.00 750 / 750 Lab / Micro Data Result Diagrams: 12/13/20 08:00 12/13/20 08:00 Labs: Laboratory Results - last 24 hr 12/13/20 08:00: WBC 13.4 H, RBC 3.63 L, Hgb 9.8 L, Hct 30.9 L, MCV 85.1, MCH 27.0, MCHC 31.7 L, RDW Std Deviation 53.2 H, RDW Coeff of Castillo 17.2 H, Plt Count 205, MPV 10.8, Immature Gran % (Auto) 1.500 H, Neut % (Auto) 68.6, Lymph % (Auto) 17.2 L, [place] % (Auto) 9.8, Eos % (Auto) 2.5, Baso % (Auto) 0.4, Absolute Neuts (auto) 9.2 H, Absolute Lymphs (auto) 2.31, Nucleated RBC % 0 12/13/20 08:00: Sodium 137, Potassium 3.3 L, Chloride 105, Carbon Dioxide 25.0, Anion Gap 7, BUN 8, Creatinine 0.46 L, Estim Creat Clear Calc 34.42, Est GFR (MDRD) Af Amer 169, Est GFR (MDRD) Non-Af 140, BUN/Creatinine Ratio 17.5, Glucose 127 H, Calcium 7.7 L Micro: Microbiology 12/06/20 19:50 Blood Culture (Wb) - Right Forearm Blood Culture - Final No growth in 5 days. 12/06/20 19:45 Blood Culture (Wb) - Anticubital Left Blood Culture - Final No growth in 5 days. 12/06/20 19:55 Urine, Clean Catch Urine Culture - Final Klebsiella pneumoniae sp pneum 12/07/20 00:40 Stool C. difficile GDH Antigen & Toxins - Final 12/07/20 00:40 Stool C. difficile DNA Amplification - Final 12/06/20 20:20 Mucosa - Nose SARS-CoV-2 Antigen (Rapid) - Final Physical Exam Narrative General: Weak, awake, oriented x3. HEENT: Atraumatic, PERRLA, EOMI, Normocephalic Oral: No Gingival or Mucosal Lesions/ Ulcerations Neck: Right neck TLC. Supple, No JVD, Negative Carotid Bruits Lungs: Air entry diminished in bilateral lung bases. No crepitation/rhonchi Cardiovascular: Regular rate, Regular Rhythm, Normal S1, Normal S2, No murmurs Abdomen: Bowel Sounds Present, Soft, Non Tender, Non-Distended : Kelly catheter, clear urine. No renal angle tenderness. No suprapubic tenderness. Extremities: No edema, Capillary Refill Less than 3 Seconds Skin: No rashes, No breakdown Musculoskeletal: No Tenderness to Palpation of Joints or Extremities Neurological: Cranial nerves II-XII grossly intact, DTR 2+/4 and Symmetrical, Neuro grossly intact Psych/Mental Status: Flat affect. Assessment & Plan Assessment/Plan (1) Septic shock: (2) Acute UTI: (3) BK (acute kidney injury): PLAN: Patient is a 80-year-old lady admitted with altered mental status. Patient was diagnosed with septic shock secondary to Klebsiella pneumonia as well as UTI admitted to the intensive care unit for further management 1. Septic shock (present on admission) ?Attributed to Klebsiella pneumonia and UTI. Admitted to the intensive care unit managed with aggressive IV fluid resuscitation pressor support with Levophed as well as broad-spectrum antibiotics. Blood culture negative for more than 5 days. Urine culture shows Klebsiella pneumoniae 1000-10,000 colonies sensitive to ceftriaxone. Patient was on meropenem since 12/07, narrowed down to Levaquin to cover for pneumonia and Klebsiella UTI Continue antibiotic for total of 8 days 2. Hypernatremia ?Secondary to decreased oral intake following patient be made n.p.o. on D5W. Serum sodium is 137. K3.3. Potassium replaced. Discontinue D5W. 3. Hypokalemia ?Corrected per protocol; 4. Acute dysphagia ?Possibly related to patient acute metabolic encephalopathy. Patient had modified barium swallow study done today. 5. Acute metabolic encephalopathy ?Secondary to above management as discussed above 6. Essential hypertension ?Patient antihypertensives placed on hold in view of patient presented with relatively low blood pressure we will continue with monitoring 7. Recent C. difficile colitis ?Patient C. difficile toxin was negative but PCR positive. No active diarrhea or abdominal pain. 8. Acute renal insufficiency ?Secondary to #1 creatinine on admission was 1.16 currently down to 0.67 9. DVT prophylaxis ?SC heparin 10. Physical deconditioning - Requested for PT OT eval and web content & social media manager to assist with discharge planning Advance planning: Full code. Charges/Coding Visit Charges Inpatient E&M: 17161 Subs Hosp L2
--- NOTE | 2020-12-13 16:30 | CASEMGMT ---
Social Work Note SW placed Green sheet, transport forms, convalescent 7000, and COVID tool on pt's chart in the event pre-cert is obtained over the weekend. Plan: [facility] pending pre-cert. Pt will need pre-cert to be obtained before pt can discharge to [facility]. Pt will need a COVID test on day of discharge. Elinor Cote RETAIL MERCHANDISER, TEACHING MANAGER
[2020-12-13] MEDS: Metoprolol Tartrate 25 MG Tablet PO (22:24)
[2020-12-14] VITALS (7 sets, daily range): BP systolic 104–118; BP diastolic 50–68; PULSE 80–100; RESP 16–18; TEMP 36.8–37.2; O2SAT 94–100
[2020-12-14] MEDS: levoFLOXacin 500 MG Tablet PO (05:11)
[2020-12-14] MEDS: Menthol/Lanolin/Calamine/Znox 113 GM Tube 1 APPLIC TOPICAL ×3 (05:11→21:14)
[2020-12-14] MEDS: Metoprolol Tartrate 25 MG Tablet PO ×2 (09:12→21:13)
[2020-12-14] MEDS: Potassium Chloride Oral Tablet 20 MEQ 40 MEQ PO (09:12)
[2020-12-14] MEDS: Famotidine 20 MG Tablet PO (09:13)
[2020-12-14] MEDS: Fluticasone 0.05% 1 SPRAY NASAL.SRY 2 SPRAY NASAL ×2 (09:13→21:15)
[2020-12-14] MEDS: Acetaminophen 325 MG Tablet 650 MG PO (11:30)
--- NOTE | 2020-12-14 14:55 | PCM.PN.HOSP ---
Subjective Subjective Patient is more awake and alert. Patient is happy with right IJ CVC catheter removed. Objective Data Objective Data Vital Signs: Vital Signs Temp Pulse Resp BP Pulse Ox 98.9 F 80 16 104/50 L 95 12/14/20 14:16 12/14/20 14:16 12/14/20 14:16 12/14/20 14:16 12/14/20 14:16 Oxygen Flow Rate (L/min) 2 Oxygen Delivery Method Room Air Weight: 122 lb 9.232 oz Body Mass Index (BMI) 22.3 Intake & Output: Intake and Output for Last 24 Hours 12/12/20 12/13/20 12/14/20 23:59 23:59 23:59 Intake Total 2525.00 / 2525.00 1880 / 1880 100 / 100 Output Total 675 / 675 Balance 1850.00 / 1850.00 1880 / 1880 100 / 100 Lab / Micro Data Result Diagrams: 12/13/20 08:00 12/13/20 08:00 Micro: Microbiology 12/06/20 19:50 Blood Culture (Wb) - Right Forearm Blood Culture - Final No growth in 5 days. 12/06/20 19:45 Blood Culture (Wb) - Anticubital Left Blood Culture - Final No growth in 5 days. 12/06/20 19:55 Urine, Clean Catch Urine Culture - Final Klebsiella pneumoniae sp pneum 12/07/20 00:40 Stool C. difficile GDH Antigen & Toxins - Final 12/07/20 00:40 Stool C. difficile DNA Amplification - Final 12/06/20 20:20 Mucosa - Nose SARS-CoV-2 Antigen (Rapid) - Final Physical Exam Narrative General: Alert, awake, oriented x3. HEENT: Atraumatic, PERRLA, EOMI, Normocephalic Oral: No Gingival or Mucosal Lesions/ Ulcerations Neck: Right neck TLC removed, no hematoma. Supple, No JVD, Negative Carotid Bruits Lungs: Air entry diminished in bilateral lung bases. No crepitation/rhonchi Cardiovascular: Regular rate, Regular Rhythm, Normal S1, Normal S2, No murmurs Abdomen: Bowel Sounds Present, Soft, Non Tender, Non-Distended : Spontaneous voiding, incontinent no renal angle tenderness. No suprapubic tenderness. Extremities: No edema, Capillary Refill Less than 3 Seconds Skin: No rashes, No breakdown Musculoskeletal: No Tenderness to Palpation of Joints or Extremities Neurological: Cranial nerves II-XII grossly intact, DTR 2+/4 and Symmetrical, Neuro grossly intact Psych/Mental Status: Flat affect. Assessment & Plan Assessment/Plan (1) Septic shock: (2) Acute UTI: (3) BK (acute kidney injury): PLAN: Patient is a 80-year-old lady admitted with altered mental status. Patient was diagnosed with septic shock secondary to Klebsiella pneumonia as well as UTI admitted to the intensive care unit for further management 1. Septic shock (present on admission) ?Attributed to Klebsiella pneumonia and UTI. Admitted to the intensive care unit managed with aggressive IV fluid resuscitation pressor support with Levophed as well as broad-spectrum antibiotics. Blood culture negative for more than 5 days. Urine culture shows Klebsiella pneumoniae 1000-10,000 colonies sensitive to ceftriaxone. Patient was on meropenem since 12/07, narrowed down to Levaquin to cover for pneumonia and Klebsiella UTI Continue antibiotic for total of 8 days 2. Hypernatremia ?Secondary to decreased oral intake following patient be made n.p.o. on D5W. Serum sodium is 137. K3.3. Potassium replaced. Discontinue D5W. 3. Hypokalemia ?Corrected per protocol; 4. Acute dysphagia ?Possibly related to patient acute metabolic encephalopathy. Patient had modified barium swallow study done today. 12/14: Modified barium swallow shows moderate oropharyngeal dysphagia. On modified dysphagia diet. 5. Acute metabolic encephalopathy ?Secondary to above management as discussed above Improved 6. Essential hypertension ?Patient antihypertensives placed on hold in view of patient presented with relatively low blood pressure we will continue with monitoring 7. Recent C. difficile colitis ?Patient C. difficile toxin was negative but PCR positive. No active diarrhea or abdominal pain. 8. Acute renal insufficiency ?Secondary to #1 creatinine on admission was 1.16 currently down to 0.67 9. DVT prophylaxis ?SC heparin 10. Physical deconditioning - Requested for PT OT eval and delinquency prevention social worker to assist with discharge planning Advance planning: Full code. Charges/Coding Visit Charges Inpatient E&M: 26566 Subs Hosp L2
[2020-12-15] VITALS (7 sets, daily range): BP systolic 114–145; BP diastolic 55–76; PULSE 84–103; RESP 16–18; TEMP 36.7–37.1; O2SAT 92–96
[2020-12-15] MEDS: Menthol/Lanolin/Calamine/Znox 113 GM Tube 1 APPLIC TOPICAL ×3 (05:17→21:08)
[2020-12-15] MEDS: levoFLOXacin 500 MG Tablet PO (05:17)
[2020-12-15] MEDS: Fluticasone 0.05% 1 SPRAY NASAL.SRY 2 SPRAY NASAL ×2 (10:07→21:08)
[2020-12-15] MEDS: Famotidine 20 MG Tablet PO (10:07)
[2020-12-15] MEDS: Potassium Chloride Oral Tablet 20 MEQ 40 MEQ PO (10:07)
[2020-12-15] MEDS: Metoprolol Tartrate 25 MG Tablet PO ×2 (10:07→21:06)
[2020-12-15] MEDS: Acetaminophen 325 MG Tablet 650 MG PO ×2 (11:33→18:33)
--- NOTE | 2020-12-15 13:28 | PCM.PN.HOSP ---
Subjective Subjective Patient is mildly irritable today. Intermittent confusion and disorientation. No acute issues overnight. Objective Data Objective Data Vital Signs: Vital Signs Temp Pulse Resp BP Pulse Ox 98.6 F 94 16 145/76 H 92 12/15/20 08:54 12/15/20 10:07 12/15/20 08:54 12/15/20 08:54 12/15/20 08:54 Oxygen Flow Rate (L/min) 2 Oxygen Delivery Method Room Air Weight: 121 lb 7.595 oz Body Mass Index (BMI) 22.3 Intake & Output: Intake and Output for Last 24 Hours 12/13/20 12/14/20 12/15/20 23:59 23:59 23:59 Intake Total 1880 / 1880 100 / 250 350 / 350 Balance 1880 / 1880 100 / 250 350 / 350 Lab / Micro Data Result Diagrams: 12/13/20 08:00 12/13/20 08:00 Micro: Microbiology 12/06/20 19:50 Blood Culture (Wb) - Right Forearm Blood Culture - Final No growth in 5 days. 12/06/20 19:45 Blood Culture (Wb) - Anticubital Left Blood Culture - Final No growth in 5 days. 12/06/20 19:55 Urine, Clean Catch Urine Culture - Final Klebsiella pneumoniae sp pneum 12/07/20 00:40 Stool C. difficile GDH Antigen & Toxins - Final 12/07/20 00:40 Stool C. difficile DNA Amplification - Final 12/06/20 20:20 Mucosa - Nose SARS-CoV-2 Antigen (Rapid) - Final Physical Exam Narrative General: Awake, irritable. Oriented x2 HEENT: Atraumatic, PERRLA, EOMI, Normocephalic Oral: No Gingival or Mucosal Lesions/ Ulcerations Neck: Right neck TLC removed, no hematoma. Dressing dry. Supple, No JVD, Negative Carotid Bruits Lungs: Air entry diminished in bilateral lung bases. No crepitation/rhonchi Cardiovascular: Regular rate, Regular Rhythm, Normal S1, Normal S2, No murmurs Abdomen: Bowel Sounds Present, Soft, Non Tender, Non-Distended : Spontaneous voiding, incontinent no renal angle tenderness. No suprapubic tenderness. Extremities: No edema, Capillary Refill Less than 3 Seconds Skin: No rashes, No breakdown Musculoskeletal: No Tenderness to Palpation of Joints or Extremities Neurological: Cranial nerves II-XII grossly intact, DTR 2+/4 and Symmetrical, Neuro grossly intact Psych/Mental Status: Flat affect. Assessment & Plan Assessment/Plan (1) Septic shock: (2) Acute UTI: (3) BK (acute kidney injury): PLAN: Patient is a 80-year-old lady admitted with altered mental status. Patient was diagnosed with septic shock secondary to Klebsiella pneumonia as well as UTI admitted to the intensive care unit for further management 1. Septic shock (present on admission) ?Attributed to Klebsiella pneumonia and UTI. Admitted to the intensive care unit managed with aggressive IV fluid resuscitation pressor support with Levophed as well as broad-spectrum antibiotics. Blood culture negative for more than 5 days. Urine culture shows Klebsiella pneumoniae 1000-10,000 colonies sensitive to ceftriaxone. Patient was on meropenem since 12/07, narrowed down to Levaquin to cover for pneumonia and Klebsiella UTI. She completed antibiotic for 8 days. 12/15: Plan for SNF discharge. Leukocytosis decreasing. 2. Hypernatremia ?Secondary to decreased oral intake following patient be made n.p.o. on D5W. Serum sodium is 137. K3.3. Potassium replaced. Discontinue D5W. 3. Hypokalemia ?Corrected per protocol; 4. Acute dysphagia ?Possibly related to patient acute metabolic encephalopathy. Patient had modified barium swallow study done today. 12/14: Modified barium swallow shows moderate oropharyngeal dysphagia. On modified dysphagia diet. 5. Acute metabolic encephalopathy ?Secondary to above management as discussed above Fluctuates. 6. Essential hypertension ?Patient antihypertensives placed on hold in view of patient presented with relatively low blood pressure we will continue with monitoring 7. Recent C. difficile colitis ?Patient C. difficile toxin was negative but PCR positive. No active diarrhea or abdominal pain. 8. Acute renal insufficiency ?Secondary to #1 creatinine on admission was 1.16 currently down to 0.67 9. DVT prophylaxis ?SC heparin 10. Physical deconditioning - Requested for PT OT eval and manager social responsibility to assist with discharge planning Advance planning: Full code. Charges/Coding Visit Charges Inpatient E&M: 53420 Subs Hosp L2
[2020-12-16] VITALS (11 sets, daily range): BP systolic 116–127; BP diastolic 50–68; PULSE 68–97; RESP 16–20; TEMP 36.6–37.1; O2SAT 92–97
[2020-12-16] MEDS: Menthol/Lanolin/Calamine/Znox 113 GM Tube 1 APPLIC TOPICAL ×3 (06:34→20:00)
[2020-12-16] MEDS: Potassium Chloride Oral Tablet 20 MEQ 40 MEQ PO (07:50)
[2020-12-16] MEDS: Fluticasone 0.05% 1 SPRAY NASAL.SRY 2 SPRAY NASAL ×2 (07:50→20:01)
[2020-12-16] MEDS: Famotidine 20 MG Tablet PO (07:51)
[2020-12-16] MEDS: Metoprolol Tartrate 25 MG Tablet PO ×2 (07:51→20:03)
--- NOTE | 2020-12-16 09:03 | PCM.PN.HOSP ---
Subjective Subjective Patient was seen and examined. She is weepy and saying she is more confused today. She stated that she was not like this yesterday. She denied any new complaints. Objective Data Objective Data Vital Signs: Vital Signs Temp Pulse Resp BP Pulse Ox 97.9 F 77 20 H 127/68 H 94 12/16/20 08:10 12/16/20 08:10 12/16/20 08:15 12/16/20 08:10 12/16/20 08:15 Oxygen Flow Rate (L/min) 2 Oxygen Delivery Method Room Air Weight: 53.4 kg Body Mass Index (BMI) 22.3 Intake & Output: Intake and Output for Last 24 Hours 12/14/20 12/15/20 12/16/20 23:59 23:59 23:59 Intake Total 100 / 250 590 / 665 125 / 125 Balance 100 / 250 590 / 665 125 / 125 Lab / Micro Data Result Diagrams: 12/16/20 09:35 12/16/20 09:35 Micro: Microbiology 12/06/20 19:50 Blood Culture (Wb) - Right Forearm Blood Culture - Final No growth in 5 days. 12/06/20 19:45 Blood Culture (Wb) - Anticubital Left Blood Culture - Final No growth in 5 days. 12/06/20 19:55 Urine, Clean Catch Urine Culture - Final Klebsiella pneumoniae sp pneum 12/07/20 00:40 Stool C. difficile GDH Antigen & Toxins - Final 12/07/20 00:40 Stool C. difficile DNA Amplification - Final 12/06/20 20:20 Mucosa - Nose SARS-CoV-2 Antigen (Rapid) - Final Physical Exam Narrative Physical exam: General: Alert, Oriented x3, Cooperative, anxious, weepy, Well developed HEENT: Atraumatic Oral: Moist Mucosa, few tiny vesicles on her lower lip Neck: Supple Lungs: Clear to auscultation Cardiovascular: HS I+II, regular, no murmurs Abdomen: Bowel Sounds Present, Soft, Non Tender Extremities: No edema Assessment & Plan Assessment/Plan (1) Septic shock: (2) BK (acute kidney injury): (3) Hypernatremia: (4) Hypokalemia: (5) Acute metabolic encephalopathy: (6) Acute UTI: PLAN: 1. Acute metabolic encephalopathy secondary to acute Klebsiella pneumonia/UTI, patient Continues to be confused Completed antibiotics, suspect underlying cognitive impairment We will continue to monitor 2. Septic shock, present on admission secondary to Klebsiella UTI, resolved Patient completed antibiotics 3. 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 Hyponatremia/hypokalemia, replaced, recheck in a.m. 5. Dysphagia, moderate to severe, likely related to #1, patient is on modified dysphagia diet 6. Acute kidney injury, prerenal secondary to #2, present on admission Admitting creatinine 1.16, We will continue to monitor 7. Rest of chronic medical conditions including hypertension, recent C. difficile -remained stable Meds reviewed Charges/Coding Visit Charges Inpatient E&M: 65821 Disch Hosp
--- NOTE | 2020-12-16 09:29 | CASEMGMT ---
Addendum entered by Elinor Cote 12/16/20 18:04: Crisis is still at [facility] evaluating pt. LUCINDA updated RN and manager golf that if Crisis feels pt needs [facility], Crisis to work on [facility] placement but if Crisis clears pt, pt can still admit to [facility] tonight. Pt would just need COVID test for today and transportation arranged. LUCINDA encouraged [facility] staff to call ED SW if they have questions. LUCINDA placed a call to ED SW and provided handoff. Plan: Crisis to evaluate pt for possible [facility] placement *If Crisis feels [facility] is appropriate, Crisis to work on [facility] placement *If Crisis clears pt, pt can still discharge to [facility] tonight. Pt will just need new COVID test for today and transportation to be arranged. Discharge paperwork has already been faxed to [facility]. *Please call pt's dtr Wendy with update when disposition is confirmed. Green sheet on chart. Elinor Cote PRINCIPAL ACCOUNT CLERK, ANESTHESIA ASSISTANT Addendum entered by Elinor Cote 12/16/20 17:27: SW received message from Susana at [facility] stating they got the verbal ok to admit pt today. LUCINDA spoke with RN. Pt with emotional distress today. Pt was aggressive earlier, became tearful, and is cussing out staff now, requests possible [facility]. LUCINDA updated Physician. Physician agreeable to [facility] consult. If pt is not admitted for [facility], pt to discharge to [facility] today. LUCINDA placed a call to Susana at [facility] and updated her that [facility] will evaluate pt, pending their evaluation, pt will either discharge to [facility] or [facility] today. Susana states understanding, confirms pt is still able to admit to [facility] tonight if cleared by [facility]. LUCINDA placed a call to [facility] and spoke with Elisa and provided referral. Elisa states to fax referral, will send someone to [facility] today to evaluate pt. LUCINDA faxed referral. LUCINDA updated RN. LUCINDA placed a call to pt's daughter Wendy and updated her on plan for [facility] evaluation, if pt is cleared, pt to discharge to [facility] tonight. Wendy states understanding, agreeable to plan. Wendy states she and her family always wondered if pt didn't have manic depression, but states they never got pt evaluated. LUCINDA completed [facility]valescent [facility] in [place]. LUCINDA faxed transfer to extended care facility, signed medication list, any scripts, [place], COVID Test/Tool to [facility]. LUCINDA placed a call to Susana at [facility] and left message that discharge paperwork has been faxed to [facility], still awaiting Crisis evaluation. Pt will need new COVID test, RN aware. Plan: Crisis to evaluate for possible [facility] placement. If pt is cleared by crisis, pt can discharge to [facility] today. Original Note: Social Work Note LUCINDA faxed updated clinicals to [facility]. Plan: [facility] pending pre-cert Elinor Cote PRINCIPAL ACCOUNT CLERK, ANESTHESIA ASSISTANT
[2020-12-16 09:56] LABS: Absolute Lymphocyte Count 2.17 X10^3/uL (0.83-4.51); Absolute Neutrophil Count 7.9 X10^3/uL (2.0-7.7); Basophil% 0.9 % (0-1); Eosinophil# 0.07 X10^3/uL; Eosinophils% 0.6 % (0-5); Hematocrit 29.6 % (37-47); Hemoglobin 9.7 g/dL (12.0-15.0); Lymphocyte # 2.17 X10^3/ul (0.83-4.51); Lymphocyte % 18.8 % (19-41); Mean Corp Hgb Conc 32.8 g/dL (32-36); Mean Corpuscular Hgb 27.3 pg (27.0-32.0); Mean Corpuscular Volume 83.4 fL (81-99); Mean Platelet Vol. 9.8 fl (6.2-12.0); Monocyte% 10.4 % (0-10); NRBC Flagged by Analyzer 0 % (0-5); Neutrophil # 7.89 X10^3/uL (2.7-7.7); Neutrophil % 68.5 % (47-70); Platelet Count 475 K/mm3 (150-450); RBC Distribution Width CV 17.8 % (11.6-14.6); Red Blood Count 3.55 M/mm3 (4.2-5.4); White Blood Count 11.5 K/mm3 (4.4-11.0)
[2020-12-16 10:43] LABS: ALB/GLOB Ratio 0.8 RATIO (0.9-2.4); AST(SGOT) 24 U/L (15-37); Alanine Aminotransfer ALT/SGPT 32 U/L (13-56); Albumin, Serum 2.6 g/dL (3.2-5.0); Alkaline Phosphatase 88 U/L (45-117); Anion Gap 6 (5-15); BUN 7 mg/dL (7-18); BUN/Creat Ratio 9.9 RATIO (10-20); Calcium,Total 8.5 mg/dL (8.5-10.1); Chloride 105 mmol/L (98-107); Creatinine, Serum 0.71 mg/dL (0.55-1.02); EST Glomerular Filtration Rate 85 mL/min (>60); Est Glom Filt Rate - Afr Amer 102 mL/min (>60); Estimated Creatinine Clearance 36.08 ml/min; Globulin 3.3 g/dL (2.2-4.2); Glucose 109 mg/dL (74-106); Magnesium 1.5 mg/dL (1.6-2.6); Potassium 3.4 mmol/L (3.5-5.1); Protein, Total 5.9 g/dL (6.4-8.2); Sodium Level 139 mmol/L (136-145)
[2020-12-16] MEDS: Glycerin/Hypromellose/PEG400 15 ml Bottle 1 DRP EACH EYE (14:03)
[2020-12-16] MEDS: Acyclovir 200 MG Capsule 400 MG PO ×2 (14:03→20:04)
--- NOTE | 2020-12-16 15:05 | TREXTCAR_ITS ---
Diet 12/12/20 11:08 Diet: Regular - General Food consistency:: Pureed Liquid Consistency:: Honey/Moderately Thick Is pt able to select menu?: No Diet Comments: SEE ABRIL PAIGEINCATION, tray to NSG desk,1:1 supervised feed,MILK ALLERGY Routine Orders/Code Status O2 Frequency: Continuous Keep PO Greater than or Equal to (%): 2 Routine Lab Work: CBC (within 3 days) and BMP (within 3 days) Code Status: Full Code Wound(s) Left buttock: Wound Type: Skin Tear Therapies Weight Bearing: Weight bearing as tolerated Physical Therapy: Eval and Treat Occupational Therapy: Eval and Treat Speech Therapy: Eval and Treat Problem/Diagnosis (1) Septic shock: Status: Acute (2) BK (acute kidney injury): Status: Acute (3) Hypernatremia: Status: Acute (4) Hypokalemia: Status: Acute (5) Acute metabolic encephalopathy: Status: Acute (6) Acute UTI: Status: Acute Allergies/Procedures Done in Hospital Allergies milk Allergy (Verified 12/16/20 09:24) PT UNSURE OF REACTION aspirin Adverse Reaction (Verified 12/07/20 00:12) Unknown Cephalosporins Adverse Reaction (Verified 12/07/20 00:12) Unknown codeine Adverse Reaction (Verified 12/07/20 00:12) Unknown Penicillins [PCN] Adverse Reaction (Verified 12/07/20 00:12) Unknown propoxyphene [From Darvocet-N] Adverse Reaction (Verified 12/07/20 00:12) Unknown Jdlgpxq-Fmy-Vkm Reductase Inhibitor Adverse Reaction (Verified 12/07/20 00:12) Unknown Sulfa (Sulfonamide Antibiotics) Adverse Reaction (Verified 12/07/20 00:12) Unknown Procedures: - (Modified barium swallow, videofluoroscopic swallow eval) Type of Care/Length of Stay Estimated LOS: Convalescent Care Less Than 30 days Type of Care Needed: Skilled Rehab Potential: Fair Prognosis: Fair Additional Orders/Day of Discharge Day of Discharge: 12/16/20 Dietary and Speech Recommendations Dietitian Recommendations/Changes: Rec continue regular diet with consistency as per BIOINFORMATICS ASSISTANT. Will continue ensure pudding and magic cup with meals tid. Discharge Plan Admission Admit Date/Time: 12/06/20 22:57 Primary Reason for Your Visit: Acute metabolic encephalopathy, septic shock, acute Klebsiella pneumonia/UT Attending Provider: Tory Bledsoe Primary Care Provider: Luis Manuel Arguello Consulting Providers: Tim Loyd Discharge Orders/Prescriptions Prescriptions: New sennosides-docusate sodium [Stool Softener-Stimulant Laxat] 8.6-50 mg Tablet 2 tab PO BID PRN PRN (Reason: Constipation) Qty: 0 RF: 0 lidocaine HCl [Lidocaine Viscous] 2 % Solution 10 ml PO Q3H PRN PRN (Reason: MOUTH IRRITATION) Qty: 0 RF: 0 acyclovir 200 mg Capsule 400 mg PO TID 7 Days Qty: 42 RF: 0 Artificial Tears([id number]) 1-0.2-0.2 % Drops 1 drp EACH EYE Q1H PRN PRN (Reason: DRY EYES) Qty: 0 RF: 0 metoprolol tartrate 25 mg Tablet 25 mg PO BID Qty: 0 RF: 0 acidophilus-pectin, citrus 25 million cell -100 mg Tablet 1 tab PO BID Qty: 0 RF: 0 menthol-zinc oxide [Calmoseptine] 0.44-20.6 % Ointment 1 applic topical TID Qty: 0 RF: 0 Continued fluticasone propionate 50 mcg/actuation spray,suspension 2 spray INTRANASAL BID RF: 0 Discontinued metoprolol tartrate 100 MG tablet 50 mg PO BID RF: 0 enalapril maleate 20 MG tablet 20 mg PO DAILY RF: 0 amlodipine 5 mg tablet 5 mg PO DAILY RF: 0 lorazepam 1 mg tablet 1 mg PO QHS RF: 0 nitrofurantoin 100 mg Capsule 100 mg PO BID RF: 0 famotidine 20 mg Tablet 20 mg PO BID RF: 0 Referrals / Follow Up: Luis Manuel Arguello MD [Primary Care Provider] - Within 2 Weeks Disposition Disposition (needs filled in before D/C Order can be placed): [facility]
--- NOTE | 2020-12-16 15:08 | PCM.DC.SUM ---
Providers Date of Admission: 12/06/20 Date of Discharge: 12/16/20 Primary Care Physician: Dr. Luis Manuel Arguello MD Consultations 12/07/20 05:39 Consult: Environmental Services Worker / Pulmonary Medicine Routine Consulting Provider: Tim Loyd Reason for Consult: Septic shock EMERGENT Consult: No MD Notified: Yes Date Notified: 12/07/20 Time Notified: 05:39 Method of Notification: Verbal Reason For Visit: SEPSIS Diagnosis Discharge Diagnosis (1) Septic shock: Status: Resolved Code(s): A41.9 - Sepsis, unspecified organism; R65.21 - Severe sepsis with septic shock (2) BK (acute kidney injury): Status: Resolved Code(s): N17.9 - Acute kidney failure, unspecified (3) Hypernatremia: Status: Resolved Code(s): E87.0 - Hyperosmolality and hypernatremia (4) Hypokalemia: Status: Acute Code(s): E87.6 - Hypokalemia (5) Acute metabolic encephalopathy: Status: Acute Code(s): G93.41 - Metabolic encephalopathy (6) Acute UTI: Status: Resolved Code(s): N39.0 - Urinary tract infection, site not specified (7) Severe malnutrition: Status: Acute Code(s): E43 - Unspecified severe protein-calorie malnutrition Medications at Discharge Home Medications fluticasone propionate 2 spray INTRANASAL BID 11/05/20 acidophilus-pectin, citrus 1 tab PO BID #0 tab 12/16/20 acyclovir 400 mg PO TID 7 Days #42 cap 12/16/20 lidocaine HCl [Lidocaine Viscous] 10 ml PO Q3H PRN PRN #0 ml 12/16/20 menthol-zinc oxide [Calmoseptine] 1 applic TOPICAL TID #0 g 12/16/20 metoprolol tartrate 25 mg PO BID #0 tab 12/16/20 peg [id number] [Artificial Tears([id number])] 1 drp EACH EYE Q1H PRN PRN #0 ml 12/16/20 sennosides-docusate sodium [Stool Softener-Stimulant Laxat] 2 tab PO BID PRN PRN #0 tab 12/16/20 Hospital Course Operations None Procedures - (Status post modified barium swallow, videofluoroscopic swallow eval) Summary of Care Provided Minutes Spent on Discharge: 45 Hospital Course: 80-year-old female with multiple comorbidities who was admitted with altered mental status. Patient was found to be septic shock secondary to Klebsiella pneumonia as well as UTI. Initially managed in ICU. She completed antibiotics during her hospital stay. She also had hyponatremia second to dehydration that resolved. She had hypo kalemia that was corrected. Patient was seen by speech therapy. Modified barium swallow eval showed moderate oropharyngeal dysphagia and she was put on a modified diet. She had acute kidney injury that resolved at time of discharge. Patient continued to have waxing and waning of her cognition. Underlining cognitive impairment was suspected. She was seen by PT and OT and skilled for discharge to [facility] facility. Physical Exam Narrative See progress note of the day Medical Records Data Medical Nutrition Assessment Dietitian: Malnutrition Criteria Met Start: 12/16/20 10:55 Freq: Status: Active Protocol: Document 12/16/20 10:55 [facility] (Rec: 12/16/20 10:55 [facility] [id number]) Nutrition Malnutrition Evidence of Malnutrition Exists Yes Malnutrition (severe): Acute Illness/Injury Evidenced By Suboptimal Energy Intake ( Severe),Weight Loss (Severe) Intake Problem Inadequate Oral Intake Etiology related to issues w/ dysphagia and need for mech altered diet consistencies Signs/Symptoms as evidenced by poor po intake by pt as she dislikes food / liquid textures Status Active Problem Clinical Problem Acute Disease or Injury Related Malnutrition Etiology related to need for mechanically altered diet and gums being sore, chapped and burning Signs/Symptoms as evidenced by <50% po intake since admission and 5% wt loss x 3days Status Active Problem Biting/Chewing Difficulty Etiology and swallowing related to dysphagia Signs/Symptoms as evidenced by need for puree /honey thick liquids Status Active Problem Recommendation Dietitian Recommendations/Changes Rec continue regular diet with consistency as per TROUBLE DISPATCHER. Will continue ensure pudding and magic cup with meals tid. Weight / BMI Weight Weight: 53.4 kg Body Mass Index (BMI) 22.3 ABG / Lab / Microbiology Data Result Diagrams: 12/16/20 09:35 12/16/20 09:35 Laboratory: Laboratory Results - last 24 hr 12/16/20 09:35: WBC 11.5 H, RBC 3.55 L, Hgb 9.7 L, Hct 29.6 L, MCV 83.4, MCH 27.3, MCHC 32.8, RDW Std Deviation 53.0 H, RDW Coeff of Castillo 17.8 H, Plt Count 475 H, MPV 9.8, Immature Gran % (Auto) 0.800, Neut % (Auto) 68.5, Lymph % (Auto) 18.8 L, [place] % (Auto) 10.4 H, Eos % (Auto) 0.6, Baso % (Auto) 0.9, Absolute Neuts (auto) 7.9 H, Absolute Lymphs (auto) 2.17, Nucleated RBC % 0 12/16/20 09:35: Sodium 139, Potassium 3.4 L, Chloride 105, Carbon Dioxide 28.0, Anion Gap 6, BUN 7, Creatinine 0.71, Estim Creat Clear Calc 36.08, Est GFR (MDRD) Af Amer 102, Est GFR (MDRD) Non-Af 85, BUN/Creatinine Ratio 9.9 L, Glucose 109 H, Calcium 8.5, Magnesium 1.5 L, Total Bilirubin 0.50, AST 24, ALT 32, Alkaline Phosphatase 88, Total Protein 5.9 L, Albumin 2.6 L, Globulin 3.3, Albumin/Globulin Ratio 0.8 L Microbiology: Microbiology 12/06/20 19:50 Blood Culture (Wb) - Right Forearm Blood Culture - Final No growth in 5 days. 12/06/20 19:45 Blood Culture (Wb) - Anticubital Left Blood Culture - Final No growth in 5 days. 12/06/20 19:55 Urine, Clean Catch Urine Culture - Final Klebsiella pneumoniae sp pneum 12/07/20 00:40 Stool C. difficile GDH Antigen & Toxins - Final 12/07/20 00:40 Stool C. difficile DNA Amplification - Final 12/06/20 20:20 Mucosa - Nose SARS-CoV-2 Antigen (Rapid) - Final D/C Instructions Discharge Diet: No restrictions Meaningful Use Info Meaningful Use Diagnoses (Choose all that apply): None applicable Discharge Plan Admission Admit Date/Time: 12/06/20 22:57 Primary Reason for Your Visit: Acute metabolic encephalopathy, septic shock, acute Klebsiella pneumonia/UT Attending Provider: Tory Bledsoe Primary Care Provider: Luis Manuel Arguello Consulting Providers: Tim Loyd Discharge Orders/Prescriptions Prescriptions: New sennosides-docusate sodium [Stool Softener-Stimulant Laxat] 8.6-50 mg Tablet 2 tab PO BID PRN PRN (Reason: Constipation) Qty: 0 RF: 0 lidocaine HCl [Lidocaine Viscous] 2 % Solution 10 ml PO Q3H PRN PRN (Reason: MOUTH IRRITATION) Qty: 0 RF: 0 acyclovir 200 mg Capsule 400 mg PO TID 7 Days Qty: 42 RF: 0 Artificial Tears([id number]) 1-0.2-0.2 % Drops 1 drp EACH EYE Q1H PRN PRN (Reason: DRY EYES) Qty: 0 RF: 0 metoprolol tartrate 25 mg Tablet 25 mg PO BID Qty: 0 RF: 0 acidophilus-pectin, citrus 25 million cell -100 mg Tablet 1 tab PO BID Qty: 0 RF: 0 menthol-zinc oxide [Calmoseptine] 0.44-20.6 % Ointment 1 applic topical TID Qty: 0 RF: 0 Continued fluticasone propionate 50 mcg/actuation spray,suspension 2 spray INTRANASAL BID RF: 0 Discontinued metoprolol tartrate 100 MG tablet 50 mg PO BID RF: 0 enalapril maleate 20 MG tablet 20 mg PO DAILY RF: 0 amlodipine 5 mg tablet 5 mg PO DAILY RF: 0 lorazepam 1 mg tablet 1 mg PO QHS RF: 0 nitrofurantoin 100 mg Capsule 100 mg PO BID RF: 0 famotidine 20 mg Tablet 20 mg PO BID RF: 0 Referrals / Follow Up: Luis Manuel Arguello MD [Primary Care Provider] - Within 2 Weeks Disposition Disposition (needs filled in before D/C Order can be placed): Longterm Facility Charges/Coding Visit Charges Inpatient E&M: 20686 Disch Hosp
--- NOTE | 2020-12-16 18:16 | NURSING ---
Addendum entered by Francia Bagley 12/16/20 18:17: Correct WVM not SWCC Original Note: Crisis informed this nurse that pt does not qualify for [facility]. Will set up transportation to [facility].
--- NOTE | 2020-12-17 09:07 | CASEMGMT ---
Social Work Note SW received message from pt's daughter Wendy requesting update. SW placed a call to Wendy, updated her that pt was cleared by Crisis, and pt was discharged to [facility] last night. Wendy states understanding. Elinor Cote FILM AND VIDEO EDITOR, [employer]KER
== END 2020-12-16 22:06 | disposition skilled nursing facility (03) | DRG 871 ==
LOC: ED 22:40 → ICU 23:33 → MS3 12-12 02:46 → ICU 12-16 10:22
PROVIDERS: Internal Medicine; Internal Medicine Critical Care Medicine; Admitting Provider Hospitalist; Emergency Provider Emergency Medicine; PCP Family Medicine; Visit Provider Internal Medicine
DX: A41.59 Other Gram-negative sepsis (principal); R65.21 Severe sepsis with septic shock; J15.0 Pneumonia due to Klebsiella pneumoniae; G93.41 Metabolic encephalopathy; E43 Unspecified severe protein-calorie malnutrition; N39.0 Urinary tract infection, site not specified; N17.9 Acute kidney failure, unspecified; E87.0 Hyperosmolality and hypernatremia; B00.2 Herpesviral gingivostomatitis and pharyngotonsillitis; Z87.891 Personal history of nicotine dependence; Z87.440 Personal history of urinary (tract) infections; I10 Essential (primary) hypertension; Z79.899 Other long term (current) drug therapy; I48.91 Unspecified atrial fibrillation; Z86.19 Personal history of other infectious and parasitic diseases; E87.6 Hypokalemia; Z66 Do not resuscitate; R13.12 Dysphagia, oropharyngeal phase; E86.0 Dehydration; Z68.22 Body mass index [BMI] 22.0-22.9, adult
CPT/HCPCS: 36415; 70450; 71045; 74230; 80048; 80053; 81001; 83605; 83735; 84100; 85025; 87040; 87077; 87086; 87088; 87186; 87426; 87493; 92507; 92526; 92610; 93005; 94762; 97110; 97163; 97166; 97530; 97535; 99285; J2185; J7030; J7040; J7050; A4216; J0744

== ENCOUNTER 2021-07-17 02:58 | Inpatient (IN) | payer MEDICARE, MEDICAID, SELFPAY ==
[2021-07-17] VITALS (16 sets, daily range): BP systolic 102–133; BP diastolic 40–59; PULSE 89–127; RESP 14–18; TEMP 36.7–38.2; O2SAT 90–99; BMI 18.9
--- NOTE | 2021-07-17 03:30 | EX.ED.DYSGE1 ---
HPI History of Present Illness Chief Complaint: Alt LOC Informant: patient Limited: other (Confusion) Onset/Context/Timing Onset: Today Context: Gradual Onset Timing: Continuous Narrative Narrative: Patient presents with confusion that became worse today. Patient states she feels tired and confused. Patient states she has a hard time explaining what she is feeling. Patient is a poor historian. Patient is only alert and oriented x2. Patient did state that she had a fever prior to coming to the emergency department but it is now normal. Patient admits to some dysuria. Patient denies any nausea or vomiting. Patient denies any chest pain or shortness of breath. [facility] Medical History Acute cholecystitis Cancer Cholelithiases Chronic cholecystitis Elevated liver enzymes Former smoker Gallstone pancreatitis Hypertension Pancreatitis Stroke/cerebrovascular accident Home Medications fluticasone propionate 2 spray INTRANASAL BID 11/05/20 [History Last Taken Unknown] acidophilus-pectin, citrus 1 tab PO BID #0 tab 12/16/20 [Rx Last Taken Unknown] acyclovir 400 mg PO TID 7 Days #42 cap 12/16/20 [Rx Last Taken Unknown] lidocaine HCl [Lidocaine Viscous] 10 ml PO Q3H PRN PRN #0 ml 12/16/20 [Rx Last Taken Unknown] menthol-zinc oxide [Calmoseptine] 1 applic TOPICAL TID #0 g 12/16/20 [Rx Last Taken Unknown] peg [id number] [Artificial Tears(zi-zfjd-klia)] 1 drp EACH EYE Q1H PRN PRN #0 ml 12/16/20 [Rx Last Taken Unknown] sennosides-docusate sodium [Stool Softener-Stimulant Laxat] 2 tab PO BID PRN PRN #0 tab 12/16/20 [Rx Last Taken Unknown] amlodipine 5 mg PO DAILY 07/17/21 [History Last Taken Unknown] enalapril maleate 20 mg PO DAILY 07/17/21 [History Last Taken Unknown] famotidine 20 mg PO BID 07/17/21 [History Last Taken Unknown] lorazepam 1 mg PO QHS 07/17/21 [History Last Taken Unknown] metoprolol tartrate 50 mg PO BID 07/17/21 [History Last Taken Unknown] nitrofurantoin 100 mg PO BID 07/17/21 [History Last Taken Unknown] phenazopyridine [Urogesic] 1 mg PO 4X/DAY 07/17/21 [History Last Taken Unknown] prednisone 20 mg PO DAILY 07/17/21 [History Last Taken Unknown] Allergy/AdvReac Type Severity Reaction Status Date / Time milk Allergy PT UNSURE Verified 07/17/21 03:03 OF REACTION aspirin AdvReac Unknown Verified 07/17/21 03:03 Cephalosporins AdvReac Unknown Verified 07/17/21 03:03 codeine AdvReac Unknown Verified 07/17/21 03:03 Penicillins [PCN] AdvReac Unknown Verified 07/17/21 03:03 propoxyphene AdvReac Unknown Verified 07/17/21 03:03 [From Darvocet-N] Tgykodb-OHS-EaK Reductase AdvReac Unknown Verified 07/17/21 03:03 Inhibitor [Xcutkug-Alm-Ner Reductase Inhibitor] Sulfa (Sulfonamide AdvReac Unknown Verified 07/17/21 03:03 Antibiotics) Family History Other Cancer Surgical History History of appendectomy S/P laparoscopic cholecystectomy (~02/20/19) Status post endoscopic retrograde cholangiopancreatography (~02/21/19) Social History Smoking Status: Former smoker ROS ROS ED Constitutional Constitutional ED: Denies chills or fever(s) Eyes Eyes: Denies blurry vision or change in vision ENT ENT ED: Denies rhinorrhea or sore throat Cardiovascular Cardiovascular: Denies chest pain or palpitations Respiratory/Chest Respiratory/Chest: Denies cough or dyspnea Gastrointestinal Gastrointestinal: Denies nausea or vomiting Genitourinary Genitourinary ED: Reports dysuria; Denies hematuria Musculoskeletal Musculoskeletal: Reports back pain; Denies neck pain Integumentary Denies abscess or rash Neurologic Neurologic: Denies headache(s) or weakness Allergic/Immunologic Allergic/Immunologic ED: Denies mouth swelling or urticaria EXAM Physical Exam Const Vital Signs: 07/17/21 02:59 Temperature 98.0 F Temperature Source Temporal Pulse Rate 107 H Respiratory Rate 18 Blood Pressure 118/54 L Blood Pressure Mean 75 Pulse Ox 99 Oxygen Delivery Method Nasal Cannula Oxygen Flow Rate (L/min) 2 Positive well nourished and well developed General Appearance ED: well developed and NAD HEENT Reports moist mucous membranes Neck supple and no JVD Resp normal respiratory effort and clear to auscultation bilaterally Cardio regular rate, regular rhythm and no murmurs GI normal to inspection, nondistended, normoactive bowel sounds Palpation: soft and tender suprapubic; Negative for guarding or rebound tenderness present Extremity normal to inspection General Extremety ED: Negative for edema or tenderness General Extremity: Negative for edema Neuro CN's II-XII intact bilaterally and no sensory deficits noted Sensorium / Orientation: alert and orientation impaired Motor Exam: strength 5/5 throughout Skin no rashes or lesions noted MDM MDM MDM Narrative Medical decision making narrative: CBC shows a leukocytosis of 23.5. Hemoglobin was 11.0 and hematocrit was 34.8. Comprehensive metabolic profile showed a slightly elevated BUN of 24. Lactate was elevated at 3.4. Lipase was normal. Serum ammonia level was normal. High-sensitivity troponin was normal at 11. COVID-19 rapid antigen and influenza A and influenza B swabs were obtained and were negative. Urinalysis shows leukocyte esterase of 500 with 50-100 white blood cells and 2+ bacteria. Urine culture was obtained. Blood cultures were obtained. Patient started on Levaquin due to her allergy to penicillins and cephalosporins. Portable 1 view chest x-ray was obtained. On my interpretation, lung burch are clear. There is normal cardiac silhouette. Bony thorax is normal. There is no acute process noted. Radiologist also interpreted the x-ray and agrees. CT scan of the brain was obtained. There is no acute intracranial abnormality. There are chronic changes noted. This was interpreted by the radiologist and reviewed by myself. Case was discussed with the hospitalist. He will admit the patient to the hospital to the PCU. Family understood and was agreeable with the plan. Patient was still confused. Lab Data Attestation: I reviewed the patient's lab results. Labs: Laboratory Results - last 24 hr 07/17/21 07/17/21 07/17/21 02:45 02:45 02:45 WBC 23.5 H RBC 4.34 Hgb 11.0 L Hct 34.4 L MCV 79.3 L MCH 25.3 L MCHC 32.0 RDW Std Deviation 53.3 H RDW Coeff of Castillo 19.4 H Plt Count 399 MPV 8.9 Immature Gran % (Auto) 1.300 H Neut % (Auto) 92.6 H Lymph % (Auto) 1.6 L Emery % (Auto) 4.2 Eos % (Auto) 0.2 Baso % (Auto) 0.1 Absolute Neuts (auto) 21.8 H Absolute Lymphs (auto) 0.38 L Nucleated RBC % 0 Differential Comment SCANNED Sodium 136 Potassium 3.3 L Chloride 101 Carbon Dioxide 25.0 Anion Gap 10 BUN 24 H Creatinine 0.97 Estim Creat Clear Calc 38.01 Est GFR (MDRD) Af Amer 71 Est GFR (MDRD) Non-Af 59 L BUN/Creatinine Ratio 24.7 H Glucose 120 H Lactic Acid 3.4 H* Calcium 8.5 Total Bilirubin 0.40 AST 95 H ALT 92 H Alkaline Phosphatase 96 Ammonia Troponin I High Sens 11 Total Protein 6.8 Albumin 3.1 L Globulin 3.7 Albumin/Globulin Ratio 0.8 L Lipase 40 L Urine Color Urine Clarity Urine pH Ur Specific [place] Urine Protein Urine Glucose (UA) Urine Ketones Urine Occult Blood Urine Nitrite Urine Bilirubin Urine Urobilinogen Ur Leukocyte Esterase Urine RBC Urine WBC Ur Squamous Epith Cells Urine Bacteria WBC Casts Urine Mucus 07/17/21 07/17/21 03:55 03:58 WBC RBC Hgb Hct MCV MCH MCHC RDW Std Deviation RDW Coeff of Castillo Plt Count MPV Immature Gran % (Auto) Neut % (Auto) Lymph % (Auto) Emer[place] % (Auto) Eos % (Auto) Baso % (Auto) Absolute Neuts (auto) Absolute Lymphs (auto) Nucleated RBC % Differential Comment Sodium Potassium Chloride Carbon Dioxide Anion Gap BUN Creatinine Estim Creat Clear Calc Est GFR (MDRD) Af Amer Est GFR (MDRD) Non-Af BUN/Creatinine Ratio Glucose Lactic Acid Calcium Total Bilirubin AST ALT Alkaline Phosphatase Ammonia 14.0 Troponin I High Sens Total Protein Albumin Globulin Albumin/Globulin Ratio Lipase Urine Color Yellow Urine Clarity Cloudy Urine pH 6.0 Ur Specific [place] 1.010 Urine Protein Negative Urine Glucose (UA) Normal Urine Ketones Negative Urine Occult Blood 25 H Urine Nitrite Negative Urine Bilirubin Negative Urine Urobilinogen Normal Ur Leukocyte Esterase 500 H Urine RBC 0-5 SEEN Urine WBC 50-100 SEEN Ur Squamous Epith Cells 0 SEEN Urine Bacteria 2+ WBC Casts 0-5 SEEN Urine Mucus 0 SEEN Radiography Chest X-Ray - ED: 1 View, Read by ED Physician, Read by Radiologist and No Acute Disease Diagnostic Testing: Clinical Impression(s) from Imaging Studies Chest X-Ray 07/17/21 03:36 IMPRESSION: No acute findings in the chest. Electronically Signed: Elio Salcedo MD at 4:28 EDT , Discharge Plan Triage Chief Complaint: Alt LOC ED Provider: Antwan Tan Dx/Rx/DC Orders Clinical Impression: Severe sepsis, UTI (urinary tract infection) Primary Care Provider: Luis Manuel Arguello Disposition Disposition: Acute Care Hospital [facility]
--- NOTE | 2021-07-17 03:36 | RAD_ITS ---
EXAM: XR CHEST, 1 VIEW CLINICAL INDICATION: Confusion TECHNIQUE: Frontal view of the chest. This report was created using [employer] report generation technology. COMPARISON: Previous chest radiographs of 12/07/2020, , and 02/22/2019. FINDINGS: LUNGS AND PLEURAL SPACES: Chronic ill-defined density noted within the left upper lung laterally where a mass was present on the prior study 2019, consistent with residual scarring. No pneumonia or other acute pulmonary infiltrates. HEART: Heart size is borderline enlarged with normal pulmonary vasculature. Thoracic aorta remains calcific and minimally elongated. Normal pulmonary vasculature. MEDIASTINUM: Central airways and mediastinal contour are unremarkable. Central venous catheter has been removed since study of 12/07/2020. BONES/JOINTS: No acute abnormality. SOFT TISSUES: Unremarkable. RAD/Chest 1 View (Portable) IMPRESSION: No acute findings in the chest. Electronically Signed: Elio Salcedo MD at 4:28 EDT ,
--- NOTE | 2021-07-17 03:36 | CT_ITS ---
STUDY: CT BRAIN WITHOUT CONTRAST REASON FOR EXAM: Female, 80 years old. Altered mental status RADIATION DOSAGE (If Supplied By Facility): CTDIvol = ( 44.99 ) mGy, DLP = ( 812.98 ) mGycm TECHNIQUE: Transaxial CT imaging of the brain was performed without administration of intravenous contrast material. Individualized dose optimization techniques were used for this CT. COMPARISON: Previous CT of 12/06/2020. FINDINGS: Normal soft tissue structures. Old left occipital craniotomy defect again noted. Mild age-related atrophy again noted with extensive chronic small vessel ischemic changes in the deep white matter tracts. Small wedge-shaped focus of postoperative encephalomalacia within the posterior left occipital lobe. Ex vacuo enlargement of the adjacent occipital horn. Prominent ventricles and sulci due to the atrophy. No midline shift. Normal basal ganglia and thalami. Normal brainstem. Normal cerebellum. There is no intracranial hemorrhage. There are no findings of an acute ischemic infarction. Normal visualized paranasal sinuses. Vascular calcification is present. The middle cerebral arteries are not hyperdense. CT/Brain/Head without Contrast IMPRESSION: No significant interval change or acute intracranial abnormality. 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 Atrophy with chronic small vessel ischemic changes. Electronically Signed: Elio Salcedo MD at 5:23 EDT ,
--- NOTE | 2021-07-17 03:37 | EKG12_ITS ---
Test Reason : DYSRHYTHMIA Blood Pressure : / mmHG Vent. Rate : 110 BPM Atrial Rate : 110 BPM P-R Int : 150 ms QRS Dur : 098 ms QT Int : 346 ms P-R-T Axes : 083 -06 081 degrees QTc Int : 468 ms Sinus tachycardia with Premature atrial complexes Septal infarct , age undetermined Abnormal ECG Confirmed by ANTOINETTE YANEZ, ERINN ([id number]), food expeditor LENY SMILEY ([id number]) on 07/18/2021 2:20:59 PM Referred By: GERRY Confirmed By:KARAN CURRY MD
[2021-07-17 03:50] LABS: Absolute Lymphocyte Count 0.38 X10^3/uL (0.83-4.51); Absolute Neutrophil Count 21.8 X10^3/uL (2.0-7.7); Basophil# 0.03 X10^3/uL; Basophil% 0.1 % (0-1); Eosinophil# 0.04 X10^3/uL; Eosinophils% 0.2 % (0-5); Hematocrit 34.4 % (37-47); Lymphocyte # 0.38 X10^3/ul (0.83-4.51); Lymphocyte % 1.6 % (19-41); Mean Corpuscular Hgb 25.3 pg (27.0-32.0); Mean Corpuscular Volume 79.3 fL (81-99); Mean Platelet Vol. 8.9 fl (6.2-12.0); Monocyte# 0.99 X10^3/uL; Monocyte% 4.2 % (0-10); NRBC Flagged by Analyzer 0 % (0-5); Neutrophil # 21.76 X10^3/uL (2.7-7.7); Neutrophil % 92.6 % (47-70); POSITIVE DIFFERENTIAL YES; Platelet Count 399 K/mm3 (150-450); RBC Distribution Width CV 19.4 % (11.6-14.6); RBC Distribution Width SD 53.3 fl (35.1-43.9); Red Blood Count 4.34 M/mm3 (4.2-5.4); White Blood Count 23.5 K/mm3 (4.4-11.0)
[2021-07-17 03:56] LABS: Differential Indicated SCAN CRITERIA MET
[2021-07-17 04:03] LABS: Mucous, Urine 0 SEEN /hpf (<or=2+); Squamous Epithelial Cells - UA 0 SEEN /hpf (5-10)
[2021-07-17 04:04] LABS: Color, Urine Yellow (Yellow); Glucose, Dipstick Normal (Normal); Ketone-Dipstick Negative (Negative); Leukocyte Esterase-Dipstick 500 /ul (Negative); Nitrite-Dipstick Negative (Negative); Occult Blood-Urine 25 /ul (Negative); Protein-Dipstick Negative (Negative); Urine Bilirubin Dipstick Negative (Negative); Urine Clarity Cloudy (Clear); Urine Urobilinogen Normal (Normal)
[2021-07-17 04:08] LABS: ALB/GLOB Ratio 0.8 RATIO (0.9-2.4); AST(SGOT) 95 U/L (15-37); Alanine Aminotransfer ALT/SGPT 92 U/L (13-56); Albumin, Serum 3.1 g/dL (3.2-5.0); Alkaline Phosphatase 96 U/L (45-117); Anion Gap 10 (5-15); BUN 24 mg/dL (7-18); BUN/Creat Ratio 24.7 RATIO (10-20); Calcium,Total 8.5 mg/dL (8.5-10.1); Chloride 101 mmol/L (98-107); Creatinine, Serum 0.97 mg/dL (0.55-1.02); EST Glomerular Filtration Rate 59 mL/min (>60); Est Glom Filt Rate - Afr Amer 71 mL/min (>60); Estimated Creatinine Clearance 38.01 ml/min; Globulin 3.7 g/dL (2.2-4.2); Glucose 120 mg/dL (74-106); Lipase 40 U/L (73-393); Potassium 3.3 mmol/L (3.5-5.1); Protein, Total 6.8 g/dL (6.4-8.2); Sodium Level 136 mmol/L (136-145); Troponin-I HS 11 pg/mL (3.0-54.0)
[2021-07-17 04:10] LABS: Lactic Acid 3.4 mmol/L (0.4-1.9)
[2021-07-17 04:12] LABS: Red Blood Cells-Urine 0-5 SEEN /hpf (0-5); White Blood Cells 50-100 SEEN /hpf (0-5)
[2021-07-17 04:13] LABS: Bacteria 2+ /hpf (None Seen); White Cell Cast 0-5 SEEN /lpf (None Seen)
[2021-07-17 04:45] LABS: Differential Comment SCANNED
--- NOTE | 2021-07-17 04:46 | HP.PCM.HOS_ITS ---
HPI - General General Date of Admission: 07/17/21 HPI Narrative JAZMYNE GUZMAN, is a 80 F with a significant history of C. difficile; bladder prolapse who presents to the emergency department. Patient's report that she is here because of a bladder problem. She does not describe further. She reports a fever at home. History is difficult to obtain secondary to encephalopathy. Patient stated that there are plans to fix her bladder at outside hospital and she is not going to stay at the hospital. She requested that the case be discussed with her daughter and her boyfriend. She report that her boyfriend brought her to the hospital. Her boyfriend could not be reached by phone. Her daughter was raised by phone. Her daughter who did not originally know the patient was at the [facility] stated that the plan is to fix patient's bladder but that is going to be a couple of weeks and surgeon is requiring work-up at this time. [facility] Medical History Acute cholecystitis Cancer Cholelithiases Chronic cholecystitis Elevated liver enzymes Former smoker Gallstone pancreatitis Hypertension Pancreatitis Stroke/cerebrovascular accident Home Medications fluticasone propionate 2 spray INTRANASAL BID 11/05/20 [History Last Taken U nknown] acidophilus-pectin, citrus 1 tab PO BID #0 tab 12/16/20 [Rx Last Taken Unknown] acyclovir 400 mg PO TID 7 Days #42 cap 12/16/20 [Rx Last Taken Unknown] lidocaine HCl [Lidocaine Viscous] 10 ml PO Q3H PRN PRN #0 ml 12/16/20 [Rx Last Taken Unknown] menthol-zinc oxide [Calmoseptine] 1 applic TOPICAL TID #0 g 12/16/20 [Rx Last Taken Unknown] peg [id number] [Artificial Tears(uv-elam-hceg)] 1 drp EACH EYE Q1H PRN PRN #0 ml 12/16/20 [Rx Last Taken Unknown] sennosides-docusate sodium [Stool Softener-Stimulant Laxat] 2 tab PO BID PRN PRN #0 tab 12/16/20 [Rx Last Taken Unknown] amlodipine 5 mg PO DAILY 07/17/21 [History Last Taken Unknown] enalapril maleate 20 mg PO DAILY 07/17/21 [History Last Taken Unknown] famotidine 20 mg PO BID 07/17/21 [History Last Taken Unknown] lorazepam 1 mg PO QHS 07/17/21 [History Last Taken Unknown] metoprolol tartrate 50 mg PO BID 07/17/21 [History Last Taken Unknown] nitrofurantoin 100 mg PO BID 07/17/21 [History Last Taken Unknown] phenazopyridine [Urogesic] 1 mg PO 4X/DAY 07/17/21 [History Last Taken Unknown] prednisone 20 mg PO DAILY 07/17/21 [History Last Taken Unknown] Allergy/AdvReac Type Severity Reaction Status Date / Time milk Allergy PT UNSURE Verified 07/17/21 03:03 OF REACTION aspirin AdvReac Unknown Verified 07/17/21 03:03 Cephalosporins AdvReac Unknown Verified 07/17/21 03:03 codeine AdvReac Unknown Verified 07/17/21 03:03 Penicillins [PCN] AdvReac Unknown Verified 07/17/21 03:03 propoxyphene AdvReac Unknown Verified 07/17/21 03:03 [From Darvocet-N] Hmdufga-CMV-IpG Reductase AdvReac Unknown Verified 07/17/21 03:03 Inhibitor [Eehedlu-Tga-Zis Reductase Inhibitor] Sulfa (Sulfonamide AdvReac Unknown Verified 07/17/21 03:03 Antibiotics) Family History Other Cancer Surgical History History of appendectomy S/P laparoscopic cholecystectomy (~02/20/19) Status post endoscopic retrograde cholangiopancreatography (~02/21/19) Social History Smoking Status: Former smoker ROS Review of Systems ROS Unobtainable: due to encephalopathy Vital Signs Vital Signs Vital Signs: 07/17/21 02:59 Temperature 98.0 F Temperature Source Temporal Pulse Rate 107 H Respiratory Rate 18 Blood Pressure 118/54 L Blood Pressure Mean 75 Pulse Ox 99 Oxygen Delivery Method Nasal Cannula Oxygen Flow Rate (L/min) 2 Weight Weight: 51.2 kg Body Mass Index (BMI) 20.0 Physical Exam Narrative Physical exam: General: Well-nourished, well-developed. Head: Normocephalic, atraumatic, no tenderness Eyes: Vision is grossly intact. EOMI ENT, no trauma, no rhinorrhea Neck: Nontender, full range of motion, no spinal tenderness, deformities, step-off CVS: Tachycardia. S1-S2 present. No murmur, gallop or rub. Respiratory : clear to auscultation bilaterally, chest wall nontender, no wheezing Abdomen: Soft, nontender, nondistended, normal bowel sounds, no masses : Deferred Back: Nontender, no CVA tenderness, no midline spinal tenderness, deformities, step-offs Extremities: Nontender full range of motion, no trauma Skin: Normal color, no trauma, abrasions Neuro: Alert, oriented, cranial nerves II through XII grossly intact. Psychiatry: Normal mood. Normal affect. Not depressed. Not anxious. Results Lab / Micro Data Result Diagrams: 07/17/21 02:45 07/17/21 02:45 Labs: Laboratory Results - last 24 hr 07/17/21 02:45: WBC 23.5 H, RBC 4.34, Hgb 11.0 L, Hct 34.4 L, MCV 79.3 L, MCH 25.3 L, MCHC 32.0, RDW Std Deviation 53.3 H, RDW Coeff of Castillo 19.4 H, Plt Count 399, MPV 8.9, Immature Gran % (Auto) 1.300 H, Neut % (Auto) 92.6 H, Lymph % (Auto) 1.6 L, Story % (Auto) 4.2, Eos % (Auto) 0.2, Baso % (Auto) 0.1, Absolute Neuts (auto) 21.8 H, Absolute Lymphs (auto) 0.38 L, Nucleated RBC % 0, Differential Comment SCANNED 07/17/21 02:45: Sodium 136, Potassium 3.3 L, Chloride 101, Carbon Dioxide 25.0, Anion Gap 10, BUN 24 H, Creatinine 0.97, Estim Creat Clear Calc 38.01, Est GFR (MDRD) Af Amer 71, Est GFR (MDRD) Non-Af 59 L, BUN/Creatinine Ratio 24.7 H, Glucose 120 H, Calcium 8.5, Total Bilirubin 0.40, AST 95 H, ALT 92 H, Alkaline Phosphatase 96, Troponin I High Sens 11, Total Protein 6.8, Albumin 3.1 L, Globulin 3.7, Albumin/Globulin Ratio 0.8 L, Lipase 40 L 07/17/21 02:45: Lactic Acid 3.4 H* 07/17/21 03:55: Ammonia 14.0 07/17/21 03:58: Urine Color Yellow, Urine Clarity Cloudy, Urine pH 6.0, Ur Specific [place] 1.010, Urine Protein Negative, Urine Glucose (UA) Normal, Urine Ketones Negative, Urine Occult Blood 25 H, Urine Nitrite Negative, Urine Bilirubin Negative, Urine Urobilinogen Normal, Ur Leukocyte Esterase 500 H, Urine RBC 0-5 SEEN, Urine WBC 50-100 SEEN, Ur Squamous Epith Cells 0 SEEN, Urine Bacteria 2+, WBC Casts 0-5 SEEN, Urine Mucus 0 SEEN Micro: Microbiology 07/17/21 03:40 Nasal Secretion SARS-CoV-2 & FLU Antigen (Rapid) - Final Radiology Impression Chest X-Ray 07/17/21 03:36 IMPRESSION: No acute findings in the chest. Electronically Signed: Elio Salcedo MD at 4:28 EDT , Assessment & Plan Assessment/Plan (1) Acute metabolic encephalopathy: (2) UTI (urinary tract infection): QUALIFIERS: Urinary tract infection type: acute cystitis Hematuria presence: without hematuria Qualified Code(s): N30.00 - Acute cystitis without hematuria PLAN: Acute metabolic encephalopathy currently to UTI Patient meets SIRS criteria with white count of 23.5 (home med list showed prednisone which can increase white counts); heart rate of more than 90. Lactic acid 3.4. Trend lactic acid. Urine culture and blood culture was obtained at the emergency department; follow. However qSOFA is only 1 (encephalopathy). Patient is not hypoxic. Patient is on room air. ABG ordered. There is no thrombocytopenia Florentin Coma Scale is 15; bilirubin is not elevated; MAP is more than 70; creatinine is not elevated. Although lactic acid is elevated patient does not meet sepsis criteria with qSOFA/sofa Urinalysis reviewed showed abnormal urinalysis. Started on Levaquin at the e mergency department and continued. Levaquin dosed per creatinine clearance. Urine culture on 12/06/2020 was reviewed. Urine culture at that time showed Klebsiella pneumoniae which was pansensitive. Brain CT independently visualized and interpreted did not show any acute pathology Trend CBC. History of hypertension With her overall clinical condition of infection patient is at risk of hypotensi on. Would hold off home blood pressure medications at this time. Trend blood pressure. Resume blood pressure meds when necessary Hypokalemia Potassium is 3.3 Trend. DVT prophylaxis: SCDs ordered. Charges/Coding Visit Charges Inpatient E&M: 08390 Init Hosp L3
[2021-07-17] MEDS: levoFLOXacin IV 750 MG/150 ML BAG 100 MG IV (04:49)
[2021-07-17 07:13] LABS: Absolute Lymphocyte Count 0.19 X10^3/uL (0.83-4.51); Absolute Neutrophil Count 26.3 X10^3/uL (2.0-7.7); Basophil# 0.06 X10^3/uL; Basophil% 0.2 % (0-1); Eosinophil# 0.01 X10^3/uL; Hemoglobin 10.2 g/dL (12.0-15.0); Lymphocyte # 0.19 X10^3/ul (0.83-4.51); Lymphocyte % 0.7 % (19-41); Mean Corp Hgb Conc 31.9 g/dL (32-36); Mean Corpuscular Hgb 25.1 pg (27.0-32.0); Mean Corpuscular Volume 78.8 fL (81-99); Mean Platelet Vol. 8.5 fl (6.2-12.0); Monocyte# 0.59 X10^3/uL; Monocyte% 2.1 % (0-10); NRBC Flagged by Analyzer 0 % (0-5); Neutrophil # 26.26 X10^3/uL (2.7-7.7); Neutrophil % 95.6 % (47-70); POSITIVE DIFFERENTIAL YES; Platelet Count 329 K/mm3 (150-450); RBC Distribution Width CV 19.6 % (11.6-14.6); RBC Distribution Width SD 54.3 fl (35.1-43.9); Red Blood Count 4.06 M/mm3 (4.2-5.4); White Blood Count 27.5 K/mm3 (4.4-11.0)
[2021-07-17 07:15] LABS: Differential Indicated SCAN CRITERIA MET
[2021-07-17 07:46] LABS: Reflex Lactate? Y
[2021-07-17 07:50] LABS: Anisocytosis 1+
[2021-07-17 07:51] LABS: Microcytosis 1+
[2021-07-17 07:56] LABS: Anion Gap 9 (5-15); BUN 21 mg/dL (7-18); BUN/Creat Ratio 19.6 RATIO (10-20); Chloride 103 mmol/L (98-107); Creatinine, Serum 1.07 mg/dL (0.55-1.02); EST Glomerular Filtration Rate 53 mL/min (>60); Est Glom Filt Rate - Afr Amer 64 mL/min (>60); Estimated Creatinine Clearance 33.72 ml/min; Glucose 151 mg/dL (74-106); Potassium 3.7 mmol/L (3.5-5.1); Sodium Level 137 mmol/L (136-145)
[2021-07-17] MEDS: Famotidine 20 MG Tablet PO ×2 (08:49→22:13)
[2021-07-17] MEDS: Enoxaparin 40 MG/0.4 ML Syringe SC (08:49)
[2021-07-17] MEDS: Acetaminophen 325 MG Tablet 650 MG PO (08:51)
[2021-07-17] MEDS: 0.9% Normal Saline 1,000 ML 150 ML IV ×3 (09:05→22:15)
--- NOTE | 2021-07-17 10:29 | PN.HOSP_ITS ---
Documented by User: Sony MEADE 07/17/21 10:44 Subjective Subjective Patient is a 80-year-old female lying in bed, alert and orient x2, not oriented to time. Patient is still encephalopathic with tangential speech and crying out for her mother. Unable to provide much insight into current condition as she is still acutely confused. Objective Data Objective Data Vital Signs: Vital Signs Temp Pulse Resp BP Pulse Ox 100.8 F H 127 H 14 133/59 H 94 07/17/21 08:33 07/17/21 09:25 07/17/21 09:25 07/17/21 08:33 07/17/21 09:25 Oxygen Flow Rate (L/min) 2 Oxygen Delivery Method Room Air Weight: 110 lb 7.225 oz Body Mass Index (BMI) 18.9 Intake & Output: Intake and Output for Last 24 Hours 07/15/21 07/16/21 07/17/21 23:59 23:59 23:59 Intake Total 150 / 150 Output Total 0 / 0 Balance 150 / 150 Lab / Micro Data Result Diagrams: 07/17/21 07:01 07/17/21 07:01 Labs: Laboratory Results - last 24 hr 07/17/21 02:45: WBC 23.5 H, RBC 4.34, Hgb 11.0 L, Hct 34.4 L, MCV 79.3 L, MCH 25.3 L, MCHC 32.0, RDW Std Deviation 53.3 H, RDW Coeff of Castillo 19.4 H, Plt Count 399, MPV 8.9, Immature Gran % (Auto) 1.300 H, Neut % (Auto) 92.6 H, Lymph % (Auto) 1.6 L, Howard % (Auto) 4.2, Eos % (Auto) 0.2, Baso % (Auto) 0.1, Absolute Neuts (auto) 21.8 H, Absolute Lymphs (auto) 0.38 L, Nucleated RBC % 0, Differential Comment SCANNED 07/17/21 02:45: Sodium 136, Potassium 3.3 L, Chloride 101, Carbon Dioxide 25.0, Anion Gap 10, BUN 24 H, Creatinine 0.97, Estim Creat Clear Calc 38.01, Est GFR (MDRD) Af Amer 71, Est GFR (MDRD) Non-Af 59 L, BUN/Creatinine Ratio 24.7 H, Glucose 120 H, Calcium 8.5, Total Bilirubin 0.40, AST 95 H, ALT 92 H, Alkaline Phosphatase 96, Troponin I High Sens 11, Total Protein 6.8, Albumin 3.1 L, Globulin 3.7, Albumin/Globulin Ratio 0.8 L, Lipase 40 L 07/17/21 02:45: Lactic Acid 3.4 H* 07/17/21 03:55: Ammonia 14.0 07/17/21 03:58: Urine Color Yellow, Urine Clarity Cloudy, Urine pH 6.0, Ur Specific Adams 1.010, Urine Protein Negative, Urine Glucose (UA) Normal, Urine Ketones Negative, Urine Occult Blood 25 H, Urine Nitrite Negative, Urine Bilirubin Negative, Urine Urobilinogen Normal, Ur Leukocyte Esterase 500 H, Urine RBC 0-5 SEEN, Urine WBC 50-100 SEEN, Ur Squamous Epith Cells 0 SEEN, Urine Bacteria 2+, WBC Casts 0-5 SEEN, Urine Mucus 0 SEEN 07/17/21 07:01: WBC 27.5 H, RBC 4.06 L, Hgb 10.2 L, Hct 32.0 L, MCV 78.8 L, MCH 25.1 L, MCHC 31.9 L, RDW Std Deviation 54.3 H, RDW Coeff of Castillo 19.6 H, Plt Count 329, MPV 8.5, Immature Gran % (Auto) 1.400 H, Neut % (Auto) 95.6 H, Lymph % (Auto) 0.7 L, Howard % (Auto) 2.1, Eos % (Auto) 0.0, Baso % (Auto) 0.2, Absolute Neuts (auto) 26.3 H, Absolute Lymphs (auto) 0.19 L, Nucleated RBC % 0, Anisocytosis 1+, Microcytosis 1+ 07/17/21 07:01: Sodium 137, Potassium 3.7, Chloride 103, Carbon Dioxide 25.0, Anion Gap 9, BUN 21 H, Creatinine 1.07 H, Estim Creat Clear Calc 33.72, Est GFR (MDRD) Af Amer 64, Est GFR (MDRD) Non-Af 53 L, BUN/Creatinine Ratio 19.6, Glucose 151 H, Calcium 8.0 L 07/17/21 07:01: Lactic Acid 5.0 H* Micro: Microbiology 07/17/21 03:40 Nasal Secretion SARS-CoV-2 & FLU Antigen (Rapid) - Final Radiography Diagnostic Testing: Radiology Impression Brain CT 07/17/21 03:36 IMPRESSION: No significant interval change or acute intracranial abnormality. 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 Atrophy with chronic small vessel ischemic changes. Electronically Signed: Elio aSlcedo MD at 5:23 EDT , Chest X-Ray 07/17/21 03:36 IMPRESSION: No acute findings in the chest. Electronically Signed: Elio Salcedo MD at 4:28 EDT , Physical Exam Const alert Orientation / Consciousness: confused and disoriented Exam Limitations: altered mental status Nutritional Appearance: underweight HEENT head/scalp atraumatic and moist oral mucous membranes Head and Scalp: normocephalic Eyes PERRL, EOMs intact bilaterally and conjunctivae normal Neck no lymphadenopathy, supple and no JVD Resp normal respiratory effort, no retractions and no use of accessory muscles Cardio regular rhythm and no JVD Rate: tachycardic GI normal to inspection, nondistended, normoactive bowel sounds Extremity normal to inspection Skin no rashes or lesions noted Neuro Neuro Narrative: Unable to assess. Psych Mood & Affect: anxious Assessment & Plan Assessment/Plan (1) Acute metabolic encephalopathy: (2) UTI (urinary tract infection): QUALIFIERS: Hematuria presence: without hematuria Urinary tract infection type: acute cystitis Qualified Code(s): N30.00 - Acute cystitis without hematuria PLAN: Day 0 Discharge planning: To be determined. 1) acute cystitis Patient still meets SIRS criteria with a white count of 27,000, tachycardia, and elevated lactate at 5 which is worse from admission. qSOFA score is 1 for altered mental status. Patient is on an unspecified dose of prednisone, which could be contributing to her elevated white count. Previous urine culture from 12/06 showed Klebsiella pneumonia which was pansensitive. We will continue levofloxacin and await urine cultures, initiate IV fluids at 150 mL's per hour. 2) acute metabolic encephalopathy Secondary to #1. Patient still acutely confused with tangential speech and is crying out for mother. Does not appear to comprehend her current condition. Plan as above. 3) hypokalemia Resolved, currently 3.7. We will continue to monitor. 4) lactic acidosis Currently 5.0, which is worse from admission. Patient on no contributing medications at home. Plan as above. 5) GERD Continue Pepcid. DVT prophylaxis - Lovenox Patient seen by Sony Sparks PA-C, under the supervision of Dr. Hedrick. Time spent on patient care: 10 minutes. Documented by User: Dr. Antwan Hedrick, 07/17/21 16:30 Subjective Subjective Confused. Wanting to lie down. Objective Data Lab / Micro Data Result Diagrams: 07/17/21 07:01 07/17/21 07:01 Physical Exam Const Constitutional Narrative: confused. pleasant. Resp normal respiratory effort, no retractions, no use of accessory muscles and clear to auscultation bilaterally Cardio regular rate, regular rhythm, S1 normal heart sound and S2 normal heart sound GI normal to inspection, nondistended, normoactive bowel sounds, soft to palpation, non-tender and non-distended Extremity normal to inspection and full ROM Assessment & Plan Assessment/Plan (1) Acute metabolic encephalopathy: (2) UTI (urinary tract infection): QUALIFIERS: Hematuria presence: without hematuria Urinary tract infection type: acute cystitis Qualified Code(s): N30.00 - Acute cystitis without hematuria (3) Severe malnutrition: PLAN: Patient seen and examined independently. Data and vitals reviewed. I agree with the above note by the physician shop assistant. 1. Acute UTI * Continue with levofloxacin. * Follow-up urine cultures and adjust antibiotics accordingly. 2. Acute metabolic encephalopathy * Likely due to the underlying urine infection as well as the patient's history of craniotomy with encephalomalacia. * Avoid potentiating medications 3. Lactic acidosis * Nonsevere sepsis at this time nor sepsis * Improving. No additional work-up at this time. 4. VTE prophylaxis with enoxaparin Greater than 20 minutes of which greater than for percent of time was valuing the patient and data. Charges/Coding Procedures Hospitalists Procedures: Other Procedure - See Report (Nonbillable rounding as patient was admitted after midnight.)
[2021-07-17] MEDS: predniSONE 20 MG Tablet PO (11:06)
[2021-07-17 11:10] LABS: Reflex Lactate? Y
--- NOTE | 2021-07-17 11:50 | CASEMGMT ---
JONAS LEY Face to Face with patient for initial transition planning/care coordination assessment. JONAS LEY introduced self and role at [facility]. Patient sitting in chair, alert and oriented. Patient willing to participate in assessment and is able to answer all questions appropriately. Care providers, pharmacy, and demographics verified. Patient wishes to discharge home with possible HHC if needed. Patient gave permission to call daughter to verify CM through [employer] information. Patient states she has no further needs or concerns at this time. JONAS LEY called daughter ALTON Nguyen, to verify CM. Wendy provided information, see below. CM to follow for discharge planning needs that may arise. PCP: Saundra Specialists: Erik, oncologist [facility] Insurance: [employer] Prescription Benefit: yes Living Will/HPOA: yes, reji Jovel LNOK: daughters Living Arrangements: Patient lives with boyfriend Dash in a single story home with no steps to enter. Per patient she is independent at home. Transportation: Dash or daughter DME/HHC: Patient states she has access to walker, cane, and raised toilet. Patient states she has previously been to [facility] in the past. Patient has CM through [employer] [phone]. JONAS LEY left message for [facility] CM. Per daughter, Zeynep is assisting with setting up assisted living for patient. Will monitor for need for HHC Disposition Plan: Patient to discharge home with family support and follow-up plans in place. Will monitor for HHC pending progress with therapy. Elinor JOHN, RN, CM
[2021-07-17 12:13] LABS: Lactic Acid 3.6 mmol/L (0.4-1.9)
--- NOTE | 2021-07-17 13:32 | CHAPLAIN ---
Addendum entered by Tima Patterson 07/17/21 14:57: return visit - patient back in bed but awake; pt gives more details about her health and hope for a surgery to fix her bladder; pt also has quesitons about spiritual matters and end times, , salvation; pt gives thanks for listening to her and being present for this time Original Note: Type of Pastoral Visit _x__ Initial Visit ___ Follow-up Visit ___ On-call Visit ___ General Patient Visit ___ Spiritual Assessment ___ Family Conference ___ Bereavement ___ Rapid Response ___ Code Blue ___ Other (describe below) Pastoral Care Referral From _x__ Patient ___ Family ___ Nurse ___ Physician ___ Senior Sales Consultant ___ Shearing Shed Hand ___ Other (describe below) Sacrament/Intervention _x__ Active listening ___ Anointing ___ Episcopal ___ Bereavement ___ Communion ___ Angelia exploration ___ ___ Life review ___ Prayer ___ Reconciliation ___ Sacrament of Sick _x__ Supportive presence ___ Wedding ___ Other (describe below) Pastoral Comments patient expresses frustration at ongoing issues with bladder troubles and states don't know why they can't fix this; pt says she is unavailable to talk to family and SO; assisted this patient to make a phone call but SO was not available; pt did not have her glasses when she came to hospital and this is also frustrating to her; visit was shortened due to others needing to speak with pt but ongoing support will be made available to this patient by this spot welder body assembly
--- NOTE | 2021-07-17 19:36 | NURSING ---
All patient care and medication administration done by SN Preston completed under the supervision of this RN.
[2021-07-17] MEDS: MELATONIN 3 MG TABLET PO (22:13)
[2021-07-17] MEDS: Glycerin/Hypromellose/PEG400 15 ml Bottle 1 DRP EACH EYE (22:13)
[2021-07-18] VITALS (12 sets, daily range): BP systolic 111–144; BP diastolic 53–97; PULSE 81–105; RESP 16–18; TEMP 36.4–36.9; O2SAT 94–97
[2021-07-18] MEDS: 0.9% Normal Saline 1,000 ML 150 ML IV ×3 (05:02→17:43)
[2021-07-18 07:12] LABS: Absolute Lymphocyte Count 1.02 X10^3/uL (0.83-4.51); Absolute Neutrophil Count 9.9 X10^3/uL (2.0-7.7); Basophil# 0.02 X10^3/uL; Basophil% 0.2 % (0-1); Eosinophil# 0.11 X10^3/uL; Eosinophils% 0.9 % (0-5); Hematocrit 26.1 % (37-47); Hemoglobin 8.4 g/dL (12.0-15.0); Lymphocyte # 1.02 X10^3/ul (0.83-4.51); Lymphocyte % 8.7 % (19-41); Mean Corp Hgb Conc 32.2 g/dL (32-36); Mean Corpuscular Hgb 25.1 pg (27.0-32.0); Mean Corpuscular Volume 77.9 fL (81-99); Mean Platelet Vol. 8.7 fl (6.2-12.0); Monocyte# 0.72 X10^3/uL; Monocyte% 6.1 % (0-10); NRBC Flagged by Analyzer 0 % (0-5); Neutrophil # 9.85 X10^3/uL (2.7-7.7); Neutrophil % 83.6 % (47-70); Platelet Count 239 K/mm3 (150-450); RBC Distribution Width CV 19.9 % (11.6-14.6); RBC Distribution Width SD 54.4 fl (35.1-43.9); Red Blood Count 3.35 M/mm3 (4.2-5.4); White Blood Count 11.8 K/mm3 (4.4-11.0)
[2021-07-18 07:39] LABS: Anion Gap 3 (5-15); BUN 15 mg/dL (7-18); BUN/Creat Ratio 28.9 RATIO (10-20); Calcium,Total 7.5 mg/dL (8.5-10.1); Chloride 110 mmol/L (98-107); Creatinine, Serum 0.52 mg/dL (0.55-1.02); EST Glomerular Filtration Rate 121 mL/min (>60); Est Glom Filt Rate - Afr Amer 146 mL/min (>60); Estimated Creatinine Clearance 36.08 ml/min; Glucose 102 mg/dL (74-106); Potassium 3.2 mmol/L (3.5-5.1); Sodium Level 140 mmol/L (136-145)
[2021-07-18] MEDS: Famotidine 20 MG Tablet PO ×2 (08:08→21:05)
[2021-07-18] MEDS: Enoxaparin 40 MG/0.4 ML Syringe SC (08:09)
[2021-07-18] MEDS: Glycerin/Hypromellose/PEG400 15 ml Bottle 1 DRP EACH EYE ×2 (08:09→13:40)
[2021-07-18] MEDS: Potassium Chloride Oral Tablet 20 MEQ 40 MEQ PO (08:36)
[2021-07-18 09:44] LABS: Iron 53 ug/dL (50-170); Iron Binding Capacity,Total 191 ug/dL (250-450); PERCENT IRON SATURATION 27.7 % (15.0-55.0)
--- NOTE | 2021-07-18 11:27 | PN.HOSP_ITS ---
Documented by User: Sony MEADE 07/18/21 11:43 Subjective Subjective Patient is a 80-year-old female comfortably resting in bed, alert and oriented x3. Patient mentation has greatly improved from yesterday and can converse intelligently about her current condition. Denies development of any new sympto ms overnight. Does not appear in acute distress. Objective Data Objective Data Vital Signs: Vital Signs Temp Pulse Resp BP Pulse Ox 98.3 F 85 16 133/61 H 95 07/18/21 08:07 07/18/21 08:07 07/18/21 08:07 07/18/21 08:07 07/18/21 08:07 Oxygen Flow Rate (L/min) 2 Oxygen Delivery Method Room Air Weight: 110 lb 7.225 oz Body Mass Index (BMI) 18.9 Intake & Output: Intake and Output for Last 24 Hours 07/16/21 07/17/21 07/18/21 23:59 23:59 23:59 Intake Total 2936.5 / 2936.5 1000 / 1000 Output Total 0 / 0 4 / 4 Balance 2936.5 / 2936.5 996 / 996 Lab / Micro Data Result Diagrams: 07/18/21 07:00 07/18/21 07:00 Labs: Laboratory Results - last 24 hr 07/17/21 11:30: Lactic Acid 3.6 H* 07/18/21 07:00: WBC 11.8 H, RBC 3.35 L, Hgb 8.4 L, Hct 26.1 L, MCV 77.9 L, MCH 25.1 L, MCHC 32.2, RDW Std Deviation 54.4 H, RDW Coeff of Castillo 19.9 H, Plt Count 239, MPV 8.7, Immature Gran % (Auto) 0.500, Neut % (Auto) 83.6 H, Lymph % (Auto) 8.7 L, Mobile % (Auto) 6.1, Eos % (Auto) 0.9, Baso % (Auto) 0.2, Absolute Neuts (auto) 9.9 H, Absolute Lymphs (auto) 1.02, Nucleated RBC % 0 07/18/21 07:00: Sodium 140, Potassium 3.2 L, Chloride 110 H, Carbon Dioxide 27.0, Anion Gap 3 L, BUN 15, Creatinine 0.52 L, Estim Creat Clear Calc 36.08, Est GFR (MDRD) Af Amer 146, Est GFR (MDRD) Non-Af 121, BUN/Creatinine Ratio 28.9 H, Glucose 102, Calcium 7.5 L 07/18/21 07:00: Iron 53, TIBC 191 L, Iron Saturation 27.7 Micro: Microbiology 07/17/21 03:50 Urine, Catheterized Urine Culture - Preliminary GNR lactose brood hatchery manager 07/17/21 03:40 Nasal Secretion SARS-CoV-2 & FLU Antigen (Rapid) - Final Physical Exam Const alert, oriented x3 and no apparent distress HEENT head/scalp atraumatic and moist oral mucous membranes Head and Scalp: normocephalic Eyes PERRL, EOMs intact bilaterally and conjunctivae normal Neck no lymphadenopathy, supple and no JVD Resp normal respiratory effort, no retractions and no use of accessory muscles Cardio regular rate, regular rhythm and no JVD GI normal to inspection, nondistended, normoactive bowel sounds Extremity normal to inspection Skin no rashes or lesions noted, no wounds and skin turgor normal Neuro CN's II-XII intact bilaterally Psych affect normal Assessment & Plan Assessment/Plan (1) Acute metabolic encephalopathy: (2) UTI (urinary tract infection): QUALIFIERS: Hematuria presence: without hematuria Urinary tract infection type: acute cystitis Qualified Code(s): N30.00 - Acute cystitis without hematuria (3) Severe malnutrition: PLAN: Day 1 Discharge planning: To be determined. 1) acute cystitis Clinically much improved. No longer with tachycardia or altered mental status. White count has improved to 11,000. We will continue levofloxacin and await urine and blood cultures. 2) acute metabolic encephalopathy Resolved, secondary to #1. 3) hypokalemia Potassium is currently 3.2, will replace and continue to monitor. 4) lactic acidosis Improving, repeat lactate was 3.6. 5) GERD Continue Pepcid. DVT prophylaxis - Lovenox Patient seen by Sony Sparks PA-C, under the supervision of Dr. Hedrick. Time spent on patient care: 9 minutes. Documented by User: Dr. Antwan Hedrick DO 07/18/21 13:03 Subjective Subjective Feels better. Anxious to go home. Objective Data Lab / Micro Data Result Diagrams: 07/18/21 07:00 07/18/21 07:00 Physical Exam Const alert and no apparent distress Resp normal respiratory effort, no retractions, no use of accessory muscles and clear to auscultation bilaterally Cardio regular rate, regular rhythm, S1 normal heart sound and S2 normal heart sound GI normal to inspection, nondistended, normoactive bowel sounds, soft to palpation, non-tender and non-distended Extremity normal to inspection Assessment & Plan Assessment/Plan (1) Acute metabolic encephalopathy: (2) UTI (urinary tract infection): QUALIFIERS: Hematuria presence: without hematuria Urinary tract infection type: acute cystitis Qualified Code(s): N30.00 - Acute cystitis wi thout hematuria PLAN: Patient seen and examined independently. Data and vitals reviewed. I agree with the above note by the physician nurse practitioner physicians assistant. 1. Acute UTI Urine culture growing out gram-negative arnulfo continue with levofloxacin. Follow-up urine cultures and adjust antibiotics accordingly. 2. Acute metabolic encephalopathy Likely due to the underlying urine infection as well as the patient's history of craniotomy with encephalomalacia. Avoid potentiating medications 3. Lactic acidosis Nonsevere sepsis at this time nor sepsis Improving. No additional work-up at this time. 4. VTE prophylaxis with enoxaparin Greater than 20 minutes of which greater than for percent of time was valuing the patient and data. Discussed with nursing who found out that the patient had been started on prednisone for foot issue. Did not sound like gout will discontinue the prednisone altogether. Patient was not on prednisone prior to the . Charges/Coding Visit Charges Inpatient E&M: 05318 Subs Hosp L2
--- NOTE | 2021-07-18 14:14 | CASEMGMT ---
JONAS LEY received call back from JIL Adhikari at [facility]. Zeynep states that she did a home visit earlier this week with patient. eZ[employer]ep has assisted patient for applying for Waiver program. Zeynep states she also set patient up with [facility]. LEY to update Zeynep LEY at [facility] with discharge information when available at [phone].
--- NOTE | 2021-07-18 15:46 | CASEMGMT ---
Per therapy, pt needs no further therapy at discharge. SStaten RN CM
--- NOTE | 2021-07-18 20:47 | PCM.PN.BLA ---
Progress Note Nurse reported that because patient is using the bathroom frequently patient is requesting that IV fluid rate be decreased. Per nurse patient is eating and drinking okay. On presentation lactic acid was 5 and it trend down to 3.6. Creatinine is normal. BMP already ordered in a.m. Will stop IV fluids at this time.
[2021-07-18] MEDS: levoFLOXacin IV 750 MG/150 ML BAG 100 MG IV (21:04)
[2021-07-18] MEDS: MELATONIN 3 MG TABLET PO (21:05)
[2021-07-18] MEDS: Acetaminophen 325 MG Tablet 650 MG PO (23:42)
[2021-07-19 02:54] VITALS: BP 152/74; PULSE 89; RESP 16; TEMP 36.7; O2SAT 95
[2021-07-19 03:00] VITALS: PULSE 97
--- NOTE | 2021-07-19 03:37 | PCM.PN.BLA ---
Progress Note Noted by nursing staff the patient is refusing telemetry and asking to leave AMA.
--- NOTE | 2021-07-19 03:41 | NURSING ---
Pt refusing telemetry, upset that she keeps peeing and has been incontinent. This RN assisted pt to brp and back to bed. Pt refusing brief at this time but also voicing upset that she is going to wet the bed. This RN educated on the importance of telemetry as well as the need to be with patient during ambulation to brp for safety. This RN offered mesh panties with pad as alternative as well as placing a chux under her rather than the brief. Pt is refusing education and alternative offerings, repetitively states she wants to leave now. This RN educated pt on importance of continuing plan of care as laid out by her physician but also informed pt that she was free to leave at her will. This RN assisted pt to attempt to call home for ride but call was not answered. Pt voiced upset with inability to get up on her own to brp, education on safety and use of call light again reiterated. Side rail nearest to bathroom lowered per pt demands and raised on opposite side. Bed alarm placed on medium setting d/t concern over pt urgency to get up to brp but also helping to ensure pt safety.
[2021-07-19] MEDS: LORazepam 1 MG Tablet PO (04:47)
[2021-07-19 07:06] LABS: Absolute Lymphocyte Count 0.98 X10^3/uL (0.83-4.51); Absolute Neutrophil Count 6.2 X10^3/uL (2.0-7.7); Basophil# 0.01 X10^3/uL; Basophil% 0.1 % (0-1); Eosinophil# 0.15 X10^3/uL; Eosinophils% 1.8 % (0-5); Hematocrit 31.9 % (37-47); Hemoglobin 10.3 g/dL (12.0-15.0); Lymphocyte # 0.98 X10^3/ul (0.83-4.51); Mean Corp Hgb Conc 32.3 g/dL (32-36); Mean Corpuscular Hgb 24.8 pg (27.0-32.0); Mean Corpuscular Volume 76.7 fL (81-99); Mean Platelet Vol. 8.9 fl (6.2-12.0); Monocyte# 0.82 X10^3/uL; Monocyte% 10.1 % (0-10); NRBC Flagged by Analyzer 0 % (0-5); Neutrophil # 6.15 X10^3/uL (2.7-7.7); Neutrophil % 75.6 % (47-70); Platelet Count 272 K/mm3 (150-450); RBC Distribution Width CV 19.6 % (11.6-14.6); RBC Distribution Width SD 53.4 fl (35.1-43.9); Red Blood Count 4.16 M/mm3 (4.2-5.4); White Blood Count 8.1 K/mm3 (4.4-11.0)
[2021-07-19 07:20] VITALS: O2SAT 94
[2021-07-19 07:42] LABS: Anion Gap 5 (5-15); BUN 9 mg/dL (7-18); BUN/Creat Ratio 12.9 RATIO (10-20); Calcium,Total 8.8 mg/dL (8.5-10.1); Chloride 105 mmol/L (98-107); EST Glomerular Filtration Rate 86 mL/min (>60); Est Glom Filt Rate - Afr Amer 105 mL/min (>60); Estimated Creatinine Clearance 36.08 ml/min; Glucose 94 mg/dL (74-106); Potassium 3.3 mmol/L (3.5-5.1); Sodium Level 138 mmol/L (136-145)
--- NOTE | 2021-07-19 09:41 | PCM.DC ---
Discharge Instructions Diet Discharge Diet: No restrictions Activity Discharge Activity: Return to Normal Activity Weight Bearing Status: Weight bearing as tolerated Dressing / Incision Call your doctor if you observe: Fever of 101 or Higher, Numbness or Tingling, Shortness of breath, Dizziness, Chest pain, Increased palpitations (irregular heartbeat) and Calf discomfort Follow Up Care Please Follow Up With: Primary care provider When: Within the next two weeks. Test Results: Test results from this visit will be discussed in further detail at your follow-up appointment, if applicable. Discharge Plan Admission Admit Date/Time: 07/17/21 04:35 Primary Reason for Your Visit: Bladder infection Attending Provider: Antwan Hedrick Primary Care Provider: Luis Manuel Arguello Discharge Orders/Prescriptions Prescriptions: New levofloxacin 750 mg tablet 750 mg PO DAILY Qty: 5 RF: 0 Continued sennosides-docusate sodium [Stool Softener-Stimulant Laxat] 8.6-50 mg Tablet 2 tab PO BID PRN PRN (Reason: Constipation) Qty: 0 RF: 0 Artificial Tears([id number]) 1-0.2-0.2 % Drops 1 drp EACH EYE Q1H PRN PRN (Reason: DRY EYES) Qty: 0 RF: 0 metoprolol tartrate 25 mg tablet 50 mg PO BID RF: 0 amlodipine 5 mg Tablet 5 mg PO DAILY RF: 0 lorazepam 1 mg Tablet 1 mg PO QHS RF: 0 enalapril maleate 20 mg Tablet 20 mg PO DAILY RF: 0 famotidine 20 mg Tablet 20 mg PO BID RF: 0 prednisone 20 mg Tablet 20 mg PO DAILY RF: 0 Fergon 225 mg (27 mg iron) Tablet 225 mg PO DAILY RF: 0 Discontinued nitrofurantoin 100 mg Capsule 100 mg PO BID RF: 0 Referrals / Follow Up: Luis Manuel Arguello MD [Primary Care Provider] - Within 2 Weeks Disposition Disposition (needs filled in before D/C Order can be placed): Home, Self Care
--- NOTE | 2021-07-19 09:46 | NURSING ---
warehouse driver came to tell nurse that pt was again threatening to leave ama. courtney larson in discussing dc with pt and that will be in to see pt before going home. pt demanding to get dressed and for iv to come out. pt fretting about not being on my usual cancer meds and that has done nothing but piss myself with all those fluids i got. pt going on about all the appointments i have coming up and that i have shit to do
--- NOTE | 2021-07-19 09:49 | NURSING ---
once pt aware from pa that will be dc'd home this am stated now that i know im going i can wait to leave. pt getting up to dress for dc and sl dc'd. aware that waiting on paperwork and dr. alonzo. pt aware of risks of falls if up unsupervised but declines to wait or have alarm placed.
[2021-07-19 09:53] VITALS: BP 151/78; PULSE 99; RESP 16; TEMP 36.6; O2SAT 94
--- NOTE | 2021-07-19 11:32 | DS.PCM_ITS ---
Documented by User: Sony MEADE 07/19/21 11:42 Providers Date of Admission: 07/17/21 Date of Discharge: 07/19/21 Primary Care Physician: Dr. Luis Manuel Arguello MD Reason For Visit: UTI Diagnosis Discharge Diagnosis (1) Acute metabolic encephalopathy: Status: Acute Code(s): G93.41 - Metabolic encephalopathy (2) UTI (urinary tract infection): Status: Acute Code(s): N39.0 - Urinary tract infection, site not specified Qualifiers: Hematuria presence: without hematuria Urinary tract infection type: acute cystitis Qualified Code(s): N30.00 - Acute cystitis without hematuria Medications at Discharge Home Medications Artificial Tears([id number]-[id number]) 1 drp EACH EYE Q1H PRN PRN #0 ml 12/16/20 sennosides-docusate sodium [Stool Softener-Stimulant Laxat] 2 tab PO BID PRN PRN #0 tab 12/16/20 Fergon 225 mg PO DAILY 07/17/21 amlodipine 5 mg PO DAILY 07/17/21 enalapril maleate 20 mg PO DAILY 07/17/21 famotidine 20 mg PO BID 07/17/21 lorazepam 1 mg PO QHS 07/17/21 metoprolol tartrate 50 mg PO BID 07/17/21 prednisone 20 mg PO DAILY 07/17/21 levofloxacin 750 mg PO DAILY #5 tab 07/19/21 Hospital Course Summary of Care Provided Minutes Spent on Discharge: 20 Hospital Course: Patient is a 80-year-old female who was admitted to [facility] on 07/17/2021 for evaluation management of altered mental status secondary to acute cystitis. Hospital course and management as below. 1) acute cystitis Clinically much improved. No longer with tachycardia or altered mental status. White count has improved to 8000. Urine culture grew Klebsiella pneumoniae which was pansensitive. We will discharge patient on oral levofloxacin 700 mg x 5 days to complete 7-day course. 2) acute metabolic encephalopathy Resolved, secondary to #1. 3) hypokalemia Potassium is currently 3.3, replaced. 4) lactic acidosis secondary to number 1, improved. 5) GERD Continue Pepcid. DVT prophylaxis - Lovenox Patient seen by Sony Sparks PA-C, under the supervision of Dr. Hedrick. Time spent on patient care: 20 minutes. Physical Exam Narrative Patient is a 80-year-old female comfortably resting in bed, alert and orient x3. Patient denies development of any new symptoms overnight, is anxious about her hospital stay and request to be discharged home. Const alert, oriented x3 and no apparent distress HEENT normocephalic, head/scalp atraumatic and hearing grossly normal bilaterally Eyes PERRL and conjunctivae normal Neck no lymphadenopathy, supple and no JVD Resp normal respiratory effort, no retractions and no use of accessory muscles Cardio regular rate, regular rhythm and no JVD GI normal to inspection, nondistended, normoactive bowel sounds Extremity normal to inspection Skin no rashes or lesions noted Neuro CN's II-XII intact bilaterally Psych affect normal Weight / BMI Weight Weight: 110 lb 7.225 oz Body Mass Index (BMI) 18.9 ABG / Lab / Microbiology Data Result Diagrams: 07/19/21 06:27 07/19/21 06:27 Laboratory: Laboratory Results - last 24 hr 07/19/21 06:27: WBC 8.1, RBC 4.16 L, Hgb 10.3 L, Hct 31.9 L, MCV 76.7 L, MCH 24.8 L, MCHC 32.3, RDW Std Deviation 53.4 H, RDW Coeff of Castillo 19.6 H, Plt Count 272, MPV 8.9, Immature Gran % (Auto) 0.400, Neut % (Auto) 75.6 H, Lymph % (Auto) 12.0 L, Metcalfe % (Auto) 10.1 H, Eos % (Auto) 1.8, Baso % (Auto) 0.1, Absolute Neuts (auto) 6.2, Absolute Lymphs (auto) 0.98, Nucleated RBC % 0 07/19/21 06:27: Sodium 138, Potassium 3.3 L, Chloride 105, Carbon Dioxide 28.0, Anion Gap 5, BUN 9, Creatinine 0.70, Estim Creat Clear Calc 36.08, Est GFR ( MDRD) Af Amer 105, Est GFR (MDRD) Non-Af 86, BUN/Creatinine Ratio 12.9, Glucose 94, Calcium 8.8 Microbiology: Microbiology 07/17/21 03:50 Urine, Catheterized Urine Culture - Final Klebsiella pneumoniae 07/17/21 03:40 Nasal Secretion SARS-CoV-2 & FLU Antigen (Rapid) - Final D/C Instructions Discharge Diet: No restrictions Weight Bearing Status: Weight bearing as tolerated Call your doctor if you observe: Fever of 101 or Higher, Numbness or Tingling, Shortness of breath, Dizziness, Chest pain, Increased palpitations (irregular heartbeat) and Calf discomfort Please Follow Up With: Primary care provider When: Within the next two weeks. Meaningful Use Info Meaningful Use Diagnoses (Choose all that apply): None applicable Discharge Plan Admission Admit Date/Time: 07/17/21 04:35 Primary Reason for Your Visit: Bladder infection Attending Provider: Antwan Hedrick Primary Care Provider: Luis Manuel Arguello Discharge Orders/Prescriptions Prescriptions: New levofloxacin 750 mg tablet 750 mg PO DAILY Qty: 5 RF: 0 Continued sennosides-docusate sodium [Stool Softener-Stimulant Laxat] 8.6-50 mg Tablet 2 tab PO BID PRN PRN (Reason: Constipation) Qty: 0 RF: 0 Artificial Tears(mo-pqfi-hkwk) 1-0.2-0.2 % Drops 1 drp EACH EYE Q1H PRN PRN (Reason: DRY EYES) Qty: 0 RF: 0 metoprolol tartrate 25 mg tablet 50 mg PO BID RF: 0 amlodipine 5 mg Tablet 5 mg PO DAILY RF: 0 lorazepam 1 mg Tablet 1 mg PO QHS RF: 0 enalapril maleate 20 mg Tablet 20 mg PO DAILY RF: 0 famotidine 20 mg Tablet 20 mg PO BID RF: 0 prednisone 20 mg Tablet 20 mg PO DAILY RF: 0 Fergon 225 mg (27 mg iron) Tablet 225 mg PO DAILY RF: 0 Discontinued nitrofurantoin 100 mg Capsule 100 mg PO BID RF: 0 Referrals / Follow Up: Luis Manuel Arguello MD [Primary Care Provider] - Within 2 Weeks Disposition Disposition (needs filled in before D/C Order can be placed): Home, Self Care Documented by User: Dr. Antwan Hedrick DO 07/19/21 14:16 Providers Date of Admission: 07/17/21 Reason For Visit: UTI Medications at Discharge Home Medications Artificial Tears([id number]) 1 drp EACH EYE Q1H PRN PRN #0 ml 12/16/20 sennosides-docusate sodium [Stool Softener-Stimulant Laxat] 2 tab PO BID PRN PRN #0 tab 12/16/20 Fergon 225 mg PO DAILY 07/17/21 amlodipine 5 mg PO DAILY 07/17/21 enalapril maleate 20 mg PO DAILY 07/17/21 famotidine 20 mg PO BID 07/17/21 lorazepam 1 mg PO QHS 07/17/21 metoprolol tartrate 50 mg PO BID 07/17/21 prednisone 20 mg PO DAILY 07/17/21 levofloxacin 750 mg PO DAILY #5 tab 07/19/21 Hospital Course Operations None Procedures None Summary of Care Provided Minutes Spent on Discharge: 20 Hospital Course: Patient seen and examined independently. Data and vitals reviewed. I agree with the above note by the physician ophthalmic medical assistant. 80-year-old female presents with confusion. Patient was found to have urinary tract infection. Grew out to be Klebsiella pneumoniae. Patient was levofloxacin a month mission patient will be discharged with 5 more days of the levofloxacin. Course is complicated by confusion and tachycardia but resolved with fluids and antibiotics. Patient will be seeing a urogynecology specialist for potential surgery on her bladder which has been an issue for her for several years. She states that she recently found a specialist who would actually operate on her. Physical Exam Const alert Resp normal respiratory effort, no retractions and no use of accessory muscles Cardio regular rate, regular rhythm, S1 normal heart sound and S2 normal heart sound Neuro Sensorium / Orientation: awake Psych affect normal ABG / Lab / Microbiology Data Result Diagrams: 07/19/21 06:27 07/19/21 06:27 Discharge Plan Admission Admit Date/Time: 07/17/21 04:35 Primary Reason for Your Visit: Bladder infection Attending Provider: Antwan Hedrick Primary Care Provider: Luis Manuel Arguello Discharge Orders/Prescriptions Prescriptions: New levofloxacin 750 mg tablet 750 mg PO DAILY Qty: 5 RF: 0 Continued sennosides-docusate sodium [Stool Softener-Stimulant Laxat] 8.6-50 mg Tablet 2 tab PO BID PRN PRN (Reason: Constipation) Qty: 0 RF: 0 Artificial Tears([id number]-[id number]) 1-0.2-0.2 % Drops 1 drp EACH EYE Q1H PRN PRN (Reason: DRY EYES) Qty: 0 RF: 0 metoprolol tartrate 25 mg tablet 50 mg PO BID RF: 0 amlodipine 5 mg Tablet 5 mg PO DAILY RF: 0 lorazepam 1 mg Tablet 1 mg PO QHS RF: 0 enalapril maleate 20 mg Tablet 20 mg PO DAILY RF: 0 famotidine 20 mg Tablet 20 mg PO BID RF: 0 prednisone 20 mg Tablet 20 mg PO DAILY RF: 0 Fergon 225 mg (27 mg iron) Tablet 225 mg PO DAILY RF: 0 Discontinued nitrofurantoin 100 mg Capsule 100 mg PO BID RF: 0 Referrals / Follow Up: Luis Manuel Arguello MD [Primary Care Provider] - Within 2 Weeks Disposition Disposition (needs filled in before D/C Order can be placed): Home, Self Care Charges/Coding Visit Charges Inpatient E&M: 76105 Disch Hosp
--- NOTE | 2021-07-19 12:11 | CM.ED ---
SW Note SW called and left voice mail message for patient's [employer] Zeynep Davenport, advising that patient was being discharged today. Kathrine THIBODEAUX
== END 2021-07-19 12:23 | disposition home or self-care (01) | DRG 689 ==
LOC: ED 04:23 → PCU 04:51
PROVIDERS: Physician Assistant; Admitting Provider Hospitalist; Emergency Provider Emergency Medicine; PCP Family Medicine
DX: N30.00 Acute cystitis without hematuria (principal); G93.41 Metabolic encephalopathy; E87.2 Acidosis; E87.6 Hypokalemia; B96.1 Klebsiella pneumoniae [K. pneumoniae] as the cause of diseases classified elsewhere; I10 Essential (primary) hypertension; K21.9 Gastro-esophageal reflux disease without esophagitis; Z87.891 Personal history of nicotine dependence; Z87.19 Personal history of other diseases of the digestive system; Z86.73 Personal history of transient ischemic attack (TIA), and cerebral infarction without residual deficits; Z79.899 Other long term (current) drug therapy; N81.10 Cystocele, unspecified
CPT/HCPCS: 36415; 70450; 71045; 80048; 80053; 81001; 82140; 83540; 83550; 83605; 83690; 84484; 85025; 87040; 87077; 87086; 87088; 87186; 87428; 92526; 92610; 93005; 97161; 97165; 97802; 99285; J7030; J7050; P9612; A4216

== ENCOUNTER → 2021-10-08 | Outpatient (CLI) | payer MEDICARE, MEDICAID, SELFPAY ==
--- NOTE | 2021-10-08 15:45 | PET_ITS ---
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 COMPARISON EXAMINATION: None. TECHNIQUE: Following the intravenous administration of 13.06 mCi of F-18 FDG, multiplanar imaging acquisitions of the neck, chest, abdomen/pelvis to the mid thigh, obtained at 1 hour post radiopharmaceutical administration. Interpretation is with co-registeration of similar anatomic distribution of CT. Findings: Normal and physiologic distribution of radioisotope identified in the expected intensity of the hepatic and splenic parenchyma, urinary tract and gastrointestinal structures. There is gross anatomic distribution of the intracranial contents. INDEX LESION SIZE SUV INTERPRETATION: 1. Triangular nodule of the posterior left upper lobe measures 1.3 x 1.6 cm with mildly increased FDG activity (SUV 3.0). CT portion of the exam: Mild centrilobular emphysema of the upper lungs. There is no demonstrated pleural abnormality. Normal heart and pericardium. Mitral valve calcifications. Coronary artery atherosclerosis. Normal mediastinum. Normal hilar regions. Normal unenhanced pulmonary arteries. There is atherosclerotic calcification of the aortic arch with tortuosity and elongation of the aortic arch and descending thoracic aorta. Normal liver. There are surgical clips in the gallbladder fossa consistent with a prior cholecystectomy. Normal spleen. Normal pancreas. Normal bilateral adrenal glands. Normal right kidney. Normal left kidney. Stomach is not well evaluated given lack of distention. Normal small intestine. There are multiple colonic diverticula consistent with diverticulosis. There is non-visualization of the appendix. Atherosclerosis throughout the abdominal aorta with fusiform abdominal aortic aneurysm measuring 4.8 x 5.0 cm. Normal inferior vena cava. Normal urinary bladder. Degenerative changes of the thoracic spine. PET/PET/CT Tumor Base -Thigh Subs IMPRESSION: 1. 1.3 x 1.6 cm irregular nodule in the posterior left upper lobe with mild FDG activity, meets borderline criteria for viable neoplasm. Comparison to prior imaging studies including previous PET scans recommended. 2. 4.8 x 5.0 cm infrarenal abdominal aortic aneurysm. 3. Chronic changes, as detailed above. Electronically Signed: Yg Jain MD (Brooks) at 16:18 EDT ,
== END | disposition home or self-care (01) ==
LOC: ONC 15:22
PROVIDERS: PCP Family Medicine; Referring Provider Internal Medicine Hematology & Oncology; Visit Provider Internal Medicine Hematology & Oncology
DX: C34.12 Malignant neoplasm of upper lobe, left bronchus or lung (principal); C79.51 Secondary malignant neoplasm of bone; C79.31 Secondary malignant neoplasm of brain
CPT/HCPCS: 78815; A9552

== ENCOUNTER 2024-06-10 20:27 | Inpatient (IN) | payer MEDICARE, SELFPAY ==
[2024-06-10 20:28] VITALS: BP 129/86; PULSE 71; RESP 18; TEMP 37.6; O2SAT 93; BMI 26.4
--- NOTE | 2024-06-10 20:43 | CT_ITS ---
EXAM: CT brain without IV contrast CLINICAL HISTORY: Pain, trauma COMPARISON: 07/17/2021 TECHNIQUE: Multiple contiguous axial images through the brain were obtained without the administration of intravenous contrast. Two-dimensional coronal and sagittal reformatted images were reconstructed. Low-dose imaging technique was utilized. FINDINGS: No evidence of acute intracranial hemorrhage, midline shift or mass effect. No definite CT evidence of acute territorial cortical infarction. Chronic infarct in the left occipital lobe with ex vacuo dilation of the left lateral ventricle, similar to prior. Moderate generalized cerebral atrophy and chronic small-vessel ischemic changes. No hydrocephalus. Postsurgical change from prior left posterior craniotomy. Paranasal sinuses and mastoid air cells are clear. CT/Brain/Head without Contrast IMPRESSION: 1. No acute intracranial abnormality. 2. Chronic findings as above. Reading Location: [facility]
--- NOTE | 2024-06-10 20:45 | EDS_ITS ---
HPI HPI - Fall History of Present Illness Chief Complaint: Fall Narrative Narrative: 83-year-old female presents with right hip pain with movement of the leg that she sustained from a fall earlier today. She states that she was in the kitchen, and she turned around to go sit down at the table, and lost her balance. She fell onto her right hip. While she may have struck her head, she denies loss of consciousness, denies headache, and does not take blood thinners. She states that she feels like she wants to get up but cannot straighten out her right leg. She denies other injuries. Pain is located mainly in the right inguinal area and worsened by movement. Past medical history includes lung cancer and brain cancer which she states has been in remission. [facility] Medical History Cancer Former smoker Stroke/cerebrovascular accident Chronic cholecystitis Acute cholecystitis Cholelithiases Gallstone pancreatitis Hypertension Elevated liver enzymes Pancreatitis Home Medications ?Medication ?Instructions ?Recorded ?Last Taken ?Type peg [id number] 1 1 drp EACH EYE Q1H PRN PRN DRY 12/16/20 Unknown Rx %-0.2 %-0.2 % eye drops EYES #0 mL (Artificial Tears ([id number])) sennosides 8.6 mg-docusate sodium 2 tab PO BID PRN PRN Constipation 12/16/20 Unknown Rx 50 mg tablet (Stool #0 tabs Softener-Stimulant Laxative) amlodipine 5 mg tablet 5 mg PO DAILY Check with aneudy maria de jesus 07/17/21 Unknown History doctor enalapril maleate 20 mg tablet 20 mg PO DAILY Check wi th primary 07/17/21 Unknown History doctor famotidine 20 mg tablet 20 mg PO BID Check with prim den 07/17/21 Unknown History doctor ferrous gluconate 225 mg (27 mg 225 mg PO DAILY Check with primary 07/17/21 Unknown History iron) tablet (Fergon) doctor lorazepam 1 mg tablet 1 mg PO QHS Check with prima ry 07/17/21 Unknown History doctor metoprolol tartrate 25 mg tablet 50 mg PO BID Check wi th primary 07/17/21 Unknown History doctor prednisone 20 mg tablet 20 mg PO DAILY Check with pr imary 07/17/21 Unknown History doctor levofloxacin 750 mg tablet 750 mg PO DAILY #5 tabs 06/10 Unknown Rx Allergy/AdvReac Type Severity Reaction Status Date / Time milk Allergy PT UNSURE Verified 06/10/24 20:28 OF REACTION aspirin AdvReac Unknown Verified 06/10/24 20:28 Cephalosporins AdvReac Unknown Verified 06/10/24 20:28 codeine AdvReac Unknown Verified 06/10/24 20:28 Penicillins (PCN) AdvReac Unknown Verified 06/10/24 20:28 propoxyphene (From AdvReac Unknown Verified 06/10/24 20:28 Darvocet-N) Dbgiidn-NAC-QxD Reductase AdvReac Unknown Verified 06/10/24 20:28 Inhibitor (Znwhcwk-Ixn-Css Reductase Inhibitor) Sulfa (Sulfonamide AdvReac Unknown Verified 06/10/24 20:28 Antibiotics) Family History Father Cancer Surgical History History of appendectomy Status post endoscopic retrograde cholangiopancreatography (~02/21/19) S/P laparoscopic cholecystectomy (~02/20/19) Social History Smoking Status: Former smoker ROS ROS ED ROS Narrative Review of systems positive for right hip pelvic pain worse with movement. No headache. No neck pain. Denies any prodromal chest pain or shortness of breath. This is more of a mechanical fall after losing her balance. EXAM Physical Exam Narrative Exam Narrative: GCS 15. ABCs are intact. Cardiovascular examination reveals a regular rate and rhythm. Nontoxic-appearing. Lungs are clear to auscultation bilaterally. Abdomen soft, nontender, with positive bowel sounds. Pelvis stable. Questionable pain with logrolling of right femur. Her right leg is held with her knee flexed and in the air. She does appear neurovascular tact distally with palpable dorsalis pedis pulse, right. Neurological examination is nonfocal and rising. Const Vital Signs: 06/10/24 20:28 06/10/24 20:28 Temperature 99.6 F H Temperature Source Oral Pulse Rate 71 Respiratory Rate 18 Respiratory Effort Normal Respiratory Depth Normal Respiratory Pattern Normal Blood Pressure 129/86 H Blood Pressure Mean 100 Pulse Ox 93 Oxygen Delivery Method Room Air Room Air MDM MDM MDM Narrative Medical decision making narrative: Differential diagnosis includes but not limited to pelvic fracture versus hip fracture versus hip contusion. Patient administered morphine which on review she has been given previously although she has an allergy to codeine. She was also administered ondansetron after saline lock was inserted. X-rays obtained of the right hip and pelvis. I did also obtain a CT of the brain to rule out any intracranial hemorrhage given her age. Additionally, she may have a distracting injury. I reviewed the radiology report of the CT of the brain which shows no evidence of an acute hemorrhage. On my independent interpretation of her right hip and pelvic x-ray there is a femoral neck fracture that appears impacted. I reviewed the radiology report which confirms my independent interpretation. I did obtain prescreening labs including EKG, CBC, and CMP. On review of her CBC she has an elevated white count of 13.7 with hemoglobin normal at 13.8, hematocrit 41.7, platelet count 291. BUN is elevated at 31 with creatinine 1.41 consistent with acute kidney injury, but comparison labs are from 2021. LFTs are grossly unremarkable. EKG was obtained and interpreted by myself independently as sinus tachycardia at 106 bpm with PACs, no acute ST changes. No STEMI. I discussed the patient with Dr. Lai with orthopedics. He would like the patient medically cleared for surgery tomorrow morning if possible. I discussed the patient with the hospitalist for admission. Disposition is admit in stable condition. History & Record Review Discussion w/independent historian: Patient Additional record(s) reviewed:: Prior labs Lab Data Attestation: I reviewed the patient's lab results. Labs: Laboratory Results - last 24 hr 06/10/24 20:36 WBC 13.7 H RBC 4.80 Hgb 13.8 Hct 41.7 MCV 86.9 MCH 28.8 MCHC 33.1 RDW Std Deviation 44.6 H RDW Coeff of Castillo 14.0 Plt Count 291 MPV 9.7 Sodium 136 Potassium 4.4 Chloride 103 Carbon Dioxide 25.0 Anion Gap 8 BUN 31 H Creatinine 1.41 H Estim Creat Clear Calc 29.54 Est GFR (MDRD) Af Amer 46 L Est GFR (MDRD) Non-Af 38 L BUN/Creatinine Ratio 22.0 H Glucose 148 H Calcium 9.5 Total Bilirubin 0.40 AST 27 ALT 20 Alkaline Phosphatase 98 Total Protein 7.7 Albumin 3.5 Globulin 4.2 Albumin/Globulin Ratio 0.8 L Radiography X-Ray: Read by ED Physician, Read by Radiologist and Fracture Diagnostic Testing: Clinical Impression(s) from Imaging Studies Brain CT 06/10/24 20:43 IMPRESSION: 1. No acute intracranial abnormality. 2. Chronic findings as above. Reading Location: [facility] Hip/Pelvis X-Ray 06/10/24 21:00 IMPRESSION: Acute transverse fracture of the right femoral neck with mild impaction/shortening. No other acute displaced fractures or dislocation. [facility] Discussion w/another healthcare provider: Hospitalist (Dr. Goodson) and [employer] (Dr. Lai, Orthopaedics) Discharge Plan Dx/Rx/DC Orders Clinical Impression: Fall, Closed fracture of right hip, Acute kidney injury Disposition Disposition: Acute Care Hospital [facility]
--- NOTE | 2024-06-10 21:00 | RAD_ITS ---
PROCEDURE: Pelvis and right hip radiographs REASON FOR EXAM: Pain, fracture TECHNIQUE: Three views of the pelvis and right hip COMPARISON: None FINDINGS: See impression RAD/HIP, UNI W/ Pelvis 2-3 Views IMPRESSION: Acute transverse fracture of the right femoral neck with mild impaction/shorten ing. No other acute displaced fractures or dislocation. Reading Location: [facility]
--- NOTE | 2024-06-10 21:06 | EKG12_ITS ---
Test Reason : DYSRHYTHMIA Blood Pressure : */* mmHG Vent. Rate : 106 BPM Atrial Rate : 106 BPM P-R Int : 172 ms QRS Dur : 104 ms QT Int : 370 ms P-R-T Axes : 72 -25 79 degrees QTcB Int : 491 ms Sinus tachycardia with Premature atrial complexes Non-specific ST & T wave changes Cannot rule out Septal infarct (cited on or before 08-Dec-2020) Abnormal ECG Confirmed by Paxton Stoll ([id number]), news assignment editor VALERIANO INGRAM ([id number]) on 06/12/2024 10:20:56 AM Referred By: Confirmed By: Paxton Stoll
[2024-06-10] MEDS: Morphine 4 MG/ML Syringe IV (21:09)
[2024-06-10] MEDS: Ondansetron 4 MG/2 ML Vial IV (21:09)
[2024-06-10 21:25] LABS: Hematocrit 41.7 % (37-47); Hemoglobin 13.8 g/dL (12.0-15.0); Mean Corp Hgb Conc 33.1 g/dL (32-36); Mean Corpuscular Hgb 28.8 pg (27.0-32.0); Mean Corpuscular Volume 86.9 fL (81-99); Mean Platelet Vol. 9.7 fl (6.2-12.0); Platelet Count 291 K/mm3 (150-450); RBC Distribution Width SD 44.6 fl (35.1-43.9); White Blood Count 13.7 K/mm3 (4.4-11.0)
[2024-06-10 21:44] LABS: ALB/GLOB Ratio 0.8 RATIO (0.9-2.4); AST(SGOT) 27 U/L (15-37); Alanine Aminotransfer ALT/SGPT 20 U/L (13-56); Albumin, Serum 3.5 g/dL (3.2-5.0); Alkaline Phosphatase 98 U/L (45-117); Anion Gap 8 (5-15); BUN 31 mg/dL (7-18); Calcium,Total 9.5 mg/dL (8.5-10.1); Chloride 103 mmol/L (98-107); Creatinine, Serum 1.41 mg/dL (0.55-1.02); EST Glomerular Filtration Rate 38 mL/min (>60); Est Glom Filt Rate - Afr Amer 46 mL/min (>60); Estimated Creatinine Clearance 29.54 ml/min; Globulin 4.2 g/dL (2.2-4.2); Glucose 148 mg/dL (74-106); Potassium 4.4 mmol/L (3.5-5.1); Protein, Total 7.7 g/dL (6.4-8.2); Sodium Level 136 mmol/L (136-145)
--- NOTE | 2024-06-10 21:56 | PCM.HP.STD ---
HPI - General General Date of Admission: 06/10/24 Date of Service: 06/10/24 Chief Complaint: Fall, R Hip pain HPI Narrative The patient is an 83 y/o F w/ PMHx: Hx Lung CA and Brain CA unclear types in remission, Hx CVA, Former tobacco use, HTN, HLD who presents to the [facility] ED on 06/10/2024 with history of fall earlier in the day with persistent ongoing pain to the right hip with any movement noting that she was in the kitchen and she was attempting to turn around to go to the table and lost her balance and fell onto the right hip possibly striking her head but no loss of consciousness not on any blood thinners with the pain noted to be primarily in the right inguinal region worsened by movement prompting eventual ED evaluation be cautious. In the ED she reports pain 10 out of 10 to the hip. Workup in the ED included T99.6, heart rate 71, BP 129/86, respiratory rate 18, 93% room air, CBC with WBC 13.7, Hgb 13.8, platelet 291 without any differential performed, CMP with BUN/Spencer 31/1.41, GFR 38, glucose 148 otherwise unremarkable, CT the brain with no acute intracranial finding with chronic changes with evidence of previous chronic infarct in the left occipital lobe with ex vacuo dilatation of the left lateral ventricle similar to previous with moderate generalized cerebral atrophy and chronic small vessel ischemic changes with also postsurgical change from prior left posterior craniotomy, plain film of the right hip and pelvis with an acute transverse fracture of the right femoral neck with mild impaction/shortening with no other acute displaced fractures or dislocation, EKG with ST without acute evidence of ischemia, chest x-ray with no acute cardiopulmonary findings. In the ED patient ministered morphine 4 mg IV x 1, Zofran 4 mg IV x 1, tranexamic acid 2000, IV preop per orthopedic surgery as well as clindamycin 900 mg IV preop per orthopedic surgery. ED discussed case with orthopedic surgeon Dr. Winter with noted plan for OR 06/11/24 AM. COUNTS INCLUDE 234 BEDS AT THE [facility] Medical History Cancer Former smoker Stroke/cerebrovascular accident Chronic cholecystitis Acute cholecystitis Cholelithiases Gallstone pancreatitis Hypertension Elevated liver enzymes Pancreatitis Home Medications ?Medication ?Instructions ?Recorded ?Last Taken ?Type peg [id number] 1 1 drp EACH EYE Q1H PRN PRN DRY 12/16/20 Unknown Rx %-0.2 %-0.2 % eye drops EYES #0 mL (Artificial Tears ([id number])) sennosides 8.6 mg-docusate sodium 2 tab PO BID PRN PRN Constipation 12/16/20 Unknown Rx 50 mg tablet (Stool #0 tabs Softener-Stimulant Laxative) amlodipine 5 mg tablet 5 mg PO DAILY Check with primary 07/17/21 Unknown History doctor enalapril maleate 20 mg tablet 20 mg PO DAILY Check with primary 07/17/21 Unknown History doctor famotidine 20 mg tablet 20 mg PO BID Check with primary 07/17/21 Unknown History doctor ferrous gluconate 225 mg (27 mg 225 mg PO DAILY Check with primary 07/17/21 Unknown History iron) tablet (Fergon) doctor lorazepam 1 mg tablet 1 mg PO QHS Check with primary 07/17/21 Unknown History doctor metoprolol tartrate 25 mg tablet 50 mg PO BID Check with primary 07/17/21 Unknown History doctor prednisone 20 mg tablet 20 mg PO DAILY Check with primary 07/17/21 Unknown History doctor levofloxacin 750 mg tablet 750 mg PO DAILY #5 tabs 07/19/21 Unknown Rx Allergy/AdvReac Type Severity Reaction Status Date / Time milk Allergy PT UNSURE Verified 06/10/24 20:28 OF REACTION aspirin AdvReac Unknown Verified 06/10/24 20:28 Cephalosporins AdvReac Unknown Verified 06/10/24 20:28 codeine AdvReac Unknown Verified 06/10/24 20:28 Penicillins (PCN) AdvReac Unknown Verified 06/10/24 20:28 propoxyphene (From AdvReac Unknown Verified 06/10/24 20:28 Darvocet-N) Akghtgw-DTM-MyB Reductase AdvReac Unknown Verified 06/10/24 20:28 Inhibitor (Linokrx-Blk-Iuz Reductase Inhibitor) Sulfa (Sulfonamide AdvReac Unknown Verified 06/10/24 20:28 Antibiotics) Family History (Updated 06/10/24 @ 23:[address] Yane Goodson MD) Father Cancer Mother Rheumatoid arthritis Surgical History History of appendectomy Status post endoscopic retrograde cholangiopancreatography (~02/21/19) S/P laparoscopic cholecystectomy (~02/20/19) Social History (Updated 06/10/24 @ 23:[address] Yane Goodson MD) household members: significant other Smoking Status: Former smoker how long ago did patient quit smoking: Quit 1994. alcohol intake: never substance use type: other details: Prior cannabis but quit many years ago. ROS ROS Narrative Admission Review of Systems: CONSTITUTIONAL: No weight loss, fever, chills, + weakness or fatigue. HEENT: Eyes: No visual loss, blurred vision, double vision or yellow sclerae. Ears, Nose, Throat: No hearing loss, sneezing, congestion, runny nose or sore throat. SKIN: No rash or itching, lesions, wounds. CARDIOVASCULAR: No chest pain, chest pressure or chest discomfort, palpitations, edema, orthopnea, syncopal events. RESPIRATORY: No shortness of breath, cough or sputum, wheezing, hemoptysis. GASTROINTESTINAL: No anorexia, nausea, vomiting or diarrhea, abdominal pain, melena, BRBPR. GENITOURINARY: No dysuria, frequency, urgency or retention. NEUROLOGICAL: No headache, dizziness, syncope, paralysis, ataxia, numbness or tingling in the extremities, focal weakness, change in bowel or bladder control, seizure. MUSCULOSKELETAL: + muscle, back pain, joint pain or stiffness. HEMATOLOGIC: + History of chronic iron deficiency/anemia. No marked easy bleeding/bruising. LYMPHATICS: No enlarged nodes. No history of splenectomy. PSYCHIATRIC: No history of depression or anxiety. ENDOCRINOLOGIC: No reports of sweating, cold or heat intolerance. No polyuria or polydipsia. ALLERGIES: No history of asthma, hives, eczema or rhinitis. Vital Signs Vital Signs Vital Signs: 06/10/24 20:28 06/10/24 20:28 Temperature 99.6 F H Temperature Source Oral Pulse Rate 71 Respiratory Rate 18 Respiratory Effort Normal Respiratory Depth Normal Respiratory Pattern Normal Blood Pressure 129/86 H Blood Pressure Mean 100 Pulse Ox 93 Oxygen Delivery Method Room Air Room Air Weight Weight: 154 lb 5.177 oz Body Mass Index (BMI) 26.4 Physical Exam Narrative Physical Examination: General: Awake, alert, oriented x 3 and cooperative, seated upright in the ED bed, uncomfortable appearing, notes discomfort that improved with morphine but worsening again. Skin: Normal color, normal turgor, no icterus, no cyanosis Except occasional stage ecchymoses, abrasion especially with recent fall. HEENT: AT/NC, EOMI, PERRLA, mildly dry MM, no carotid bruits or JVD noted. Lungs: Mildly diminished, greater bases, appropriate effort, no rales, ronchi or wheezing. Heart: Mildly tachycardic with regular rhythm; no gallop, rub audible. Abdomen: Soft, NTTP, ND, distant normal BS, no appreciated HSM. Extremities: No cyanosis, clubbing, or edema, status post fall with right hip fracture with peripheral pulses intact. Neurological: Patient awake, alert, oriented as noted, cognitive function intact; pupils equally reactive to light and accommodation, cranial nerves grossly normal, moving all 4 extremities except expected limited right lower extremity movement given fall with right hip fracture, strength accordingly severely globally decreased. Psychiatric: Affect appears uncomfortable, no acute evidence of depressive or anxiety feelings. Results Lab / Micro Data 06/10/24 20:36 06/10/24 20:36 Labs: Laboratory Results - last 24 hr 06/10/24 20:36: WBC 13.7 H, RBC 4.80, Hgb 13.8, Hct 41.7, MCV 86.9, MCH 28.8, MCHC 33.1, RDW Std Deviation 44.6 H, RDW Coeff of Castillo 14.0, Plt Count 291, MPV 9.7, Sodium 136, Potassium 4.4, Chloride 103, Carbon Dioxide 25.0, Anion Gap 8, BUN 31 H, Creatinine 1.41 H, Estim Creat Clear Calc 29.54, Est GFR (MDRD) Af Amer 46 L, Est GFR (MDRD) Non-Af 38 L, BUN/Creatinine Ratio 22.0 H, Glucose 148 H, Calcium 9.5, Total Bilirubin 0.40, AST 27, ALT 20, Alkaline Phosphatase 98, Total Protein 7.7, Albumin 3.5, Globulin 4.2, Albumin/Globulin Ratio 0.8 L Imaging Radiology Impression Brain CT 06/10/24 20:43 IMPRESSION: 1. No acute intracranial abnormality. 2. Chronic findings as above. Reading Location: [facility] Hip/Pelvis X-Ray 06/10/24 21:00 IMPRESSION: Acute transverse fracture of the right femoral neck with mild impaction/shortening. No other acute displaced fractures or dislocation. Reading Location: [facility] Assessment & Plan Assessment/Plan (1) Closed right hip fracture: PLAN: Plan The patient is an 83 y/o F w/ PMHx: Hx Lung CA and Brain CA unclear types in remission, Hx CVA, Former tobacco use, HTN, HLD who presents to the [facility] ED on 06/10/2024 with history of fall earlier in the day with persistent ongoing pain to the right hip with any movement noting that she was in the kitchen and she was attempting to turn around to go to the table and lost her balance and fell onto the right hip possibly striking her head but no loss of consciousness not on any blood thinners with the pain noted to be primarily in the right inguinal region worsened by movement prompting eventual ED evaluation be cautious. #1. General debility, right hip pain s/p mechanical fall w/ acute transverse fracture of the right femoral neck with mild impaction/shortening fracture: Orthopedic surgery consulted from ED. Will admit to [facility], maintain NPO at midnight for planned OR, continue IVFs especially given #2, [place] placement, monitor I/Os, frequent positioning, fall precautions, as needed pain, anti-emetic regimen. PT/OT following operative intervention. CM consulted for discharge planning. Per NSQIP guidelines agree with progression to OR with patient's mild risk for perioperative cardiac event, EKG with no acute evidence of ischemia, will need skilled facility transition given type of presentation to which patient is amenable, discussed case with orthopedic surgeon and noted intention for agreement to OR in AM. #2. Acute kidney injury on previously noted CKD stage II per prior GFR trending but these labs are remote this certainly could have progressed: Unclear etiology, again certainly could be just advanced renal disease given timeline of prior labs, admission BUN/Cr 19/05.41, GFR 38, prior baseline creatinine noted to be primarily 0.6-0.9 but these labs are from 2021 the certainly could have had progressed renal disease. Will hydrate, hold nephrotoxic medications and repeat chemistry in AM. Again will need to further trend to elucidate if this is a change in her function given the timeline from last labs of 2021 or if acute kidney injury is in fact the case. #3. Hyperglycemia without diabetic history: Admission glucose 148, no diabetic history, suspect stress response, hemoglobin A1c requested to be cautious. #4. History CVA: Will continue hypertensive regimen, not on statin therapy as noted likely intolerance. Noted asa allergy but unclear and not on plavix, clarifying. #5. 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 CT evidence on imaging of previous craniotomy, encourage continued outpatient follow-up as previously arranged. #6. Hypertension: We will continue patient home amlodipine, metoprolol, holding enalapril given BK concerns as noted, as needed IV hydralazine. #7. Hyperlipidemia: Not on statin therapy, noted possible intolerance and allergy list, defer to outpatient. #8. Former tobacco use: Encourage continued tobacco cessation. #9. DVT prophylaxis: SCDs, hold chemoprophylaxis for operative intervention. #10. CODE status: Patient does not have healthcare power of patent attorney or living will in place but notes her daughter Wendy would be her medical decision-maker if necessary. Discussed CODE status at length including difference between FULL code, DNR-CCA and DNR-CC status. Following discussions about the differences in these status, requested Full Code status. She does report that she would not want any prolonged interventions like prolonged ventilation if no quality of life and strongly encouraged discussions with case management/social work for living will. Advanced Care Planning Face to Face Time: 16 minutes. Charges/Coding Visit Charges Inpatient E&M: 41210 Init Hosp L3 Procedures Hospitalists Procedures: 35168 Advncd Care Plan 30 Min
--- NOTE | 2024-06-10 22:15 | CM.ED ---
Social work: Date of referral: 06/10/24 Reason for referral: Fall Referred by: Social Work Identification Patient provided consent for social work visit. tin recovery worker met with patient to provide support and resources. Patient is depressed that she broke her hip. tin recovery worker provided written and verbal education on fall prevention and ERS devices with fall detection. No other needs identified at this time. Margie Valdes, DECK LID [employer]TER, MANAGER [employer]
--- NOTE | 2024-06-10 22:16 | RAD_ITS ---
PROCEDURE: Chest radiograph REASON FOR EXAM: Coronary artery disease, preoperative evaluation TECHNIQUE: Frontal view of the chest COMPARISON: 07/17/2021 FINDINGS: Mild cardiomegaly. Heavy mitral annular calcifications. No focal consolidation, pleural effusion or sizable pneumothorax. Unchanged scarring in the left upper lobe. RAD/Chest 1 View (Portable) IMPRESSION: No acute airspace abnormality. Reading Location: [facility]
[2024-06-10 22:26] VITALS: BP 134/81; PULSE 109; RESP 25; O2SAT 92
[2024-06-10 22:45] VITALS: BP 145/55; PULSE 111; RESP 18; TEMP 37.3; O2SAT 92
[2024-06-10] MEDS: HYDROmorphone 0.5 MG/0.5 ML SYRINGE IV (22:53)
[2024-06-10 23:01] VITALS: BMI 26.9
[2024-06-10 23:56] VITALS: BP 148/59; PULSE 107; RESP 18; TEMP 36.5; O2SAT 95
[2024-06-10 23:59] VITALS: BMI 25.7
[2024-06-11] VITALS (16 sets, daily range): BP systolic 119–148; BP diastolic 57–89; PULSE 69–123; RESP 16–18; TEMP 36.3–36.6; O2SAT 92–100; BMI 25.7
[2024-06-11] MEDS: 0.9% Normal Saline (1000mL) 1,000 ML 100 ML IV (00:28)
[2024-06-11] MEDS: Morphine 4 MG/ML Syringe IV ×6 (00:37→23:44)
[2024-06-11 06:53] LABS: Absolute Lymphocyte Count 1.51 X10^3/uL (0.83-4.51); Absolute Neutrophil Count 11.2 X10^3/uL (2.0-7.7); Basophil# 0.07 X10^3/uL; Basophil% 0.5 % (0-1); Eosinophils% 0.7 % (0-5); Hematocrit 40.2 % (37-47); Hemoglobin 13.1 g/dL (12.0-15.0); Lymphocyte # 1.51 X10^3/ul (0.83-4.51); Lymphocyte % 10.4 % (19-41); Mean Corp Hgb Conc 32.6 g/dL (32-36); Mean Corpuscular Hgb 28.6 pg (27.0-32.0); Mean Corpuscular Volume 87.8 fL (81-99); Mean Platelet Vol. 9.6 fl (6.2-12.0); Monocyte# 1.49 X10^3/uL; Monocyte% 10.3 % (0-10); NRBC Flagged by Analyzer 0 % (0-5); Neutrophil # 11.24 X10^3/uL (2.7-7.7); Neutrophil % 77.4 % (47-70); Platelet Count 267 K/mm3 (150-450); RBC Distribution Width CV 14.1 % (11.6-14.6); RBC Distribution Width SD 45.6 fl (35.1-43.9); Red Blood Count 4.58 M/mm3 (4.2-5.4); White Blood Count 14.5 K/mm3 (4.4-11.0)
[2024-06-11 07:30] LABS: ALB/GLOB Ratio 0.8 RATIO (0.9-2.4); AST(SGOT) 97 U/L (15-37); Alanine Aminotransfer ALT/SGPT 80 U/L (13-56); Albumin, Serum 3.1 g/dL (3.2-5.0); Alkaline Phosphatase 90 U/L (45-117); Anion Gap 6 (5-15); BUN 28 mg/dL (7-18); BUN/Creat Ratio 23.7 RATIO (10-20); Calcium,Total 8.9 mg/dL (8.5-10.1); Chloride 108 mmol/L (98-107); Creatinine, Serum 1.18 mg/dL (0.55-1.02); EST Glomerular Filtration Rate 47 mL/min (>60); Est Glom Filt Rate - Afr Amer 56 mL/min (>60); Estimated Creatinine Clearance 34.94 ml/min; Globulin 3.8 g/dL (2.2-4.2); Glucose 128 mg/dL (74-106); Potassium 4.2 mmol/L (3.5-5.1); Protein, Total 6.9 g/dL (6.4-8.2); Sodium Level 139 mmol/L (136-145)
--- NOTE | 2024-06-11 08:27 | PCM.PRE.AN2 ---
ASA Classification* ASA Classification ASA Classification: 3 and E Assessment & Plan Anesthesia* Anesthesia Assessment Anesthesia Assessment: Discussed sedation and/or anesthesia options, risks, benefits, and alternatives with patient/parents/legal guardian/POA. Questions invited. The patient/parents/legal guardian/POA seems to understand and agrees to proceed with anesthesia plan. Reviewed the physical assessment, medical history, allergy history and patient home medications list prior to surgery/procedure/anesthetic and documented any changes. Performed airway and anesthesia risk assessments. Anesthesia Type Anesthesia Type: General History Source History Obtained from:: Patient and Chart Anesthesia Focused Assessment* Temperature: 98 F Pulse Rate: 84 Blood Pressure: 143/68 Respiratory Rate: 18 Pulse Ox: 94 Oxygen Delivery Method: Nasal Cannula Oxygen Flow Rate (L/min): 2 Airway Assessment Mouth opens: >3 cm Mallampati Score: IV Teeth Condition: Dentures (Patient has full upper and lower dentures. They are out.) Neck Range of motion (ROM): Limited ROM (Somewhat decreased extension.) Focused Labs Anesthesia Preop lab: CBC WBC 14.5 K/mm3 (4.4-11.0) H 06/11/24 05:35 06/11/24 RBC 4.58 M/mm3 (4.2-5.4) 06/11/24 05:35 06/11/24 Hgb 13.1 g/dL (12.0-15.0) 06/11/24 05:35 06/11/24 Hct 40.2 % (37-47) 06/11/24 05:35 06/11/24 Plt Count 267 K/mm3 (150-450) 06/11/24 05:35 06/11/24 CHEMISTRY Potassium 4.2 mmol/L (3.5-5.1) 06/11/24 05:35 06/11/24 Sodium 139 mmol/L (136-145) 06/11/24 05:35 06/11/24 Magnesium 1.5 mg/dL (1.6-2.6) L 12/16/20 09:35 12/16/20 Phosphorus 1.5 mg/dL (2.5-4.9) L 12/08/20 04:30 12/08/20 BUN 28 mg/dL (7-18) H 06/11/24 05:35 06/11/24 Creatinine 1.18 mg/dL (0.55-1.02) H 06/11/24 05:35 06/11/24 Glucose 128 mg/dL (74-106) H 06/11/24 05:35 06/11/24 COAG PT 13.7 SECONDS (11.7-14.9) 02/20/19 05:14 02/20/19 Pre-Assessment Diagnosis/Proposed Procedure Planned Operative Procedure(s): Hemiarthroplasty of right hip Anesthesia History Anesthesia History - senior erp consultant: Anesthesia History - senior erp consultant Hx Hospitalization Yes 03/24/19 10:23 Any Problems With Anesthesia No 06/11/24 00:27 Cholinesterase deficiency No 06/11/24 00:27 You/Your Family Experience No 06/11/24 00:27 fever (hyperthermia) with Relationship Recent Exposure to Contagious No 06/11/24 00:27 Disease Does patient have nerve No 06/11/24 00:27 stimulator Patient instructed to have device shut off --Does patient have Pacemaker No 06/11/24 06:58 or ICD? When Was Last Pacemaker Check QUESTION #4 FULL TEXT: You/Your Family Experience fever (hyperthermia) with Anesthesia Last Oral Intake Last Oral intake: Last Oral Intake NPO since 00:00 06/11/24 06:58 Meds taken in AM with sips of No 06/11/24 06:58 water? Meds patient instructed to take am of surgery PONV PONV - senior erp consultant: PONV - senior erp consultant Female HX of Motion Sickness HX of N/V After Surgery Non-Smoker Duration of Surgery greater than 60 minutes Number of Risk Factors PONV Score Height & Weight Height & Weight: Anesthesia: Height & Weight Height 5 ft 4.17 in 06/11/24 06:58 Weight: 68.5 kg 06/11/24 06:58 Body Mass Index (BMI) 25.7 06/11/24 06:58 Respiratory Assessment Respiratory Assessment - senior erp consultant: Respiratory Tract Infection Hx - senior erp consultant Hx Respiratory Tract Infection No 06/11/24 00:27 STOP Sleep Apnea STOP Sleep Apnea - senior erp consultant: STOP Sleep Apnea - senior erp consultant Hx Hypertension Yes 06/11/24 00:06 Hx Sleep Apnea No 06/11/24 00:06 CPAP No 07/17/21 05:55 BIPAP No 07/17/21 05:55 Do you snore loudly (louder Yes 06/11/24 00:06 than talking or can be heard Do you often feel tired/ No 06/11/24 00:06 fatigued/ sleepy during daytime? Has anyone observed you stop No 06/11/24 00:06 breathing during sleep? STOP Results Positive 06/11/24 00:06 QUESTION #5 FULL TEXT : Do you snore loudly (louder than talking or can be heard through closed doors)? Tobacco Use History Tobacco Use History - senior erp consultant: Tobacco Use History - senior erp consultant Tobacco Use Smoking Status Former smoker 06/11/24 00:06 Hx Tobacco Use No 06/11/24 00:06 Years Smoking Packs Smoked per Day Smoking Cessation Date was Yes - quit smoking within 15 06/11/24 00:06 within the last 15 years years Hx Smoking Cessation Date 11/05/20 06/11/24 00:06 Hx Smoking Cessation quit date unknown 06/11/24 00:06 Counseling Hematologic Medial History Hematologic Hx - senior erp consultant: Hematologic Medical Hx - vegetable grower Hx of Blood Transfusion No 06/11/24 00:06 Hx of Transfusion in last 3 No 06/11/24 00:06 Months Date of Last Transfusion (if within last 3 months) Ever experience any problems No 06/11/24 00:06 with transfusion(s)? Specify any problems Hx of Preganancy in last 3 N/A 06/11/24 00:06 Months Nurse Filling Out Transfusion CSIGNORIN 06/11/24 00:06 & Questions: Date: 06/11/24 06/11/24 00:06 Time: 00:08 06/11/24 00:06 Patient unable to answer at this time (ie. confused, unrespo /Reproduction History /Reproductive History - senior erp consultant: /Reproductive Hx- senior erp consultant Hx Now No 06/11/24 00:27 Gestational Age (in weeks): EDC: Hx Hx Para Hx Section SAB No 06/11/24 00:27 Active Medications Active Medications: Current Medications Generic Name Dose Route Start Last Admin Trade Name Freq PRN Reason Stop Dose Admin Acetaminophen 650 mg 06/10/24 23:50 Acetaminophen 325 Mg Tablet PO Q4H PRN PRN Fever, pain 1-10/10 Al Hydroxide/Mg Hydroxide 30 ml 06/10/24 23:50 Mag Hydrox/Al Hydrox/Simeth 30 Ml Udc PO Q6H PRN PRN Gastric Burning Albuterol Sulfate 2.5 mg 06/10/24 23:50 Albuterol 2.5 Mg/3 Ml Vial.Neb. INHALATION Q2H PRN PRN Dyspnea, wheezing Amlodipine Besylate 5 mg 06/11/24 10:00 Amlodipine 5 Mg Tablet PO DAILY [facility] Protocol Calamine/Phenol 1 applic 06/11/24 10:00 Menthol/Lanolin/Calamine/Znox 113 Gm Tube TOPICAL 4X/DAY [facility] Protocol Famotidine 20 mg 06/11/24 10:00 Famotidine 20 Mg Tablet PO DAILY [facility] Ferrous Gluconate 324 mg 06/11/24 08:00 Ferr[facility]conate [facility] Guaifenesin 20 ml 06/10/24 23:50 Guaifenesin 10 Ml Udc (200mg/10ml) PO Q4H PRN PRN COUGH Hydralazine HCl 10 mg 06/10/24 23:50 Hydralazine 20 Mg/Ml Vial IV Q4H PRN PRN SBP > 160 Protocol Sodium Chloride 1,000 mls @ 100 mls/hr 06/10/24 23:50 06/11/24 00:28 IV 06/11/24 09:49 100 mls/hr .Q10H MICHAEL Administration Protocol Sodium Chloride 100 mls @ 15 mls/hr 06/10/24 23:54 IV .Q6H40M PRN Additional IVPB Infusion Sodium Chloride 100 mls @ 15 mls/hr 06/10/24 23:54 IV .Q6H40M PRN Saline Flush Cefazolin Sodium 2 gm/ Sodium 120 mls @ 240 mls/hr 06/11/24 08:16 Chloride IV 06/11/24 08:45 SEND TO OR W/PATIENT ONE Melatonin 3 mg 06/10/24 23:50 Melatonin 3 Mg Tablet PO QHS PRN PRN INSOMNIA Metoprolol Tartrate 50 mg 06/11/24 10:00 Metoprolol Tartrate 50 Mg Tablet PO BID [facility] Protocol Morphine Sulfate 2 - 4 mg 06/10/24 23:50 06/11/24 02:56 Morphine 4 Mg/Ml Syringe IV 4 mg Q2H PRN PRN Administration MODSEVPAIN Ondansetron HCl 4 mg 06/10/24 23:50 Ondansetron 4 Mg/2 Ml Vial IV Q8H PRN PRN NAUSEA/VOMITING Oxycodone HCl 2.5 - 5 mg 06/10/24 23:50 Oxycodone 5 Mg Tablet PO Q4H PRN PRN MODSEVPAIN Prochlorperazine Edisylate 5 mg 06/10/24 23:50 Prochlorperazine 10 Mg/2 Ml Vial IV Q4H PRN PRN Breakthrough nausea/vomiting Senna/Docusate Sodium 2 tablet 06/11/24 10:00 Senna/Docusate Sodium 1 Tablet PO BID MICHAEL Sodium Chloride 10 - 40 ml 06/10/24 23:54 0.9% Saline Lock 10 Ml Syringe IV UD PRN SALINE FLUSH PFSH Medical History Cancer Former smoker Stroke/cerebrovascular accident Chronic cholecystitis Acute cholecystitis Cholelithiases Gallstone pancreatitis Hypertension Elevated liver enzymes Pancreatitis Home Medications ?Medication ?Instructions ?Recorded ?Last Taken ?Type peg [id number] 1 1 drp EACH EYE Q1H PRN PRN DRY 12/16/20 Unknown Rx %-0.2 %-0.2 % eye drops EYES #0 mL (Artificial Tears ([id number])) sennosides 8.6 mg-docusate sodium 2 tab PO BID PRN PRN Constipation 12/16/20 Unknown Rx 50 mg tablet (Stool #0 tabs Softener-Stimulant Laxative) amlodipine 5 mg tablet 5 mg PO DAILY Check with primary 07/17/21 Unknown History doctor enalapril maleate 20 mg tablet 20 mg PO DAILY Check with primary 07/17/21 Unknown History doctor famotidine 20 mg tablet 20 mg PO BID Check with primary 07/17/21 Unknown History doctor ferrous gluconate 225 mg (27 mg 225 mg PO DAILY Check with primary 07/17/21 Unknown History iron) tablet (Fergon) doctor lorazepam 1 mg tablet 1 mg PO QHS Check with primary 07/17/21 Unknown History doctor metoprolol tartrate 25 mg tablet 50 mg PO BID Check with primary 07/17/21 Unknown History doctor prednisone 20 mg tablet 20 mg PO DAILY Check with primary 07/17/21 Unknown History doctor levofloxacin 750 mg tablet 750 mg PO DAILY #5 tabs 07/19/21 Unknown Rx Allergy/AdvReac Type Severity Reaction Status Date / Time milk Allergy PT UNSURE Verified 06/10/24 20:28 OF REACTION aspirin AdvReac Unknown Verified 06/10/24 20:28 Cephalosporins AdvReac Unknown Verified 06/10/24 20:28 codeine AdvReac Unknown Verified 06/10/24 20:28 Penicillins (PCN) AdvReac Unknown Verified 06/10/24 20:28 propoxyphene (From AdvReac Unknown Verified 06/10/24 20:28 Darvocet-N) Cvwhljb-LQE-NcL Reductase AdvReac Unknown Verified 06/10/24 20:28 Inhibitor (Rmpnkgq-Sqb-Rmk Reductase Inhibitor) Sulfa (Sulfonamide AdvReac Unknown Verified 06/10/24 20:28 Antibiotics) Family History Father Cancer Mother Rheumatoid arthritis Surgical History History of appendectomy Status post endoscopic retrograde cholangiopancreatography (~02/21/19) S/P laparoscopic cholecystectomy (~02/20/19) Social History household members: significant other Smoking Status: Former smoker how long ago did patient quit smoking: Quit 1994. alcohol intake: never substance use type: other details: Prior cannabis but quit many years ago. Review of Systems (Anesthesia) ROS Narrative System reviewed and no additional complaints, except as documented.
--- NOTE | 2024-06-11 08:30 | HIP_PTH ---
PATIENT: JAZMYNE GUZMAN LOC: MS3 U#:[id number] AGE/SX: 83/F ROOM: CT317 RE06/10/[address]: Dr. Luis Manuel Denson DO : 1940 BED: 1 DIS: 06/13/2024 SPEC #: [id number] RECD: 06/12/24 09:29 STATUS: KIMI GAYLE #: [id number] CHAVEZ: 06/11/24 08:[address]: Jeffrey Winter DEPT: SURGICAL PATHOLOGY RECD BY: Gabbi Walker ENTERED: 06/12/24 10:12 SP TYPE: TOTAL HIP OTHR DR: MD Dr. Luis Manuel Elias MD Dr. Mark Tereletsky, DO Dr. Nana Yaa Koram, MD Tissues: Hip, NOS Procedures: Decalcification bone/plaque Surgery Specimen Level IV HEADER OPERATION: Hemiarthroplasty, hip PRE-OP DIAGNOSIS: Fracture of femoral neck, right, closed TISSUE SUBMITTED: Femoral head right hip MICROSCOPIC DIAGNOSIS Right hip bone and soft tissue, total hip replacement/resection: Femoral head and detached pieces of bone with focal area of hemorrhage, clinically fractured femoral neck. SJ: 06/15/2024 MICROSCOPIC DESCRIPTION Slides are reviewed. GROSS DESCRIPTION Received in fixative is one container labeled with the patient's name and designated Femoral head right hip. The specimen consists of a femoral head which appears to be denuded of the surface cartilage. It measures 4.5cm in diameter and the length of the specimen is 4cm. Also present in the container are other fragments of bone aggregating to approximately 3.5cm. Focally the tissue inside the head appears soft consistent grossly with a fracture. Blood Bank Assistant sections are taken after proper decalcification. 06/12/2024 TC:5 CPT:62061,85836
--- NOTE | 2024-06-11 08:30 | NURSING ---
0842 report called to Surgery nurse Guerrero Mccracken RN
--- NOTE | 2024-06-11 08:33 | PCM.CONS.GEN ---
Assessment & Plan Assessment/Plan (1) Fracture of femoral neck, right, closed: QUALIFIERS: Encounter type: initial encounter Qualified Code(s): S72.001A - Fracture of unspecified part of neck of right femur, initial encounter for closed fracture PLAN: Plan Displaced right femoral neck fracture status post ground-level fall Thorough discussion was had with the patient regards to operative versus nonoperative intervention risk benefits of surgery including but not limited to bleeding infection nerve artery tissue damage need for further surgery continued pain postoperative dislocation postoperative course, DVT leg length discrepancy dislocation. Patient initially had cephalosporins listed as a allergy upon further review she states she had a urinary tract infection from cephalosporins in the past I will go ahead and revise her preoperative antibiotic to Ancef. TXA ordered Proceed with right hip hemiarthroplasty informed consent signed and placed on the chart HPI Consult Data Date of Consult: 06/11/24 HPI Narrative HPI Narrative: JAZMYNE GUZMAN, is a 83 F who presents after ground-level fall at home. Patient is a community ambulator with occasional cane. She had inability to ambulate emergency room x-rays were taken demonstrating a right hip femoral neck fracture she denies any other complaints. [facility] Medical History Cancer Former smoker Stroke/cerebrovascular accident Chronic cholecystitis Acute cholecystitis Cholelithiases Gallstone pancreatitis Hypertension Elevated liver enzymes Pancreatitis Home Medications ?Medication ?Instructions ?Recorded ?Last Taken ?Type peg 270-hmzlzzphseyi-vtryifvw 1 1 drp EACH EYE Q1H PRN PRN DRY 12/16/20 Unknown Rx %-0.2 %-0.2 % eye drops EYES #0 mL (Artificial Tears ([id number])) sennosides 8.6 mg-docusate sodium 2 tab PO BID PRN PRN Constipation 12/16/20 Unknown Rx 50 mg tablet (Stool #0 tabs Softener-Stimulant Laxative) amlodipine 5 mg tablet 5 mg PO DAILY Check with primary 07/17/21 Unknown History doctor enalapril maleate 20 mg tablet 20 mg PO DAILY Check with primary 07/17/21 Unknown History doctor famotidine 20 mg tablet 20 mg PO BID Check with primary 07/17/21 Unknown History doctor ferrous gluconate 225 mg (27 mg 225 mg PO DAILY Check with primary 07/17/21 Unknown History iron) tablet (Fergon) doctor lorazepam 1 mg tablet 1 mg PO QHS Check with primary 07/17/21 Unknown History doctor metoprolol tartrate 25 mg tablet 50 mg PO BID Check with primary 07/17/21 Unknown History doctor prednisone 20 mg tablet 20 mg PO DAILY Check with primary 07/17/21 Unknown History doctor levofloxacin 750 mg tablet 750 mg PO DAILY #5 tabs 07/19/21 Unknown Rx Allergy/AdvReac Type Severity Reaction Status Date / Time milk Allergy PT UNSURE Verified 06/10/24 20:28 OF REACTION aspirin AdvReac Unknown Verified 06/10/24 20:28 Cephalosporins AdvReac Unknown Verified 06/10/24 20:28 codeine AdvReac Unknown Verified 06/10/24 20:28 Penicillins (PCN) AdvReac Unknown Verified 06/10/24 20:28 propoxyphene (From AdvReac Unknown Verified 06/10/24 20:28 Darvocet-N) Zuxqeig-MTE-GyE Reductase AdvReac Unknown Verified 06/10/24 20:28 Inhibitor (Dontjvk-Tru-Iee Reductase Inhibitor) Sulfa (Sulfonamide AdvReac Unknown Verified 06/10/24 20:28 Antibiotics) Family History (Updated 06/10/24 @ 23:[address] Yane Goodson MD) Father Cancer Mother Rheumatoid arthritis Surgical History History of appendectomy Status post endoscopic retrograde cholangiopancreatography (~02/21/19) S/P laparoscopic cholecystectomy (~02/20/19) Social History (Updated 06/10/24 @ 23:[address] Yane Goodson MD) household members: significant other Smoking Status: Former smoker how long ago did patient quit smoking: Quit 1994. alcohol intake: never substance use type: other details: Prior cannabis but quit many years ago. Physical Exam Const alert, oriented x3 and no apparent distress General Appearance: cooperative and comfortable Extremity Extremity Narrative: Right hip positive logroll no open wound compartments soft no gross motor or sensory deficits Lab / Micro Data 06/11/24 05:35 06/11/24 05:35 Labs: Laboratory Results - last 24 hr 06/10/24 20:36: WBC 13.7 H, RBC 4.80, Hgb 13.8, Hct 41.7, MCV 86.9, MCH 28.8, MCHC 33.1, RDW Std Deviation 44.6 H, RDW Coeff of Castillo 14.0, Plt Count 291, MPV 9.7, Sodium 136, Potassium 4.4, Chloride 103, Carbon Dioxide 25.0, Anion Gap 8, BUN 31 H, Creatinine 1.41 H, Estim Creat Clear Calc 29.54, Est GFR (MDRD) Af Amer 46 L, Est GFR (MDRD) Non-Af 38 L, BUN/Creatinine Ratio 22.0 H, Glucose 148 H, Calcium 9.5, Total Bilirubin 0.40, AST 27, ALT 20, Alkaline Phosphatase 98, Total Protein 7.7, Albumin 3.5, Globulin 4.2, Albumin/Globulin Ratio 0.8 L 06/11/24 05:35: WBC 14.5 H, RBC 4.58, Hgb 13.1, Hct 40.2, MCV 87.8, MCH 28.6, MCHC 32.6, RDW Std Deviation 45.6 H, RDW Coeff of Castillo 14.1, Plt Count 267, MPV 9.6, Immature Gran % (Auto) 0.700, Neut % (Auto) 77.4 H, Lymph % (Auto) 10.4 L, [place] % (Auto) 10.3 H, Eos % (Auto) 0.7, Baso % (Auto) 0.5, Absolute Neuts (auto) 11.2 H, Absolute Lymphs (auto) 1.51, Nucleated RBC % 0, Sodium 139, Potassium 4.2, Chloride 108 H, Carbon Dioxide 24.0, Anion Gap 6, BUN 28 H, Creatinine 1.18 H, Estim Creat Clear Calc 34.94, Est GFR (MDRD) Af Amer 56 L, Est GFR (MDRD) Non-Af 47 L, BUN/Creatinine Ratio 23.7 H, Glucose 128 H, Calcium 8.9, Total Bilirubin 0.50, AST 97 H, ALT 80 H, Alkaline Phosphatase 90, Total Protein 6.9, Albumin 3.1 L, Globulin 3.8, Albumin/Globulin Ratio 0.8 L, Blood Type O POSITIVE, Antibody Screen NEGATIVE Imaging Radiology Impression Brain CT 06/10/24 20:43 IMPRESSION: 1. No acute intracranial abnormality. 2. Chronic findings as above. Reading Location: [facility] Hip/Pelvis X-Ray 06/10/24 21:00 IMPRESSION: Acute transverse fracture of the right femoral neck with mild impaction/shortening. No other acute displaced fractures or dislocation. Reading [facility] Chest X-Ray 06/10/24 22:16 IMPRESSION: No acute airspace abnormality. Reading Location: [facility]
[2024-06-11 08:39] LABS: Hemoglobin A1c 5.9 % (3.8-5.6)
[2024-06-11] MEDS: Cefazolin 2 GM in Syringe IV ×3 (09:09→23:43)
[2024-06-11] MEDS: TRANEXAMIC ACID 2,000 MG in 0.9% Normal Saline (100mL Bag) 100 ML 440 MG IV (09:16)
--- NOTE | 2024-06-11 11:08 | PCM.OPRPT ---
Operative Report (Standard) Operative Information Date of Procedure: 06/11/24 Pre-Operative Diagnosis: Right femoral neck fracture displaced Post-Operative Diagnosis: Same Surgery/Procedure Performed: Right hip hemiarthroplasty cemented filing and polishing supervisor: Yes Life Skills Coach: Francia Robison Tasks completed by first responder: Opening & closing and Retracting Type of Anesthesia: General RN Documented Start/Stop Times: Operation Date: 06/11/24 08:30 Case Time Anesthesia Start 06/11/24 09:04 Into Room 06/11/24 09:04 Procedure Start 06/11/24 09:43 Procedure End 06/11/24 11:00 Procedure Start Time: 09:43 Procedure Stop Time: 10:43 Select all DRAINS/GRAFTS/IMPLANTS that apply: Implanted device Implanted device details: Hardaway cemented hip hemiarthroplasty bipolar Estimated Blood Loss: 100 Specimen collected: Yes Description of specimen(s) removed: Femoral head Description of surgery: Preoperative diagnosis: Right hip femoral neck fracture displaced Postoperative diagnosis: Same Procedure: Right hip hemiarthroplasty Implants: Hardaway cemented stem size 4 132 degree neck angle 0 neck length 46 mm outer diameter bipolar head Anesthesia: General l EBL: 100 cc Complications: None Condition: Stable to PACU Indication for procedure: This is a 83-year-old female patient had ground-level fall sustaining a displaced right femoral neck fracture. plans for definitive hemiarthroplasty were discussed including risks benefits and alternatives of the procedure were reviewed with the patient including risk of bleeding infection nerve artery tissue damage need for further surgery continue pain postoperative hip precaution restrictions leg length discrepancy and dislocation. Procedure: Patient was met in the preoperative holding area once again the operative extremity was identified by both patient and physician and was marked. Patient was met by anesthesia and brought to the operating room where anesthesia was started . The patient was then positioned in the lateral decubitus position on a well-padded pegboard with an axillary roll. All bony prominences were checked and padded. The patient was prepped and draped in the usual sterile fashion. A timeout was called to ensure the proper patient procedure and extremity were being contemplated. Anatomic landmarks were palpated and marked for a standard posterior lateral approach. A timeout was called to ensure the proper patient procedure and extremity were being contemplated. A 10 blade scalpel was used to make a posterior incision through the skin and subcutaneous tissue. In retractors were used and electrocautery was used to maintain meticulous hemostasis and dissect full-thickness flaps until the gluteal fascia was reached. The gluteal fascia was incised in line with the gluteal fibers. The bursal tissue was then freed from the underside and a Charnley retractor was placed. The fatpad was elevated off of the external rotators with electrocautery and the external rotators were dissected off of the greater trochanter including the piriformis and were tagged with #1 Ethibond for later repair. The joint capsule opened with posterior trapdoor technique. A femoral neck cutting guide was used to allyssa the neck with a Bovie and an oscillating saw was used to complete the femoral neck cut. the fracture was visualized and with the use of a corkscrew and a skid the femoral head was removed and sized. We then trialed with the matching sizes . Hohmann was placed around the lesser trochanter. A femoral elevator was used. As well as a pointed wide Hohmann around the lesser trochanter and a Hohmann to help retract the gluteus medius. A box chisel was used to remove excess lateral neck followed by a canal finder and a lateralizing reamer. This was followed by sequential broaches. Attention was made of the version within the canal. Once the final broach was seated we then trialed and reduced the hip it was determined that a 132 degree neck angle with a 0 neck length was the appropriate size. We then checked stability with shuck testing as well as flexion and interminal rotation then proceeded with hip extension and checked leg lengths at the knees and heels. At this point trials were removed. Thorough irrigation of the canal was performed. We did clean the canal with a nylon brush. The smallest centralizer was too large therefore we did without it. A cement restrictor was measured off of the broach it was inserted to the appropriate depth, a tampon suction was used. A cement gun was used with a pressure riser. the cemented collared femoral stem was inserted, and held with the appropriate version until all the cement was hardened curettes were used to remove excess cement. We re-trialed and then proceeded to impact the femoral head onto the Jesus taper. We then surgically reduce the hip check stability again and leg lengths and were satisfied. irricept rinse was allowed to sit for 1 minutes while everyone changed their gloves. Thorough irrigation was performed. Followed by closure of the external rotators with #2 FiberWire followed by closure of gluteal fascia with #1 Ethibond. 0 Vicryl fat stitches and 2-0 Vicryl subcutaneous stitches and jarad in the skin. Dressing was applied in the form of silverlon dressing and an abduction pillow was placed. Patient tolerated the procedure well there was no intraoperative complications all counts were correct and the patient was brought back to the PACU in stable condition Surgical Findings: Displaced femoral neck fracture Complications Complications: No
--- NOTE | 2024-06-11 11:21 | PCM.POST.ANE ---
Anesthesia: Postop Eval I Current Vital Signs Temperature: 97.9 F Pulse Rate: 121 Blood Pressure: 146/83 Respiratory Rate: 16 Pulse Ox: 95 Oxygen Delivery Method: Room Air Assessment Airway patent: Yes Spontaneous unlabored respirations: Yes Mental status: Confused nausea: No Vomiting: No Anesthesia Complication: No Fluid Hydration Crystalloid volume administer (ml): 800 Total IV fluid infused: 800 Progress Note Anesthesia document: Postop Eval 1 completed: Yes
--- NOTE | 2024-06-11 11:30 | RAD_ITS ---
PROCEDURE: HIP MIN 2 VIEWS (PORTABLE) REASON FOR EXAM: Postop TECHNIQUE: One (1) view of the right hip COMPARISON: None. FINDINGS: Right total hip arthroplasty. No hardware failure. Normal alignment. [facility] overlying the right hip with mild foci of air. RAD/Hip Min 2 Views (Portable) IMPRESSION: Status post right total hip arthroplasty with no hardware failure or acute abno rmality Reading Location: [facility]
--- NOTE | 2024-06-11 11:54 | PCM.POSTANE2 ---
Anesthesia Postop Eval I Sum Postop Eval Completion status Anesthesia document: Postop Eval 1 completed: Yes Anesthesia Postop Eval I Summary Anesthesia Postop Eval I Summary: Anesthesia Postop Eval I: Assessment Summary Airway patent Yes 06/11/24 11:24 Spontaneous unlabored Yes 06/11/24 11:24 respirations Mental status Confused 06/11/24 11:24 nausea No 06/11/24 11:24 Vomiting No 06/11/24 11:24 Anesthesia Postop Eval I: Fluid Summary Crystalloid volume administer 800 06/11/24 11:24 (ml) Colloids volume administered ( ml) Blood Product volume administered (ml) Total IV fluid infused 800 06/11/24 11:24 Anesthesia Postop Eval I: Summary Notes Anesthesia Complication No 06/11/24 11:24 Anesthesia Complication Comment: Post-operative progress note Anesthesia: Postop Eval II Evaluation Mental status: Awake and Calm Pain Level: 0 nausea: No Vomiting: No Complications Anesthesia Complication: No
[2024-06-11] MEDS: Ferrous Gluconate 324 MG Tablet PO (13:35)
[2024-06-11] MEDS: amLODIPine 5 MG Tablet PO (13:38)
[2024-06-11] MEDS: Famotidine 20 MG Tablet PO (13:38)
[2024-06-11] MEDS: Metoprolol Tartrate 50 MG Tablet PO ×2 (13:38→20:59)
[2024-06-11] MEDS: Senna/Docusate Sodium 1 Tablet 2 TABLET PO ×2 (13:39→20:59)
[2024-06-11] MEDS: Lactated Ringers 1,000 ML 125 ML IV ×2 (13:40→20:59)
[2024-06-11] MEDS: Calcium Carbonate 500 MG Tablet PO (13:40)
[2024-06-11] MEDS: Menthol/Lanolin/Calamine/Znox 113 GM Tube 1 APPLIC TOPICAL ×3 (14:31→21:00)
--- NOTE | 2024-06-11 15:21 | PCM.PROGNOTE ---
Subjective Subjective Patient seen and examined. Her 2 daughters and her boyfriend were by her bedside. She complained of feeling a bit weak and has a mild confusion due to the anesthesia. She was on 2 L of oxygen but denied any shortness of breath, cough, chest pain or palpitations, dizziness, nausea or vomiting. Review of systems otherwise negative. She is postop day 0 for right cemented hemiarthroplasty. Pain is well controlled. Objective Data Objective Data Vital Signs: Vital Signs Temp Pulse Resp BP Pulse Ox O2 Del Method O2 Flow Rate 98 F 73 18 130/61 H 93 Nasal Cannula 2 06/11/24 14:15 06/11/24 14:15 06/11/24 14:15 06/11/24 14:15 06/11/24 14:15 06/11/24 14:15 06/11/24 14:15 Oxygen Flow Rate (L/min) 2 Oxygen Delivery Method Nasal Cannula Weight: 151 lb 0.266 oz Body Mass Index (BMI) 25.7 Intake & Output: Intake and Output for Last 24 Hours 06/09/24 06/10/24 06/11/24 23:59 23:59 23:59 Intake Total 140 / 140 Output Total 400 / 400 Balance -260 / -260 Lab / Micro Data 06/11/24 05:35 06/11/24 05:35 Labs: Laboratory Results - last 24 hr 06/10/24 20:36: WBC 13.7 H, RBC 4.80, Hgb 13.8, Hct 41.7, MCV 86.9, MCH 28.8, MCHC 33.1, RDW Std Deviation 44.6 H, RDW Coeff of Castillo 14.0, Plt Count 291, MPV 9.7, Sodium 136, Potassium 4.4, Chloride 103, Carbon Dioxide 25.0, Anion Gap 8, BUN 31 H, Creatinine 1.41 H, Estim Creat Clear Calc 29.54, Est GFR (MDRD) Af Amer 46 L, Est GFR (MDRD) Non-Af 38 L, BUN/Creatinine Ratio 22.0 H, Glucose 148 H, Calcium 9.5, Total Bilirubin 0.40, AST 27, ALT 20, Alkaline Phosphatase 98, Total Protein 7.7, Albumin 3.5, Globulin 4.2, Albumin/Globulin Ratio 0.8 L 06/11/24 05:35: WBC 14.5 H, RBC 4.58, Hgb 13.1, Hct 40.2, MCV 87.8, MCH 28.6, MCHC 32.6, RDW Std Deviation 45.6 H, RDW Coeff of Castillo 14.1, Plt Count 267, MPV 9.6, Immature Gran % (Auto) 0.700, Neut % (Auto) 77.4 H, Lymph % (Auto) 10.4 L, [place] % (Auto) 10.3 H, Eos % (Auto) 0.7, Baso % (Auto) 0.5, Absolute Neuts (auto) 11.2 H, Absolute Lymphs (auto) 1.51, Nucleated RBC % 0, Sodium 139, Potassium 4.2, Chloride 108 H, Carbon Dioxide 24.0, Anion Gap 6, BUN 28 H, Creatinine 1.18 H, Estim Creat Clear Calc 34.94, Est GFR (MDRD) Af Amer 56 L, Est GFR (MDRD) Non-Af 47 L, BUN/Creatinine Ratio 23.7 H, Glucose 128 H, Hemoglobin A1c 5.9 H, Calcium 8.9, Total Bilirubin 0.50, AST 97 H, ALT 80 H, Alkaline Phosphatase 90, Total Protein 6.9, Albumin 3.1 L, Globulin 3.8, Albumin/Globulin Ratio 0.8 L, Blood Type O POSITIVE, Antibody Screen NEGATIVE Radiography Diagnostic Testing: Radiology Impression Brain CT 06/10/24 20:43 IMPRESSION: 1. No acute intracranial abnormality. 2. Chronic findings as above. Reading Location: [facility] Hip/Pelvis X-Ray 06/10/24 21:00 IMPRESSION: Acute transverse fracture of the right femoral neck with mild impaction/shortening. No other acute displaced fractures or dislocation. Reading Location: [facility] Chest X-Ray 06/10/24 22:16 IMPRESSION: No acute airspace abnormality. Reading Location: [facility] Hip X-Ray 06/11/24 11:30 IMPRESSION: Status post right total hip arthroplasty with no hardware failure or acute abnormality Reading Location: [facility] Physical Exam Const alert, oriented x3, no apparent distress and well nourished General Appearance: cooperative and well developed HEENT normocephalic, head/scalp atraumatic and moist oral mucous membranes Eyes PERRL and EOMs intact bilaterally Neck no lymphadenopathy and supple Lymph Lymphatic: no lymphadenopathy noted and no lymphedema noted Resp Resp Narrative: diminished breath sounds bibasally, no wheezes or crackles. on 2L of oxygen by nasal canula Cardio regular rate, regular rhythm, S1 normal heart sound, S2 normal heart sound and no murmurs GI normal to inspection, nondistended, normoactive bowel sounds, soft to palpation, non-tender and non-distended Extremity Extremity Narrative: intact dressing over surgical site on right hip Neuro CN's II-XII intact bilaterally, no focal motor deficits and no sensory deficits noted Psych thought process normal, cooperative and affect normal Appearance: appropriate Assessment & Plan Assessment/Plan (1) Closed fracture of right hip: (2) Fracture of femoral neck, right, closed: QUALIFIERS: Encounter type: initial encounter Qualified Code(s): S72.001A - Fracture of unspecified part of neck of right femur, initial encounter for closed fracture (3) Fall: PLAN: Plan #Right hip fracture due to mechanical fall Patient sustained a mechanical fall with resultant acute transverse fracture of the right femoral neck with mild impaction. Is status post right cemented hemiarthroplasty by orthopedic surgery. Today's postop day 0. P.o. Tylenol, p.o. oxycodone and IV morphine as needed for pain. Incentive spirometry. PT OT on board. Fall precautions. #BK: Creatinine was 1.41 on admission. Previous known baseline from 2021 and was 0.7 then. Patient was hydrated with IV fluids and creatinine is down to 1.18 today. Will continue to trend creatinine. #Impaired glucose tolerance Patient's A1c is 5.9. Came in with mild hyperglycemia so A1c was checked. Will consult on DASH diet. Start on p.o. metformin 500 mg twice daily. No need for insulin sliding scale Accu-Cheks ACHS as she is not a full blown diabetic. #Hypertension: On amlodipine and metoprolol. # Hyperlipidemia: Not on statin due to allergies. 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 To follow-up with oncologist on outpatient basis. #DVT prophylaxis: SCDs. Will start on Eliquis 2.5 mg twice daily when okay with orthopedic surgery. CODE STATUS: Full code Charges/Coding Visit Charges Inpatient E&M: 07020 Subs Hosp L2
[2024-06-11] MEDS: Acetaminophen 325 MG Tablet 650 MG PO ×2 (15:51→23:43)
--- NOTE | 2024-06-11 19:59 | NURSING ---
(EARLIER IN SHIFT) PULLED 5MG OXYCODONE AND WASTED 2.5MG W/BRYAN IN [facility]. AFTER PT SAID SHE WAS ALLERGIC, THE OTHER 2.5MG WAS WASTED IN [facility] W/ANGUS. EVERYTIME I GET INTO [facility] IT SAYS I STILL HAVE A MED TO WASTE. SPOKE W/QUINTIN IN PHARMACY, AND LEFT W/DANK IN PHARMACY
[2024-06-11] MEDS: MELATONIN 3 MG TABLET PO (21:00)
[2024-06-12] VITALS (9 sets, daily range): BP systolic 100–136; BP diastolic 55–62; PULSE 70–96; RESP 15–24; TEMP 36.7–36.8; O2SAT 91–95; BMI 27.0
[2024-06-12] MEDS: 0.9% Saline Lock 10 ML Syringe IV (05:28)
[2024-06-12] MEDS: Cefazolin 2 GM in Syringe IV (05:29)
[2024-06-12] MEDS: Albuterol 2.5 MG/3 ML VIAL.NEB. INHALATION (05:39)
[2024-06-12] MEDS: Menthol/Lanolin/Calamine/Znox 113 GM Tube 1 APPLIC TOPICAL ×2 (08:03→13:46)
[2024-06-12] MEDS: Ferrous Gluconate 324 MG Tablet PO (08:03)
[2024-06-12] MEDS: Calcium Carbonate 500 MG Tablet PO ×2 (08:08→13:46)
[2024-06-12] MEDS: APIXABAN 2.5 MG TABLET (WCH) PO ×2 (08:09→22:24)
[2024-06-12] MEDS: Acetaminophen 325 MG Tablet 650 MG PO ×3 (08:10→23:19)
[2024-06-12] MEDS: Senna/Docusate Sodium 1 Tablet 2 TABLET PO (08:16)
[2024-06-12] MEDS: Cholecalciferol (VIT D3) 25 MCG TABLET (1,000 UNITS) PO (08:17)
[2024-06-12] MEDS: Metoprolol Tartrate 50 MG Tablet PO ×2 (08:17→22:24)
[2024-06-12] MEDS: Famotidine 20 MG Tablet PO (08:17)
--- NOTE | 2024-06-12 10:38 | CASEMGMT ---
Discharge Planning A list of?SNF providers including quality and resource use data and consistent with the patient's preferred geographic region, medical needs, and insurance network was created in [facility]Port Guide.? This list was provided to the SW. Layne Carlton Discharge Planning Asst.
--- NOTE | 2024-06-12 12:15 | CASEMGMT ---
JONAS LEY Assessment: Face to Face with pt for initial transition planning/care coordination assessment. JONAS LEY introduced self and role at [facility], pt voices understanding and consents to assessment. Pt is A&O x4 and answers all questions appropriately at this time. Pt sitting up in bed in no distress. Care providers, pharmacy, and demographics verified/updated. Strata: 3 Admitting Dx: Fall, R Hip Fracture PCP: Saundra Specialists: Erik, Oncologist Preferred Pharmacy: [facility] Insurance: [employer] [facility] Prescription Benefit: yes LNOK: Wendy, Daughter; Sig Other, Dash Living Arrangements: Pt lives with significant other in a 1 story home with 2-3 steps to enter. ADLs: Pt is needing more assistance. Transportation: Significant other provides transportation. DME: [facility] HHC/SNF: Previously at [facility] Pt does not have a walker. JONAS LEY discussed O2 needs, provided verbal list of DME providers in the area. Pt chose [facility] for O2 needs if required at time of DC. Pt does not feel like she is able to go home at this time, would like to get therapy at [facility] if they are able to accept. Pt states no further concerns/needs. JONAS LEY notified SW of patient request. SW/CM to follow. Advised pt to ask CM if any further question/concerns/needs arise, voices understanding. Pt Goal: SNF Plan: SNF [facility] CM
--- NOTE | 2024-06-12 12:27 | CASEMGMT ---
Social Work- SW met with pt to discuss preferences at discharge. A list of SNF providers including quality and resource use data and consistent with the patient?s preferred geographic region, medical needs, and insurance network were provided from the [facility]Port Guide. [facility]. [facility] notified of referral request. Plan: [facility]; pend accept [facility]
--- NOTE | 2024-06-12 12:40 | CASEMGMT ---
Addendum entered by Layne Carlton 06/12/24 13:02: [facility] pending insurance verification. Requested that precert be submitted. Layne Carlton DC Planning Asst. Original Note: SN[facility] referral sent to [facility]. Layne Carlton DC Planning Asst.
--- NOTE | 2024-06-12 13:42 | PN.ORTHO_ITS ---
Subjective Subjective Seen and examined. Doing okay complain of pain right hip denies any fevers chills nausea vomiting shortness of breath or chest pain. Objective Data Objective Data Vital Signs: Vital Signs Temp Pulse Resp BP Pulse Ox O2 Del Method O2 Flow Rate 98.0 F 74 18 113/62 92 High Flow 6 06/12/24 08:13 06/12/24 08:17 06/12/24 08:13 06/12/24 08:13 06/12/24 10:42 06/12/24 08:13 06/12/24 10:42 Oxygen Flow Rate (L/min) 6 Oxygen Delivery Method High Flow Weight: 158 lb 8.198 oz Body Mass Index (BMI) 27.0 Intake & Output: Intake and Output for Last 24 Hours 06/10/24 06/11/24 06/12/24 23:59 23:59 23:59 Intake Total 1494.58 / 1694.58 420 / 420 Output Total 600 / 600 200 / 200 Balance 894.58 / 1094.58 220 / 220 Lab / Micro Data 06/11/24 05:35 06/11/24 05:35 Physical Exam Const no apparent distress General Appearance: cooperative Extremity Extremity Narrative: Spoke with nursing and her hip dressing is clean dry and intact reportedly. I was unable to get her pants down as she was sitting in the chair to evaluate myself. Her compartments are soft she is neurovascular intact right lower extremity EHL tibialis anterior gastrocsoleus intact sensation light touch palpable pedal pulse Assessment & Plan Assessment/Plan (1) Fracture of femoral neck, right, closed: QUALIFIERS: Encounter type: initial encounter Qualified Code(s): S72.001A - Fracture of unspecified part of neck of right femur, initial encounter for closed fracture PLAN: Plan Postop day #1 right hip hemiarthroplasty for displaced femoral neck fracture PT OT weightbearing as tolerated with hip or cautions DVT prophylaxis SCDs VIMAL hose Eliquis 2.5 mg twice daily for 3 weeks postop Ligia need to be removed 2 weeks postop Dressing should be undisturbed for 5 days postop then should be removed and cleaned daily with antibacterial soap and warm water and dressing change daily at that point May follow-up in 2 weeks for wound check and staple removal in my office if she is is at the TCU or rehab here at [facility] at that point you can call me and I will be happy to see her there instead of transporting her to the office.
--- NOTE | 2024-06-12 18:27 | PN.HOSP_ITS ---
Reason for Visit Reason for Visit: Diagnoses Fracture of unspecified part of neck of right femur, initial encounter for closed fracture (06/10/24) Unspecified fall, initial encounter (06/10/24) Subjective Subjective Patient was seen and examined today, we are currently awaiting approval for the patient to go to a rehab facility for inpatient rehab services. We are awaiting approval from her insurance carrier for transfer to [facility] for further care. Objective Data Objective Data Vital Signs: Vital Signs Temp Pulse Resp BP Pulse Ox O2 Del Method O2 Flow Rate 98.0 F 70 20 H 100/59 L 95 Nasal Cannula 4 06/12/24 13:54 06/12/24 13:54 06/12/24 13:54 06/12/24 13:54 06/12/24 13:54 06/12/24 13:54 06/12/24 13:54 Oxygen Flow Rate (L/min) 4 Oxygen Delivery Method Nasal Cannula Weight: 71.9 kg Body Mass Index (BMI) 27.0 Intake & Output: Intake and Output for Last 24 Hours 06/10/24 06/11/24 06/12/24 23:59 23:59 23:59 Intake Total 1494.58 / 1694.58 920 / 920 Output Total 600 / 600 200 / 200 Balance 894.58 / 1094.58 720 / 720 Lab / Micro Data 06/11/24 05:35 06/11/24 05:35 Physical Exam Const alert, oriented x3, no apparent distress, average body habitus and healthy appearing General Appearance: cooperative, well kempt and well developed Orientation / Consciousness: awake, oriented to person, oriented to place and oriented to time HEENT normocephalic and moist oral mucous membranes Eyes PERRL, EOMs intact bilaterally and conjunctivae normal Neck supple, no JVD, thyroid normal and no carotid bruits General: trachea midline Resp normal respiratory effort, no retractions, no use of accessory muscles and clear to auscultation bilaterally Auscultation: Negative for rales, rhonchi or wheezes Cardio regular rate, regular rhythm, S1 normal heart sound, S2 normal heart sound, no murmurs, no rub and no gallops GI normal to inspection, nondistended, normoactive bowel sounds, soft to palpation, non-tender and non-distended Extremity no clubbing, cyanosis or edema Skin no rashes or lesions noted General Skin Exam: no breakdown Neuro oriented x3, CN's II-XII intact bilaterally, no focal motor deficits and no sensory deficits noted Sensorium / Orientation: awake and alert Speech: speech normal Psych affect normal Assessment & Plan Assessment/Plan (1) Fracture of femoral neck, right, closed: QUALIFIERS: Encounter type: initial encounter Qualified Code(s): S72.001A - Fracture of unspecified part of neck of right femur, initial encounter for closed fracture PLAN: Plan 1. Right femoral neck fracture secondary to osteoporosis-postop day #1-PT and OT will continue, we are awaiting approval for the patient to go [facility] #2 essential hypertension-patient is on Norvasc and metoprolol #3 history of lung cancer with brain metastases-patient follows up as an outpatient regarding this Total clinical time spent by myself addressing the patient's medical issues, reviewing all of her data, and collaborating with patient's care team: 35 minutes Charges/Coding Visit Charges Inpatient E&M: 28443 Subs Hosp L2
[2024-06-13] VITALS (8 sets, daily range): BP systolic 107–125; BP diastolic 52–66; PULSE 83–107; RESP 15–18; TEMP 36.9–37.3; O2SAT 92–97; BMI 28.2
[2024-06-13] MEDS: Morphine 4 MG/ML Syringe IV (02:05)
[2024-06-13] MEDS: 0.9% Saline Lock 10 ML Syringe IV (02:07)
--- NOTE | 2024-06-13 08:03 | CASEMGMT ---
Per [facility], [employer] is temporarily waiving precerts. Pt can admit when medically ready. Layne Carlton DC Planning Asst.
[2024-06-13] MEDS: Senna/Docusate Sodium 1 Tablet 2 TABLET PO (08:29)
[2024-06-13] MEDS: APIXABAN 2.5 MG TABLET (WCH) PO (08:29)
[2024-06-13] MEDS: Menthol/Lanolin/Calamine/Znox 113 GM Tube 1 APPLIC TOPICAL ×3 (08:29→18:08)
[2024-06-13] MEDS: Metoprolol Tartrate 50 MG Tablet PO (08:29)
[2024-06-13] MEDS: Cholecalciferol (VIT D3) 25 MCG TABLET (1,000 UNITS) PO (08:30)
[2024-06-13] MEDS: Famotidine 20 MG Tablet PO (08:30)
[2024-06-13] MEDS: Ferrous Gluconate 324 MG Tablet PO (08:30)
[2024-06-13] MEDS: Calcium Carbonate 500 MG Tablet PO ×3 (08:30→18:08)
[2024-06-13] MEDS: amLODIPine 5 MG Tablet PO (10:05)
--- NOTE | 2024-06-13 13:12 | TREXTCAR_ITS ---
Diet Diet Order/Speech Therapy: 06/11/24 15:41 Diet: Cardiac - Heart Healthy Routine Orders/Code Status Code Status: Full Code DC O2, CPAP, BIPAP needs Home O2 Discharge instructions: Yes Type of respiratory needs?: Oxygen Oxygen frequency: Continuous Continuous oxygen liters per minute: 2 L Wound(s) RIGHT HIP: Wound Type: Surgical Incision Problem/Diagnosis (1) Fracture of femoral neck, right, closed: Status: Acute Code(s): S72.001A - Fracture of unspecified part of neck of right femur, initial encounter for closed fracture Plan 1. Right femoral neck fracture secondary to osteoporosis-postop day #1-PT and OT will continue, we are awaiting approval for the patient to go [facility] #2 essential hypertension-patient is on Norvasc and metoprolol #3 history of lung cancer with brain metastases-patient follows up as an outpatient regarding this #4 hypoxia-etiology unclear, patient is on supplemental oxygen at 2 L at this time, chest x-ray on 06/10/2024 showed evidence of scar tissue but no infiltrate, it is probable the patient does have an element of COPD Total clinical time spent by myself addressing the patient's medical issues, reviewing all of her data, and collaborating with patient's care team: 35 minutes Allergies/Procedures Done in Hospital Allergies aspirin Adverse Reaction (Verified 06/10/24 20:28) Unknown Cephalosporins Adverse Reaction (Verified 06/10/24 20:28) Unknown codeine Adverse Reaction (Verified 06/10/24 20:28) Unknown Penicillins (PCN) Adverse Reaction (Verified 06/10/24 20:28) Unknown propoxyphene (From Darvocet-N) Adverse Reaction (Verified 06/10/24 20:28) Unknown Zvfgwbv-OER-UqN Reductase Inhibitor (Efbiglj-Zmh-Mwd Reductase Inhibitor) Adverse Reaction (Verified 06/10/24 20:28) Unknown Sulfa (Sulfonamide Antibiotics) Adverse Reaction (Verified 06/10/24 20:28) Unknown Procedures: - (Cemented hip hemiarthroplasty bipolar right hip-06/11/2024) Type of Care/Length of Stay Estimated LOS: Convalescent Care Less Than 30 days Type of Care Needed: Skilled Rehab Potential: Good Prognosis: Good Additional Orders/Day of Discharge H&P will serve as current which was dated: 06/10/24 Day of Discharge: 06/13/24 Discharge Plan Admission Admit Date/Time: 06/10/24 22:12 Primary Reason for Your Visit: Right hip femoral neck fracture displaced Attending Provider: Luis Manuel Denson Primary Care Provider: Luis Manuel Arguello Consulting Providers: Yane Goodson; Jeffrey Winter; Renata Michel Instructions Additional Instructions / Restrictions: Dressing should be undisturbed for 5 days postop then should be removed and clean daily with antibacterial soap and warm water and dressing change daily at that point. May follow-up in 2 weeks for wound check and staple remover in Dr. Winter's office Discharge Orders/Prescriptions Prescriptions: New acetaminophen 325 mg Tablet 650 mg PO Q4H PRN PRN (Reason: Fever, pain 1-01/26) Qty: 0 0RF albuterol sulfate 2.5 mg /3 mL (0.083 %) Solution For Nebulization 2.5 mg inhalation Q2H PRN PRN (Reason: Dyspnea, wheezing) Qty: 0 0RF amlodipine 5 mg Tablet 5 mg PO DAILY Qty: 0 0RF calcium carbonate 200 mg calcium (500 mg) Tablet,Chewable 500 mg PO TIDCM Qty: 0 0RF metoprolol tartrate 50 mg Tablet 50 mg PO BID Qty: 0 0RF alum-mag hydroxide-simeth [Mag-Al Plus Extra Strength] 400-400-40 mg/5 mL Suspension 30 ml PO Q6H PRN PRN (Reason: Gastric Burning) Qty: 0 0RF oxycodone 5 mg Tablet 5 mg PO Q4H PRN PRN (Reason: Pain Score 4-10) 5 Days Qty: 10 0RF cholecalciferol (vitamin D3) 25 mcg (1,000 unit) Tablet 25 mcg PO DAILY Qty: 0 0RF menthol-zinc oxide [Calmoseptine] 0.44-20.6 % Ointment 1 applic topical 4X/DAY Qty: 0 0RF Protocol: *Topical Application Instructions APPLICATION INSTRUCTIONS: apply to affected region ferrous gluconate 324 mg (37.5 mg iron) Tablet 324 mg PO DAILYCM Qty: 0 0RF Eliquis 5 mg Tablet 2.5 mg PO BID Qty: 0 0RF Rx Instructions: Continue for a total of 32 days sennosides-docusate sodium [Stimulant Laxative Plus] 8.6-50 mg Tablet 2 tab PO BID Qty: 0 0RF Continued famotidine 20 mg Tablet 20 mg PO BID Discontinued sennosides-docusate sodium [Stool Softener-Stimulant Laxat] 8.6-50 mg Tablet 2 tab PO BID PRN PRN (Reason: Constipation) Qty: 0 0RF Artificial Tears(fv-[id number]-fnnq) 1-0.2-0.2 % Drops 1 drp EACH EYE Q1H PRN PRN (Reason: DRY EYES) Qty: 0 0RF metoprolol tartrate 25 mg tablet 50 mg PO BID amlodipine 5 mg Tablet 5 mg PO DAILY lorazepam 1 mg Tablet 1 mg PO QHS enalapril maleate 20 mg Tablet 20 mg PO DAILY prednisone 20 mg Tablet 20 mg PO DAILY Fergon 225 mg (27 mg iron) Tablet 225 mg PO DAILY levofloxacin 750 mg tablet 750 mg PO DAILY Qty: 5 0RF Referrals / Follow Up: Jeffrey Winter DO [Med Staff - Active Staff] - See Referral Note (In 2 weeks-[facility] for appointment) Luis Manuel Arguello MD [Primary Care Provider] - Disposition Disposition (needs filled in before D/C Order can be placed): Snf Facility (1) Fracture of femoral neck, right, closed Qualifiers: Encounter type: initial encounter Qualified Code(s): S72.001A - Fracture of unspecified part of neck of right femur, initial encounter for closed fracture
--- NOTE | 2024-06-13 13:40 | DS.PCM_ITS ---
Providers Date of Admission: 06/10/24 Date of Discharge: 06/13/24 Primary Care Physician: Dr. Luis Manuel Arguello MD Consultations 06/11/24 07:53 Consult: Orthopedics Routine Consulting Provider: Jeffrey Winter Reason for Consult: rt hip fx EMERGENT Consult: No MD Notified: Yes Date Notified: 06/11/24 Time Notified: 07:53 Method of Notification: Verbal Reason For Visit: FALL, R HIP FRACTURE Diagnosis Discharge Diagnosis (1) Fracture of femoral neck, right, closed: Status: Acute Code(s): S72.001A - Fracture of unspecified part of neck of right femur, initial encounter for closed fracture Qualifiers: Encounter type: initial encounter Qualified Code(s): S72.001A - Fracture of unspecified part of neck of right femur, initial encounter for closed fracture Plan 1. Right femoral neck fracture secondary to osteoporosis-postop day #1-PT and OT will continue, we are awaiting approval for the patient to go [facility] #2 essential hypertension-patient is on Norvasc and metoprolol #3 history of lung cancer with brain metastases-patient follows up as an outpatient regarding this #4 hypoxia-etiology unclear, patient is on supplemental oxygen at 2 L at this time, chest x-ray on 06/10/2024 showed evidence of scar tissue but no infiltrate, it is probable the patient does have an element of COPD Total clinical time spent by myself addressing the patient's medical issues, reviewing all of her data, and collaborating with patient's care team: 35 minutes Medications at Discharge Home Medications famotidine 20 mg tablet 20 mg PO BID Check with primary doctor 07/17/21 acetaminophen 325 mg tablet 650 mg (2 x 325 mg) PO Q4H PRN PRN Fever, pain 1- 01/26 #0 tabs 06/13/24 albuterol sulfate 2.5 mg/3 mL (0.083 %) solution for nebulization 2.5 mg (3 mL) inhalation Q2H PRN PRN Dyspnea, wheezing #0 mL 06/13/24 aluminum-mag hydroxide-simethicone 400 mg-400 mg-40 mg/5 mL oral susp (Mag-Al Plus Extra Strength) 30 ml PO Q6H PRN PRN Gastric Burning #0 mL 06/13/24 amlodipine 5 mg tablet 5 mg PO DAILY #0 tabs 06/13/24 apixaban 5 mg tablet (Eliquis) 2.5 mg (1/2 x 5 mg) PO BID #0 tabs 06/13/24 calcium carbonate 500 mg (2.5 x 200 mg calcium (500 mg)) PO TIDCM #0 tabs 06/13/24 cholecalciferol (vitamin D3) 25 mcg (1,000 unit) tablet 25 mcg PO DAILY #0 tabs 06/13/24 ferrous gluconate 324 mg (37.5 mg iron) tablet 324 mg PO DAILYCM #0 tabs 06/13/24 hydrocodone-acetaminophen 5-325mg 5mg-325mg 1 tab PO Q4H PRN pain 3 days #14 tabs 06/13/24 menthol 0.44 %-zinc oxide 20.6 % topical ointment (Calmoseptine) 1 applic topical 4X/DAY #0 grams 06/13/24 metoprolol tartrate 50 mg tablet 50 mg PO BID #0 tabs 06/13/24 sennosides 8.6 mg-docusate sodium 50 mg tablet (Stimulant Laxative Plus) 2 tab PO BID #0 tabs 06/13/24 Hospital Course Operations - (Right hip hemiarthroplasty-06/11/2024) Procedures None Summary of Care Provided Minutes Spent on Discharge: 32 Hospital Course: This 83-year-old white female was seen in the emergency room at [facility] with complaints of right hip pain with movement of the leg, she had fallen earlier in the day in her kitchen. Workup in the emergency room included labs that showed a white blood cell count of 13.7, chemistry profile was remarkable for creatinine of 1.4 and a BUN of 31. X-rays of the right hip showed an acute transverse fracture of the right femoral neck with mild impaction and shortening. Patient was admitted to [facility] and seen in consultation by orthopedic surgery, she underwent a right hemiarthroplasty without complications. She was seen by PT and OT afterwards, it was felt she would benefit from skilled care at a skilled care facility and she agreed, on 06/13/2024, patient was seen and examined: On examination she appeared in good health and spirits, she does not appear to be in any distress. Vital signs as documented. Skin warm and dry and without overt rashes. Neck without JVD, thyroid appears normal, trachea is midline, neck is supple. Lungs clear, normal air movement was noted. Heart exam notable for regular rhythm, normal sounds and absence of murmurs, rubs or gallops. Abdomen unremarkable and without evidence of organomegaly, masses, or abdominal aortic enlargement, bowel sounds are present in all 4 quadrants, no abdominal tenderness was noted. Extremities nonedematous, no cyanosis was noted, no clubbing was noted. Neuro: Cranial nerves II through XII are grossly intact, no focal motor deficits were noted, sensation to light touch and pinprick is intact, motor exam 5/5 throughout. Psych: Patient is alert and oriented x3, she does not appear anxious or depressed, she does not appear agitated. Patient was stable for discharge to [facility] on 06/13/2024 for inpatient rehab services Weight / BMI Weight Weight: 74.9 kg Body Mass Index (BMI) 28.2 ABG / Lab / Microbiology Data 06/11/24 05:35 06/11/24 05:35 D/C Instructions DC O2, CPAP, BIPAP Needs Home O2 Discharge instructions: Yes Type of respiratory needs?: Oxygen Oxygen frequency: Continuous Continuous oxygen liters per minute: 2 L DC home with Oxygen: No Meaningful Use Info Meaningful Use Meaningful Use Diagnoses (Choose all that apply): None applicable Ischemic Stroke Statin Dosing Therapy Reference: STATIN DOSE THERAPY REFERENCE: * Patients > 75 years receive moderate or high dose statin therapy. * Patients 75 years or YOUNGER should receive HIGH intensity statin dose unless contraindicated. You will be required to document reason for non-treatment if statin daily dose does not meet guidelines. HIGH DOSE STATIN THERAPY DAILY Atorvastatin > than or = to 40 mg Rosuvastatin > than or = to 20 mg Amlodipine + Atorvastatin > than or = to 2.5/40 mg Ezetimibe + Simvastatin 10/80 mg Simvastatin 80mg Discharge Plan Admission Admit Date/Time: 06/10/24 22:12 Primary Reason for Your Visit: Right hip femoral neck fracture displaced Attending Provider: Luis Manuel Denson Primary Care Provider: Luis Manuel Arguello Consulting Providers: Yane Goodson; Jeffrey Winter; Renata Michel Instructions Additional Instructions / Restrictions: Dressing should be undisturbed for 5 days postop then should be removed and clean daily with antibacterial soap and warm water and dressing change daily at that point. May follow-up in 2 weeks for wound check and staple remover in Dr. Winter's office Discharge Orders/Prescriptions Prescriptions: New acetaminophen 325 mg Tablet 650 mg PO Q4H PRN PRN (Reason: Fever, pain 1-01/26) Qty: 0 0RF albuterol sulfate 2.5 mg /3 mL (0.083 %) Solution For Nebulization 2.5 mg inhalation Q2H PRN PRN (Reason: Dyspnea, wheezing) Qty: 0 0RF amlodipine 5 mg Tablet 5 mg PO DAILY Qty: 0 0RF calcium carbonate 200 mg calcium (500 mg) Tablet,Chewable 500 mg PO TIDCM Qty: 0 0RF metoprolol tartrate 50 mg Tablet 50 mg PO BID Qty: 0 0RF alum-mag hydroxide-simeth [Mag-Al Plus Extra Strength] 400-400-40 mg/5 mL Suspension 30 ml PO Q6H PRN PRN (Reason: Gastric Burning) Qty: 0 0RF cholecalciferol (vitamin D3) 25 mcg (1,000 unit) Tablet 25 mcg PO DAILY Qty: 0 0RF menthol-zinc oxide [Calmoseptine] 0.44-20.6 % Ointment 1 applic topical 4X/DAY Qty: 0 0RF Protocol: *Topical Application Instructions APPLICATION INSTRUCTIONS: apply to affected region ferrous gluconate 324 mg (37.5 mg iron) Tablet 324 mg PO DAILYCM Qty: 0 0RF Eliquis 5 mg Tablet 2.5 mg PO BID Qty: 0 0RF Rx Instructions: Continue for a total of 32 days sennosides-docusate sodium [Stimulant Laxative Plus] 8.6-50 mg Tablet 2 tab PO BID Qty: 0 0RF hydrocodone-acetaminophen 5-325 mg tablet 1 tab PO Q4H PRN (Reason: pain) 3 Days Qty: 14 0RF Continued famotidine 20 mg Tablet 20 mg PO BID Discontinued sennosides-docusate sodium [Stool Softener-Stimulant Laxat] 8.6-50 mg Tablet 2 tab PO BID PRN PRN (Reason: Constipation) Qty: 0 0RF Artificial Tears([id number]) 1-0.2-0.2 % Drops 1 drp EACH EYE Q1H PRN PRN (Reason: DRY EYES) Qty: 0 0RF metoprolol tartrate 25 mg tablet 50 mg PO BID amlodipine 5 mg Tablet 5 mg PO DAILY lorazepam 1 mg Tablet 1 mg PO QHS enalapril maleate 20 mg Tablet 20 mg PO DAILY prednisone 20 mg Tablet 20 mg PO DAILY Fergon 225 mg (27 mg iron) Tablet 225 mg PO DAILY levofloxacin 750 mg tablet 750 mg PO DAILY Qty: 5 0RF Referrals / Follow Up: Jeffrey Winter DO [Med Staff - Active Staff] - See Referral Note (In 2 weeks- call for appointment) Luis Manuel Arguello MD [Primary Care Provider] - Disposition Disposition (needs filled in before D/C Order can be placed): Longterm Facility Charges/Coding Visit Charges Inpatient E&M: 87499 Disch Hosp >30min
[2024-06-13] MEDS: Acetaminophen 325 MG Tablet 650 MG PO (13:51)
--- NOTE | 2024-06-13 13:54 | CASEMGMT ---
Social Work Physician feels that pt is ready for discharge today.?Precert not needed prior to admit per [facility]. 7000 form completed in [facility]. [facility] notified of discharge. Final discharge arrangements and notification to patient/family as per discharge merchandise planning manager.? Disposition:[facility], skilled level of care under convalescent stay. VIRGIL Fernandez
--- NOTE | 2024-06-13 15:43 | CASEMGMT ---
Discharge Planning Discharge orders, signed med list, and transport time sent to [facility]. Physicians will transport pt by wheelchair at 6:45p. Nursing, SW, pt, and her daughter (Wendy) updated. Layne Carlton DC Planning Asst.
== END 2024-06-13 21:15 | disposition skilled nursing facility (03) | DRG 522 ==
LOC: ED 21:57 → MS3 22:22
PROVIDERS: Orthopaedic Surgery; Admitting Provider Family Medicine; Emergency Provider Emergency Medicine; PCP Family Medicine; Visit Provider Internal Medicine
PROC: 0SRR0J9 Replacement of Right Hip Joint, Femoral Surface with Synthetic Substitute, Cemented, Open Approach (ICD-10-PCS; CPT 27125; principal; 2024-06-11 08:10)
DX: M80.051A Age-related osteoporosis with current pathological fracture, right femur, initial encounter for fracture (principal); C79.31 Secondary malignant neoplasm of brain; C34.90 Malignant neoplasm of unspecified part of unspecified bronchus or lung; N17.9 Acute kidney failure, unspecified; I12.9 Hypertensive chronic kidney disease with stage 1 through stage 4 chronic kidney disease, or unspecified chronic kidney disease; E78.5 Hyperlipidemia, unspecified; S72.001A Fracture of unspecified part of neck of right femur, initial encounter for closed fracture; N18.2 Chronic kidney disease, stage 2 (mild); W18.30XA Fall on same level, unspecified, initial encounter; Z86.73 Personal history of transient ischemic attack (TIA), and cerebral infarction without residual deficits; Z87.891 Personal history of nicotine dependence; Z79.2 Long term (current) use of antibiotics; R73.9 Hyperglycemia, unspecified; Z88.1 Allergy status to other antibiotic agents; R26.81 Unsteadiness on feet; Z79.52 Long term (current) use of systemic steroids; Z79.899 Other long term (current) drug therapy; Z91.011 Allergy to milk products; Z88.6 Allergy status to analgesic agent; Z88.5 Allergy status to narcotic agent; Z88.8 Allergy status to other drugs, medicaments and biological substances; Z87.19 Personal history of other diseases of the digestive system; Z90.49 Acquired absence of other specified parts of digestive tract
CPT/HCPCS: 36415; 70450; 71045; 73502; 80053; 83036; 85025; 85027; 86850; 86900; 86901; 88305; 88311; 93005; 94640; 97116; 97162; 97166; 97530; 97535; 99285; C1776; A4216; J2405